=== PATIENT | female | born 1950 | race Caucasian/White ===

== ENCOUNTER → 2023-03-15 | Outpatient (CLI) | payer MEDICARE ==
--- NOTE | 2023-03-15 19:57 | XR ---
EXAMINATION TYPE: XR shoulder complete 3 views RT DATE OF EXAM: 03/15/2023 Comparison: None Clinical History: 72-year-old female [id number] RT SHLD PAIN Findings: Mild marginal spurring at the AC joint. Subacromial space is preserved. No tendinous or bursal calcif ications. No acute fracture, subluxation, or dislocation seen. Some limitation due to overpenetration . Impression: There may be mild degenerative change at the AC joint. Exam limited by overpenetration. No acute osse ous abnormality seen.
== END | disposition home or self-care (01) ==
LOC: RADXRYALE 14:55
PROVIDERS: ATTEND Physician Assistant
DX: M25.511 Pain in right shoulder (principal)

== ENCOUNTER → 2023-04-10 | Outpatient (CLI) | payer MEDICARE, OTHER ==
--- NOTE | 2023-04-11 12:33 | MR ---
EXAMINATION TYPE: MR cervical spine wo con DATE OF EXAM: 04/10/2023 INDICATION: Patient age: Female; 72 years old; Reason for study: M43.22. Neck pain and numbness into arms, dizziness COMPARISON: None TECHNIQUE: Multi planar, multi sequence imaging was performed utilizing: T1-weighted, T2-weighted, an d turbo inversion recovery imaging of the cervical spine. IV Contrast: None FINDINGS: Alignment: The cervical vertebral bodies have preserved heights. Alignment is within normal limits gi trice patient positioning. Bones: Postsurgical changes throughout the cervical spine extending throughout the entire cervical sp ine with surgical changes and magnetic susceptibility artifact posteriorly and anteriorly. No bony ed carmen visualized on inversion recovery sequences. Cord: The spinal cord is unremarkable with regards to their signal intensity and morphology. Discs: Multilevel disc desiccation at the levels where visualized. C2-C3: No significant disc pathology. The spinal canal is patent. Bilateral facet and uncovertebral joint arthropathy are present with mild left neural foraminal stenosis. The right neural foramen is p atent. C3-C4: No significant disc pathology. The spinal canal is patent. Bilateral facet and uncovertebral joint arthropathy are present with mild to moderate bilateral neural foraminal stenosis. C4-C5: A disc appears surgically absent. There is ankylosis of the osseous structures. The spinal can al is patent. Bilateral facet and uncovertebral joint arthropathy are present with mild left neural foraminal stenosis. The right neural foramen is patent. C5-C6: No significant disc pathology. The spinal canal is patent. Bilateral facet and uncovertebral joint arthropathy are present with moderate bilateral neural foraminal stenosis. C6-C7: No significant disc pathology. The spinal canal is patent. Bilateral facet and uncovertebral joint arthropathy are present with moderate bilateral neural foraminal stenosis. C7-T1: No significant disc pathology. The spinal canal is patent. No neural foraminal stenosis. Other: T1-T2 moderate spinal canal stenosis secondary to disc bulging and osteophyte complex. IMPRESSION: Post surgical changes throughout the spine with patent spinal canal. Degeneration with neural foramin al varying degrees of stenosis as described above. T1-T2 moderate spinal canal stenosis secondary to disc bulging and osteophyte complex.
== END | disposition home or self-care (01) ==
LOC: RADMRIMAIN 20:45
PROVIDERS: ATTEND Family Medicine
DX: M43.22 Fusion of spine, cervical region (principal); M99.71 Connective tissue and disc stenosis of intervertebral foramina of cervical region; M47.812 Spondylosis without myelopathy or radiculopathy, cervical region; M51.34 Other intervertebral disc degeneration, thoracic region
CPT/HCPCS: 72141

== ENCOUNTER 2023-07-09 16:48 | Observation (INO) | payer MEDICARE ==
--- NOTE | 2023-07-09 17:38 | ED ---
General Adult HPI - General Source: patient Mode of arrival: ambulatory Limitations: no limitations <Tabatha Brand - Last Filed: 07/09/23 17:33> - General Source: patient, RN notes reviewed Mode of arrival: ambulatory Limitations: no limitations <Matt Cowart - Last Filed: 07/09/23 19:20> - General Chief complaint: Chest Pain Stated complaint: Abnormal labs,sob Time Seen by Provider: 07/09/23 17:30 - History of Present Illness Initial comments: 73 year old female presents emergency department chief complaint of left-sided chest pain with associated shortness of breath. She states that this pain going on for about a month but worse. She saw her primary care provider who sent her in today. Past medical history includes lupus. No history of CHF, [place]. (Tabatha Brand) Patient is a pleasant 73-year-old female presenting to the emergency department with concerns with shortness of breath. Onset of symptoms was around 3 weeks ago. Symptoms have progressively worsened. Symptoms worsen with exertion. No history of similar symptoms previously. Patient does have some associated heaviness in her chest that is currently rated 6/10. Patient feels nauseated at this time. No diaphoresis. (Matt Cowart) - Related Data Allergies Allergy/AdvReac Type Severity Reaction Status Date / Time Penicillins Allergy Rash/Hives Verified 07/09/23 17:31 vancomycin Allergy Rash/Hives Verified 07/09/23 17:31 Review of Systems ROS Other: All systems not noted in ROS Statement are negative. <Tabatha Brand - Last Filed: 07/09/23 17:33> ROS Other: All systems not noted in ROS Statement are negative. Constitutional: Denies: fever Eyes: Denies: eye pain ENT: Denies: ear pain Respiratory: Reports: as per HPI, dyspnea Cardiovascular: Reports: chest pain, dyspnea on exertion Endocrine: Reports: fatigue Gastrointestinal: Denies: abdominal pain Genitourinary: Denies: dysuria Musculoskeletal: Denies: back pain Skin: Denies: rash <Matt Cowart - Last Filed: 07/09/23 19:20> ROS Statement: Those systems with pertinent positive or pertinent negative responses have been documented in the HPI. Past Medical History Past Medical History: Pneumonia Additional Past Medical History / Comment(s): lupus Past Surgical History: Adenoidectomy, Appendectomy, Bowel Resection, Cholecystectomy, Hysterectomy, Joint Replacement, Orthopedic Surgery, Tonsillectomy Additional Past Surgical History / Comment(s): carpal tunnel. cervical fusion <Tabatha Brand - Last Filed: 07/09/23 17:33> General Exam Limitations: no limitations <Tabatha Brand - Last Filed: 07/09/23 17:33> Limitations: no limitations General appearance: alert, in no apparent distress Head exam: Present: normocephalic Eye exam: Present: normal appearance Neck exam: Present: normal inspection Respiratory exam: Present: normal lung sounds bilaterally Cardiovascular Exam: Present: tachycardia GI/Abdominal exam: Present: soft. Absent: tenderness Extremities exam: Present: pedal edema (Trace bilateral). Absent: calf tenderness Neurological exam: Present: alert Psychiatric exam: Present: normal affect, normal mood Skin exam: Present: normal color <Matt Cowart - Last Filed: 07/09/23 19:20> - General Exam Comments Initial Comments: Visual Physical Exam Vital signs reviewed General: Well-appearing, nontoxic, no acute distress. Head: Normocephalic, atraumatic Eyes: PERRLA, EOMI ENT: Airway patent Chest: Nonlabored breathing Skin: No visual rash, normal skin tone Neuro: Alert and oriented 3 Musculoskeletal: No gross abnormalities (Tabatha Brand) Course Vital Signs 07/09/23 07/09/23 07/09/23 17:26 18:56 18:59 Temperature 98 F 98.2 F Pulse Rate 106 H 97 Pulse Rate [ 96 Photolithographic Stripper ] Respiratory 24 18 20 Rate Blood Pressure 143/77 123/88 O2 Sat by Pulse 95 96 Oximetry EKG Findings - EKG Results: EKG: interpreted by ERMD (Inferior Q waves), sinus rhythm, normal axis, normal ST/T <Matt Cowart - Last Filed: 07/09/23 19:20> Medical Decision Making <Tabatha Brand - Last Filed: 07/09/23 17:33> - Lab Data Result diagrams: 07/09/23 17:54 07/09/23 17:54 <Matt Cowart - Last Filed: 07/09/23 19:20> - Medical Decision Making I preformed the quick note portion of this chart. Electronically signed by Tabatha Brand PA-C (Tabatha Brand) Was pt. sent in by a medical professional or institution (ROSE Hickman, DRAWING KILN SUPERVISOR, urgent care, hospital, or intermediate...) When possible be specific @ -Patient did go to the clinic today and was advised to come to the emergency department. Did you speak to anyone other than the patient for history (EMS, parent, family, police, friend...)? What history was obtained from this source @ -Family is present and helps confirm history including recent visit. Did you review nursing and triage notes (agree or disagree)? Why? @ -I reviewed and agree with nursing and triage notes Were old charts reviewed (outside hosp., previous admission, EMS record, old EKG, old radiological studies, urgent care reports/EKG's, intermediate records)? Report findings @ -No old charts were reviewed Differential Diagnosis (chest pain, altered mental status, abdominal pain women, abdominal pain men, vaginal bleeding, weakness, fever, dyspnea, syncope, headache, dizziness, GI bleed, back pain, seizure, CVA, palpatations, mental health, musculoskeletal)? @ -Differential Chest Pain: Stable Angina, Unstable Angina, STEMI, NSTEMI Aortic Dissection, Pneumothorax, Musculoskeletal, Esophageal Spasm GERD, Cholecystitis, Pancreatitis, Zoster, this is not meant to be an all-inclusive list. EKG interpreted by me (3pts min.). @ -As above X-rays interpreted by me (1pt min.). @ -Chest x-ray shows possible mild interstitial changes CT interpreted by me (1pt min.). @ -None done U/S interpreted by me (1pt. min.). @ -None done What testing was considered but not performed or refused? (CT, X-rays, U/S, labs)? Why? @ -Consider further testing for PE however age d-dimer is within normal limits. What meds were considered but not given or refused? Why? @ -None Did you discuss the management of the patient with other professionals (professionals i.e. ROSE Hickman, DRAWING [employer] SUPERVISOR, lab, RT, psych nurse, social scientist, deck engine operator, teacher, collection officer, nurse case management)? Give summary @ -Case was discussed with Dr. Anderson, who will admit for Dr. Rosado. Was smoking cessation discussed for >3mins.? @ -No Was critical care preformed (if so, how long)? @ -No Were there social determinants of health that impacted care today? How? (Homelessness, low income, unemployed, alcoholism, drug addiction, transpor tation, low edu. Level, literacy, decrease access to med. care, usp, rehab)? @ -No Was there de-escalation of care discussed even if they declined (Discuss DNR or withdrawal of care, Hospice)? DNR status @ -No What co-morbidities impacted this encounter? (DM, HTN, Smoking, COPD, CAD, Cancer, CVA, ARF, Chemo, Hep., AIDS, mental health diagnosis, sleep apnea, morbid obesity)? @ -None Was patient admitted / discharged? Hospital course, mention meds given and route, prescriptions, significant lab abnormalities, going to OR and other pertinent info. @ -Patient reevaluated and mildly improved with nitroglycerin. Patient symptoms are concerning. Patient will be admitted with cardiology consult. Admission orders written. Undiagnosed new problem with uncertain prognosis? @ -No Drug Therapy requiring intensive monitoring for toxicity (Heparin, Nitro, Insulin, Cardizem)? @ -No Were any procedures done? @ -No Diagnosis/symptom? @ -Chest pain Acute, or Chronic, or Acute on Chronic? @ -Acute Uncomplicated (without systemic symptoms) or Complicated (systemic symptoms)? @ -default Side effects of treatment? @ -No Exacerbation, Progression, or Severe Exacerbation? @ -No Poses a threat to life or bodily function? How? (Chest pain, [place], [place], pneumonia, PE, COPD, DKA, ARF, appy, cholecystitis, CVA, Diverticulitis, Homicidal, Suicidal, threat to staff... and all critical care pts) @ -No (Matt Cowart) - Lab Data Lab Results 07/09/23 07/09/23 07/09/23 Range/Units 17:54 17:54 17:54 WBC 9.8 (3.8-10.6) k/uL RBC 4.73 (3.80-5.40) m/uL Hgb 14.2 (11.4-16.0) gm/dL Hct 43.2 (34.0-46.0) % MCV 91.3 (80.0-100.0) fL MCH 29.9 (25.0-35.0) pg MCHC 32.8 (31.0-37.0) g/dL RDW 13.1 (11.5-15.5) % Plt Count 381 (150-450) k/uL MPV 7.1 Neutrophils % 69 % Lymphocytes % 22 % Monocytes % 5 % Eosinophils % 2 % Basophils % 0 % Neutrophils # 6.7 (1.3-7.7) k/uL Lymphocytes # 2.2 (1.0-4.8) k/uL Monocytes # 0.5 (0-1.0) k/uL Eosinophils # 0.2 (0-0.7) k/uL Basophils # 0.0 (0-0.2) k/uL PT 9.7 (9.0-12.0) sec INR 0.9 (<1.2) APTT 25.8 (22.0-30.0) sec D-Dimer (<0.60) mg/L FEU Sodium 136 L (137-145) mmol/L Potassium 4.4 (3.5-5.1) mmol/L Chloride 103 (98-107) mmol/L Carbon Dioxide 24 (22-30) mmol/L Anion Gap 9 mmol/L BUN 10 (7-17) mg/dL Creatinine 0.71 (0.52-1.04) mg/dL Est GFR (CKD-EPI)AfAm >90 (>60 ml/min/1.73 sqM) Est GFR (CKD-EPI)NonAf 86 (>60 ml/min/1.73 sqM) Glucose 97 (74-99) mg/dL Calcium 10.1 (8.4-10.2) mg/dL Magnesium 2.0 (1.6-2.3) mg/dL Total Bilirubin 0.5 (0.2-1.3) mg/dL AST 22 (14-36) U/L ALT 20 (4-34) U/L Alkaline Phosphatase 141 H (38-126) U/L Troponin I (0.000-0.034) ng/mL NT-Pro-B Natriuret Pep 52 pg/mL Total Protein 7.6 (6.3-8.2) g/dL Albumin 4.3 (3.5-5.0) g/dL 07/09/23 07/09/23 Range/Units 17:54 18:20 WBC (3.8-10.6) k/uL RBC (3.80-5.40) m/uL Hgb (11.4-16.0) gm/dL Hct (34.0-46.0) % MCV (80.0-100.0) fL MCH (25.0-35.0) pg MCHC (31.0-37.0) g/dL RDW (11.5-15.5) % Plt Count (150-450) k/uL MPV Neutrophils % % Lymphocytes % % Monocytes % % Eosinophils % % Basophils % % Neutrophils # (1.3-7.7) k/uL Lymphocytes # (1.0-4.8) k/uL Monocytes # (0-1.0) k/uL Eosinophils # (0-0.7) k/uL Basophils # (0-0.2) k/uL PT (9.0-12.0) sec INR (<1.2) APTT (22.0-30.0) sec D-Dimer 0.64 H (<0.60) mg/L FEU Sodium (137-145) mmol/L Potassium (3.5-5.1) mmol/L Chloride (98-107) mmol/L Carbon Dioxide (22-30) mmol/L Anion Gap mmol/L BUN (7-17) mg/dL Creatinine (0.52-1.04) mg/dL Est GFR (CKD-EPI)AfAm (>60 ml/min/1.73 sqM) Est GFR (CKD-EPI)NonAf (>60 ml/min/1.73 sqM) Glucose (74-99) mg/dL Calcium (8.4-10.2) mg/dL Magnesium (1.6-2.3) mg/dL Total Bilirubin (0.2-1.3) mg/dL AST (14-36) U/L ALT (4-34) U/L Alkaline Phosphatase (38-126) U/L Troponin I <0.012 (0.000-0.034) ng/mL NT-Pro-B Natriuret Pep pg/mL Total Protein (6.3-8.2) g/dL Albumin (3.5-5.0) g/dL Disposition <Tabatha Brand - Last Filed: 07/09/23 17:33> Is patient prescribed a controlled substance at d/c from ED?: No Time of Disposition: 19:20 <Matt Cowart - Last Filed: 07/09/23 19:20> Clinical Impression: Chest pain Disposition: ADMITTED IP TO THIS HOSP Referrals: None,Stated [REFERRING] - 1-2 days
[2023-07-09 18:16] LABS: Basophils % (A) 0 %; Eosinophils # (A) 0.2 k/uL (0-0.7); Eosinophils % (A) 2 %; HCT 43.2 % (34.0-46.0); HGB 14.2 gm/dL (11.4-16.0); Lymphocytes # (A) 2.2 k/uL (1.0-4.8); Lymphocytes % (A) 22 %; MCH 29.9 pg (25.0-35.0); MCHC 32.8 g/dL (31.0-37.0); MCV 91.3 fL (80.0-100.0); Mean Platelet Volume 7.1; Monocytes # (A) 0.5 k/uL (0-1.0); Monocytes % (A) 5 %; Neutrophils # (A) 6.7 k/uL (1.3-7.7); Neutrophils % (A) 69 %; Platelet Count 381 k/uL (150-450); RBC 4.73 m/uL (3.80-5.40); RDW 13.1 % (11.5-15.5); WBC 9.8 k/uL (3.8-10.6)
[2023-07-09] MEDS ORDERED: ASPIRIN 81 MG PO STA (18:18)
[2023-07-09] MEDS ORDERED: NITROGLYCERIN SL TABS 0.4 MG TAB SUBLINGUAL STA ×2 (18:18→18:56)
[2023-07-09] MEDS ORDERED: ONDANSETRON 4 MG/2 ML VIAL IVP STA (18:19)
[2023-07-09 18:24] LABS: ALT 20 U/L (4-34); AST 22 U/L (14-36); African American GFR (CKD) >90 (>60 ml/min/1.73 sqM); Albumin 4.3 g/dL (3.5-5.0); Alkaline Phosphatase 141 U/L (38-126); Anion Gap 9 mmol/L; Blood Urea Nitrogen 10 mg/dL (7-17); Calcium 10.1 mg/dL (8.4-10.2); Carbon Dioxide 24 mmol/L (22-30); Chloride 103 mmol/L (98-107); Glucose 97 mg/dL (74-99); Non-African American GFR(CKD) 86 (>60 ml/min/1.73 sqM); Potassium 4.4 mmol/L (3.5-5.1); Sodium 136 mmol/L (137-145); Total Bilirubin 0.5 mg/dL (0.2-1.3); Total Protein 7.6 g/dL (6.3-8.2)
[2023-07-09 18:25] LABS: INR 0.9 (<1.2); Partial Thromboplastin Time 25.8 sec (22.0-30.0); Prothrombin Time 9.7 sec (9.0-12.0)
--- NOTE | 2023-07-09 18:31 | XR ---
EXAMINATION TYPE: XR chest 2V DATE OF EXAM: 07/09/2023 6:20 PM CLINICAL INDICATION:Female, 73 years old with history of Chest Pain; PHH COMPARISON: Chest none TECHNIQUE: XR chest 2V Frontal and lateral views of the chest. FINDINGS: Lungs/Pleura: Low lung volumes are present. There is no evidence of pleural effusion, focal consolida tion, or pneumothorax. Pulmonary vascularity: Unremarkable. Heart/mediastinum: Cardiomediastinal silhouette is unremarkable. Musculoskeletal: No acute osseous pathology. There is fixation hardware in the lower cervical spine. IMPRESSION: Low lung volumes with a generalized hazy appearance which could represent atelectasis versus pulmonar y edema correlate with serum BNP.
[2023-07-09 18:33] LABS: NT-Pro-B-Type Natriuretic Pept 52 pg/mL
[2023-07-09] MEDS ORDERED: ACETAMINOPHEN TAB 500 MG TAB PO STA (18:56)
[2023-07-09] MEDS ORDERED: NITROGLYCERIN SL TABS 0.4 MG TAB SUBLINGUAL PRN (19:20)
[2023-07-09] MEDS: NITROGLYCERIN OINT 1 INCH/GM PACKET TOPICAL SCH (23:58)
[2023-07-10] MEDS ORDERED: LORazepam 1 MG TAB PO STA (00:06)
[2023-07-10] MEDS ORDERED: ATORVASTATIN 80 MG TAB PO STA (02:11)
--- NOTE | 2023-07-10 02:12 | P.HPIM ---
History of Present Illness H&P Date: 07/09/23 Patient is a 73-year-old female with a PMH of SLE, hyperlipidemia, GERD, depression and anxiety, who presents to the emergency room with complaints of chest tightness and shortness of breath. The patient reports that over the past few weeks, she has been experienced gradually worsening exertional chest tightness and dyspnea. Reports that her symptoms have worsened acutely over the past few days to the point where she is unable to perform her ADLs. She denied experiencing chest discomfort at rest. Reports severe 10 out of 10 chest tightness with minimal ambulation with associated shortness of breath, diaphoresis, dizziness, or palpitations. Reported feeling pain-free at the time of interview as she was resting in bed. Does report a chronic nonproductive cough over the past 6 months which she attributes to possible mold and mildew issue in her home for which she has been taking multiple [id number] medications with minimal relief. Does report a history of 2 cardiac catheteriz ations which were unremarkable as per patient. In the emergency room, EKG revealed sinus tachycardia at 10 8 bpm with Q waves in lead 3 and T-wave inversion in lead V2 with no additional ST/T-wave changes noted as reviewed by me. Chest x-ray revealed findings consistent with possible fluid overload. Laboratory evaluation was remarkable for troponin less than 0.012 with d-dimer 0.64, and proBNP 52. ED documentation reviewed and case discussed with ED provider. Review of systems: Pertinent positives and negatives as discussed in HPI, a complete review of systems was performed and all other systems are negative. Physical examination: Vital signs reviewed General: non toxic, no distress, appears at stated age, obese Derm: no unusual rashes/lesions, warm Head: atraumatic, normocephalic, symmetric Eyes: EOMI, no lid lag, anicteric sclera, pupils equal round reactive to light ENT: Nose and ears atraumatic Neck: No cervical lymphadenopathy, trachea midline, supple Mouth: no lip lesion, mucus membranes moist Cardiovascular: S1S2 reg, no murmur, positive dorsalis pedis pulse bilateral, no edema Lungs: CTA bilateral, no rhonchi, no rales, no accessory muscle use Abdominal: soft, nontender to palpation, no guarding Ext: muscle strength 5 out of 5 in all 4 extremities grossly, no gross muscle atrophy, no contractures, Neuro: CN II-XI grossly intact, no gross focal neuro deficits Psych: Alert, oriented, appropriate affect Assessment: Chest pain, rule out ACS Chronic nonproductive cough Chronic conditions: SLE, hyperlipidemia, GERD Imaging: EKG revealed sinus tachycardia at 10 8 bpm with Q waves in lead 3 and T-wave inversion in lead V2 with no additional ST/T-wave changes noted as reviewed by me. Chest x-ray revealed findings consistent with possible fluid overload. Data Review: Laboratory evaluation was remarkable for troponin less than 0.012 with d-dimer 0.64, and proBNP 52. Plan: Cardiology consulted Trend troponin Cardiac monitoring Continue with aspirin and statin Echocardiogram ordered Continue with Toprol 25 mg by mouth daily at bedtime DVT prophylaxis: Lovenox The patient is admitted with an anticipated less than 2 midnight stay for evaluation of chest pain CODE STATUS: Full Code Discussed with: Patient Anticipated discharge place: Home Past Medical History Past Medical History: Pneumonia Additional Past Medical History / Comment(s): lupus Past Surgical History: Adenoidectomy, Appendectomy, Bowel Resection, Cholecystectomy, Hysterectomy, Joint Replacement, Orthopedic Surgery, Tonsillectomy Additional Past Surgical History / Comment(s): carpal tunnel. cervical fusion - Past Family History Mother Family Medical History: Hypertension Medications and Allergies Home Medications Medication Instructions Recorded Confirmed Type Amitriptyline HCl [Elavil] 25 mg PO HS 07/09/23 07/09/23 History Atorvastatin [Lipitor] 20 mg PO HS 07/09/23 07/09/23 History DULoxetine HCL [Cymbalta] 60 mg PO HS 07/09/23 07/09/23 History Hydroxychloroquine Sulfate 400 mg PO HS 07/09/23 07/09/23 History [Plaquenil] Levocetirizine Dihydrochloride 5 mg PO HS 07/09/23 07/09/23 History [Xyzal] Metoprolol Succinate (ER) [Toprol 25 mg PO HS 07/09/23 07/09/23 History Xl] Montelukast Sodium 10 mg PO HS 07/09/23 07/09/23 History tiZANidine HCL [Zanaflex] 2 mg PO HS 07/09/23 07/09/23 History Allergies Allergy/AdvReac Type Severity Reaction Status Date / Time Penicillins Allergy Rash/Hives Verified 07/09/23 19:25 vancomycin Allergy Anaphylaxis Verified 07/09/23 19:25 Physical Exam Vitals: Vital Signs Temp Pulse Pulse Resp BP Pulse Ox 07/09/23 20:26 85 19 119/75 96 07/09/23 19:24 89 93 L 07/09/23 18:59 20 07/09/23 18:56 98.2 F 97 96 18 123/88 96 07/09/23 17:26 98 F 106 H 24 143/77 95 Intake and Output 07/09/23 07/09/23 07/09/23 06:59 14:59 22:59 Other: Weight 113.398 kg Results CBC & Chem 7: 07/09/23 17:54 07/09/23 17:54 Labs: Abnormal Lab Results - Last 24 Hours (Table) 07/09/23 07/09/23 Range/Units 17:54 18:20 D-Dimer 0.64 H (<0.60) mg/L FEU Sodium 136 L (137-145) mmol/L Alkaline Phosphatase 141 H (38-126) U/L
[2023-07-10] MEDS ORDERED: HEPARIN SODIUM,PORCINE 10,000 UNIT in SODIUM CHLORIDE 0.9% 1,000 ML IRRIGATION PRN (07:00)
[2023-07-10] MEDS ORDERED: HEPARIN SODIUM,PORCINE (1 ML) 2,500 UNIT in SODIUM CHLORIDE 0.9% 250 ML IRRIGATION PRN (07:00)
[2023-07-10] MEDS ORDERED: ASPIRIN 325 MG TAB PO SCH (09:00)
[2023-07-10 09:50] LABS: Chol/HDL Ratio 3.61 Ratio; LDL Cholesterol,Calculated 104.2 mg/dL (0.0-131.0)
[2023-07-10] MEDS ORDERED: ASPIRIN 325 MG TAB PO STA (10:54)
[2023-07-10] MEDS ORDERED: ALPRAZolam 0.25 MG TAB PO PRN (10:54)
[2023-07-10] MEDS ORDERED: ALPRAZolam 0.5 MG TAB PO PRN (10:54)
--- NOTE | 2023-07-10 11:01 | P.CRDCN ---
History of Present Illness History of present illness: HISTORY OF PRESENTING ILLNESS Pleasant 73-year-old female with history of hypertension, lupus, prior diverticulitis with perforated bowel, prior issues with chest pains occasionally requiring nitro as well as prior heart catheterizations from 2012 who presents secondary to increase in episodes of chest pain. She states since she moved to the area she has been having increased dyspnea with exertion as well as a cough. Additionally however she has been having chest tightness worse with exertion and improved with rest associated with nausea or diaphoresis and shortness of breath. She states this has been worsening. She denies any obvious source for this. She believes may be related to black mold. She is unsure why her prior heart catheterization for 11 years ago showed. She had more significant episode and therefore came to emergency department. He shows minimal J-point elevation without significant ST or T wave abnormalities. Troponins negative 3. Ddimer mildly elevated at 0.6. REVIEW OF SYSTEMS At the time of my exam: CONSTITUTIONAL: Denies fever or chills. CARDIOVASCULAR: +chest pain, +shortness of breath, no orthopnea, PND or palpitations. RESPIRATORY: +cough. GASTROINTESTINAL: Denies abdominal pain, diarrhea, constipation, nausea or vomiting. MUSCULOSKELETAL: Denies myalgias. NEUROLOGIC: Denies numbness, tingling or weakness. ENDOCRINE: Denies fatigue, weight change, polydipsia or polyurina. GENITOURINARY: Denies burning, hematuria or urgency with micturation. HEMATOLOGIC: Denies history of anemia or bleeding. PHYSICAL EXAMINATION Vital signs reviewed. CONSTITUTIONAL: No apparent distress. HEENT: Head is normocephalic. Pupils are equal, round. Sclerae anicteric. Mucous membranes of the mouth are moist. No JVD. No carotid bruit. CHEST EXAMINATION: Lungs are clear to auscultation. No chest wall tenderness is noted on palpation or with deep breathing. HEART EXAMINATION: Regular rate and rhythm. S1, S2 heard. No murmurs, gallops or rub. ABDOMEN: Soft, nontender. Positive bowel sounds. EXTREMITIES: 2+ peripheral pulses, no lower extremity edema and no calf tenderness. NEUROLOGIC EXAMINATION: Patient is awake, alert and oriented x3. ASSESSMENT 1. New-onset chest pain worsening recently unstable angina 2. HTN 3. Hyperlipidemia 4. Cough may be related to black mold exposure PLAN Is having classic symptoms of chest pain, shortness breath, nausea or diaphoresis worse with exertion and improved with rest. We therefore discussed definitive evaluation with heart catheterization patient agreeable. Check 2-D echo. If unrevealing patient may be discharged home later. Further recommendations to follow. Past Medical History Past Medical History: Pneumonia Additional Past Medical History / Comment(s): lupus Past Surgical History: Adenoidectomy, Appendectomy, Bowel Resection, Cholecystectomy, Hysterectomy, Joint Replacement, Orthopedic Surgery, Tonsillectomy Additional Past Surgical History / Comment(s): carpal tunnel. cervical fusion - Past Family History Mother Family Medical History: Hypertension Medications and Allergies Home Medications Medication Instructions Recorded Confirmed Type Amitriptyline HCl [Elavil] 25 mg PO HS 07/09/23 07/09/23 History Atorvastatin [Lipitor] 20 mg PO HS 07/09/23 07/09/23 History DULoxetine HCL [Cymbalta] 60 mg PO HS 07/09/23 07/09/23 History Hydroxychloroquine Sulfate 400 mg PO HS 07/09/23 07/09/23 History [Plaquenil] Levocetirizine Dihydrochloride 5 mg PO HS 07/09/23 07/09/23 History [Xyzal] Metoprolol Succinate (ER) [Toprol 25 mg PO HS 07/09/23 07/09/23 History Xl] Montelukast Sodium 10 mg PO HS 07/09/23 07/09/23 History tiZANidine HCL [Zanaflex] 2 mg PO HS 07/09/23 07/09/23 History Allergies Allergy/AdvReac Type Severity Reaction Status Date / Time Penicillins Allergy Rash/Hives Verified 07/09/23 19:25 vancomycin Allergy Anaphylaxis Verified 07/09/23 19:25 Physical Exam Vitals: Vital Signs Temp Pulse Pulse Resp BP Pulse Ox 07/10/23 08:30 93 L 07/10/23 06:45 93 19 132/86 96 07/10/23 06:11 79 19 07/10/23 01:56 80 19 07/10/23 00:38 85 19 114/91 93 L 07/10/23 00:13 79 19 118/77 07/09/23 22:08 80 19 107/66 94 L 07/09/23 20:26 85 19 119/75 96 07/09/23 19:24 89 93 L 07/09/23 18:59 20 09/18/23 18:56 98.2 F 97 96 18 123/88 96 07/09/23 17:26 98 F 106 H 24 143/77 95 Intake and Output 07/09/23 07/10/23 07/10/23 22:59 06:59 14:59 Other: Weight 113.398 kg Results 07/09/23 17:54 07/09/23 17:54 Cardiac Enzymes 07/09/23 07/09/23 07/09/23 Range/Units 17:54 17:54 19:38 AST 22 (14-36) U/L Troponin I <0.012 <0.012 (0.000-0.034) ng/mL 07/09/23 Range/Units 23:06 AST (14-36) U/L Troponin I <0.012 (0.000-0.034) ng/mL Coagulation 07/09/23 Range/Units 17:54 PT 9.7 (9.0-12.0) sec APTT 25.8 (22.0-30.0) sec Lipids 07/09/23 Range/Units 17:54 Triglycerides 198.00 H (0.00-149.00) mg/dL Cholesterol 199.00 (0.00-200.00) mg/dL HDL Cholesterol 55.20 (40.00-60.00) mg/dL Cholesterol/HDL Ratio 3.61 Ratio CBC 07/09/23 Range/Units 17:54 WBC 9.8 (3.8-10.6) k/uL RBC 4.73 (3.80-5.40) m/uL Hgb 14.2 (11.4-16.0) gm/dL Hct 43.2 (34.0-46.0) % Plt Count 381 (150-450) k/uL Comprehensive Metabolic Panel 07/09/23 Range/Units 17:54 Sodium 136 L (137-145) mmol/L Potassium 4.4 (3.5-5.1) mmol/L Chloride 103 (98-107) mmol/L Carbon Dioxide 24 (22-30) mmol/L BUN 10 (7-17) mg/dL Creatinine 0.71 (0.52-1.04) mg/dL Glucose 97 (74-99) mg/dL Calcium 10.1 (8.4-10.2) mg/dL AST 22 (14-36) U/L ALT 20 (4-34) U/L Alkaline Phosphatase 141 H (38-126) U/L Total Protein 7.6 (6.3-8.2) g/dL Albumin 4.3 (3.5-5.0) g/dL Current Medications Generic Name Dose Route Start Last Admin Trade Name Freq PRN Reason Stop Dose Admin Alprazolam 0.25 mg 07/10/23 10:54 Alprazolam 0.25 Mg Tab PO Q6HR PRN Mild Anxiety Alprazolam 0.5 mg 07/10/23 10:54 Alprazolam 0.5 Mg Tab PO Q6HR PRN Moderate Anxiety Amitriptyline HCl 25 mg 07/10/23 21:00 Amitriptyline Hcl 25 Mg Tab PO HS AURE Aspirin 325 mg 07/10/23 09:00 07/10/23 08:28 Aspirin 325 Mg Tab PO 325 mg DAILY AURE Administration Aspirin 325 mg 07/10/23 10:54 Aspirin 325 Mg Tab PO 07/10/23 10:55 ONCE STA Atorvastatin Calcium 20 mg 07/10/23 21:00 Atorvastatin 20 Mg Tab PO HS AURE Duloxetine HCl 60 mg 07/10/23 21:00 Duloxetine Hcl 60 Mg Capsule.Dr PO HS AURE Heparin Sodium (Porcine) 10, 1,001 mls @ 999 mls/hr 07/11/23 07:00 000 unit/ Sodium Chloride IRRIGATION 07/11/23 23:00 ONCE PRN INTRA-OP Heparin Sodium (Porcine) 2,500 250.5 mls @ 250 mls/hr 07/11/23 07:00 unit/ Sodium Chloride IRRIGATION 07/11/23 23:00 ONCE PRN INTRA-OP Loratadine 10 mg 07/10/23 21:00 Loratadine 10 Mg Tab PO HS AURE Metoprolol Succinate 25 mg 07/10/23 21:00 Metoprolol Succinate (Er) 25 Mg Tab.Er.24h PO HS AURE Montelukast Sodium 10 mg 07/10/23 21:00 Montelukast 10 Mg Tab PO HS AURE Nitroglycerin 0.4 mg 07/09/23 19:20 Nitroglycerin Sl Tabs 0.4 Mg Tab SUBLINGUAL Q5M PRN Chest Pain Nitroglycerin 1 inch 07/10/23 00:00 07/09/23 23:58 Nitroglycerin Oint 1 Inch/Gm Packet TOPICAL Not Given Q6HR AURE Sodium Chloride 10 ml 07/09/23 21:00 07/10/23 08:33 Sodium Chloride 0.9% Flush 10 Ml Syringe IV 10 ml BID AURE Administration Tizanidine HCl 2 mg 07/10/23 21:00 Tizanidine 4 Mg Tab PO HS [facility] Intake and Output 07/09/23 07/10/23 07/10/23 22:59 06:59 14:59 Other: Weight 113.398 kg 07/09/23 17:54 07/09/23 17:54
[2023-07-10] MEDS ORDERED: KETOROLAC 15 MG/ML 1 ML VIAL IVP STA (11:05)
[2023-07-10] MEDS: NITROGLYCERIN OINT 1 INCH/GM PACKET TOPICAL SCH ×3 (11:41→23:23)
[2023-07-10] MEDS ORDERED: SODIUM CHLORIDE 0.9% 1,000 ML IV STA (12:27)
[2023-07-10] MEDS ORDERED: VERAPAMIL 2.5 MG/ML 2 ML AMP ONE (14:02)
[2023-07-10] MEDS ORDERED: HEPARIN SODIUM 1,000 UN/ML (10ML VL) ONE (14:08)
[2023-07-10] MEDS ORDERED: fentaNYL (PF) 50 MCG/ML 2 ML AMP ONE (14:08)
[2023-07-10] MEDS ORDERED: SODIUM CHLORIDE 0.9% 1,000 ML IV ONE (14:20)
[2023-07-10] MEDS: fentaNYL (PF) 50 MCG/1 ML VIAL IVP ONE ×2 (14:25→14:35)
[2023-07-10] MEDS: MIDAZOLAM 2 MG/2 ML VIAL IVP ONE ×2 (14:25→14:35)
[2023-07-10] MEDS ORDERED: LIDOCAINE 2% (PF) 20 MG/ML 5 ML VIAL SQ ONE (14:29)
[2023-07-10] MEDS ORDERED: VERAPAMIL SYRINGE (5 MG/10 ML) INTRAARTER ONE (14:30)
[2023-07-10] MEDS ORDERED: HEPARIN SODIUM 1,000 UN/ML (10ML VL) IV ONE (14:35)
--- NOTE | 2023-07-10 16:40 | P.CARDCATH ---
Description of Procedure: PROCEDURES PERFORMED: Left heart catheterization, bilateral coronary angiography, ultrasound guided arterial access INDICATION: Chest pain concerning for unstable angina CONSENT:I have discussed the risks, benefits and alternative therapies for the above-mentioned procedure and for both sedation/analgesia as well as necessary blood product administration, if indicated, as they pertain to this patient. The patient has indicated understanding and acceptance of the risks and procedures discussed. PROCEDURE: After the risks, benefits and alternatives of the above mentioned procedure explained in detail with the patient, informed consent was obtained. Patient was taken to the catheterization lab and prepped and draped in usual fashion. Ultrasound guidance was used to assess for arterial access. 1% lidocaine was used to anesthetize the right radial artery. A 6-Macedonian sheath was placed in the right radial artery using modified Seldinger technique and ultrasound guidance. Left coronary angiography was performed with a 5-Macedonian JL 3.5 catheter and right coronary angiography was performed with a 5-Macedonian JR5 catheter in various views. A 5-Macedonian FR5 catheter was inserted into the left ventricle and pressure measurements were obtained. There had been technical difficulties with iFR/FFR and therefore no functional assessment was performed. The right radial sheath was removed and a TR band was placed with hemostasis achieved. The patient tolerated the procedure well. Patient was transported back to the post catheterization holding area in stable condition. Conscious Sedation: Patient was monitored under the direct supervision of myself for conscious sedation using Versed and fentanyl for a total duration of 12 minutes HEMODYNAMICS: Aorta: 122/79 LV: 118/2, LVEDP 3 SELECTIVE CORONARY ARTERIOGRAPHY: LEFT MAIN: The left main is a large caliber vessel which bifurcates into the LAD and circumflex. There is no significant stenosis. LEFT ANTERIOR DESCENDING CORONARY ARTERY: LAD is a large caliber vessel which stops short of the apex with the apex supplied by the PDA. There is mild proximal LAD 20% stenosis and then a moderate caliber diagonal 1 branch without significant stenosis. After the diagonal 1 branch, there is a mid LAD 60-70% stenosis. LEFT CIRCUMFLEX CORONARY ARTERY: Left circumflex is a moderate caliber vessel without significant stenosis. RIGHT CORONARY ARTERY: The right coronary artery is a very large caliber vessel which gives off a PDA and PLV branch and is the dominant vessel. There is mild mid RCA 10% stenosis. The PDA supplies the apex. FINAL IMPRESSION: 1. Mild luminal irregularities and a more focal mid LAD 60-70% stenosis. 2. Normal left sided filling pressures PLAN: 1. Aggressive risk factor modification per most recent ACC/AHA guidelines. 2. Trial antianginals. If patient having more significant angina may consider stress testing or repeat catheterization with functional assessment of LAD lesion.
--- NOTE | 2023-07-10 17:46 | P.PN ---
Subjective Progress Note Date: 07/10/23 (delayed charting seen at 0900) Patient is a 73-year-old female with history of lupus on plaquinil, HLD, and GERD who presented with complaints of chest pain and shortness of breath. In t ER she underwent an extensive evaluation. On arrival is noted to be tachycardic with a pulse of 106. Initial laboratory analysis was remarkable for sodium 136, alkaline phosphatase 141, triglycerides 198, d-dimer 0.64 (which is normal for age), and a troponin of 0.012. Initial EKG was nonischemic. Arrangements are made for admission for workup of unstable angina. She was seen by cardiology who recommended cardiac catheterization which was completed on 07/10 and showed mild luminal irregularities with a more focal mid LAD 60-70% stenosis they recommended a trial of anti-anginal benefit patient continues to have significant angina will consider stress testing or repeat with functional a ssessment of LAD lesion. Patient seen and examined at bedside. She continues to have some intermittent chest pain even at rest. She reports that she did not think her Plaquenil was helping with her joint pain and she did a 3 week trial off of this at the direction of her primary care physician study assistant but it did not help and she then restarted the Plaquenil. She has not seen a canvas marker since moving here in December. She has been having significant fatigue and shortness of breath. She is unable to ambulate even short distances at this time. We discussed that if her workup for ischemic heart disease is negative we should consider rheumatologic evaluation for possible pulmonary manifestations. She complain of a FONTENOT that stated with nitro. Vital signs reviewed General: nontoxic, no distress, appears at stated age Cardiovascular: S1S2 reg, no murmur, positive posterior tibial pulse bilateral, Lungs: CTA bilateral, no rhonchi, no rales , no accessory muscle use Abdominal: soft, nontender to palpation, no guarding, no appreciable organomegaly Ext: no gross muscle atrophy, no edema b/l lower extremities, no contractures Neuro: CN II-XI grossly intact, no focal neuro deficits Psych: Alert, oriented, appropriate affect Assessment/Plan: Chest pain Lupus Dyslipidemia -With 60-70% LAD lesion -Await echocardiogram -Consider outpatient pulmonary function testing and inpatient versus outpatient high-resolution CT given history of lupus and possible cardiac or pulmonary involvement and -Stat ESR and CRP were checked which were within normal limits but not necessarily elevated during these type of lupus exacerbations -Aspirin 81 mg daily -Metoprolol 25 mg at night -Singulair 10 mg at night -Norvasc 2.5 mg daily Headache - toradol 15 mg IVP X 1 Imaging: Cath- LAD 60-70% stenosis Data Review: Troponins reviewed and negative. ESR and CRP ordered. ESR 20, CRP 0.8 DVT prophylaxis: SCDS Anticipated discharge date: in AM Anticipated discharge place: home This dictation was prepared using [employer] voice recognition software. Though every attempt is made to correct errors during dictation some may still exist. Objective - Vital Signs Vital signs: Vital Signs Temp 98.2 F 07/09/23 18:56 Pulse 67 07/10/23 16:41 Resp 16 07/10/23 16:41 BP 120/66 07/10/23 16:41 Pulse Ox 98 07/10/23 16:41 FiO2 Intake & Output 07/09/23 07/10/23 07/10/23 18:59 06:59 18:59 Weight 113.398 kg - Labs CBC & Chem 7: 07/09/23 17:54 07/09/23 17:54 Labs: Abnormal Lab Results - Last 24 Hours (Table) 07/09/23 07/09/23 07/09/23 Range/Units 17:54 17:54 18:20 D-Dimer 0.64 H (<0.60) mg/L FEU Sodium 136 L (137-145) mmol/L Alkaline Phosphatase 141 H (38-126) U/L Triglycerides 198.00 H (0.00-149.00) mg/dL
[2023-07-10] MEDS: amLODIPine 2.5 MG TAB PO SCH (18:18)
[2023-07-10] MEDS ORDERED: ONDANSETRON 4 MG/2 ML VIAL IVP PRN (18:18)
[2023-07-10] MEDS ORDERED: ACETAMINOPHEN TAB 325 MG TAB PO PRN (18:18)
[2023-07-10] MEDS: SODIUM CHLORIDE 0.9% 1,000 ML IV SCH (18:20)
[2023-07-10] MEDS ORDERED: tiZANidine 4 MG TAB PO SCH (21:00)
[2023-07-10] MEDS ORDERED: AMITRIPTYLINE HCL 25 MG TAB PO SCH (21:00)
[2023-07-10] MEDS ORDERED: DULoxetine HCL 60 MG CAPSULE.DR PO SCH (21:00)
[2023-07-10] MEDS ORDERED: MONTELUKAST 10 MG TAB PO SCH (21:00)
[2023-07-10] MEDS ORDERED: ATORVASTATIN 20 MG TAB PO SCH (21:00)
[2023-07-10] MEDS ORDERED: LORATADINE 10 MG TAB PO SCH (21:00)
[2023-07-10] MEDS ORDERED: HYDROXYCHLOROQUINE SULFATE 200 MG TAB PO SCH (21:00)
[2023-07-10] MEDS ORDERED: METOPROLOL SUCCINATE (ER) 25 MG TAB.ER.24H PO SCH (21:00)
[2023-07-10] MEDS: ASPIRIN-ACET-CAFF 250-250-65MG 1 EACH TAB PO PRN (22:07)
[2023-07-11] MEDS: SODIUM CHLORIDE 0.9% 1,000 ML IV SCH ×2 (03:49→15:09)
[2023-07-11] MEDS: NITROGLYCERIN OINT 1 INCH/GM PACKET TOPICAL SCH ×3 (05:46→15:10)
[2023-07-11 07:21] VITALS: RESP 16
[2023-07-11] MEDS ORDERED: IPRATROPIUM-ALBUTEROL 3 ML NEB INHALATION PRN (08:07)
[2023-07-11] MEDS: amLODIPine 2.5 MG TAB PO SCH (08:15)
[2023-07-11] MEDS: ASPIRIN-ACET-CAFF 250-250-65MG 1 EACH TAB PO PRN (08:58)
[2023-07-11] MEDS ORDERED: ASPIRIN 81 MG PO SCH (09:00)
--- NOTE | 2023-07-11 10:48 | P.PN ---
Subjective Progress Note Date: 07/11/23 HISTORY OF PRESENTING ILLNESS Pleasant 73-year-old female with history of hypertension, lupus, prior diver ticulitis with perforated bowel, prior issues with chest pains occasionally requiring nitro as well as prior heart catheterizations from 2011 who presents secondary to increase in episodes of chest pain. She states since she moved to the area she has been having increased dyspnea with exertion as well as a cough. Additionally however she has been having chest tightness worse with exertion and improved with rest associated with nausea or diaphoresis and shortness of breath. She states this has been worsening. She denies any obvious source for this. She believes may be related to black mold. She is unsure why her prior heart catheterization for 11 years ago showed. She had more significant episode and therefore came to emergency department. He shows minimal J-point elevation without significant ST or T wave abnormalities. Troponins negative 3. Ddimer mildly elevated at 0.6. 07/11 Patient is seen today on the observation unit. Yesterday, she underwent a left heart catheterization which showed mild luminal irregularities and a more focal mid LAD 60-70% stenosis. Normal left-sided filling pressures. She states that she feels about the same from yesterday continues to have some lightheadedness when she gets up to the bathroom, continues to have cough that has been going on for couple weeks. She also complains of generalized weakness and sweats. She states that she can't catch her breath it is difficult to take a deep breath. She states after she gets a nebulizer treatment at home she usually coughs for quite a while to the point of vomiting at times. Patient has been afebrile, heart rate in the 80s, blood pressure 124/64 pulse ox 96% on 2 L nasal cannula. Sed rate 20, C-reactive protein 0.8. Complement C3 normal at 168 and complement C4 normal at 30.6. PHYSICAL EXAMINATION Vital signs reviewed. CONSTITUTIONAL: No apparent distress. HEENT: Head is normocephalic. Pupils are equal, round. Sclerae anicteric. Mucous membranes of the mouth are moist. No JVD. No carotid bruit. CHEST EXAMINATION: Lungs are clear to auscultation. No chest wall tenderness is noted on palpation or with deep breathing. HEART EXAMINATION: Regular rate and rhythm. S1, S2 heard. No murmurs, gallops or rub. ABDOMEN: Soft, nontender. Positive bowel sounds. EXTREMITIES: 2+ peripheral pulses, no lower extremity edema and no calf tenderness. NEUROLOGIC EXAMINATION: Patient is awake, alert and oriented x3. ASSESSMENT 1. New-onset chest pain worsening recently unstable angina 2. HTN 3. Hyperlipidemia 4. Cough may be related to black mold exposure PLAN It appears that patient's symptoms are most likely pulmonary related. We will add nebulizer treatment for evaluation of respiratory status. At this time, patient is cleared for discharge and may follow-up in the office. Nurse practitioner note has been reviewed, I agree with the documented findings and plan of care. Patient was seen and examined. Objective - Vital Signs Vital signs: Vital Signs Temp 97.7 F 07/11/23 07:00 Pulse 66 07/11/23 07:00 Resp 16 07/11/23 07:00 BP 124/64 07/11/23 07:00 Pulse Ox 96 07/11/23 07:00 FiO2 Intake & Output 07/10/23 07/11/23 07/11/23 18:59 06:59 18:59 Intake Total 200 Balance 200 Intake: IV 200 Other: # Voids 2 - Labs CBC & Chem 7: 07/09/23 17:54 07/09/23 17:54 Labs: Abnormal Lab Results - Last 24 Hours (Table) 07/09/23 Range/Units 17:54 Triglycerides 198.00 H (0.00-149.00) mg/dL
--- NOTE | 2023-07-11 12:31 | CT ---
EXAMINATION TYPE: CT chest angio for PE DATE OF EXAM: 07/11/2023 COMPARISON: None available. HISTORY: SOB, elevated d-dimer CT DLP: 779.8 mGycm Automated exposure control for dose reduction was used. CONTRAST: CT Chest for pulmonary embolism performed with with IV Contrast, patient injected with 80cc mL of Iso tammy 370. FINDINGS: LUNGS: The lungs are grossly clear, there is no concerning parenchymal mass or nodule identified. T here is no pleural effusion or pneumothorax seen. The tracheobronchial tree is patent. MEDIASTINUM: There is satisfactory enhancement of the pulmonary artery and its branches, there is no CT evidence for pulmonary embolism. There are no greater than 1 cm hilar or mediastinal lymph nodes. No pericardial effusion is seen. Coronary artery calcification is seen within the coronary arteri es. Upper abdomen: Partially visualized cyst within the kidneys. The gallbladder surgically absent. The r emainder the visualized upper abdomen appears unremarkable. Bones: There is some scattered degenerative disc changes seen throughout the spine. There are no acut e osseous abnormalities. OTHER: No additional significant abnormality is seen. IMPRESSION: 1. No evidence of pulmonary embolism. 2. No evidence of thoracic aortic aneurysm or dissection. 3. No evidence of pneumonia, pleural or pericardial effusions.
[2023-07-11 14:27] VITALS: BP 110/61; PULSE 74; TEMP 98.1
--- NOTE | 2023-07-11 17:43 | P.DS ---
Providers Date of admission: 07/09/23 19:23 Expected date of discharge: 07/11/23 Attending physician: Nanette Arenas MD Consults: 07/09/23 19:22 Consult Physician Urgent Consulting Provider: Bob Azar Consult Reason/Comments: cp Do you want consulting provider notified?: Yes Primary care physician: Natalio Avila Hospital Course: Discharge Diagnosis: Dyspnea, suspect due to decondition vs pulmonary involvement of lupus Non cardiac chest pain Chronic cough since exposure to mold Lupus Dyslipidemia Headache Hospital Course: Patient is a 73-year-old female with history of lupus on plaquinil, HLD, and GERD who presented with complaints of chest pain and shortness of breath. In the ER she underwent an extensive evaluation. On arrival is noted to be tachycardic with a pulse of 106. Initial laboratory analysis was remarkable for sodium 136, alkaline phosphatase 141, triglycerides 198, d-dimer 0.64 (which is normal for age), and a troponin of 0.012. Initial EKG was nonischemic. Arrangements are made for admission for workup of unstable angina. She was seen by cardiology who recommended cardiac catheterization which was completed on 07/10 and showed mild luminal irregularities with a more focal mid LAD 60-70% stenosis they recommended a trial of anti-anginal benefit patient continues to h ave significant angina will consider stress testing or repeat with functional assessment of LAD lesion. She underwent echo and CTA of the chest. Formal echo report pending at the time of discharge. CTA showed no pulmonary embolism, no pneumonia, no pleural or pericardial effusion. Her ESR, CRP adn complement levels were within normal limits. She did not have additional chest pain during her hospital stay but did have continued shortness of breath with exertion. She was cleared by cardiology for discharge. I recommended continued outpatient work-up for her cough and chronic dyspnea including pulmonary and rheumatologic evaluation. Follow-up: Dr. fernandes for PFTs and evaluation of chronic cough, Dr. Vasques for CAD, Dr. Sanchez for lupus, and Dr. Avila. Patient seen and examined at bedside. NO over chest pain, still with shortness of breath without wheezing with exertion. We discussed the importance of follow- up for non urgent conditions that could be effecting her breathing neema pulmonary function testing. Vital signs reviewed and stable. General: nontoxic, no distress, appears at stated age Cardiovascular: S1S2 reg, no murmur, positive posterior tibial pulse bilateral, Lungs: CTA bilateral, no rhonchi, no rales , no accessory muscle use Abdominal: soft, nontender to palpation, no guarding, no appreciable organomegaly Ext: no gross muscle atrophy, no edema b/l lower extremities, no contractures Neuro: CN II-XI grossly intact, no focal neuro deficits Psych: Alert, oriented, appropriate affect A total of 25 minutes of time were spent preparing this complex discharge summary. Patient was discharged on 07/11/23. This dictation was prepared using [employer] voice recognition software. Though every attempt is made to correct errors during dictation some may still exist. Patient Condition at Discharge: Stable Plan - Discharge Summary New Discharge Prescriptions: Continue Hydroxychloroquine Sulfate [Plaquenil] 400 mg PO HS Atorvastatin [Lipitor] 20 mg PO HS tiZANidine HCL [Zanaflex] 2 mg PO HS DULoxetine HCL [Cymbalta] 60 mg PO HS Amitriptyline HCl [Elavil] 25 mg PO HS Levocetirizine Dihydrochloride [Xyzal] 5 mg PO HS Metoprolol Succinate (ER) [Toprol XL] 25 mg PO HS Montelukast Sodium 10 mg PO HS Discharge Medication List Amitriptyline HCl [Elavil] 25 mg PO HS 07/09/23 [History] Atorvastatin [Lipitor] 20 mg PO HS 07/09/23 [History] DULoxetine HCL [Cymbalta] 60 mg PO HS 07/09/23 [History] Hydroxychloroquine Sulfate [Plaquenil] 400 mg PO HS 07/09/23 [History] Levocetirizine Dihydrochloride [Xyzal] 5 mg PO HS 07/09/23 [History] Metoprolol Succinate (ER) [Toprol XL] 25 mg PO HS 07/09/23 [History] Montelukast Sodium 10 mg PO HS 07/09/23 [History] tiZANidine HCL [Zanaflex] 2 mg PO HS 07/09/23 [History] Follow up Appointment(s)/Referral(s): Ashwin Vasques DO [STAFF PHYSICIAN] - 1 Week None,Stated [REFERRING] - 1-2 days Anabela Manley MD [STAFF PHYSICIAN] - 1 Week McPhilimy,Natalio, DO [Primary Care Provider] - 1 Week Artinian,Vasken, MD [STAFF PHYSICIAN] - 1 Week Patient Instructions/Handouts: *Surgery [facility] - After Heart Catheterization - Lock Expert Instructions, Chest Pain (DC) Activity/Diet/Wound Care/Special Instructions: Activity: as tolerated Diet: Heart healthy Special Instructions: Please ensure follow-up with rheumatology and pulmonary for further evaluation of your shortness of breath. Discharge Disposition: HOME SELF-CARE
--- NOTE | 2023-07-12 11:22 | CA ---
Transthoracic Echo Report Name: Mariam Espinoza Age: 73 Gender: F : 1950 Exam Date: 07/11/2023 11:13 Exam Location: [facility] Ht (in): 64 Wt (lb): 250 Ordering Physician: Keysha Alcocer DO Attending/Referring Phys: [id number], Carlyn Machine Assembler Supervisor Mireya Timmons RDCS Procedure CPT: Indications: Chest Pain Cardiac Hx: Technical Quality: Poor Contrast 1: Lumason Total Dose (mL): 4 Contrast 2: Total Dose (mL): MEASUREMENTS (Male / Female) Normal Values 2D ECHO LV Diastolic Diameter PLAX 3.6 cm 4.2 - 5.9 / 3.9 - 5.3 cm LV Systolic Diameter PLAX 2.9 cm IVS Diastolic Thickness 1.2 cm 0.6 - 1.0 / 0.6 - 0.9 cm LVPW Diastolic Thickness 1.2 cm 0.6 - 1.0 / 0.6 - 0.9 cm LV Relative Wall Thickness 0.7 M-MODE Aortic Root Diameter MM 3.4 cm LA Systolic Diameter MM 3.9 cm LA Ao Ratio MM 1.2 AV Cusp Separation MM 2.4 cm DOPPLER AV Peak Velocity 152.3 cm/s AV Peak Gradient 9.3 mmHg AV Mean Velocity 118.2 cm/s AV Mean Gradient 5.9 mmHg AV Velocity Time Integral 32.4 cm LVOT Peak Velocity 88.6 cm/s LVOT Peak Gradient 3.1 mmHg LVOT Velocity Time Integral 21.9 cm MV Area PHT 4.5 cm??? Mitral E Point Velocity 67.0 cm/s Mitral A Point Velocity 103.0 cm/s Mitral E to A Ratio 0.7 MV Deceleration Time 168.0 ms MV E' Velocity 6.7 cm/s Mitral E to MV E' Ratio 10.1 TR Peak Velocity 226.4 cm/s TR Peak Gradient 20.5 mmHg Right Ventricular Systolic Press 25.5 mmHg FINDINGS Left Ventricle Mildly increased left ventricular wall thickness. Left ventricular cavity size normal. Normal left ventricular systolic function with no obvious regional wall motion abnormalities. Left ventricular ejection fraction is estimated at 55 %. Right Ventricle Right ventricle not well visualized. Right Atrium Right atrium not well visualized. Left Atrium Normal left atrial size. Mitral Valve Mitral valve not well visualized. No mitral stenosis, regurgitation or prolapse. Aortic Valve No aortic valve stenosis or regurgitation. Tricuspid Valve Structurally normal tricuspid valve. [id number] tricuspid regurgitation. Pulmonic Valve Trace pulmonic regurgitation. Pericardium No pericardial effusion. Prominent epicardial fat. Aorta Normal size aortic root and proximal ascending aorta. CONCLUSIONS Left ventricular ejection fraction 55% No mitral regurgitation Mild to moderate tricuspid regurgitation No pericardial effusion Previewed by: Dr. Ashwin Vasques DO (Electronically Signed) Final Date: 12 July 2023 11:21
== END 2023-07-11 18:07 | disposition home or self-care (01) ==
LOC: EC 16:48 → 6NMEDSUR 19:23
PROVIDERS: ADMIT Family Medicine; ATTEND Family Medicine
DX: R07.89 Other chest pain (principal); M32.9 Systemic lupus erythematosus, unspecified; R06.00 Dyspnea, unspecified; I25.10 Atherosclerotic heart disease of native coronary artery without angina pectoris; I10 Essential (primary) hypertension; E78.5 Hyperlipidemia, unspecified; K21.9 Gastro-esophageal reflux disease without esophagitis; R11.2 Nausea with vomiting, unspecified; R61 Generalized hyperhidrosis; R00.0 Tachycardia, unspecified; R53.83 Other fatigue; R51.9 Headache, unspecified; T46.3X5A Adverse effect of coronary vasodilators, initial encounter; R05.3 Chronic cough; Z77.120 Contact with and (suspected) exposure to mold (toxic); F32.A Depression, unspecified; Z79.899 Other long term (current) drug therapy; Z88.0 Allergy status to penicillin; Z88.1 Allergy status to other antibiotic agents; F41.9 Anxiety disorder, unspecified; Z87.01 Personal history of pneumonia (recurrent); Z90.710 Acquired absence of both cervix and uterus; Z87.19 Personal history of other diseases of the digestive system; Z98.1 Arthrodesis status; Z96.60 Presence of unspecified orthopedic joint implant; Z90.49 Acquired absence of other specified parts of digestive tract; Z98.890 Other specified postprocedural states; Z82.49 Family history of ischemic heart disease and other diseases of the circulatory system
CPT/HCPCS: 96374; 96375; 99285; 36415; 94640; 93005; 93458; 76937; 86160 ×2; 85379; 86162; 83880; 80061; 80053; 85652; 83735; 84484; 85025; 85610; 85730; 86140; 71046; 71275; G0378 ×3; C8929; C1769 ×2; C1894; J2250; J2405; J1644; J1885; Q9950; Q9967; J2001; J3010; 93306

== ENCOUNTER 2023-09-03 09:36 | Observation (INO) | payer MEDICARE ==
--- NOTE | 2023-09-03 09:50 | ED ---
General Adult HPI - General Chief complaint: Chest Pain Stated complaint: CHEST PAIN Time Seen by Provider: 09/03/23 09:40 Source: patient, EMS, RN notes reviewed, old records reviewed Mode of arrival: EMS Limitations: no limitations - History of Present Illness Initial comments: This is a 73-year-old female who presents emergency Department complaining of intermittent chest pain or shortness of breath over a month. Patient states she had cardiac cath was told she had a 70% occlusion but no stent was placed. Patient states her difficulty breathing is worse with exertion. Patient denies any fever chills. Patient states she does have an occasional cough per patient swelling to the legs or calf tenderness. Patient denies any headache patient d enies any numbness weakness. Patient denies abdominal pain palpitations nausea vomiting diarrhea. - Related Data Home Medications Medication Instructions Recorded Confirmed Amitriptyline HCl [Elavil] 25 mg PO HS 07/09/23 07/09/23 Atorvastatin [Lipitor] 20 mg PO HS 07/09/23 07/09/23 DULoxetine HCL [Cymbalta] 60 mg PO HS 07/09/23 07/09/23 Hydroxychloroquine Sulfate 400 mg PO HS 07/09/23 07/09/23 [Plaquenil] Levocetirizine Dihydrochloride 5 mg PO HS 07/09/23 07/09/23 [Xyzal] Metoprolol Succinate (ER) [Toprol 25 mg PO HS 07/09/23 07/09/23 XL] Montelukast Sodium 10 mg PO HS 07/09/23 07/09/23 tiZANidine HCL [Zanaflex] 2 mg PO HS 07/09/23 07/09/23 Allergies Allergy/AdvReac Type Severity Reaction Status Date / Time Penicillins Allergy Rash/Hives Verified 07/09/23 19:25 vancomycin Allergy Anaphylaxis Verified 07/09/23 19:25 Review of Systems ROS Statement: Those systems with pertinent positive or pertinent negative responses have been documented in the HPI. ROS Other: All systems not noted in ROS Statement are negative. Past Medical History Past Medical History: Pneumonia Additional Past Medical History / Comment(s): lupus History of Any Multi-Drug Resistant Organisms: None Reported Past Surgical History: Adenoidectomy, Appendectomy, Bowel Resection, Cholecystectomy, Hysterectomy, Joint Replacement, Orthopedic Surgery, Tonsillectomy Additional Past Surgical History / Comment(s): carpal tunnel. cervical fusion Past Psychological History: Depression, PTSD Smoking Status: Never smoker Past Alcohol Use History: Rare Past Drug Use History: None Reported - Past Family History Mother Family Medical History: Hypertension General Exam - General Exam Comments Initial Comments: GENERAL: Patient is well-developed and well-nourished. Patient is nontoxic and well- hydrated and is in mild distress. ENT: Neck is soft and supple. No significant lymphadenopathy is noted. Oropharynx is clear. Moist mucous membranes. Neck has full range of motion without eliciting any pain. EYES: The sclera were anicteric and conjunctiva were pink and moist. Extraocular movements were intact and pupils were equal round and reactive to light. Eyelids were unremarkable. PULMONARY: Unlabored respirations. Good breath sounds bilaterally. No audible rales rhonchi or wheezing was noted. CARDIOVASCULAR: There is a regular rate and rhythm without any murmurs gallops or rubs. ABDOMEN: Soft and nontender with normal bowel sounds. SKIN: Skin is clear with no lesions or rashes and otherwise unremarkable. NEUROLOGIC: Patient is alert and oriented x3. Cranial nerves II through XII are grossly intact. Motor and sensory are also intact. Normal speech, volume and content. Symmetrical smile. MUSCULOSKELETAL: Normal extremities with adequate strength and full range of motion. No lower extremity swelling or edema. No calf tenderness. LYMPHATICS: No significant lymphadenopathy is noted PSYCHIATRIC: Normal psychiatric evaluation. Limitations: no limitations Course Vital Signs 09/03/23 09:38 Temperature 98.4 F Pulse Rate 93 Respiratory 18 Rate Blood Pressure 149/110 O2 Sat by Pulse 94 L Oximetry Medical Decision Making - Medical Decision Making EKG is interpreted by myself. EKG shows a sinus rhythm at 62 bpm VA interval 292 QRS is 93 QT interval 41 QTC is 47. Patient's EKG shows no ST segment elevation or depression. Was pt. sent in by a medical professional or institution (, PA, MSW, urgent care, hospital, or half-way...) When possible be specific @ -No Did you speak to anyone other than the patient for history (EMS, parent, family, police, friend...)? What history was obtained from this source @ -No Did you review nursing and triage notes (agree or disagree)? Why? @ -I reviewed and agree with nursing and triage notes Were old charts reviewed (outside hosp., previous admission, EMS record, old EKG, old radiological studies, urgent care reports/EKG's, half-way records)? Report findings @ -I reviewed prior charts and prior lab work on this patient Differential Diagnosis (chest pain, altered mental status, abdominal pain women, abdominal pain men, vaginal bleeding, weakness, fever, dyspnea, syncope, headache, dizziness, GI bleed, back pain, seizure, CVA, palpatations, mental health, musculoskeletal)? @ -Differential Chest Pain: Stable Angina, Unstable Angina, STEMI, NSTEMI Aortic Dissection, Pneumothorax, Musculoskeletal, Esophageal Spasm GERD, Cholecystitis, Pancreatitis, Zoster, this is not meant to be an all-inclusive list. EKG interpreted by me (3pts min.). @ -As above X-rays interpreted by me (1pt min.). @ -Chest x-ray shows no acute abnormality CT interpreted by me (1pt min.). @ -None done U/S interpreted by me (1pt. min.). @ -None done What testing was considered but not performed or refused? (CT, X-rays, U/S, labs)? Why? @ -None What meds were considered but not given or refused? Why? @ -None Did you discuss the management of the patient with other professionals (professionals i.e. , PA, MSW, lab, RT, psych nurse, social media editor, associate chief nurse, teacher, youth corrections officer, welfare case worker)? Give summary @ -I spoke with . she he agreed to admit the patient Was smoking cessation discussed for >3mins.? @ -No Was critical care preformed (if so, how long)? @ -No Were there social determinants of health that impacted care today? How? (Homelessness, low income, unemployed, alcoholism, drug addiction, transportation, low edu. Level, literacy, decrease access to med. care, group home, r ehab)? @ -No Was there de-escalation of care discussed even if they declined (Discuss DNR or withdrawal of care, Hospice)? DNR status @ -No What co-morbidities impacted this encounter? (DM, HTN, Smoking, COPD, CAD, Cancer, CVA, ARF, Chemo, Hep., AIDS, mental health diagnosis, sleep apnea, morbid obesity)? @ -None Was patient admitted / discharged? Hospital course, mention meds given and route, prescriptions, significant lab abnormalities, going to OR and other pertinent info. @ -Patient had lab work and x-rays done both were within normal range. Patient continued to have some difficulty breathing and some chest pain in the emergency department. I spoke with Dr. loera he agreed to admit the patient admitted the patient wrote admitting orders Undiagnosed new problem with uncertain prognosis? @ -No Drug Therapy requiring intensive monitoring for toxicity (Heparin, Nitro, Insulin, Cardizem)? @ -No Were any procedures done? @ -No Diagnosis/symptom? @ -Chest pain Acute, or Chronic, or Acute on Chronic? @ -Acute Uncomplicated (without systemic symptoms) or Complicated (systemic symptoms)? @ -Complicated Side effects of treatment? @ -No Exacerbation, Progression, or Severe Exacerbation? @ -No Poses a threat to life or bodily function? How? (Chest pain, [place], [place], pneumonia, PE, COPD, DKA, ARF, appy, cholecystitis, CVA, Diverticulitis, Homicidal, Suicidal, threat to staff... and all critical care pts) @ -Yes this could lead to an [place] and end organ dysfunction Diagnosis/symptom? @ -Dyspnea Acute, or Chronic, or Acute on Chronic? @ -Acute Uncomplicated (without systemic symptoms) or Complicated (systemic symptoms)? @ -Complicated Side effects of treatment? @ -none Exacerbation, Progression, or Severe Exacerbation] @ -no Poses a threat to life or bodily function? @ -no - Lab Data Result diagrams: 09/03/23 09:55 09/03/23 09:55 Lab Results 09/03/23 09/03/23 09/03/23 Range/Units 09:55 09:55 09:55 WBC 6.9 (3.8-10.6) k/uL RBC 4.64 (3.80-5.40) m/uL Hgb 14.0 (11.4-16.0) gm/dL Hct 40.5 (34.0-46.0) % MCV 87.3 (80.0-100.0) fL MCH 30.2 (25.0-35.0) pg MCHC 34.6 (31.0-37.0) g/dL RDW 13.8 (11.5-15.5) % Plt Count 386 (150-450) k/uL MPV 7.5 Neutrophils % 66 % Lymphocytes % 20 % Monocytes % 8 % Eosinophils % 2 % Basophils % 0 % Neutrophils # 4.5 (1.3-7.7) k/uL Lymphocytes # 1.4 (1.0-4.8) k/uL Monocytes # 0.6 (0-1.0) k/uL Eosinophils # 0.1 (0-0.7) k/uL Basophils # 0.0 (0-0.2) k/uL PT 10.1 (10.0-12.5) sec INR 0.9 (<1.2) APTT 25.0 (22.0-30.0) sec D-Dimer 0.67 H (<0.60) mg/L FEU Sodium 138 (137-145) mmol/L Potassium 4.1 (3.5-5.1) mmol/L Chloride 105 (98-107) mmol/L Carbon Dioxide 24 (22-30) mmol/L Anion Gap 9 mmol/L BUN 10 (7-17) mg/dL Creatinine 0.63 (0.52-1.04) mg/dL Est GFR (CKD-EPI)AfAm >90 (>60 ml/min/1.73 sqM) Est GFR (CKD-EPI)NonAf >90 (>60 ml/min/1.73 sqM) Glucose 86 (74-99) mg/dL Calcium 10.2 (8.4-10.2) mg/dL Magnesium 2.0 (1.6-2.3) mg/dL Total Bilirubin 0.6 (0.2-1.3) mg/dL AST 24 (14-36) U/L ALT 22 (4-34) U/L Alkaline Phosphatase 132 H (38-126) U/L Troponin I (0.000-0.034) ng/mL NT-Pro-B Natriuret Pep 112 pg/mL Total Protein 7.5 (6.3-8.2) g/dL Albumin 4.4 (3.5-5.0) g/dL 09/03/23 Range/Units 09:55 WBC (3.8-10.6) k/uL RBC (3.80-5.40) m/uL Hgb (11.4-16.0) gm/dL Hct (34.0-46.0) % MCV (80.0-100.0) fL MCH (25.0-35.0) pg MCHC (31.0-37.0) g/dL RDW (11.5-15.5) % Plt Count (150-450) k/uL MPV Neutrophils % % Lymphocytes % % Monocytes % % Eosinophils % % Basophils % % Neutrophils # (1.3-7.7) k/uL Lymphocytes # (1.0-4.8) k/uL Monocytes # (0-1.0) k/uL Eosinophils # (0-0.7) k/uL Basophils # (0-0.2) k/uL PT (10.0-12.5) sec INR (<1.2) APTT (22.0-30.0) sec D-Dimer (<0.60) mg/L FEU Sodium (137-145) mmol/L Potassium (3.5-5.1) mmol/L Chloride (98-107) mmol/L Carbon Dioxide (22-30) mmol/L Anion Gap mmol/L BUN (7-17) mg/dL Creatinine (0.52-1.04) mg/dL Est GFR (CKD-EPI)AfAm (>60 ml/min/1.73 sqM) Est GFR (CKD-EPI)NonAf (>60 ml/min/1.73 sqM) Glucose (74-99) mg/dL Calcium (8.4-10.2) mg/dL Magnesium (1.6-2.3) mg/dL Total Bilirubin (0.2-1.3) mg/dL AST (14-36) U/L ALT (4-34) U/L Alkaline Phosphatase (38-126) U/L Troponin I <0.012 (0.000-0.034) ng/mL NT-Pro-B Natriuret Pep pg/mL Total Protein (6.3-8.2) g/dL Albumin (3.5-5.0) g/dL Disposition Clinical Impression: Chest pain, Dyspnea Disposition: ADMITTED IP TO THIS HOSP Referrals: None,Stated [Primary Care Provider] - 1-2 days Time of Disposition: 11:04
--- NOTE | 2023-09-03 10:20 | XR ---
EXAMINATION TYPE: XR chest 2V DATE OF EXAM: 09/03/2023 COMPARISON: 07/09/2023 HISTORY: Shortness of breath TECHNIQUE: Frontal and lateral views of the chest are obtained. FINDINGS: Scattered senescent parenchymal changes noted. Hyperinflation compatible with COPD. No evidence for infiltrate. No evidence for atelectasis. Heart size is stable. Mediastinal structures are stable and grossly unremarkable. No evidence for hilar prominence. Degenerative changes dorsal spine. IMPRESSION: 1. No evidence for acute pulmonary disease.
[2023-09-03 10:25] LABS: ALT 22 U/L (4-34); AST 24 U/L (14-36); African American GFR (CKD) >90 (>60 ml/min/1.73 sqM); Albumin 4.4 g/dL (3.5-5.0); Alkaline Phosphatase 132 U/L (38-126); Anion Gap 9 mmol/L; Blood Urea Nitrogen 10 mg/dL (7-17); Calcium 10.2 mg/dL (8.4-10.2); Carbon Dioxide 24 mmol/L (22-30); Chloride 105 mmol/L (98-107); Glucose 86 mg/dL (74-99); Non-African American GFR(CKD) >90 (>60 ml/min/1.73 sqM); Potassium 4.1 mmol/L (3.5-5.1); Sodium 138 mmol/L (137-145); Total Bilirubin 0.6 mg/dL (0.2-1.3); Total Protein 7.5 g/dL (6.3-8.2)
[2023-09-03 10:26] LABS: INR 0.9 (<1.2); Prothrombin Time 10.1 sec (10.0-12.5)
[2023-09-03 10:33] LABS: NT-Pro-B-Type Natriuretic Pept 112 pg/mL
[2023-09-03 10:37] LABS: Basophils % (A) 0 %; Eosinophils # (A) 0.1 k/uL (0-0.7); Eosinophils % (A) 2 %; HCT 40.5 % (34.0-46.0); Lymphocytes # (A) 1.4 k/uL (1.0-4.8); Lymphocytes % (A) 20 %; MCH 30.2 pg (25.0-35.0); MCHC 34.6 g/dL (31.0-37.0); MCV 87.3 fL (80.0-100.0); Mean Platelet Volume 7.5; Monocytes # (A) 0.6 k/uL (0-1.0); Monocytes % (A) 8 %; Neutrophils # (A) 4.5 k/uL (1.3-7.7); Neutrophils % (A) 66 %; Platelet Count 386 k/uL (150-450); RBC 4.64 m/uL (3.80-5.40); RDW 13.8 % (11.5-15.5); WBC 6.9 k/uL (3.8-10.6)
[2023-09-03] MEDS ORDERED: NITROGLYCERIN SL TABS 0.4 MG TAB SUBLINGUAL PRN (11:04)
[2023-09-03] MEDS ORDERED: NITROGLYCERIN OINT 1 INCH/GM PACKET TOPICAL SCH (12:00)
[2023-09-03] MEDS ORDERED: ZOLPIDEM 5 MG TAB PO PRN (12:06)
[2023-09-03] MEDS ORDERED: tiZANidine 4 MG TAB PO PRN (12:06)
[2023-09-03] MEDS ORDERED: ONDANSETRON 4 MG TAB PO PRN (13:29)
--- NOTE | 2023-09-03 14:29 | P.CRDCN ---
History of Present Illness Consult date: 09/03/23 Consult reason: chest pain History of present illness: History of present illness: This is a 73-year-old female patient of Dr. Vasques with past medical history of hypertension, lupus, prior diverticulitis with perforated bowel, chest pain, coronary artery disease. Patient had a recent hospitalization in June at which time she underwent cardiac catheterization on 07/10 which revealed mid LAD 60-70% stenosis. Echocardiogram revealed EF of 55% with no significant valve issues. CTA of the chest was negative for pulmonary embolism pneumonia and pleural effusions. Patient has had follow-up in the office and continues feeling poorly having more dyspnea with exertion and chest pressure with exertion. Patient was scheduled for Lexiscan stress test on Sunday in the office. Patient states that she developed severe same type of chest discomfort over the weekend and significant shortness of breath with exertion. She is only able to walk her dog a very short distance now and develops chest pain and shortness of breath. EKG sinus rhythm Chest x-ray: No acute process CBC normal. D-dimer 0.67. INR 0.9. Electrolytes renal function, normal. Troponin negative 2. Liver function tests unremarkable. ProBNP 112 area and Home cardiac medications: Atorvastatin 20 mg at bedtime, Plaquenil 400 mg at bedtime, Imdur 30 mg at bedtime, Toprol-XL 25 mg at bedtime. Review Of Systems: At the time of my evaluation: Constitutional: No fever, no chills. No weakness, fatigue or lethargy. EENT: No headache. No dizziness. Lungs: No shortness of breath, cough, no sputum production. No wheezing. Reports dyspnea on exertion Cardiovascular: Reports chest pain, no lower extremity edema. No palpitations. No paroxysmal nocturnal dyspnea. No orthopnea. No lightheadedness or dizziness. No syncopal episodes. Abdominal: No abdominal pain. No nausea, vomiting. No diarrhea. No bloody or tarry stools. Musculoskeletal: No myalgias. No muscle weakness, no frequent falls. Integumentary: No wounds. No rash. No unusual bruising. Neurologic: No aphasia. No facial droop. No change in mentation. Physical examination: Gen: This is a 73-year-old female. She is resting in bed appears to be comfortable and in no acute distress. VS: reviewed HEENT: Head is atraumatic, normocephalic. Pupils equal, round. Sclerae is anicteric. NECK: Supple. No JVD. LUNGS: Clear to auscultation. No wheezes or rhonchi. No intercostal retractions. HEART: Regular rate and rhythm. No murmur. ABDOMEN: Soft No tenderness. EXTREMITIES: No pedal edema. NEUROLOGICAL: Patient is awake, alert and oriented x3. Assessment: Chest pain, acute coronary syndrome ruled out Exertional dyspnea and chest pain, known coronary artery disease with LAD 60-70% stenosis Hypertension Lupus Plan: Continue patient's home cardiac medications No need to repeat echocardiogram Schedule patient for Lexiscan stress test tomorrow Nothing by mouth after midnight Further recommendations to follow based upon clinical course Thank you kindly for this consultation. Nurse practitioner note has been reviewed, I agree with documented findings and plan of care. Patient was seen and examined. Past Medical History Past Medical History: Pneumonia Additional Past Medical History / Comment(s): lupus History of Any Multi-Drug Resistant Organisms: None Reported Past Surgical History: Adenoidectomy, Appendectomy, Bowel Resection, Ch olecystectomy, Hysterectomy, Joint Replacement, Orthopedic Surgery, Tonsillectomy Additional Past Surgical History / Comment(s): carpal tunnel. cervical fusion Past Psychological History: Depression, PTSD Smoking Status: Never smoker Past Alcohol Use History: Rare Past Drug Use History: None Reported - Past Family History Mother Family Medical History: Hypertension Medications and Allergies Home Medications Medication Instructions Recorded Confirmed Type Amitriptyline HCl [Elavil] 25 mg PO HS 07/09/23 09/03/23 History Atorvastatin [Lipitor] 20 mg PO HS 07/09/23 09/03/23 History DULoxetine HCL [Cymbalta] 60 mg PO HS 07/09/23 09/03/23 History Hydroxychloroquine Sulfate 400 mg PO HS 07/09/23 09/03/23 History [Plaquenil] Levocetirizine Dihydrochloride 5 mg PO HS 07/09/23 09/03/23 History [Xyzal] Metoprolol Succinate (ER) [Toprol 25 mg PO HS 07/09/23 09/03/23 History XL] Montelukast Sodium 10 mg PO HS 07/09/23 09/03/23 History Ergocalciferol (Vitamin D2) 1,250 mcg PO MO 09/03/23 09/03/23 History [Drisdol (50,000 Iu)] Isosorbide Mononitrate ER [Imdur] 30 mg PO HS 09/03/23 09/03/23 History Omeprazole 40 mg PO HS 09/03/23 09/03/23 History Zolpidem [Ambien] 5 mg PO HS PRN 09/03/23 09/03/23 History tiZANidine [Zanaflex] 4 mg PO HS PRN 09/03/23 09/03/23 History Allergies Allergy/AdvReac Type Severity Reaction Status Date / Time Penicillins Allergy Rash/Hives Verified 09/03/23 11:35 vancomycin Allergy Anaphylaxis Verified 09/03/23 11:35 Physical Exam Vitals: Vital Signs Temp Pulse Resp BP Pulse Ox 09/03/23 12:03 81 18 125/80 95 09/03/23 11:01 108 H 18 156/110 95 09/03/23 09:38 98.4 F 93 18 149/110 94 L Intake and Output 09/02/23 09/03/23 09/03/23 22:59 06:59 14:59 Intake Total 118 Balance 118 Intake: Oral 118 Other: Weight 99.79 kg Results 09/03/23 09:55 09/03/23 09:55 Cardiac Enzymes 09/03/23 09/03/23 09/03/23 Range/Units 09:55 09:55 12:02 AST 24 (14-36) U/L Troponin I <0.012 <0.012 (0.000-0.034) ng/mL Coagulation 09/03/23 Range/Units 09:55 PT 10.1 (10.0-12.5) sec APTT 25.0 (22.0-30.0) sec CBC 09/03/23 Range/Units 09:55 WBC 6.9 (3.8-10.6) k/uL RBC 4.64 (3.80-5.40) m/uL Hgb 14.0 (11.4-16.0) gm/dL Hct 40.5 (34.0-46.0) % Plt Count 386 (150-450) k/uL Comprehensive Metabolic Panel 09/03/23 Range/Units 09:55 Sodium 138 (137-145) mmol/L Potassium 4.1 (3.5-5.1) mmol/L Chloride 105 (98-107) mmol/L Carbon Dioxide 24 (22-30) mmol/L BUN 10 (7-17) mg/dL Creatinine 0.63 (0.52-1.04) mg/dL Glucose 86 (74-99) mg/dL Calcium 10.2 (8.4-10.2) mg/dL AST 24 (14-36) U/L ALT 22 (4-34) U/L Alkaline Phosphatase 132 H (38-126) U/L Total Protein 7.5 (6.3-8.2) g/dL Albumin 4.4 (3.5-5.0) g/dL Current Medications Generic Name Dose Route Start Last Admin Trade Name Freq PRN Reason Stop Dose Admin Amitriptyline HCl 25 mg 09/03/23 21:00 Amitriptyline Hcl 25 Mg Tab PO HS [facility] Aspirin 81 mg 09/04/23 09:00 Aspirin 81 Mg PO DAILY [facility] Atorvastatin Calcium 20 mg 09/03/23 21:00 Atorvastatin 20 Mg Tab PO HS [facility] Duloxetine HCl 60 mg 09/03/23 21:00 Duloxetine Hcl 60 Mg Capsule.Dr PO HS [facility] Enoxaparin Sodium 40 mg 09/04/23 09:00 Enoxaparin 40 Mg/0.4 Ml Syringe SQ DAILY [facility] Isosorbide Mononitrate 30 mg 09/03/23 21:00 Isosorbide Mononitrate Er 30 Mg Tab.Er.24h PO HS [facility] Metoprolol Succinate 25 mg 09/03/23 21:00 Metoprolol Succinate (Er) 25 Mg Tab.Er.24h PO HS [facility] Montelukast Sodium 10 mg 09/03/23 21:00 Montelukast 10 Mg Tab PO HS [facility] Nitroglycerin 0.4 mg 09/03/23 11:04 Nitroglycerin Sl Tabs 0.4 Mg Tab SUBLINGUAL Q5M PRN Chest Pain Ondansetron HCl 4 mg 09/03/23 13:29 Ondansetron 4 Mg Tab PO ONCE PRN Nausea And Vomiting Pantoprazole Sodium 40 mg 09/03/23 21:00 Pantoprazole 40 Mg Tablet PO HS [facility] Tizanidine HCl 4 mg 09/03/23 12:06 Tizanidine 4 Mg Tab PO HS PRN Muscle Pain Zolpidem Tartrate 5 mg 09/03/23 12:06 Zolpidem 5 Mg Tab PO HS PRN Insomnia Intake and Output 09/02/23 09/03/23 09/03/23 22:59 06:59 14:59 Intake Total 118 Balance 118 Intake: Oral 118 Other: Weight 99.79 kg Patient Weight 09/04/23 06:59 Weight 99.79 kg 09/03/23 09:55 09/03/23 09:55
--- NOTE | 2023-09-03 14:58 | P.HPIM ---
History of Present Illness H&P Date: 09/03/23 History of Presenting Illness: Patient is a very pleasant 73-year-old female with a past medical history of known coronary artery disease follows Dr. Vasques outpatient and had recent cardiac catheterization 07/09/23 revealing mid LAD stenosis approximated at 60- 70% and was started on Imdur at that time, hypertension, hyperlipidemia, depression, and lupus. She presented to the emergency department secondary to a chief complaint of chest pain. Patient reports she has been having continued intermittent chest pain and shortness of breath ongoing for the past 2 months. Patient states worsening exertional dyspnea and noticing newly developing lower extremity edema. She reports awakening in the middle of the night short of breath and with chest pain/pressure. Patient states this pain comes and goes and is described as a tightness/pressure like feeling. She reports occasional shortness of breath at rest but significantly worsens with exertion. Patient reports these symptoms have progressively worsened and before chest pain would only be every now and then is now each and every time with exertion. Patient reports today she not only experienced the same intermittent chest pain/discomfort but also experienced significant shortness of breath accompanied by dizziness/lightheadedness and numbness and tingling throughout her neck and into her jaw. Patient also reports feeling a heaviness in her upper and lower extremities and overall fatigue. She denies having any fevers, chills, diaphoresis, changes in vision or hearing, palpitations, nausea, vomiting, or e xperiencing any numbness/tingling/weakness in her extremities. She underwent full evaluation in the emergency department. Upon arrival vital signs as follows blood pressure 149/110, heart rate 93, respiratory rate 18, temp 98.4F, SpO2 is 94% on room air. Labs were completed and reviewed. CBC unremarkable. Coagulation profile normal findings. D-dimer slightly elevated at 0.67 but normal for age correction. BMP unremarkable. Liver profile showing normal findings with the exception of elevated alkaline phosphatase of 132. Troponin negative at less than 0.012 and pro-BNP 112. EKG completed showing normal sinus rhythm at 96 bpm. Chest x-ray negative for acute cardiopulmonary process. Patient admitted under the services of consultation to cardiology. Review of systems: Pertinent positives and negatives as discussed in HPI, a complete review of systems was performed and all other systems are negative. Physical exam: Vital signs reviewed and stable. General: Nontoxic, no distress and appears stated age. Obese. Derm: Skin warm and dry, normal coloration for ethnicity. Head: Atraumatic, normocephalic and symmetric. Eyes: EOMs intact, no lid lag, and anicteric sclera Mouth: no lip lesions, mucus membranes moist Cardiovascular: regular rate and rhythm with normal S1S2, systolic murmur, positive posterior tibial pulses bilaterally, and cap refill < 2 seconds. Lungs: Respirations even, regular, and unlabored on room air. Lungs CTA bilaterally, no rhonchi, no rales, no wheezing, and no accessory muscle usage. Abdominal: soft, nontender to palpation, no guarding, no appreciable organomegaly Ext: ROM intact. No gross muscle atrophy, no edema, no contractures Neuro: Speech clear, face symmetrical and CN II-XII grossly intact with no noted focal neuro deficits Psych: Alert and oriented to person, place, time, and situation. Appropriate and pleasant affect. Assessment and Plan of Care: Chest pain, rule out acute coronary event History of coronary artery disease Hypertension Hyperlipidemia Depression Lupus -Cardiology consulted, appreciate further recommendations -Telemetry monitoring -Trend troponins -Cardiac diet, NPO at midnight -Continue daily medication regimen with aspirin 81 mg daily, atorvastatin 20 mg nightly, duloxetine 60 mg daily, Elavil 25 mg nightly, isosorbide mononitrate 30 mg nightly, and metoprolol 25 mg nightly. -Lipid profile with a.m. labs. -Echocardiogram completed on 07/11/23 and report reviewed showing preserved EF of 55% with no significant valvular or structural abnormalities showing only mild to moderate tricuspid regurgitation. Data and imaging reviewed. -Vital signs as follows blood pressure 149/110, heart rate 93, respiratory rate 18, temp 98.4F, SpO2 is 94% on room air. -Labs were completed and reviewed. CBC unremarkable. Coagulation profile normal findings. D-dimer slightly elevated at 0.67 but normal for age correction. BMP unremarkable. Liver profile showing normal findings with the exception of elevated alkaline phosphatase of 132. Troponin negative at less than 0.012 and pro-BNP 112. -EKG completed showing normal sinus rhythm at 96 bpm. -Chest x-ray negative for acute cardiopulmonary process. The patient is admitted with an anticipated less than 2 midnight stay for evaluation of chest pain CODE STATUS: Full code DVT prophylaxis: Lovenox Anticipated discharge date: Clinical course to determine likely 24-[address]: Home Patient was seen independently by Nurse Practitioner. This document was prepared using [employer] dictation software. Please allow for errors in distillation operator while rare they do occur. J Carlos Hummel NP rendered care for this patient independently, reviewed the findings and plan as documented in the note above. I did not physically speak with or examine the patient on this date. Past Medical History Past Medical History: Pneumonia Additional Past Medical History / Comment(s): lupus History of Any Multi-Drug Resistant Organisms: None Reported Past Surgical History: Adenoidectomy, Appendectomy, Bowel Resection, Cholecystectomy, Hysterectomy, Joint Replacement, Orthopedic Surgery, Ton sillectomy Additional Past Surgical History / Comment(s): carpal tunnel. cervical fusion Past Psychological History: Depression, PTSD Smoking Status: Never smoker Past Alcohol Use History: Rare Past Drug Use History: None Reported - Past Family History Mother Family Medical History: Hypertension Medications and Allergies Home Medications Medication Instructions Recorded Confirmed Type Amitriptyline HCl [Elavil] 25 mg PO HS 07/09/23 09/03/23 History Atorvastatin [Lipitor] 20 mg PO HS 07/09/23 09/03/23 History DULoxetine HCL [Cymbalta] 60 mg PO HS 07/09/23 09/03/23 History Hydroxychloroquine Sulfate 400 mg PO HS 07/09/23 09/03/23 History [Plaquenil] Levocetirizine Dihydrochloride 5 mg PO HS 07/09/23 09/03/23 History [Xyzal] Metoprolol Succinate (ER) [Toprol 25 mg PO HS 07/09/23 09/03/23 History XL] Montelukast Sodium 10 mg PO HS 07/09/23 09/03/23 History Ergocalciferol (Vitamin D2) 1,250 mcg PO MO 09/03/23 09/03/23 History [Drisdol (50,000 Iu)] Isosorbide Mononitrate ER [Imdur] 30 mg PO HS 09/03/23 09/03/23 History Omeprazole 40 mg PO HS 09/03/23 09/03/23 History Zolpidem [Ambien] 5 mg PO HS PRN 09/03/23 09/03/23 History tiZANidine [Zanaflex] 4 mg PO HS PRN 09/03/23 09/03/23 History Allergies Allergy/AdvReac Type Severity Reaction Status Date / Time Penicillins Allergy Rash/Hives Verified 09/03/23 11:35 vancomycin Allergy Anaphylaxis Verified 09/03/23 11:35 Physical Exam Vitals: Vital Signs Temp Pulse Resp BP Pulse Ox 09/03/23 12:03 81 18 125/80 95 09/03/23 11:01 108 H 18 156/110 95 09/03/23 09:38 98.4 F 93 18 149/110 94 L Intake and Output 09/02/23 09/03/23 09/03/23 22:59 06:59 14:59 Other: Weight 99.79 kg Results CBC & Chem 7: 09/03/23 09:55 09/03/23 09:55 Labs: Abnormal Lab Results - Last 24 Hours (Table) 09/03/23 09/03/23 Range/Units 09:55 09:55 D-Dimer 0.67 H (<0.60) mg/L FEU Alkaline Phosphatase 132 H (38-126) U/L
[2023-09-03] MEDS ORDERED: METOPROLOL SUCCINATE (ER) 25 MG TAB.ER.24H PO SCH (21:00)
[2023-09-03] MEDS ORDERED: ATORVASTATIN 20 MG TAB PO SCH (21:00)
[2023-09-03] MEDS ORDERED: ISOSORBIDE MONONITRATE ER 30 MG TAB.ER.24H PO SCH (21:00)
[2023-09-03] MEDS ORDERED: MONTELUKAST 10 MG TAB PO SCH (21:00)
[2023-09-03] MEDS ORDERED: PANTOPRAZOLE 40 MG TABLET PO SCH (21:00)
[2023-09-03] MEDS ORDERED: DULoxetine HCL 60 MG CAPSULE.DR PO SCH (21:00)
[2023-09-03] MEDS ORDERED: AMITRIPTYLINE HCL 25 MG TAB PO SCH (21:00)
[2023-09-04] MEDS ORDERED: AMINOPHYLLINE 500 MG/20 ML VIAL IV PRN (06:00)
[2023-09-04] MEDS ORDERED: REGADENOSON 0.4 MG/5 ML SYRINGE IV PRN (06:00)
[2023-09-04] MEDS ORDERED: CAFFEINE CITRATE 60 MG/3 ML VIAL IV PRN (06:00)
[2023-09-04] MEDS ORDERED: ASPIRIN 325 MG TAB PO SCH (09:00)
[2023-09-04] MEDS ORDERED: ASPIRIN 81 MG PO SCH (09:00)
[2023-09-04] MEDS ORDERED: ENOXAPARIN 40 MG/0.4 ML SYRINGE SQ SCH (09:00)
[2023-09-04] MEDS ORDERED: CAFFEINE CITRATE 60 MG/3 ML VIAL ONE (09:24)
[2023-09-04] MEDS ORDERED: DEXTROSE 5% IN WATER 50 ML BAG ONE (09:24)
[2023-09-04 11:04] LABS: Chol/HDL Ratio 3.81 Ratio; LDL Cholesterol,Calculated 94.4 mg/dL (0.0-131.0)
--- NOTE | 2023-09-04 11:43 | CA ---
Lexiscan Nuclear Stress Test Report Name: Mariam Espinoza Exam Date: 09/04/2023 09:12 Exam Location: [place] Stress Ht (in): 64 Wt (lb): 220 BSA: 2.04 Ordering Phys: Aurelia Vidal Referring Phys: Natalio Arellano,, Technologist: LETI,, Age: 73 Gender: F : 1950 Procedure CPT: Indications: Reflex order-Stress test ICD-10 Codes: Patient History: Chest pain and shortness of breath Medications: Meds past 24 hrs: Pretest Chest Pain: STRESS TEST Lexiscan Protocol Exercise Duration (min:sec): 01:[address] Depressions (mm): Angina Score: Sheridan Score: Resting HR (bpm): 83 Peak HR (bpm): 205 Resting BP (mmHg): 116 / 71 Peak BP (mmHg): 127 / 68 MPHR: 149 Target HR: 127 % MPHR: 138 METS: 1.0 Total Dose: Peak Dose: Atropine: Double Product: 72663 BP Response: Stress Termination: INFUSION COMPLETE Stress Symptoms: CHEST PRESSURE,DIFFICULTY IN BREATHING,HEADACHE Stress Summary: ECG ANALYSIS Resting ECG: Stress ECG: CONCLUSIONS This patient's Baseline EKG revealed sinus mechanism at 90 bpm. With Lexiscan administration the heart rate went up to 10 7 bpm blood pressure changed from 126/74-84/54 came back to baseline. Patient received some caffeine and felt better she had chest pressure and shortness of breath transiently. No ST segment changes. By EKG criteria this is a unremarkable Lexiscan stress test. The nuclear scan results which are more pertinent will be reported with radiologist Dr. Dorothy Champagne MD (Electronically Signed) Final Date: 04 September 2023 11:43
[2023-09-04] MEDS ORDERED: PROCHLORPERAZINE INJ 10 MG/2 ML VIAL IVP STA (11:58)
[2023-09-04] MEDS ORDERED: diphenhydrAMINE 50 MG/ML 1 ML VIAL IVP STA (11:58)
[2023-09-04] MEDS ORDERED: KETOROLAC 15 MG/ML 1 ML VIAL IVP STA (11:58)
--- NOTE | 2023-09-04 12:41 | NM ---
EXAMINATION TYPE: NM stress lexiscan cardiolite DATE OF EXAM: 09/04/2023 COMPARISON: NONE CLINICAL INDICATION: Female, 73 years old with history of cp; TECHNIQUE: After the intravenous administration of 10 mCi Tc 99m Sestamibi - Cardiolite resting SPEC T images acquired 77 minutes post injection. The patient received 0.4mg Lexiscan, 25.2 mCi Tc 99m Sestamibi - Stress images obtained [address] injection FINDINGS: Review of stress and rest SPECT images demonstrates no distinct perfusion abnormality. Gated analysi s shows normal wall motion with an estimated left ventricular ejection fraction of 94 %. IMPRESSION: No scintigraphic evidence for reversible ischemia.
[2023-09-04 14:03] VITALS: BP 111/66; PULSE 69; RESP 17; TEMP 97.9
--- NOTE | 2023-09-04 15:05 | P.DS ---
Providers Date of admission: 09/03/23 11:04 Expected date of discharge: 09/04/23 Attending physician: Santino Rodriguez MD Consults: 09/03/23 11:04 Consult Physician Urgent Consulting Provider: [facility] Consult Reason/Comments: Chest pain Do you want consulting provider notified?: Yes Primary care physician: Natalio [facility] Course: Discharge Diagnosis: Chest pain, acute coronary event ruled out. Continue with aggressive risk factor modification and cardiac medication regimen with aspirin 81 mg daily, atorvastatin 20 mg nightly, isosorbide mononitrate 30 mg nightly, and metoprolol 25 mg nightly. No medication changes were made this admission. Patient to follow-up with PCP in 1-2 days and with senior editor in 1 week. History of coronary artery disease Hypertension Hyperlipidemia Depression Lupus Hospital Course: Patient is a very pleasant 73-year-old female with a past medical history of known coronary artery disease follows Dr. Vasques outpatient and had recent cardiac catheterization 07/09/23 revealing mid LAD stenosis approximated at 60- 70% and was started on Imdur at that time, hypertension, hyperlipidemia, depression, and lupus. She presented to the emergency department secondary to a chief complaint of chest pain. Patient reports she has been having continued intermittent chest pain and shortness of breath ongoing for the past 2 months. Patient states worsening exertional dyspnea and noticing newly developing lower extremity edema. She reports awakening in the middle of the night short of breath and with chest pain/pressure. Patient states this pain comes and goes and is described as a tightness/pressure like feeling. She reports occasional shortness of breath at rest but significantly worsens with exertion. Patient reports these symptoms have progressively worsened and before chest pain would only be every now and then is now each and every time with exertion. Patient reports today she not only experienced the same intermittent chest pain/discomfort but also experienced significant shortness of breath accompanied by dizziness/lightheadedness and numbness and tingling throughout her neck and into her jaw. Patient also reports feeling a heaviness in her upper and lower extremities and overall fatigue. She denies having any fevers, chills, diaphoresis, changes in vision or hearing, palpitations, nausea, vomiting, or experiencing any numbness/tingling/weakness in her extremities. She underwent full evaluation in the emergency department. Upon arrival vital signs as follows blood pressure 149/110, heart rate 93, respiratory rate 18, temp 98.4F, SpO2 is 94% on room air. Labs were completed and reviewed. CBC unremarkable. Coagulation profile normal findings. D-dimer slightly elevated at 0.67 but normal for age correction. BMP unremarkable. Liver profile showing normal findings with the exception of elevated alkaline phosphatase of 132. Troponin negative at less than 0.012 and pro-BNP 112. EKG completed showing normal sinus rhythm at 96 bpm. Chest x-ray negative for acute cardiopulmonary process. Patient admitted under the services of consultation to cardiology. Patient monitored overnight. Troponins were all trended all negative at less than 0.0123 draws. Lipid profile completed showing elevated triglycerides at 162 otherwise normal findings. Stress test was completed in cardiology report reviewed stating negative stress test with no ST segment changes and reported by EKG criteria this is unremarkable stress test. Leilani scan stress test nuclear scan results reporting no scintigraphic evidence for reversible ischemia with an estimated left ventricular ejection fraction of 94%. Cardiology clearing patient from cardiac perspective with no further recommendations and no medication changes at this time. Medically, patient is stable with blood pressure 111/66, heart rate 69, respiratory rate 17, and temp 97.9F with SpO2 of 93% on room air. Patient medically cleared for discharge and to follow up outpatient with PCP in 1-2 days and with senior editor in 1-2 weeks. Physical exam: Vital signs reviewed and stable. General: Nontoxic, no distress and appears stated age. Obese. Derm: Skin warm and dry, normal coloration for ethnicity. Head: Atraumatic, normocephalic and symmetric. Eyes: EOMs intact, no lid lag, and anicteric sclera Mouth: no lip lesions, mucus membranes moist Cardiovascular: regular rate and rhythm with normal S1S2, systolic murmur, positive posterior tibial pulses bilaterally, and cap refill < 2 seconds. Lungs: Respirations even, regular, and unlabored on room air. Lungs CTA bilaterally, no rhonchi, no rales, no wheezing, and no accessory muscle usage. Abdominal: soft, nontender to palpation, no guarding, no appreciable organomegaly Ext: ROM intact. No gross muscle atrophy, no edema, no contractures Neuro: Speech clear, face symmetrical and CN II-XII grossly intact with no noted focal neuro deficits Psych: Alert and oriented to person, place, time, and situation. Appropriate and pleasant affect. A total of 35 minutes of time were spent preparing this complex discharge summary. Pt was discharged on 09/04/23 at 2:57 PM. Patient was seen independently by Nurse Practitioner. This document was prepared using [employer] dictation software. Please allow for errors in substance addiction coordinator while rare they do occur. Patient Condition at Discharge: Stable Plan - Discharge Summary New Discharge Prescriptions: New Aspirin 81 mg PO DAILY tab Continue Hydroxychloroquine Sulfate [Plaquenil] 400 mg PO HS Atorvastatin [Lipitor] 20 mg PO HS DULoxetine HCL [Cymbalta] 60 mg PO HS Amitriptyline HCl [Elavil] 25 mg PO HS Levocetirizine Dihydrochloride [Xyzal] 5 mg PO HS Isosorbide Mononitrate ER [Imdur] 30 mg PO HS Omeprazole 40 mg PO HS Metoprolol Succinate (ER) [Toprol XL] 25 mg PO HS Montelukast Sodium 10 mg PO HS tiZANidine [Zanaflex] 4 mg PO HS PRN PRN Reason: Muscle Pain Ergocalciferol (Vitamin D2) [Drisdol (50,000 Iu)] 1,250 mcg PO MO Zolpidem [Ambien] 5 mg PO HS PRN PRN Reason: Insomnia Discharge Medication List Amitriptyline HCl [Elavil] 25 mg PO HS 07/09/23 [History] Atorvastatin [Lipitor] 20 mg PO HS 07/09/23 [History] DULoxetine HCL [Cymbalta] 60 mg PO HS 07/09/23 [History] Hydroxychloroquine Sulfate [Plaquenil] 400 mg PO HS 07/09/23 [History] Levocetirizine Dihydrochloride [Xyzal] 5 mg PO HS 07/09/23 [History] Metoprolol Succinate (ER) [Toprol XL] 25 mg PO HS 07/09/23 [History] Montelukast Sodium 10 mg PO HS 07/09/23 [History] Ergocalciferol (Vitamin D2) [Drisdol (50,000 Iu)] 1,250 mcg PO MO 09/03/23 [History] Isosorbide Mononitrate ER [Imdur] 30 mg PO HS 09/03/23 [History] Omeprazole 40 mg PO HS 09/03/23 [History] Zolpidem [Ambien] 5 mg PO HS PRN 09/03/23 [History] tiZANidine [Zanaflex] 4 mg PO HS PRN 09/03/23 [History] Aspirin 81 mg PO DAILY tab 09/04/23 [Rx] Follow up Appointment(s)/Referral(s): Natalio Arellano DO [Primary Care Provider] - 1-2 Days Ashwin Vasques DO [STAFF PHYSICIAN] - 1 Week Activity/Diet/Wound Care/Special Instructions: Activity: As tolerated. Take breaks as needed. Diet: Heart healthy and carb consistent diet. Avoid salts, or foods with hidden salts such as canned or boxed foods and frozen dinners. Extra salt makes your heart work harder and traps the fluid in your body for longer. Special Instructions: Take all of your medications as directed and remember to keep all of your doctor's appointments and follow-up as needed. Thank you for allowing us to participate in your care, it was truly a pleasure having you for our patient!!! Discharge Disposition: HOME SELF-CARE
== END 2023-09-04 17:25 | disposition home or self-care (01) ==
LOC: EC 09:36 → INTOOBSV 11:04 → 6NMEDSUR 11:04 → UNDODISIN 09-04 17:25
PROVIDERS: ADMIT Student in an Organized Health Care Education/Training Program; ATTEND Student in an Organized Health Care Education/Training Program
DX: R07.9 Chest pain, unspecified (principal); R06.00 Dyspnea, unspecified; I10 Essential (primary) hypertension; M32.9 Systemic lupus erythematosus, unspecified; F32.A Depression, unspecified; I25.10 Atherosclerotic heart disease of native coronary artery without angina pectoris; E78.5 Hyperlipidemia, unspecified; Z79.899 Other long term (current) drug therapy; Z88.0 Allergy status to penicillin; Z88.1 Allergy status to other antibiotic agents
CPT/HCPCS: 96372; 96374; 96375; 99285; 36415; 93005; 93017; 97161; 85379; 83880; 80061; 80053; 83735; 84484; 85025; 85610; 85730; 71046; 78452; G0378 ×2; A9500; J1200; J0780; J1650; J2785; J1885

== ENCOUNTER 2023-10-02 08:23 | Day surgery (SDC) | payer MEDICARE ==
[2023-09-27 16:12] VITALS: BMI 39.4
[~2023-10-02 08:23] MED LIST: ALPRAZolam 0.25 MG TAB PO PRN; ALPRAZolam 0.5 MG TAB PO PRN; ASPIRIN 325 MG TAB PO STA; HEPARIN SODIUM,PORCINE (1 ML) 2,500 UNIT in SODIUM CHLORIDE 0.9% 250 ML IRRIGATION PRN; HEPARIN SODIUM,PORCINE 10,000 UNIT in SODIUM CHLORIDE 0.9% 1,000 ML IRRIGATION PRN; NITROGLYCERIN SL TABS 0.4 MG TAB SUBLINGUAL PRN; SODIUM CHLORIDE 0.9% 1,000 ML in EMPTY BAG 1 BAG IV SCH
[2023-10-02] MEDS ORDERED: SODIUM CHLORIDE 0.9% 1,000 ML IV ONE (08:28)
[2023-10-02 08:59] VITALS: RESP 16; TEMP 97.9
[2023-10-02] MEDS ORDERED: fentaNYL (PF) 50 MCG/ML 2 ML AMP ONE (10:26)
[2023-10-02] MEDS ORDERED: LIDOCAINE 1% INJ 10MG/ML (20 ML MDV) SQ ONE (10:39)
[2023-10-02] MEDS ORDERED: VERAPAMIL SYRINGE (5 MG/10 ML) INTRAARTER ONE (10:42)
[2023-10-02] MEDS ORDERED: fentaNYL (PF) 50 MCG/1 ML VIAL IVP ONE ×2 (10:43)
[2023-10-02] MEDS ORDERED: HEPARIN SODIUM 1,000 UN/ML (10ML VL) IV ONE (10:43)
[2023-10-02] MEDS ORDERED: MIDAZOLAM 2 MG/2 ML VIAL IVP ONE (10:47)
[2023-10-02] MEDS ORDERED: ADENOSINE 90 MG in SODIUM CHLORIDE 0.9% 60 ML IVP ONE (11:07)
[2023-10-02] MEDS ORDERED: CLOPIDOGREL 75 MG TAB ONE (11:13)
[2023-10-02] MEDS ORDERED: CLOPIDOGREL 75 MG TAB PO ONE (11:15)
[2023-10-02] MEDS: HEPARIN SODIUM 1,000 UN/ML (10ML VL) ONE ×2 (11:16→11:23)
[2023-10-02] MEDS ORDERED: IOPAMIDOL-370 100ML BTL INJ ONE ×2 (11:24→11:31)
[2023-10-02] MEDS ORDERED: ONDANSETRON 4 MG/2 ML VIAL ONE (11:37)
[2023-10-02] MEDS ORDERED: ONDANSETRON 4 MG TAB PO PRN (11:40)
[2023-10-02] MEDS ORDERED: ZOLPIDEM 5 MG TAB PO PRN ×2 (11:40→11:47)
[2023-10-02] MEDS ORDERED: ONDANSETRON 4 MG/2 ML VIAL IVP ONE (11:45)
[2023-10-02] MEDS ORDERED: ATROPINE SULFATE 0.1 MG/ML 10ML SYRINGE IV PRN (11:47)
[2023-10-02] MEDS ORDERED: MAG HYDROX/AL HYDROX/SIMETH 30 ML CUP PO PRN (11:47)
[2023-10-02] MEDS ORDERED: RX INFO: IV CONTRAST WAS GIVEN 1 EACH MISC MISCELLANE PRN (11:47)
[2023-10-02] MEDS ORDERED: SODIUM CHLORIDE 0.9% 500 ML 500 ML IV ONE (11:50)
--- NOTE | 2023-10-02 11:52 | P.PRCINT ---
Percutaneous Coronary Int. - Percutaneous Coronary Intervention Percutaneous Coronary Intervention: PROCEDURES PERFORMED: Left heart catheterization, bilateral coronary angiography, ultrasound guided arterial access INDICATION: Chest pain consistent with angina despite multiple antianginals CONSENT:I have discussed the risks, benefits and alternative therapies for the above-mentioned procedure and for both sedation/analgesia as well as necessary blood product administration, if indicated, as they pertain to this patient. The patient has indicated understanding and acceptance of the risks and procedures discussed. PROCEDURE: After the risks, benefits and alternatives of the above mentioned procedure explained in detail with the patient, informed consent was obtained. Patient was taken to the catheterization lab and prepped and draped in usual fashion. Ultrasound guidance was used to assess for arterial access. 1% lidocaine was used to anesthetize the right radial artery. A 6-[place] sheath was placed in the right radial artery using modified Seldinger technique and ultrasound guidance. Left coronary angiography was performed with a 6-[place] CLS 3.5 catheter and right coronary angiography was performed with a 5-[place] JR5 catheter in various views. A 5-[place] FR5 catheter was inserted into the left ventricle and pressure measurements were obtained. The decision was made to perform iFR/FFR of the LAD. Heparin was given. Using the 6-[place] CLS 3.5 guide, a 0.014 pressure wire was advanced into the proximal left main and normalized. It was then advanced 1 cm distal to the mid LAD lesion. iFR and FFR were initially normal at 0.96 and 0.89 respectively however given persistent symptoms appearing classic for angina, decided to further assess the distal LAD lesion. Therefore the wire was advanced 1 cm distal to the very small caliber distal LAD and iFR was abnormal at 0.83. This was felt likely in part related to combination of stenoses and given distal LAD was very small caliber appearing 1.5 mm, decision was made to fix the mid LAD first. A 0.014 BMW wire was advanced into the distal LAD and an additional wire was advanced into the diagonal branch. Angioplasty was performed with a 2.5 x 12 mm balloon. Next a 2.25 x 18 mm Xience RAN was placed in the mid LAD. Final and exams were performed. There was some spasm of the distal LAD and again felt best treated medically and improved with nitroglycerin. She did have some EKG changes and chest pain noted with angioplasty however this had improved by the end of the procedure. The wire was pulled and final angiograms were performed. Preintervention there was mid LAD 60-70% stenosis with BRUNA 3 flow and postintervention there was less than 10% stenosis with BRUNA 3 flow. The right radial sheath was removed and a TR band was placed with hemostasis achieved. The patient tolerated the procedure well. Patient was transported back to the post catheterization holding area in stable condition. Conscious Sedation: Patient was monitored under the direct supervision of myself for conscious sedation using Versed and fentanyl for a total duration of 12 minutes HEMODYNAMICS: Aorta: 132/81 LV: 129/10, LVEDP 22 SELECTIVE CORONARY ARTERIOGRAPHY: LEFT MAIN: The left main is a large caliber vessel which bifurcates into the LAD and circumflex. There is mild proximal left main 30% stenosis. LEFT ANTERIOR DESCENDING CORONARY ARTERY: LAD is a large caliber vessel which stops short of the apex with the apex supplied by the PDA. There is mild proximal LAD 20% stenosis and then a moderate caliber diagonal 1 branch without significant stenosis. After the diagonal 1 branch, there is a mid LAD 60-70% stenosis. The distal LAD has a 70-80% small-caliber 1.5 mm vessel stenosis LEFT CIRCUMFLEX CORONARY ARTERY: Left circumflex is a moderate caliber vessel without significant stenosis. RIGHT CORONARY ARTERY: The right coronary artery is a very large caliber vessel which gives off a PDA and PLV branch and is the dominant vessel. There is mild mid RCA 10-20% stenosis. The PDA supplies the apex. FINAL IMPRESSION: 1. Mild luminal irregularities and a more focal mid LAD 60-70% stenosis. 2. Mildly elevated left sided filling pressures PLAN: 1. Aggressive risk factor modification per most recent ACC/AHA guidelines. 2. Continue dual antiplatelets for 6 months with aspirin and Plavix 3. If continued having angina may consider trial of Lunesta angioplasty of distal LAD lesion however would attempt medical therapy.
[2023-10-02] MEDS ORDERED: ACETAMINOPHEN TAB 500 MG TAB PO ONE (12:25)
[2023-10-02 16:31] VITALS: BP 122/62; PULSE 70
[2023-10-02] MEDS ORDERED: LEVOCETIRIZINE DIHYDROCHLORIDE 5 MG PO SCH (21:00)
[2023-10-02] MEDS ORDERED: HYDROXYCHLOROQUINE SULFATE 200 MG TAB PO SCH (21:00)
[2023-10-02] MEDS ORDERED: RANOLAZINE 500 MG TAB.ER.12H PO SCH (21:00)
[2023-10-02] MEDS ORDERED: ATORVASTATIN 20 MG TAB PO SCH (21:00)
[2023-10-02] MEDS ORDERED: AMITRIPTYLINE HCL 25 MG TAB PO SCH (21:00)
[2023-10-02] MEDS ORDERED: PANTOPRAZOLE 40 MG TABLET PO SCH (21:00)
[2023-10-02] MEDS ORDERED: DULoxetine HCL 60 MG CAPSULE.DR PO SCH (21:00)
[2023-10-02] MEDS ORDERED: METOPROLOL SUCCINATE (ER) 25 MG TAB.ER.24H PO SCH (21:00)
[2023-10-02] MEDS ORDERED: MONTELUKAST 10 MG TAB PO SCH (21:00)
[2023-10-03] MEDS ORDERED: CLOPIDOGREL 75 MG TAB PO SCH (09:00)
[2023-10-03] MEDS ORDERED: ASPIRIN 81 MG PO SCH (09:00)
[2023-10-08] MEDS ORDERED: ERGOCALCIFEROL 1,250 MCG (50,000 IU) CAPSULE PO SCH (09:00)
== END 2023-10-02 16:15 | disposition home or self-care (01) ==
LOC: CATHCVL 08:23
PROVIDERS: ATTEND Internal Medicine
DX: I25.10 Atherosclerotic heart disease of native coronary artery without angina pectoris (principal); I10 Essential (primary) hypertension; G43.909 Migraine, unspecified, not intractable, without status migrainosus; Z82.49 Family history of ischemic heart disease and other diseases of the circulatory system; Z91.018 Allergy to other foods; Z91.09 Other allergy status, other than to drugs and biological substances; Z88.1 Allergy status to other antibiotic agents; Z79.899 Other long term (current) drug therapy
CPT/HCPCS: 93458; 93799; 76937; C9600; C1769 ×3; C1887; C1894; C1725; C1874; J2250; J2405; J2001; J1644; J0153; Q9967; J3010

== ENCOUNTER 2023-12-05 07:39 | Day surgery (SDC) | payer MEDICARE ==
[2023-12-05] MEDS: LACTATED RINGERS 1,000 ML IV SCH (08:51)
[2023-12-05] MEDS ORDERED: LIDOCAINE 2% (PF) 20 MG/ML 5 ML VIAL ONE (09:29)
[2023-12-05] MEDS ORDERED: PROPOFOL 10 MG/ML 20 ML VIAL IV ONE (09:29)
--- NOTE | 2023-12-05 09:46 | P.PCN ---
Date of Procedure: 12/05/23 Procedure(s) Performed: BRIEF HISTORY: Patient is a 73-year-old, pleasant, white female scheduled for an upper endoscopy as a part of evaluation of long-standing history of GERD and intermittent dysphagia to solids and liquids for the last few months duration. PROCEDURE PERFORMED: Esophagogastroduodenoscopy with biopsy. PREOPERATIVE DIAGNOSIS: Long-standing history of GERD and dysphagia to solids and liquids for the last few months. IV sedation per anesthesia. PROCEDURE: After informed consent was obtained, the patient was brought into the endoscopy unit. IV sedation was administered by Anesthesia under continuous monitoring. Initially the Olympus GIF-140 video endoscope was inserted into the mouth. Esophagus intubated without any difficulty. It was gradually advanced into the stomach and duodenum and carefully examined. The bulb and the second part of the duodenum appeared normal. The scope at this time was withdrawn to the stomach, adequately insufflated with air, and upon careful examination, mucosa of the antrum, diffuse gastritis and biopsies were done from this area. Mucosa of the body, cardia and the fundus appeared normal. The scope was then withdrawn into the esophagus. All hiatal hernia noted. The GE junction was located at 39 cm from the incisors. The esophagus appeared normal. There were no erosions or ulcerations seen and no evidence of esophageal stricture. Biopsies were done from the mid and distal esophagus and the patient tolerated the procedure well. IMPRESSION: 1. Normal-appearing esophagus with no evidence of esophagitis or esophageal stricture. 2. Small hiatal hernia 3. Mild diffuse antral gastritis. RECOMMENDATIONS: The findings of this examination were discussed with the patient as well as her family. She was advised to follow with the biopsy results.. Continue with omeprazole 40 mg before dinnertime and follow antireflux measures.
[2023-12-05 10:41] VITALS: BP 127/86; PULSE 69; RESP 17; TEMP 97
== END 2023-12-05 10:45 | disposition home or self-care (01) ==
LOC: ORWHC2ENDO 07:39
PROVIDERS: ATTEND Internal Medicine Gastroenterology
DX: K29.50 Unspecified chronic gastritis without bleeding (principal); K21.9 Gastro-esophageal reflux disease without esophagitis; K44.9 Diaphragmatic hernia without obstruction or gangrene; I10 Essential (primary) hypertension; I25.10 Atherosclerotic heart disease of native coronary artery without angina pectoris; E66.01 Morbid (severe) obesity due to excess calories; G47.33 Obstructive sleep apnea (adult) (pediatric); Z79.899 Other long term (current) drug therapy; Z68.41 Body mass index [BMI] 40.0-44.9, adult; Z79.02 Long term (current) use of antithrombotics/antiplatelets; Z88.0 Allergy status to penicillin; Z88.1 Allergy status to other antibiotic agents
CPT/HCPCS: 88305; 43239; J2704; J2001

== ENCOUNTER → 2023-12-21 | Outpatient (CLI) | payer MEDICARE ==
--- NOTE | 2023-12-21 17:29 | XR ---
EXAMINATION TYPE: XR chest 2V DATE OF EXAM: 12/21/2023 5:06 PM CLINICAL INDICATION:Female, 73 years old with history of [id number],[id number] COUGH,SOB; [facility] COMPARISON: Chest radiographs from 09/03/2023. TECHNIQUE: XR chest 2V Frontal and lateral views of the chest. FINDINGS: Lungs/Pleura: There is no evidence of pleural effusion, focal consolidation, or pneumothorax. Pulmonary vascularity: Mild pulmonary vascular congestion. Heart/mediastinum: Cardiomediastinal silhouette is enlarged and stable. Musculoskeletal: No acute osseous pathology. There is fixation hardware in the lower cervical spine. IMPRESSION: Low lung volumes with a generalized hazy appearance which could represent atelectasis versus pulmonar y edema correlate with serum BNP.
== END | disposition home or self-care (01) ==
LOC: RADXRYALE 16:51
PROVIDERS: ATTEND Physician Assistant Medical
DX: R05.9 Cough, unspecified (principal); R06.02 Shortness of breath
CPT/HCPCS: 71046

== ENCOUNTER 2023-12-28 11:10 | Inpatient (IN) | payer MEDICARE ==
--- NOTE | 2023-12-28 11:42 | ED ---
General Adult HPI - General Chief complaint: Shortness of Breath Stated complaint: FEVER Time Seen by Provider: 12/28/23 11:14 Source: patient, EMS, RN notes reviewed Mode of arrival: EMS Limitations: no limitations - History of Present Illness Initial comments: Patient is a pleasant 73-year-old female present to the emergency department for fever. Patient has had a cough for the past 1 week. Patient has occasional yellow sputum. No history of chronic lung disease. Patient did have fever starting today. Patient has not taken any Tylenol or Motrin yet. Patient was prescribed antibiotics and water pill by her doctor. - Related Data Home Medications Medication Instructions Recorded Confirmed Amitriptyline HCl [Elavil] 25 mg PO HS 07/09/23 12/05/23 Atorvastatin [Lipitor] 20 mg PO HS 07/09/23 12/05/23 DULoxetine HCL [Cymbalta] 60 mg PO HS 07/09/23 12/05/23 Levocetirizine Dihydrochloride 5 mg PO HS 07/09/23 12/05/23 [Xyzal] Metoprolol Succinate (ER) [Toprol 25 mg PO HS 07/09/23 12/05/23 XL] Montelukast Sodium 10 mg PO HS 07/09/23 12/05/23 Ergocalciferol (Vitamin D2) 1,250 mcg PO MO 09/03/23 12/05/23 [Drisdol (50,000 Iu)] Omeprazole 40 mg PO HS 09/03/23 12/05/23 ondansetron HCL [Zofran] 8 mg PO Q8HR PRN 09/27/23 12/05/23 Meclizine (Unk) 1 tab PO DIRECTED PRN 11/30/23 12/05/23 Previous Rx's Medication Instructions Recorded Aspirin 81 mg PO DAILY #90 tab 10/02/23 Clopidogrel [Plavix] 75 mg PO DAILY #90 tablet 10/02/23 Ranolazine [Ranexa] 1,000 mg PO Q12HR #180 tab 10/02/23 Allergies Allergy/AdvReac Type Severity Reaction Status Date / Time influenza virus vaccine qs Allergy Anaphylaxis Verified 12/28/23 13:03 [id number] (65 years up) [From Fluad Quad 2022-(65y up)(PF)] Penicillins Allergy Rash/Hives Verified 12/28/23 13:03 vaccine adjuvant emulsion Allergy Anaphylaxis Verified 12/28/23 13:03 MF59C.1 [From Fluad Quad (65y up)(PF)] vancomycin Allergy Anaphylaxis Verified 12/28/23 13:03 Review of Systems ROS Statement: Those systems with pertinent positive or pertinent negative responses have been documented in the HPI. ROS Other: All systems not noted in ROS Statement are negative. Constitutional: Reports: as per HPI, fever Eyes: Denies: eye pain ENT: Denies: ear pain Respiratory: Reports: as per HPI, cough, dyspnea Cardiovascular: Denies: chest pain Endocrine: Denies: fatigue Gastrointestinal: Denies: abdominal pain Musculoskeletal: Denies: back pain Past Medical History Past Medical History: Coronary Artery Disease (CAD), Chest Pain / Angina, GERD/Reflux, Hypertension, Pneumonia Additional Past Medical History / Comment(s): lupus, diverticulitis, difficulty swallowing nausea History of Any Multi-Drug Resistant Organisms: None Reported Past Surgical History: Adenoidectomy, Appendectomy, Back Surgery, Bowel Resection, Cholecystectomy, Heart Catheterization, Heart Catheterization With Stent, Hysterectomy, Joint Replacement, Orthopedic Surgery, Tonsillectomy Additional Past Surgical History / Comment(s): carpal tunnel, cervical fusion, lft knee and rt hip replacement, multiple back surgeries, ruptured colon after bowel resection Past Anesthesia/Blood Transfusion Reactions: No Reported Reaction Date of Last Stent Placement:: 09/2023 Past Psychological History: Depression, PTSD Smoking Status: Never smoker Past Alcohol Use History: None Reported Past Drug Use History: None Reported - Past Family History Mother Family Medical History: Hypertension Sister(s) Family Medical History: Cancer Additional Family Medical History / Comment(s): breast General Exam Limitations: no limitations General appearance: alert Head exam: Present: normocephalic Eye exam: Present: normal appearance Neck exam: Present: normal inspection Respiratory exam: Present: wheezes Cardiovascular Exam: Present: tachycardia GI/Abdominal exam: Present: soft. Absent: tenderness Extremities exam: Present: normal inspection. Absent: pedal edema, calf tenderness Neurological exam: Present: alert Psychiatric exam: Present: normal affect, normal mood Skin exam: Present: normal color Course Vital Signs 12/28/23 12/28/23 12/28/23 11:14 12:31 12:39 Temperature 101.4 F H Pulse Rate 120 H 114 H 115 H Respiratory 19 Rate Blood Pressure 124/79 O2 Sat by Pulse 95 Oximetry 12/28/23 12/28/23 12/28/23 13:00 13:22 13:24 Temperature 99.4 F Pulse Rate 118 H Respiratory 18 Rate Blood Pressure 112/84 O2 Sat by Pulse 92 L 90 L 87 L Oximetry 12/28/23 13:25 Temperature Pulse Rate Respiratory Rate Blood Pressure O2 Sat by Pulse 94 L Oximetry EKG Findings - EKG Results: EKG: interpreted by ERMD, sinus rhythm, normal axis, normal QRS, normal ST/T EKG shows: tachycardia Medical Decision Making - Medical Decision Making Was pt. sent in by a medical professional or institution (, PA, DEVOPS ARCHITECT, urgent care, hospital, or half-way...) When possible be specific @ -No Did you speak to anyone other than the patient for history (EMS, parent, family, police, friend...)? What history was obtained from this source @ -No Did you review nursing and triage notes (agree or disagree)? Why? @ -I reviewed and agree with nursing and triage notes Were old charts reviewed (outside hosp., previous admission, EMS record, old EKG, old radiological studies, urgent care reports/EKG's, half-way records)? Report findings @ -Previous chest x-ray reviewed Differential Diagnosis (chest pain, altered mental status, abdominal pain women, abdominal pain men, vaginal bleeding, weakness, fever, dyspnea, syncope, headache, dizziness, GI bleed, back pain, seizure, CVA, palpatations, mental health, musculoskeletal)? @ -Differential Dyspnea: Coronary syndrome, arrhythmia, tamponade, asthma, COPD, pulmonary embolism, pneumonia, pneumothorax, pulmonary effusion, anaphylaxis, diabetic ketoacidosis, flailed chest, pulmonary contusion, diaphragmatic rupture, anemia, neuromuscular , this is not meant to be an all-inclusive list. EKG interpreted by me (3pts min.). @ -As above X-rays interpreted by me (1pt min.). @ -Chest x-ray shows no acute process CT interpreted by me (1pt min.). @ -None done U/S interpreted by me (1pt. min.). @ -None done What testing was considered but not performed or refused? (CT, X-rays, U/S, labs)? Why? @ -None What meds were considered but not given or refused? Why? @ -None Did you discuss the management of the patient with other professionals (professionals i.e. , PA, DEVOPS ARCHITECT, lab, RT, psych nurse, social media sr strategy manager, meter repairer, teacher, forest fire management officer, case work aide)? Give summary @ -Case discussed with Dr. Mcconnell who will admit covering Dr. Arellano Was smoking cessation discussed for >3mins.? @ -No Was critical care preformed (if so, how long)? @ -No Were there social determinants of health that impacted care today? How? (Homelessness, low income, unemployed, alcoholism, drug addiction, transportation, low edu. Level, literacy, decrease access to med. care, fdc, rehab)? @ -No Was there de-escalation of care discussed even if they declined (Discuss DNR or withdrawal of care, Hospice)? DNR status @ -No What co-morbidities impacted this encounter? (DM, HTN, Smoking, COPD, CAD, Cancer, CVA, ARF, Chemo, Hep., AIDS, mental health diagnosis, sleep apnea, morbid obesity)? @ -None Was patient admitted / discharged? Hospital course, mention meds given and route, prescriptions, significant lab abnormalities, going to OR and other pertinent info. @ -Patient reevaluated with only mild improvement. Patient remains hypoxic and necessitating oxygen. Patient will be admitted. Admission orders written. Undiagnosed new problem with uncertain prognosis? @ -No Drug Therapy requiring intensive monitoring for toxicity (Heparin, Nitro, Insulin, Cardizem)? @ -No Were any procedures done? @ -No Diagnosis/symptom? @ -Influenza Acute, or Chronic, or Acute on Chronic? @ -Acute Uncomplicated (without systemic symptoms) or Complicated (systemic symptoms)? @ -Complicated with hypoxia Side effects of treatment? @ -No Exacerbation, Progression, or Severe Exacerbation? @ -No Poses a threat to life or bodily function? How? (Chest pain, USA, LA, pneumonia, PE, COPD, DKA, ARF, appy, cholecystitis, CVA, Diverticulitis, Homicidal, Suicidal, threat to staff... and all critical care pts) @ -No - Lab Data Result diagrams: 12/28/23 11:33 12/28/23 11:33 Lab Results 12/28/23 12/28/23 12/28/23 Range/Units 11:33 11:33 11:33 WBC 6.0 (3.8-10.6) k/uL RBC 4.15 (3.80-5.40) m/uL Hgb 12.2 (11.4-16.0) gm/dL Hct 36.2 (34.0-46.0) % MCV 87.4 (80.0-100.0) fL MCH 29.5 (25.0-35.0) pg MCHC 33.7 (31.0-37.0) g/dL RDW 14.3 (11.5-15.5) % Plt Count 317 (150-450) k/uL MPV 6.9 Neutrophils % 79 % Lymphocytes % 9 % Monocytes % 7 % Eosinophils % 2 % Basophils % 0 % Neutrophils # 4.7 (1.3-7.7) k/uL Lymphocytes # 0.6 L (1.0-4.8) k/uL Monocytes # 0.4 (0-1.0) k/uL Eosinophils # 0.1 (0-0.7) k/uL Basophils # 0.0 (0-0.2) k/uL PT 11.0 (10.0-12.5) sec INR 1.0 (<1.2) APTT 25.6 (22.0-30.0) sec Sodium 136 L (137-145) mmol/L Potassium 3.4 L (3.5-5.1) mmol/L Chloride 105 (98-107) mmol/L Carbon Dioxide 24 (22-30) mmol/L Anion Gap 7 mmol/L BUN 10 (7-17) mg/dL Creatinine 0.64 (0.52-1.04) mg/dL Est GFR (CKD-EPI)AfAm >90 (>60 ml/min/1.73 sqM) Est GFR (CKD-EPI)NonAf >90 (>60 ml/min/1.73 sqM) Glucose 135 H (74-99) mg/dL Plasma Lactic Acid Sudhir (0.7-2.0) mmol/L Calcium 9.2 (8.4-10.2) mg/dL Magnesium 1.4 L (1.6-2.3) mg/dL Total Bilirubin 0.5 (0.2-1.3) mg/dL AST 44 H (14-36) U/L ALT 21 (4-34) U/L Alkaline Phosphatase 132 H (38-126) U/L Total Protein 6.9 (6.3-8.2) g/dL Albumin 4.0 (3.5-5.0) g/dL Influenza Type A (PCR) (Not Detectd) Influenza Type B (PCR) (Not Detectd) RSV (PCR) (Not Detectd) SARS-CoV-2 (PCR) (Not Detectd) 12/28/23 12/28/23 Range/Units 11:33 11:33 WBC (3.8-10.6) k/uL RBC (3.80-5.40) m/uL Hgb (11.4-16.0) gm/dL Hct (34.0-46.0) % MCV (80.0-100.0) fL MCH (25.0-35.0) pg MCHC (31.0-37.0) g/dL RDW (11.5-15.5) % Plt Count (150-450) k/uL MPV Neutrophils % % Lymphocytes % % Monocytes % % Eosinophils % % Basophils % % Neutrophils # (1.3-7.7) k/uL Lymphocytes # (1.0-4.8) k/uL Monocytes # (0-1.0) k/uL Eosinophils # (0-0.7) k/uL Basophils # (0-0.2) k/uL PT (10.0-12.5) sec INR (<1.2) APTT (22.0-30.0) sec Sodium (137-145) mmol/L Potassium (3.5-5.1) mmol/L Chloride (98-107) mmol/L Carbon Dioxide (22-30) mmol/L Anion Gap mmol/L BUN (7-17) mg/dL Creatinine (0.52-1.04) mg/dL Est GFR (CKD-EPI)AfAm (>60 ml/min/1.73 sqM) Est GFR (CKD-EPI)NonAf (>60 ml/min/1.73 sqM) Glucose (74-99) mg/dL Plasma Lactic Acid Sudhir 1.5 (0.7-2.0) mmol/L Calcium (8.4-10.2) mg/dL Magnesium (1.6-2.3) mg/dL Total Bilirubin (0.2-1.3) mg/dL AST (14-36) U/L ALT (4-34) U/L Alkaline Phosphatase (38-126) U/L Total Protein (6.3-8.2) g/dL Albumin (3.5-5.0) g/dL Influenza Type A (PCR) Detected A (Not Detectd) Influenza Type B (PCR) Not Detected (Not Detectd) RSV (PCR) Not Detected (Not Detectd) SARS-CoV-2 (PCR) Not Detected (Not Detectd) Disposition Clinical Impression: Influenza Disposition: ADMITTED IP TO THIS HOSP Is patient prescribed a controlled substance at d/c from ED?: No Referrals: Natalio Arellano DO [Primary Care Provider] - 1-2 days Time of Disposition: 13:48
[2023-12-28 11:52] LABS: Basophils % (A) 0 %; Eosinophils # (A) 0.1 k/uL (0-0.7); Eosinophils % (A) 2 %; HCT 36.2 % (34.0-46.0); HGB 12.2 gm/dL (11.4-16.0); Lymphocytes # (A) 0.6 k/uL (1.0-4.8); Lymphocytes % (A) 9 %; MCH 29.5 pg (25.0-35.0); MCHC 33.7 g/dL (31.0-37.0); MCV 87.4 fL (80.0-100.0); Mean Platelet Volume 6.9; Monocytes # (A) 0.4 k/uL (0-1.0); Monocytes % (A) 7 %; Neutrophils # (A) 4.7 k/uL (1.3-7.7); Neutrophils % (A) 79 %; Platelet Count 317 k/uL (150-450); RBC 4.15 m/uL (3.80-5.40); RDW 14.3 % (11.5-15.5)
[2023-12-28] MEDS: ACETAMINOPHEN TAB 500 MG TAB PO STA (11:52)
[2023-12-28] MEDS: methylPREDNISolone SOD SUCCI 125 MG/2 ML VIAL IV STA (11:52)
[2023-12-28 12:18] LABS: ALT 21 U/L (4-34); AST 44 U/L (14-36); African American GFR (CKD) >90 (>60 ml/min/1.73 sqM); Alkaline Phosphatase 132 U/L (38-126); Anion Gap 7 mmol/L; Blood Urea Nitrogen 10 mg/dL (7-17); Calcium 9.2 mg/dL (8.4-10.2); Carbon Dioxide 24 mmol/L (22-30); Chloride 105 mmol/L (98-107); Glucose 135 mg/dL (74-99); Magnesium 1.4 mg/dL (1.6-2.3); Non-African American GFR(CKD) >90 (>60 ml/min/1.73 sqM); Potassium 3.4 mmol/L (3.5-5.1); Sodium 136 mmol/L (137-145); Total Bilirubin 0.5 mg/dL (0.2-1.3); Total Protein 6.9 g/dL (6.3-8.2)
[2023-12-28 12:26] LABS: Partial Thromboplastin Time 25.6 sec (22.0-30.0)
[2023-12-28] MEDS: KETOROLAC 15 MG/ML 1 ML VIAL IVP STA (12:29)
[2023-12-28] MEDS: diphenhydrAMINE 50 MG/ML 1 ML VIAL IVP STA (12:30)
[2023-12-28] MEDS: IPRATROPIUM-ALBUTEROL 3 ML NEB INHALATION STA (12:31)
--- NOTE | 2023-12-28 12:31 | XR ---
EXAMINATION TYPE: XR chest 2V DATE OF EXAM: 12/28/2023 COMPARISON: 12/21/2023 HISTORY: Shortness of breath TECHNIQUE: Frontal and lateral views of the chest are obtained. FINDINGS: Scattered senescent parenchymal changes noted. No evidence for infiltrate. No evidence for atelectasis. Heart size is stable. Mediastinal structures are stable and grossly unremarkable. No evidence for hilar prominence. Degenerative changes dorsal spine. IMPRESSION: 1. No evidence for acute pulmonary disease.
[2023-12-28] MEDS ORDERED: NALOXONE 0.4 MG/ML 1 ML VIAL IVP PRN (13:48)
[2023-12-28] MEDS ORDERED: IPRATROPIUM-ALBUTEROL 3 ML NEB INHALATION PRN (13:48)
[2023-12-28] MEDS ORDERED: Magnesium Replacement Protocol 1 EACH MISC MISCELLANE PRN (14:15)
[2023-12-28] MEDS ORDERED: Potassium Replacement Protocol 1 EACH MISC MISCELLANE PRN (14:15)
[2023-12-28] MEDS: POTASSIUM CHLORIDE ER 20 MEQ TAB.ER PO SCH (15:03)
[2023-12-28] MEDS: lisinopriL 5 MG TAB PO SCH (15:03)
--- NOTE | 2023-12-28 15:03 | P.HPIM ---
History of Present Illness H&P Date: 12/28/23 History of Presenting Illness: Patient is a very pleasant 73-year-old female with a past medical history of CAD status post stenting most recently 09/2023, hypertension, hyperlipidemia, lupus, and anxiety with depression. She presented to the emergency department with a chief complaint of shortness of breath, fever, and vomiting. Patient reports she has been experiencing increasing shortness of breath and nonproductive cough over the last year and was even seen by a health club attendant, Dr. Ann. Patient denies having a history of nicotine use. However patient does have lupus, but states that she was never diagnosed with acute lupus pneumonitis or any other restrictive, inflammatory or obstructive lung disease. Patient reports just over a week ago she began having increasing and worsening shortness of breath and worsening nonproductive cough and was seen by her PCP on 12/21/2023 and was started on doxycycline and Lasix. Patient reports this provided no relief but s he did take as directed but states yesterday she began having nausea and vomiting in addition to continued worsening cough and shortness of breath. She states over the past 24 hours she has thrown up greater then 15 times and began running a fever so she came to the emergency department for evaluation. Patient does report being exposed to influenza at work. She denies having any headache, lightheadedness, dizziness, changes in vision or hearing, hemoptysis or hematemesis, chest pain or palpitations, abdominal pain, diarrhea or constipation, or experiencing any numbness/tingling/weakness/swelling in her extremities. She underwent full evaluation in the emergency department. Vital signs upon arrival show patient to have elevated temp of 101.4 F, tachycardia with heart rate of 120, respiratory rate 19, blood pressure 124/79, and SpO2 of 87% on room air requiring oxygen supplementation of 2 L to maintain SpO2 of 92 %. EKG was completed showing sinus tachycardia at 115 bpm. Chest x-ray negative for acute cardiopulmonary process. Labs completed and reviewed. CBC unremarkable. Coagulation profile normal findings. BMP revealing hypokalemia with potassium of 3.4 and glucose of 135. Lactic acid 1.5. Magnesium 1.4. RSV and COVID PCR were negative. Influenza A was positive. Patient was started on Tamiflu, Solu-Medrol 125 mg IVP x 1 dose, Tylenol for fever, and electrolytes were replaced. Patient was admitted under our services with consultation to pulmonology. Review of systems: Pertinent positives and negatives as discussed in HPI, a complete review of systems was performed and all other systems are negative. Physical exam: Vital signs reviewed and stable. General: Nontoxic, no distress and appears stated age. Derm: Skin warm and dry, normal coloration for ethnicity. Head: Atraumatic, normocephalic and symmetric. Eyes: EOMs intact, no lid lag, and anicteric sclera Mouth: no lip lesions, mucus membranes moist Cardiovascular: regular rate and rhythm with normal S1S2, systolic murmur, positive posterior tibial pulses bilaterally, and cap refill < 2 seconds. Lungs: Respirations even, regular, and unlabored. Lungs slightly diminished however no rhonchi, no rales, no wheezing, and no accessory muscle usage. Abdominal: soft, nontender to palpation, no guarding, no appreciable organomegaly Ext: ROM intact. No gross muscle atrophy, no edema, no contractures Neuro: Speech clear, face symmetrical and CN II-XII grossly intact with no noted focal neuro deficits Psych: Alert and oriented to person, place, time, and situation. Appropriate and pleasant affect. Assessment and Plan of Care: Acute respiratory failure with hypoxia Influenza A Lupus, denies history of lupus pneumonitis -Consult to Pulmonology for acute respiratory failure with possible underlying lung disease -Oxygenation to be administered and titrated as needed to maintain SPO2 equal to or greater than 92% -Telemetry monitoring. -Monitor pulse-oximetry -Duonebs scheduled 4 times daily and as needed for SOB and/or wheezing -Incentive Spirometry -Steroids: Solu-Medrol 60 mg IVP every 6 hours. -Tamiflu 75 mg every 12 hours x 5 days. Day 1 of 5 -Tylenol 650 mg p.o. every 4 hours as needed for mild pain/fever. History of CAD with stents Hypertension Hyperlipidemia -Continue cardiac medication regimen with aspirin 81 mg daily, atorvastatin 20 mg nightly, Plavix 75 mg daily, metoprolol 25 mg nightly, and Ranexa 1000 mg every 12 hours. Anxiety with depression -Continue daily medication regimen with Elavil 25 mg nightly, Cymbalta 60 mg nightly, and Ambien 5 mg nightly as needed for insomnia. Data and imaging reviewed: As stated above in HPI The patient is admitted with an anticipated greater than 2 midnight stay for evaluation of acute respiratory failure with hypoxia secondary to influenza A CODE STATUS: Full code DVT prophylaxis: Lovenox Anticipated discharge date: Clinical course to determine Anticipated discharge place: Home Patient was seen independently by Nurse Practitioner. This document was prepared using [employer] dictation software. Please allow for errors in insect control aide while rare they do occur. J Carlos Hummel NP rendered care for this patient independently, reviewed the findings and plan as documented in the note above. I did not physically speak with or examine the patient on this date. Past Medical History Past Medical History: Coronary Artery Disease (CAD), Chest Pain / Angina, GERD/Reflux, Hypertension, Pneumonia Additional Past Medical History / Comment(s): lupus, diverticulitis, difficulty swallowing nausea History of Any Multi-Drug Resistant Organisms: None Reported Past Surgical History: Adenoidectomy, Appendectomy, Back Surgery, Bowel Resection, Cholecystectomy, Heart Catheterization, Heart Catheterization With Stent, Hysterectomy, Joint Replacement, Orthopedic Surgery, Tonsillectomy Additional Past Surgical History / Comment(s): carpal tunnel, cervical fusion, lft knee and rt hip replacement, multiple back surgeries, ruptured colon after bowel resection Past Anesthesia/Blood Transfusion Reactions: No Reported Reaction Date of Last Stent Placement:: 09/2023 Past Psychological History: Depression, PTSD Smoking Status: Never smoker Past Alcohol Use History: None Reported Past Drug Use History: None Reported - Past Family History Mother Family Medical History: Hypertension Sister(s) Family Medical History: Cancer Additional Family Medical History / Comment(s): breast Medications and Allergies Home Medications Medication Instructions Recorded Confirmed Type Amitriptyline HCl [Elavil] 25 mg PO HS 07/09/23 12/28/23 History Atorvastatin [Lipitor] 20 mg PO HS 07/09/23 12/28/23 History DULoxetine HCL [Cymbalta] 60 mg PO HS 07/09/23 12/28/23 History Levocetirizine Dihydrochloride 5 mg PO HS 07/09/23 12/28/23 History [Xyzal] Metoprolol Succinate (ER) [Toprol 25 mg PO HS 07/09/23 12/28/23 History XL] Montelukast Sodium 10 mg PO HS 07/09/23 12/28/23 History Omeprazole 40 mg PO HS 09/03/23 12/28/23 History Aspirin 81 mg PO DAILY #90 tab 10/02/23 12/28/23 Rx Clopidogrel [Plavix] 75 mg PO DAILY #90 tablet 10/02/23 12/28/23 Rx Ranolazine [Ranexa] 1,000 mg PO Q12HR #180 tab 10/02/23 12/28/23 Rx Bumetanide [Bumex] 1 mg PO DAILY 12/28/23 12/28/23 History Doxycycline Hyclate 100 mg PO BID 12/28/23 12/28/23 History Meclizine [Antivert] 25 mg PO TID PRN 12/28/23 12/28/23 History Ondansetron Odt [Zofran Odt] 4 mg PO Q8HR PRN 12/28/23 12/28/23 History Zolpidem [Ambien] 5 mg PO HS PRN 12/28/23 12/28/23 History lisinopriL [Zestril] 5 mg PO DIRECTED 12/28/23 12/28/23 History Allergies Allergy/AdvReac Type Severity Reaction Status Date / Time influenza virus vaccine qs Allergy Anaphylaxis Verified 12/28/23 13:03 [id number] (65 years up) [From [place]atch (65y up)(PF)] Penicillins Allergy Rash/Hives Verified 12/28/23 13:03 vaccine adjuvant emulsion Allergy Anaphylaxis Verified 12/28/23 13:03 MF59C.1 [From Hatch (65y up)(PF)] vancomycin Allergy Anaphylaxis Verified 12/28/23 13:03 Physical Exam Osteopathic Statement: *. No significant issues noted on an osteopathic structural exam other than those noted in the History and Physical/Consult. Vitals: Vital Signs Temp Pulse Resp BP Pulse Ox 12/28/23 13:25 94 L 12/28/23 13:24 87 L 12/28/23 13:22 90 L 12/28/23 13:00 99.4 F 118 H 18 112/84 92 L 12/28/23 12:39 115 H 12/28/23 12:31 114 H 12/28/23 11:14 101.4 F H 120 H 19 124/79 95 Intake and Output 12/27/23 12/28/23 12/28/23 22:59 06:59 14:59 Other: Weight 113.398 kg Results CBC & Chem 7: 12/28/23 11:33 12/28/23 11:33 Labs: Abnormal Lab Results - Last 24 Hours (Table) 12/28/23 12/28/23 12/28/23 Range/Units 11:33 11:33 11:33 Lymphocytes # 0.6 L (1.0-4.8) k/uL Sodium 136 L (137-145) mmol/L Potassium 3.4 L (3.5-5.1) mmol/L Glucose 135 H (74-99) mg/dL Magnesium 1.4 L (1.6-2.3) mg/dL AST 44 H (14-36) U/L Alkaline Phosphatase 132 H (38-126) U/L Influenza Type A (PCR) Detected A (Not Detectd)
[2023-12-28] MEDS: OSELTAMIVIR 75 MG CAP PO SCH (15:04)
[2023-12-28] MEDS: MAGNESIUM SULFATE-D5W PMX 1 GM in DEXTROSE/WATER 1 100ML.BAG IVPB SCH (15:04)
[2023-12-28] MEDS: IPRATROPIUM-ALBUTEROL 3 ML NEB INHALATION SCH (17:18)
[2023-12-28] MEDS: methylPREDNISolone SOD SUCCI 125 MG/2 ML VIAL IV SCH (18:08)
[2023-12-28] MEDS: LORATADINE 10 MG TAB PO SCH (21:57)
[2023-12-28] MEDS: AMITRIPTYLINE HCL 25 MG TAB PO SCH (21:57)
[2023-12-28] MEDS: BENZOCAINE/MENTHOL LOZENG 1 EACH LOZENGE MUCOUS MEM PRN (21:57)
[2023-12-28] MEDS: DULoxetine HCL 60 MG CAPSULE.DR PO SCH (21:57)
[2023-12-28] MEDS: RANOLAZINE 500 MG TAB.ER.12H PO SCH (21:57)
[2023-12-28] MEDS: METOPROLOL SUCCINATE (ER) 25 MG TAB.ER.24H PO SCH (21:57)
[2023-12-28] MEDS: ATORVASTATIN 20 MG TAB PO SCH (21:57)
[2023-12-28] MEDS: PANTOPRAZOLE 40 MG TABLET PO SCH (21:57)
[2023-12-28] MEDS: MONTELUKAST 10 MG TAB PO SCH (21:57)
[2023-12-28] MEDS: ZOLPIDEM 5 MG TAB PO PRN (21:57)
[2023-12-28] MEDS: ACETAMINOPHEN TAB 325 MG TAB PO PRN (21:58)
[2023-12-29] MEDS: ASPIRIN 81 MG PO SCH (08:31)
[2023-12-29] MEDS: ENOXAPARIN 40 MG/0.4 ML SYRINGE SQ SCH (08:31)
[2023-12-29] MEDS: CLOPIDOGREL 75 MG TAB PO SCH (08:31)
[2023-12-29 10:15] LABS: Magnesium 2.2 mg/dL (1.5-2.4); Potassium 4.4 mmol/L (3.5-5.5)
[2023-12-29] MEDS: KETOROLAC 15 MG/ML 1 ML VIAL IVP STA (12:04)
[2023-12-29] MEDS: diphenhydrAMINE 50 MG/ML 1 ML VIAL IVP STA (12:04)
[2023-12-29] MEDS: PROCHLORPERAZINE INJ 10 MG/2 ML VIAL IM STA (12:05)
--- NOTE | 2023-12-29 13:12 | P.CNPUL ---
History of Present Illness Consult date: 12/29/23 Requesting physician: Keysha Alcocer Reason for consult: dyspnea, cough, hypoxemia Chief complaint: Shortness of breath, nausea and vomiting History of present illness: This is a very pleasant 73-year-old female patient with a history of coronary disease with previous stent placement, lupus, hypertension, depression. Lifelong non-smoker. She presented here to the emergency room yesterday with complaints of shortness of breath, cough congestion, headache, body aches, sore throat and nausea and vomiting. Symptoms have been going on for approximately 1 week. She was given doxycycline and diuretics for lower extremity swelling in the outpatient setting. Chest x-ray shows no acute pulmonary process. White count 6.0. Hemoglobin 12.2. Sodium 136. Potassium 4.4. Bicarb 24. BUN 10. Creatinine 0.64. Glucose 135. Influenza A positive. She is seen today in consultation on the regular medical floor. She is currently resting in bed. Awake and alert in no acute distress. Feeling a bit better today compared to yesterday. She did have a Tmax of 101.4. Currently afebrile. Hemodynamically stable. Review of Systems REVIEW OF SYSTEMS: CONSTITUTIONAL: Denies any recent significant weight loss or weight gain. EYES: Denies change in vision. EARS, NOSE, MOUTH, THROAT: Positive for headaches, sore throat. CARDIOVASCULAR: Denies chest pain, palpitations or syncopal episodes. RESPIRATORY: Positive for shortness of breath, cough, congestion no hemoptysis. GASTROINTESTINAL: Positive for nausea and vomiting GENITOURINARY: Denies hematuria, denies infections. MUSKULOSKELETAL: Positive for body aches, swelling. INTEGUMENTARY: Denies rash, denies eczema. NEUROLOGICAL: Denies recent memory loss, no recent seizure activity. PSYCHIATRIC: Denies anxiety, denies depression. HEMATOLOGIC/LYMPHATIC: Denies anemia, denies enlarged lymph nodes. Past Medical History Past Medical History: Coronary Artery Disease (CAD), Chest Pain / Angina, GERD/Reflux, Hypertension, Pneumonia Additional Past Medical History / Comment(s): lupus, diverticulitis, difficulty swallowing nausea History of Any Multi-Drug Resistant Organisms: None Reported Past Surgical History: Adenoidectomy, Appendectomy, Back Surgery, Bowel Resection, Cholecystectomy, Heart Catheterization, Heart Catheterization With Stent, Hysterectomy, Joint Replacement, Orthopedic Surgery, Tonsillectomy Additional Past Surgical History / Comment(s): carpal tunnel, cervical fusion, lft knee and rt hip replacement, multiple back surgeries, ruptured colon after bowel resection Past Anesthesia/Blood Transfusion Reactions: No Reported Reaction Date of Last Stent Placement:: 09/2023 Past Psychological History: Depression, PTSD Smoking Status: Never smoker Past Alcohol Use History: None Reported Past Drug Use History: None Reported - Past Family History Mother Family Medical History: Hypertension Sister(s) Family Medical History: Cancer Additional Family Medical History / Comment(s): breast Medications and Allergies Home Medications Medication Instructions Recorded Confirmed Type Amitriptyline HCl [Elavil] 25 mg PO HS 07/09/23 12/28/23 History Atorvastatin [Lipitor] 20 mg PO HS 07/09/23 12/28/23 History DULoxetine HCL [Cymbalta] 60 mg PO HS 07/09/23 12/28/23 History Levocetirizine Dihydrochloride 5 mg PO HS 07/09/23 12/28/23 History [Xyzal] Metoprolol Succinate (ER) [Toprol 25 mg PO HS 07/09/23 12/28/23 History XL] Montelukast Sodium 10 mg PO HS 07/09/23 12/28/23 History Omeprazole 40 mg PO HS 09/03/23 12/28/23 History Aspirin 81 mg PO DAILY #90 tab 10/02/23 12/28/23 Rx Clopidogrel [Plavix] 75 mg PO DAILY #90 tablet 10/02/23 12/28/23 Rx Ranolazine [Ranexa] 1,000 mg PO Q12HR #180 tab 10/02/23 12/28/23 Rx Bumetanide [Bumex] 1 mg PO DAILY 12/28/23 12/28/23 History Doxycycline Hyclate 100 mg PO BID 12/28/23 12/28/23 History Meclizine [Antivert] 25 mg PO TID PRN 12/28/23 12/28/23 History Ondansetron Odt [Zofran Odt] 4 mg PO Q8HR PRN 12/28/23 12/28/23 History Zolpidem [Ambien] 5 mg PO HS PRN 12/28/23 12/28/23 History lisinopriL [Zestril] 5 mg PO DIRECTED 12/28/23 12/28/23 History Allergies Allergy/AdvReac Type Severity Reaction Status Date / Time influenza virus vaccine qs Allergy Anaphylaxis Verified 12/28/23 13:03 [id number] (65 years up) [From [employer] (65y up)(PF)] Penicillins Allergy Rash/Hives Verified 12/28/23 13:03 vaccine adjuvant emulsion Allergy Anaphylaxis Verified 12/28/23 13:03 [id number] [From [employer] (65y up)(PF)] vancomycin Allergy Anaphylaxis Verified 12/28/23 13:03 Physical Exam Vitals: Vital Signs Temp Pulse Pulse Resp BP Pulse Ox 12/29/23 11:35 80 12/29/23 11:23 82 12/29/23 08:28 80 12/29/23 08:18 82 12/29/23 07:35 97.8 F 74 17 111/61 95 12/29/23 01:45 97.5 F L 75 18 107/71 88 L 12/28/23 21:47 94 12/28/23 21:33 92 12/28/23 21:15 16 12/28/23 20:00 97.6 F 78 16 113/66 95 12/28/23 17:27 91 12/28/23 17:18 89 12/28/23 16:30 98.9 F 91 18 123/70 95 12/28/23 15:00 94 L 12/28/23 13:25 94 L 12/28/23 13:24 87 L 12/28/23 13:22 90 L Intake and Output 12/28/23 12/29/23 12/29/23 22:59 06:59 14:59 Other: # Voids 3 Weight 113.398 kg GENERAL EXAM: Alert, pleasant 73-year-old female, on 3 L nasal cannula, co mfortable in no apparent distress. HEAD: Normocephalic. EYES: Normal reaction of pupils, equal size. NOSE: Clear with pink turbinates. THROAT: No erythema or exudates. NECK: No masses, no JVD. CHEST: No chest wall deformity. LUNGS: Equal air entry with no crackles, wheeze, rhonchi or dullness. CVS: S1 and S2 normal with no audible murmur, regular rhythm. ABDOMEN: No hepatosplenomegaly, normal bowel sounds, no guarding or rigidity. SPINE: No scoliosis or deformity SKIN: No rashes CENTRAL NERVOUS SYSTEM: No focal deficits, tone is normal in all 4 extremities. EXTREMITIES: There is 1+ peripheral edema. No clubbing, no cyanosis. Peripheral pulses are intact. Results - Laboratory Findings CBC and BMP: 12/28/23 11:33 12/29/23 06:18 PT/INR, D-dimer PT 11.0 sec (10.0-12.5) 12/28/23 11:33 INR 1.0 (<1.2) 12/28/23 11:33 Abnormal lab findings: Abnormal Labs 12/28/23 12/28/23 12/28/23 11:33 11:33 11:33 Lymphocytes # 0.6 L Sodium 136 L Potassium 3.4 L Glucose 135 H Magnesium 1.4 L AST 44 H Alkaline Phosphatase 132 H Influenza Type A (PCR) Detected A - Diagnostic Findings Chest x-ray: image reviewed Assessment and Plan Assessment: Acute hypoxemic respiratory failure secondary to acute tracheobronchitis with influenza A infection Acute influenza A Coronary artery disease with previous stent placement History of lupus Hypertension Hyperlipidemia History of depression Plan: The patient was seen and evaluated Chest x-ray, labs and medications reviewed Continue Tamiflu Continue bronchodilators, steroids Lovenox for DVT prophylaxis Titrate down the FiO2 as tolerated Increase activity as tolerated We will continue to follow and make further recommendations based on her clinical status I have personally seen and examined the patient, performed the documentation and the assessment and plan as written. Number of minutes spent on the visit: 20.
--- NOTE | 2023-12-29 15:16 | P.PN ---
Subjective Progress Note Date: 12/29/23 Hospital course: Patient is a very pleasant 73-year-old female with a past medical history of CAD status post stenting most recently 09/2023, hypertension, hyperlipidemia, lupus, and anxiety with depression. She presented to the emergency department with a chief complaint of shortness of breath, fever, and vomiting. Patient reports she has been experiencing increasing shortness of breath and nonproductive cough over the last year and was even seen by a adjunct professor of english, Dr. Ann. Patient denies having a history of nicotine use. However patient does have lupus, but states that she was never diagnosed with acute lupus pneumonitis or any other restrictive, inflammatory or obstructive lung disease. Patient reports just over a week ago she began having increasing and worsening shortness of breath and worsening nonproductive cough and was seen by her PCP on 12/21/2023 and was started on doxycycline and Lasix. Patient reports this provided no relief but she did take as directed but states yesterday she began having nausea and vomi ting in addition to continued worsening cough and shortness of breath. She states over the past 24 hours she has thrown up greater then 15 times and began running a fever so she came to the emergency department for evaluation. Patient does report being exposed to influenza at work. She denies having any headache, lightheadedness, dizziness, changes in vision or hearing, hemoptysis or hematemesis, chest pain or palpitations, abdominal pain, diarrhea or constipation, or experiencing any numbness/tingling/weakness/swelling in her extremities. She underwent full evaluation in the emergency department. Vital signs upon arrival show patient to have elevated temp of 101.4 F, tachycardia with heart rate of 120, respiratory rate 19, blood pressure 124/79, and SpO2 of 87% on room air requiring oxygen supplementation of 2 L to maintain SpO2 of 92 %. EKG was completed showing sinus tachycardia at 115 bpm. Chest x-ray negative for acute cardiopulmonary process. Labs completed and reviewed. CBC unremarkable. Coagulation profile normal findings. BMP revealing hypokalemia with potassium of 3.4 and glucose of 135. Lactic acid 1.5. Magnesium 1.4. RSV and COVID PCR were negative. Influenza A was positive. Patient was started on Tamiflu, Solu-Medrol 125 mg IVP x 1 dose, Tylenol for fever, and electrolytes were replaced. Patient was admitted under our services with consultation to pulmonology. Physical exam: Patient seen and fully evaluated at the bedside this morning. She reports she has an intractable headache that just will not resolve and persistent coughing fits. She states she is breathing better since having the scheduled breathing treatments and oxygen. Order placed for migraine cocktail. Patient denies dizziness, lightheadedness, chest pain, or palpitations. Vital signs reviewed and stable. General: Nontoxic, no distress and appears stated age. Derm: Skin warm and dry, normal coloration for ethnicity. Head: Atraumatic, normocephalic and symmetric. Eyes: EOMs intact, no lid lag, and anicteric sclera Mouth: no lip lesions, mucus membranes moist Cardiovascular: regular rate and rhythm with normal S1S2, systolic murmur, positive posterior tibial pulses bilaterally, and cap refill < 2 seconds. Lungs: Respirations even, regular, and unlabored. Lungs slightly diminished however no rhonchi, no rales, no wheezing, and no accessory muscle usage. Abdominal: soft, nontender to palpation, no guarding, no appreciable organomegaly Ext: ROM intact. No gross muscle atrophy, no edema, no contractures Neuro: Speech clear, face symmetrical and CN II-XII grossly intact with no noted focal neuro deficits Psych: Alert and oriented to person, place, time, and situation. Appropriate and pleasant affect. Assessment and Plan of Care: Acute respiratory failure with hypoxia Influenza A Lupus, denies history of lupus pneumonitis -Consult to Pulmonology for acute respiratory failure with possible underlying lung disease -Oxygenation to be administered and titrated as needed to maintain SPO2 equal to or greater than 92% -Telemetry monitoring. -Monitor pulse-oximetry -Duonebs scheduled 4 times daily and as needed for SOB and/or wheezing -Incentive Spirometry -Steroids: Solu-Medrol 60 mg IVP every 6 hours. -Tamiflu 75 mg every 12 hours x 5 days. Day 2 of 5 -Tylenol 650 mg p.o. every 4 hours as needed for mild pain/fever. -Order placed for Tessalon pearls 200 mg 3 times daily scheduled and Robitussin AC every 6 hours as needed for persistent cough. History of CAD with stents Hypertension Hyperlipidemia -Continue cardiac medication regimen with aspirin 81 mg daily, atorvastatin 20 mg nightly, Plavix 75 mg daily, metoprolol 25 mg nightly, and Ranexa 1000 mg every 12 hours. Anxiety with depression -Continue daily medication regimen with Elavil 25 mg nightly, Cymbalta 60 mg nightly, and Ambien 5 mg nightly as needed for insomnia. Data and imaging reviewed: Morning labs reviewed showing resolution of hypokalemia with potassium of 4.4 and resolution of hypomagnesemia from previous 1.4 now 2.2. C3 normal findings at 187 and C4 30.8. Vital signs reviewed. Blood pressure 111/61, heart rate 74, respiratory rate 17, temp 97.8 F, and SpO2 of 95% on 3 L. Patient has had no further elevated temperatures/fevers since admission with initial temp of 101.4. CODE STATUS: Full code DVT prophylaxis: Lovenox Anticipated discharge date: Clinical course to determine Anticipated discharge place: Home Patient was seen independently by Nurse Practitioner. This document was prepared using [employer] dictation software. Please allow for errors in verify rep while rare they do occur. J Carlos Hummel BANQUET STEWARD rendered care for this patient independently, reviewed the findings and plan as documented in the note above. I did not physically speak with or examine the patient on this date. Objective - Vital Signs Vital signs: Vital Signs Temp 97.8 F 12/29/23 07:35 Pulse 80 12/29/23 08:28 Resp 17 12/29/23 07:35 BP 111/61 12/29/23 07:35 Pulse Ox 95 12/29/23 07:35 FiO2 Intake & Output 12/28/23 12/29/23 12/29/23 18:59 06:59 18:59 Weight 113.398 kg 113.398 kg Other: # Voids 3 - Labs CBC & Chem 7: 12/28/23 11:33 12/29/23 06:18 Labs: Abnormal Lab Results - Last 24 Hours (Table) 12/28/23 12/28/23 12/28/23 Range/Units 11:33 11:33 11:33 Lymphocytes # 0.6 L (1.0-4.8) k/uL Sodium 136 L (137-145) mmol/L Potassium 3.4 L (3.5-5.1) mmol/L Glucose 135 H (74-99) mg/dL Magnesium 1.4 L (1.6-2.3) mg/dL AST 44 H (14-36) U/L Alkaline Phosphatase 132 H (38-126) U/L Influenza Type A (PCR) Detected A (Not Detectd)
[2023-12-29] MEDS: BENZONATATE 100 MG CAP PO SCH (17:17)
[2023-12-30] MEDS: guaiFENesin-Coden 100-10MG/5ML 10 ML CUP PO PRN (10:47)
--- NOTE | 2023-12-30 11:35 | P.PN ---
Subjective Progress Note Date: 12/30/23 Hospital course: Patient is a very pleasant 73-year-old female with a past medical history of CAD status post stenting most recently 09/2023, hypertension, hyperlipidemia, lupus, and anxiety with depression. She presented to the emergency department with a chief complaint of shortness of breath, fever, and vomiting. Patient reports she has been experiencing increasing shortness of breath and nonproductive cough over the last year and was even seen by a gearman, Dr. Ann. Patient denies having a history of nicotine use. However patient does have lupus, but states that she was never diagnosed with acute lupus pneumonitis or any other restrictive, inflammatory or obstructive lung disease. Patient reports just over a week ago she began having increasing and worsening shortness of breath and worsening nonproductive cough and was seen by her PCP on 12/21/2023 and was started on doxycycline and Lasix. Patient reports this provided no relief but she did take as directed but states yesterday she began having nausea and vomi ting in addition to continued worsening cough and shortness of breath. She states over the past 24 hours she has thrown up greater then 15 times and began running a fever so she came to the emergency department for evaluation. Patient does report being exposed to influenza at work. She denies having any headache, lightheadedness, dizziness, changes in vision or hearing, hemoptysis or hematemesis, chest pain or palpitations, abdominal pain, diarrhea or constipation, or experiencing any numbness/tingling/weakness/swelling in her extremities. She underwent full evaluation in the emergency department. Vital signs upon arrival show patient to have elevated temp of 101.4 F, tachycardia with heart rate of 120, respiratory rate 19, blood pressure 124/79, and SpO2 of 87% on room air requiring oxygen supplementation of 2 L to maintain SpO2 of 92 %. EKG was completed showing sinus tachycardia at 115 bpm. Chest x-ray negative for acute cardiopulmonary process. Labs completed and reviewed. CBC unremarkable. Coagulation profile normal findings. BMP revealing hypokalemia with potassium of 3.4 and glucose of 135. Lactic acid 1.5. Magnesium 1.4. RSV and COVID PCR were negative. Influenza A was positive. Patient was started on Tamiflu, Solu-Medrol 125 mg IVP x 1 dose, Tylenol for fever, and electrolytes were replaced. Patient was admitted under our services with consultation to pulmonology. Physical exam: Patient seen and fully evaluated at the bedside this morning. Patient again reports having a migraine headache this morning. She states that the migraine cocktail administered yesterday did help but she has not had any sleep in over 24 hours. Patient requesting an additional dose of migraine cocktail. She also reports continued shortness of breath and coarse nonproductive cough. Patient was educated that cough syrup is available but was not scheduled and to be given only upon request. Vital signs reviewed and stable. General: Nontoxic, no distress and appears stated age. Derm: Skin warm and dry, normal coloration for ethnicity. Head: Atraumatic, normocephalic and symmetric. Eyes: EOMs intact, no lid lag, and anicteric sclera Mouth: no lip lesions, mucus membranes moist Cardiovascular: regular rate and rhythm with normal S1S2, systolic murmur, positive posterior tibial pulses bilaterally, and cap refill < 2 seconds. Lungs: Respirations even, regular, and unlabored. Lungs slightly diminished however no rhonchi, no rales, no wheezing, and no accessory muscle usage. Abdominal: soft, nontender to palpation, no guarding, no appreciable organomegaly Ext: ROM intact. No gross muscle atrophy, no edema, no contractures Neuro: Speech clear, face symmetrical and CN II-XII grossly intact with no noted focal neuro deficits Psych: Alert and oriented to person, place, time, and situation. Appropriate and pleasant affect. Assessment and Plan of Care: Acute respiratory failure with hypoxia Influenza A Lupus, denies history of lupus pneumonitis -Pulmonology following, discussed plan of care with gearman and pulmonary RESIDENTIAL REAL ESTATE AGENT, they are recommending continuation of current treatment. -Oxygenation to be administered and titrated as needed to maintain SPO2 equal to or greater than 92% -RN communication order placed to wean oxygen as patient tolerates. -Telemetry monitoring. -Monitor pulse-oximetry -Duonebs scheduled 4 times daily and as needed for SOB and/or wheezing -Incentive Spirometry -Steroids: Solu-Medrol 60 mg IVP every 6 hours. -Tamiflu 75 mg every 12 hours x 5 days. Day 3 of 5 -Tylenol 650 mg p.o. every 4 hours as needed for mild pain/fever. -Continue Tessalon Perles 200 mg 3 times daily scheduled and Robitussin AC every 6 hours as needed for persistent cough. Migraine headache -Patient reports migraine headache and experiencing a rough night unable to sleep last night. Patient requested migraine cocktail. -Order placed for Benadryl 50 mg IVP x 1 dose, Toradol 15 mg IVP x 1 dose, and Compazine 10 mg IVP x 1 dose. History of CAD with stents Hypertension Hyperlipidemia -Continue cardiac medication regimen with aspirin 81 mg daily, atorvastatin 20 mg nightly, Plavix 75 mg daily, metoprolol 25 mg nightly, and Ranexa 1000 mg every 12 hours. Anxiety with depression -Continue daily medication regimen with Elavil 25 mg nightly, Cymbalta 60 mg nightly, and Ambien 5 mg nightly as needed for insomnia. Data and imaging reviewed: Vital signs reviewed. Blood pressure 114/65, heart rate 74, respiratory rate 17, temp 98.0 F, and SpO2 of 95% on 3 L. CODE STATUS: Full code DVT prophylaxis: Lovenox Anticipated discharge date: Likely within the next 24 to [address]: Home Patient was seen independently by Nurse Practitioner. This document was prepared using [employer] dictation software. Please allow for errors in ms [employer] dba while rare they do occur. J Carlos Hummel NP rendered care for this patient independently, reviewed the findings and plan as documented in the note above. I did not physically speak with or examine the patient on this date. Objective - Vital Signs Vital signs: Vital Signs Temp 98.0 F 12/30/23 07:13 Pulse 74 12/30/23 07:13 Resp 17 12/30/23 07:13 BP 114/65 12/30/23 07:13 Pulse Ox 95 12/30/23 07:13 FiO2 Intake & Output 12/29/23 12/30/23 12/30/23 17:59 06:59 18:59 Other: # Voids - Labs CBC & Chem 7: 12/28/23 11:33 12/29/23 06:18 Labs: Microbiology - Last 24 Hours (Table) 12/28/23 11:42 Blood Culture - Preliminary Blood 12/28/23 11:33 Blood Culture - Preliminary Blood
[2023-12-30] MEDS: PROCHLORPERAZINE INJ 10 MG/2 ML VIAL IVP STA (11:51)
[2023-12-30] MEDS: diphenhydrAMINE 50 MG/ML 1 ML VIAL IVP STA (11:52)
[2023-12-30] MEDS: KETOROLAC 15 MG/ML 1 ML VIAL IVP STA (11:52)
--- NOTE | 2023-12-30 12:47 | P.PN ---
Subjective Progress Note Date: 12/30/23 This is a very pleasant 73-year-old female patient with a history of coronary disease with previous stent placement, lupus, hypertension, depression. Lifelong non-smoker. She presented here to the emergency room yesterday with complaints of shortness of breath, cough congestion, headache, body aches, sore throat and nausea and vomiting. Symptoms have been going on for approximately 1 week. She was given doxycycline and diuretics for lower extremity swelling in the outpatient setting. Chest x-ray shows no acute pulmonary process. White count 6.0. Hemoglobin 12.2. Sodium 136. Potassium 4.4. Bicarb 24. BUN 10. Creatinine 0.64. Glucose 135. Influenza A positive. She is seen today in [facility] on the regular medical floor. She is currently resting in bed. Awake and alert in no acute distress. Feeling a bit better today compared to yesterday. She did have a Tmax of 101.4. Currently afebrile. Hemodynamically stable. The patient is seen today December 30, 2023 in follow-up on the regular medical floor. She is currently resting in bed. Awake and alert. She is feeling much improved today compared to yesterday. Still with some cough and congestion. Still with some fatigue and weakness. She is maintaining O2 saturations in the 90s on 3 L/min per nasal cannula. She has been afebrile. Hemodynamically stable. Blood cultures revealing no growth. She remains on DuoNeb ventilations, Singulair, Solu-Medrol. Remains on Tamiflu. Lovenox for DVT prophylaxis. Objective - Vital Signs Vital signs: Vital Signs Temp 98.0 F 12/30/23 07:13 Pulse 90 12/30/23 12:12 Resp 17 12/30/23 08:40 BP 114/65 12/30/23 07:13 Pulse Ox 95 12/30/23 07:13 FiO2 Intake & Output 12/29/23 12/30/23 12/30/23 17:59 06:59 18:59 Other: # Voids - Exam GENERAL EXAM: Alert, 73-year-old female, on 3 L nasal cannula, in no apparent distress. HEAD: Normocephalic. EYES: Normal reaction of pupils, equal size. NOSE: Clear with pink turbinates. THROAT: No erythema or exudates. NECK: No masses, no JVD. CHEST: No chest wall deformity. LUNGS: Equal air entry with few scattered rhonchi. CVS: S1 and S2 normal with no audible murmur, regular rhythm. ABDOMEN: No hepatosplenomegaly, normal bowel sounds, no guarding or rigidity. SPINE: No scoliosis or deformity SKIN: No rashes CENTRAL NERVOUS SYSTEM: No focal deficits, tone is normal in all 4 extremities. EXTREMITIES: There is 1+ peripheral edema. No clubbing, no cyanosis. Peripheral pulses are intact. - Labs CBC & Chem 7: 12/28/23 11:33 12/29/23 06:18 Labs: Microbiology - Last 24 Hours (Table) 12/28/23 11:42 Blood Culture - Preliminary Blood 12/28/23 11:33 Blood Culture - Preliminary Blood Assessment and Plan Assessment: Acute hypoxemic respiratory failure secondary to acute tracheobronchitis with influenza A infection Acute influenza A Coronary artery disease with previous stent placement History of lupus Hypertension Hyperlipidemia History of depression Plan: The patient was seen and evaluated Medications reviewed Continue the current treatment plan Titrate down the FiO2 as tolerated Increase activity as tolerated We will continue to follow I have personally seen and examined the patient, performed the documentation and the assessment and plan as written. Number of minutes spent on the visit: 10.
[2023-12-30] MEDS: MECLIZINE 25 MG TAB PO PRN (19:58)
[2023-12-31 11:01] LABS: HCT 36.7 % (37.2-46.3); HGB 11.6 g/dL (12.0-15.0); MCH 28.2 pg (27.0-32.0); MCHC 31.6 g/dL (32.0-37.0); MCV 89.1 FL (80.0-97.0); Mean Platelet Volume 9.4 FL (9.5-12.2); NRBC Per 100 WBC 0 X 10*3/uL (0.00-0.01); Platelet Count 388 X 10*3/uL (140-440); RBC 4.12 X 10*6/uL (4.10-5.20); RDW 14.6 % (11.5-14.5); WBC 9.51 X 10*3/uL (4.50-10.00)
[2023-12-31 11:16] LABS: ALT 16 U/L (8-44); AST 19 U/L (13-35); Albumin 3.7 g/dL (3.8-4.9); Albumin/Globulin Ratio 1.48 Ratio (1.60-3.17); Alkaline Phosphatase 97 U/L (41-126); BUN/Creat Ratio 30.67 Ratio (12.00-20.00); Blood Urea Nitrogen 18.4 mg/dL (9.0-27.0); Calcium 9.8 mg/dL (8.7-10.3); Carbon Dioxide 27.9 mmol/L (21.6-31.8); Chloride 101 mmol/L (96-109); Globulin 2.5 g/dL (1.6-3.3); Glucose 158 mg/dL (70-110); Magnesium 2.3 mg/dL (1.5-2.4); Potassium 4.9 mmol/L (3.5-5.5); Sodium 138 mmol/L (135-145); Total Bilirubin 0.3 mg/dL (0.3-1.2); Total Protein 6.2 g/dL (6.2-8.2)
--- NOTE | 2023-12-31 13:52 | P.PN ---
Subjective Progress Note Date: 12/31/23 This is a very pleasant 73-year-old female patient with a history of coronary disease with previous stent placement, lupus, hypertension, depression. Lifelong non-smoker. She presented here to the emergency room yesterday with complaints of shortness of breath, cough congestion, headache, body aches, sore throat and nausea and vomiting. Symptoms have been going on for approximately 1 week. She was given doxycycline and diuretics for lower extremity swelling in the outpatient setting. Chest x-ray shows no acute pulmonary process. White count 6.0. Hemoglobin 12.2. Sodium 136. Potassium 4.4. Bicarb 24. BUN 10. Creatinine 0.64. Glucose 135. Influenza A positive. She is seen today in [facility] on the regular medical floor. She is currently resting in bed. Awake and alert in no acute distress. Feeling a bit better today compared to yesterday. She did have a Tmax of 101.4. Currently afebrile. Hemodynamically stable. The patient is seen today December 30, 2023 in follow-up on the regular medical floor. She is currently resting in bed. Awake and alert. She is feeling much improved today compared to yesterday. Still with some cough and congestion. Still with some fatigue and weakness. She is maintaining O2 saturations in the 90s on 3 L/min per nasal cannula. She has been afebrile. Hemodynamically stable. Blood cultures revealing no growth. She remains on DuoNeb ventilations, Singulair, Solu-Medrol. Remains on Tamiflu. Lovenox for DVT prophylaxis. The patient is seen today December 31, 2023 in follow-up on the regular medical floor. She is sitting up in bed. Awake and alert in no acute distress. Denies any worsening shortness of breath. Still with a cough and congestion. No fever or chills. Maintaining O2 saturation in the 90s on 3 L/min per nasal cannula. No IV fluids. Continued on Tamiflu. Continued on bronchodilators and steroids. Lovenox for DVT prophylaxis. White count 9.5. Hemoglobin 11.6. Platelets 388. Sodium 138. Potassium 4.9. Bicarb 28. BUN 18. Creatinine 0.6. Glucose 158. Objective - Vital Signs Vital signs: Vital Signs Temp 98.4 F 12/31/23 07:14 Pulse 97 03/11/24 12:02 Resp 19 12/31/23 08:30 BP 120/66 12/31/23 07:14 Pulse Ox 92 L 12/31/23 12:02 FiO2 Intake & Output 12/30/23 12/31/23 12/31/23 18:59 06:59 18:59 Intake Total 480 Balance 480 Intake: Oral 480 Other: # Voids 3 2 - Exam GENERAL EXAM: Alert, pleasant 73-year-old female, sitting up in bed, on 3 L nasal cannula, in no apparent distress. HEAD: Normocephalic. EYES: Normal reaction of pupils, equal size. NOSE: Clear with pink turbinates. THROAT: No erythema or exudates. NECK: No masses, no JVD. CHEST: No chest wall deformity. LUNGS: Equal air entry with few scattered rhonchi. CVS: S1 and S2 normal with no audible murmur, regular rhythm. ABDOMEN: No hepatosplenomegaly, normal bowel sounds, no guarding or rigidity. SPINE: No scoliosis or deformity SKIN: No rashes CENTRAL NERVOUS SYSTEM: No focal deficits, tone is normal in all 4 extremities. EXTREMITIES: There is 1+ peripheral edema. No clubbing, no cyanosis. Peripheral pulses are intact. - Labs CBC & Chem 7: 12/31/23 06:35 12/31/23 06:35 Labs: Abnormal Lab Results - Last 24 Hours (Table) 12/31/23 12/31/23 Range/Units 06:35 06:35 Hgb 11.6 L (12.0-15.0) g/dL Hct 36.7 L (37.2-46.3) % MCHC 31.6 L (32.0-37.0) g/dL RDW 14.6 H (11.5-14.5) % MPV 9.4 L (9.5-12.2) FL BUN/Creatinine Ratio 30.67 H (12.00-20.00) Ratio Glucose 158 H (70-110) mg/dL Albumin 3.7 L (3.8-4.9) g/dL Albumin/Globulin Ratio 1.48 L (1.60-3.17) Ratio Microbiology - Last 24 Hours (Table) 12/28/23 11:42 Blood Culture - Preliminary Blood 12/28/23 11:33 Blood Culture - Preliminary Blood Assessment and Plan Assessment: Acute hypoxemic respiratory failure secondary to acute tracheobronchitis with influenza A infection Acute influenza A Coronary artery disease with previous stent placement History of lupus Hypertension Hyperlipidemia History of depression Plan: The patient was seen and evaluated Medications and labs reviewed Transitioned to oral steroids Titrate down the FiO2 as tolerated Increase her activity as tolerated Probable discharge in the a.m. We will continue to follow I have personally seen and examined the patient, performed the documentation and the assessment and plan as written. Number of minutes spent on the visit: 10.
--- NOTE | 2023-12-31 14:56 | P.PN ---
Subjective Progress Note Date: 12/31/23 Hospital course: Patient is a very pleasant 73-year-old female with a past medical history of CAD status post stenting most recently 09/2023, hypertension, hyperlipidemia, lupus, and anxiety with depression. She presented to the emergency department with a chief complaint of shortness of breath, fever, and vomiting. Patient reports she has been experiencing increasing shortness of breath and nonproductive cough over the last year and was even seen by a health unit coordinator, Dr. Ann. Patient denies having a history of nicotine use. However patient does have lupus, but states that she was never diagnosed with acute lupus pneumonitis or any other restrictive, inflammatory or obstructive lung disease. Patient reports just over a week ago she began having increasing and worsening shortness of breath and worsening nonproductive cough and was seen by her PCP on 12/21/2023 and was started on doxycycline and Lasix. Patient reports this provided no relief but she did take as directed but states yesterday she began having nausea and vomi ting in addition to continued worsening cough and shortness of breath. She states over the past 24 hours she has thrown up greater then 15 times and began running a fever so she came to the emergency department for evaluation. Patient does report being exposed to influenza at work. She denies having any headache, lightheadedness, dizziness, changes in vision or hearing, hemoptysis or hematemesis, chest pain or palpitations, abdominal pain, diarrhea or constipation, or experiencing any numbness/tingling/weakness/swelling in her extremities. She underwent full evaluation in the emergency department. Vital signs upon arrival show patient to have elevated temp of 101.4 F, tachycardia with heart rate of 120, respiratory rate 19, blood pressure 124/79, and SpO2 of 87% on room air requiring oxygen supplementation of 2 L to maintain SpO2 of 92 %. EKG was completed showing sinus tachycardia at 115 bpm. Chest x-ray negative for acute cardiopulmonary process. Labs completed and reviewed. CBC unremarkable. Coagulation profile normal findings. BMP revealing hypokalemia with potassium of 3.4 and glucose of 135. Lactic acid 1.5. Magnesium 1.4. RSV and COVID PCR were negative. Influenza A was positive. Patient was started on Tamiflu, Solu-Medrol 125 mg IVP x 1 dose, Tylenol for fever, and electrolytes were replaced. Patient was admitted under our services with consultation to pulmonology. Physical exam: Patient seen and fully evaluated at the bedside this morning. Patient appears to be doing better this morning. However patient still remains hypoxic desaturating down to 88% on room air requiring 3 L oxygen supplementation to maintain SpO2 of 90%. Vital signs reviewed and stable. General: Nontoxic, no distress and appears stated age. Derm: Skin warm and dry, normal coloration for ethnicity. Head: Atraumatic, normocephalic and symmetric. Eyes: EOMs intact, no lid lag, and anicteric sclera Mouth: no lip lesions, mucus membranes moist Cardiovascular: regular rate and rhythm with normal S1S2, systolic murmur, positive posterior tibial pulses bilaterally, and cap refill < 2 seconds. Lungs: Respirations even, regular, and unlabored. Lungs slightly diminished however no rhonchi, no rales, no wheezing, and no accessory muscle usage. Abdominal: soft, nontender to palpation, no guarding, no appreciable organomegaly Ext: ROM intact. No gross muscle atrophy, no edema, no contractures Neuro: Speech clear, face symmetrical and CN II-XII grossly intact with no noted focal neuro deficits Psych: Alert and oriented to person, place, time, and situation. Appropriate and pleasant affect. Assessment and Plan of Care: Acute respiratory failure with hypoxia Influenza A Lupus, denies history of lupus pneumonitis -Pulmonology following, discussed plan of care with health unit coordinator and pulmonary SITECORE DEVELOPER, they are recommending continuation of current treatment. -Oxygenation to be administered and titrated as needed to maintain SPO2 equal to or greater than 92% -Telemetry monitoring. -Monitor pulse-oximetry -Duonebs scheduled 4 times daily and as needed for SOB and/or wheezing -Incentive Spirometry -Steroids: Store Gift Wrap Associate discontinuing Solu-Medrol starting patient on prednisone taper. -Tamiflu 75 mg every 12 hours x 5 days. Day 4 of 5 -Tylenol 650 mg p.o. every 4 hours as needed for mild pain/fever. -Continue Tessalon Perles 200 mg 3 times daily scheduled and Robitussin AC every 6 hours as needed for persistent cough. -Ambulatory pulse ox was completed patient 88% on room air, still requiring oxygen supplementation on 3 L to maintain SpO2 greater than 90%.. -C3 187.0, C4 30.8, and CH 5080. Migraine headache, resolved History of CAD with stents Hypertension Hyperlipidemia -Continue cardiac medication regimen with aspirin 81 mg daily, atorvastatin 20 mg nightly, Plavix 75 mg daily, metoprolol 25 mg nightly, and Ranexa 1000 mg every 12 hours. Anxiety with depression -Continue daily medication regimen with Elavil 25 mg nightly, Cymbalta 60 mg nightly, and Ambien 5 mg nightly as needed for insomnia. Data and imaging reviewed: Vital signs reviewed. Blood pressure 120/66, heart rate 70, respiratory rate 19, temp 98.4 F, and SpO2 of 90% on 3 L. Morning labs reviewed. CBC showing mild normocytic anemia with hemoglobin of 11.6. BMP unremarkable. Blood glucose 158. Magnesium 2.3. Liver profile unremarkable. CODE STATUS: Full code DVT prophylaxis: Lovenox Anticipated discharge date: Likely discharge tomorrow morning Anticipated discharge place: Home Patient was seen independently by Nurse Practitioner. This document was prepared using [employer] dictation software. Please allow for errors in lap cutter truer operator while rare they do occur. I reviewed the documentation as provided by the INDIRA above, who is the original author of this note. I agree with the documented assessment and plan, with the following changes: none Objective - Vital Signs Vital signs: Vital Signs Temp 98.4 F 12/31/23 07:14 Pulse 80 12/31/23 08:18 Resp 19 12/31/23 07:14 BP 120/66 12/31/23 07:14 Pulse Ox 90 L 12/31/23 07:14 FiO2 Intake & Output 12/30/23 12/31/23 12/31/23 18:59 06:59 18:59 Intake Total 480 Balance 480 Intake: Oral 480 Other: # Voids 3 2 - Labs CBC & Chem 7: 12/31/23 06:35 12/31/23 06:35 Labs: Microbiology - Last 24 Hours (Table) 12/28/23 11:42 Blood Culture - Preliminary Blood 12/28/23 11:33 Blood Culture - Preliminary Blood
[2024-01-01 08:09] VITALS: BP 109/65; RESP 19; TEMP 98.2
[2024-01-01] MEDS: predniSONE 20 MG TAB PO SCH (08:31)
--- NOTE | 2024-01-01 09:28 | P.DS ---
Providers Date of admission: 12/28/23 13:49 Expected date of discharge: 01/01/24 Attending physician: Keysha Alcocer DO Consults: 12/28/23 15:01 Consult Physician Routine Consulting Provider: Ruddy Lundberg Consult Reason/Comments: Influenza A on pos underlying chronic lung disease, saw you in office Do you want consulting provider notified?: Yes Primary care physician: Natalio [facility] Course: Discharge Diagnosis: Acute respiratory failure with hypoxia. Influenza A. Lupus, denies history of lupus pneumonitis. C3 187.0, C4 30.8, and CH 5080. Migraine headache, resolved History of CAD with stents Hypertension Hyperlipidemia Anxiety with depression Hospital course: Patient is a very pleasant 73-year-old female with a past medical history of CAD status post stenting most recently 09/2023, hypertension, hyperlipidemia, lupus, and anxiety with depression. She presented to the emergency department with a chief complaint of shortness of breath, fever, and vomiting. Patient reports she has been experiencing increasing shortness of breath and nonproductive cough over the last year and was even seen by a laundromat manager, Dr. Ann. Patient denies having a history of nicotine use. However patient does have lupus, but states that she was never diagnosed with acute lupus pneumonitis or any other restrictive, inflammatory or obstructive lung disease. Patient reports just over a week ago she began having increasing and worsening shortness of breath and worsening nonproductive cough and was seen by her PCP on 12/21/2023 and was started on doxycycline and Lasix. Patient reports this provided no relief but she did take as directed but states yesterday she began having nausea and vomiting in addition to continued worsening cough and shortness of breath. She states over the past 24 hours she has thrown up greater then 15 times and began running a fever so she came to the emergency department for evaluation. Patient does report being exposed to influenza at work. She denies having any headache, lightheadedness, dizziness, changes in vision or hearing, hemoptysis or hematemesis, chest pain or palpitations, abdominal pain, diarrhea or constipation, or experiencing any numbness/tingling/weakness/swelling in her extremities. She underwent full evaluation in the emergency department. Vital signs upon arrival show patient to have elevated temp of 101.4 F, tachycardia with heart rate of 120, respiratory rate 19, blood pressure 124/79, and SpO2 of 87% on room air requiring oxygen supplementation of 2 L to maintain SpO2 of 92 %. EKG was completed showing sinus tachycardia at 115 bpm. Chest x-ray negative for acute cardiopulmonary process. Labs completed and reviewed. CBC unremarkable. Coagulation profile normal findings. BMP revealing hypokalemia with potassium of 3.4 and glucose of 135. Lactic acid 1.5. Magnesium 1.4. RSV and COVID PCR were negative. Influenza A was positive. Patient was started on Tamiflu, Solu-Medrol 125 mg IVP x 1 dose, Tylenol for fever, and electrolytes were replaced. Patient was admitted under our services with consultation to pulmonology. She was placed on IV steroids and supplemental oxygen along with antiretroviral Tamiflu. Patient was successfully weaned off of oxygen and ambulatory pulse ox was completed. With ambulation patient's pulse ox remained 90% or above. Patient has been cleared by laundromat manager for discharge. Medically, patient is stable for discharge at this time. Patient being discharged home on prednisone taper along with remaining 1 dose of her Tamiflu. Patient reports that she has a home nebulizer and was prescribed with DuoNeb treatments. Patient to follow-up outpatient with PCP in 1 to 2 days and with laundromat manager in 1 week. Physical exam: Vital signs reviewed and stable. General: Nontoxic, no distress and appears stated age. Derm: Skin warm and dry, normal coloration for ethnicity. Head: Atraumatic, normocephalic and symmetric. Eyes: EOMs intact, no lid lag, and anicteric sclera Mouth: no lip lesions, mucus membranes moist Cardiovascular: regular rate and rhythm with normal S1S2, systolic murmur, positive posterior tibial pulses bilaterally, and cap refill < 2 seconds. Lungs: Respirations even, regular, and unlabored. Lungs with equal air movement, no rhonchi, no rales, no wheezing, and no accessory muscle usage. Abdominal: soft, nontender to palpation, no guarding, no appreciable organomegaly Ext: ROM intact. No gross muscle atrophy, no edema, no contractures Neuro: Speech clear, face symmetrical and CN II-XII grossly intact with no noted focal neuro deficits Psych: Alert and oriented to person, place, time, and situation. Appropriate and pleasant affect. A total of 32 minutes of time were spent preparing this complex discharge summary. Pt was discharged on 01/01/2024 at 9:26 AM. Patient was seen independently by Nurse Practitioner. This document was prepared using [employer] dictation software. Please allow for errors in licensed massage practitioner while rare they do occur. J Carlos Hummel NP rendered care for this patient independently, reviewed the findings and plan as documented in the note above. I did not physically speak with or examine the patient on this date. Patient Condition at Discharge: Stable Plan - Discharge Summary Discharge Rx Participant: Yes New Discharge Prescriptions: New predniSONE See Taper PO DIRECTED 12 Days #30 tab Oseltamivir [Tamiflu] 75 mg PO Q12HR 1 Days #1 cap Ipratropium-Albuterol Nebulize [Duoneb 0.5 mg-3 mg/3 ml Soln] 3 ml INHALATION QID 30 Days #120 each Continue Atorvastatin [Lipitor] 20 mg PO HS DULoxetine HCL [Cymbalta] 60 mg PO HS Amitriptyline HCl [Elavil] 25 mg PO HS Levocetirizine Dihydrochloride [Xyzal] 5 mg PO HS Omeprazole 40 mg PO HS Clopidogrel [Plavix] 75 mg PO DAILY #90 tablet Meclizine [Antivert] 25 mg PO TID PRN PRN Reason: Vertigo Zolpidem [Ambien] 5 mg PO HS PRN PRN Reason: Insomnia Bumetanide [BUMEX] 1 mg PO DAILY Ondansetron Odt [Zofran ODT] 4 mg PO Q8HR PRN PRN Reason: Nausea And Vomiting Metoprolol Succinate (ER) [Toprol XL] 25 mg PO HS Montelukast Sodium 10 mg PO HS Aspirin 81 mg PO DAILY #90 tab Ranolazine [Ranexa] 1,000 mg PO Q12HR #180 tab lisinopriL [Zestril] 5 mg PO DIRECTED Discontinued Doxycycline Hyclate 100 mg PO BID Discharge Medication List Amitriptyline HCl [Elavil] 25 mg PO HS 07/09/23 [History] Atorvastatin [Lipitor] 20 mg PO HS 07/09/23 [History] DULoxetine HCL [Cymbalta] 60 mg PO HS 07/09/23 [History] Levocetirizine Dihydrochloride [Xyzal] 5 mg PO HS 07/09/23 [History] Metoprolol Succinate (ER) [Toprol XL] 25 mg PO HS 07/09/23 [History] Montelukast Sodium 10 mg PO HS 07/09/23 [History] Omeprazole 40 mg PO HS 09/03/23 [History] Aspirin 81 mg PO DAILY #90 tab 10/02/23 [Rx] Clopidogrel [Plavix] 75 mg PO DAILY #90 tablet 10/02/23 [Rx] Ranolazine [Ranexa] 1,000 mg PO Q12HR #180 tab 10/02/23 [Rx] Bumetanide [BUMEX] 1 mg PO DAILY 12/28/23 [History] Meclizine [Antivert] 25 mg PO TID PRN 12/28/23 [History] Ondansetron Odt [Zofran ODT] 4 mg PO Q8HR PRN 12/28/23 [History] Zolpidem [Ambien] 5 mg PO HS PRN 12/28/23 [History] lisinopriL [Zestril] 5 mg PO DIRECTED 12/28/23 [History] Ipratropium-Albuterol Nebulize [Duoneb 0.5 mg-3 mg/3 ml Soln] 3 ml INHALATION Q ID 30 Days #120 each 01/01/24 [Rx] Oseltamivir [Tamiflu] 75 mg PO Q12HR 1 Days #1 cap 01/01/24 [Rx] predniSONE See Taper PO DIRECTED 12 Days #30 tab 01/01/24 [Rx] Follow up Appointment(s)/Referral(s): Ruddy Lundberg MD [STAFF PHYSICIAN] - 01/09/24 2:00 pm (If you are having symptoms from Flu please call office and reschedule) Natalio Arellano DO [Primary Care Provider] - 01/02/24 3:00 pm Patient Instructions/Handouts: Influenza (DC) Discharge/Stand Alone Forms: Work/School Release Discharge Disposition: HOME SELF-CARE
[2024-01-01 09:59] VITALS: PULSE 75
--- NOTE | 2024-01-01 13:15 | P.PN ---
Subjective Progress Note Date: 01/01/24 This is a very pleasant 73-year-old female patient with a history of coronary disease with previous stent placement, lupus, hypertension, depression. Lifelong non-smoker. She presented here to the emergency room yesterday with complaints of shortness of breath, cough congestion, headache, body aches, sore throat and nausea and vomiting. Symptoms have been going on for approximately 1 week. She was given doxycycline and diuretics for lower extremity swelling in the outpatient setting. Chest x-ray shows no acute pulmonary process. White count 6.0. Hemoglobin 12.2. Sodium 136. Potassium 4.4. Bicarb 24. BUN 10. Creatinine 0.64. Glucose 135. Influenza A positive. She is seen today in [facility] on the regular medical floor. She is currently resting in bed. Awake and alert in no acute distress. Feeling a bit better today compared to yesterday. She did have a Tmax of 101.4. Currently afebrile. Hemodynamically stable. The patient is seen today December 30, 2023 in follow-up on the regular medical floor. She is currently resting in bed. Awake and alert. She is feeling much improved today compared to yesterday. Still with some cough and congestion. Still with some fatigue and weakness. She is maintaining O2 saturations in the 90s on 3 L/min per nasal cannula. She has been afebrile. Hemodynamically stable. Blood cultures revealing no growth. She remains on DuoNeb ventilations, Singulair, Solu-Medrol. Remains on Tamiflu. Lovenox for DVT prophylaxis. The patient is seen today December 31, 2023 in follow-up on the regular medical floor. She is sitting up in bed. Awake and alert in no acute distress. Denies any worsening shortness of breath. Still with a cough and congestion. No fever or chills. Maintaining O2 saturation in the 90s on 3 L/min per nasal cannula. No IV fluids. Continued on Tamiflu. Continued on bronchodilators and steroids. Lovenox for DVT prophylaxis. White count 9.5. Hemoglobin 11.6. Platelets 388. Sodium 138. Potassium 4.9. Bicarb 28. BUN 18. Creatinine 0.6. Glucose 158. The patient is seen today January 01, 2024 in follow-up on the regular medical floor. She is resting comfortably in bed. Awake and alert in no acute distress. Maintaining good O2 saturations in the 90s on 2 L/min per nasal cannula. She is afebrile. Hemodynamically stable. Blood cultures revealed no growth. She is continued on bronchodilators and steroids. Continued on Tamiflu. Lovenox for DVT prophylaxis. Objective - Vital Signs Vital signs: Vital Signs Temp 98.2 F 01/01/24 07:03 Pulse 76 01/01/24 08:05 Resp 19 01/01/24 07:35 BP 109/65 01/01/24 07:03 Pulse Ox 94 L 01/01/24 07:03 FiO2 Intake & Output 12/31/23 01/01/24 01/01/24 18:59 06:59 18:59 Intake Total 360 Balance 360 Intake: Oral 360 Other: # Voids 4 2 - Exam GENERAL EXAM: Alert, 73-year-old female, on 2 L nasal cannula, in no apparent distress. HEAD: Normocephalic. EYES: Normal reaction of pupils, equal size. NOSE: Clear with pink turbinates. THROAT: No erythema or exudates. NECK: No masses, no JVD. CHEST: No chest wall deformity. LUNGS: Equal air entry with few scattered rhonchi. CVS: S1 and S2 normal with no audible murmur, regular rhythm. ABDOMEN: No hepatosplenomegaly, normal bowel sounds, no guarding or rigidity. SPINE: No scoliosis or deformity SKIN: No rashes CENTRAL NERVOUS SYSTEM: No focal deficits, tone is normal in all 4 extremities. EXTREMITIES: There is 1+ peripheral edema. No clubbing, no cyanosis. Peripheral pulses are intact. - Labs CBC & Chem 7: 12/31/23 06:35 12/31/23 06:35 Labs: Microbiology - Last 24 Hours (Table) 12/28/23 11:42 Blood Culture - Preliminary Blood 12/28/23 11:33 Blood Culture - Preliminary Blood Assessment and Plan Assessment: Acute hypoxemic respiratory failure secondary to acute tracheobronchitis with influenza A infection Acute influenza A Coronary artery disease with previous stent placement History of lupus Hypertension Hyperlipidemia History of depression Plan: The patient was seen and evaluated Medications and labs reviewed Transitioned to oral steroids Cleared for discharge from the pulmonary standpoint Complete a course of Tamiflu Continue a prednisone taper Continue bronchodilators as needed I have personally seen and examined the patient, performed the documentation and the assessment and plan as written. Number of minutes spent on the visit: 10.
== END 2024-01-01 11:34 | disposition home or self-care (01) | DRG 193 ==
LOC: EC 11:10 → 4SSUR 13:49
PROVIDERS: ADMIT Internal Medicine; ATTEND Internal Medicine
PROC: 8E0ZXY6 Isolation (ICD-10-PCS; principal; 2023-12-28)
DX: J10.1 Influenza due to other identified influenza virus with other respiratory manifestations (principal); J96.01 Acute respiratory failure with hypoxia; K57.90 Diverticulosis of intestine, part unspecified, without perforation or abscess without bleeding; I25.10 Atherosclerotic heart disease of native coronary artery without angina pectoris; I10 Essential (primary) hypertension; G43.909 Migraine, unspecified, not intractable, without status migrainosus; F43.10 Post-traumatic stress disorder, unspecified; F32.A Depression, unspecified; F41.9 Anxiety disorder, unspecified; E87.6 Hypokalemia; M32.9 Systemic lupus erythematosus, unspecified; E78.5 Hyperlipidemia, unspecified; D64.9 Anemia, unspecified; Z96.641 Presence of right artificial hip joint; Z96.652 Presence of left artificial knee joint; Z87.01 Personal history of pneumonia (recurrent); Z95.5 Presence of coronary angioplasty implant and graft; Z79.899 Other long term (current) drug therapy; Z79.82 Long term (current) use of aspirin; Z79.02 Long term (current) use of antithrombotics/antiplatelets
CPT/HCPCS: 36415; 71046; 80053; 83605; 83735; 84132; 85025; 85027; 85610; 85730; 86160; 86162; 87040; 87636; 93005; 94640; 96365; 96366; 96375; 99285

== ENCOUNTER 2024-01-14 10:52 | Inpatient (IN) | payer MEDICARE ==
--- NOTE | 2024-01-14 11:17 | ED ---
General Adult HPI - General Source: patient, RN notes reviewed Mode of arrival: ambulatory Limitations: no limitations <Audrey Martin - Last Filed: 01/14/24 11:18> - General Source: patient, RN notes reviewed, old records reviewed Mode of arrival: ambulatory Limitations: no limitations <Lou Majano - Last Filed: 01/14/24 16:50> - General Chief complaint: Upper Respiratory Infection Stated complaint: farida Time Seen by Provider: 01/14/24 11:17 - History of Present Illness Initial comments: This is a 73-year-old female who presents emergency department for coughing, congestion, body aches, shortness of breath, and fatigue. Patient was discharged from this facility a couple of weeks ago after being admitted for influenza A and treated with Tamiflu. States that symptoms have since started to worsen again. (Audrey Martin) Patient is a 73-year-old female presenting to the ER with a chief complaint of shortness of breath. She states she was recently admitted for influenza A here and recently discharged. She was follow-up with PCP earlier today and was sent here for evaluation due to dyspnea. She states she is having increasing shortness of breath, dizziness, lightheadedness upon standing. She also was describing a chest palpitations. She states she had a stent placed by Dr. Vasques in September 2023. She is also reporting cough, congestion, body aches, diarrhea and fatigue. She states she was sent home with breathing treatments and steroids which have not helped. She states her symptoms exacerbated in the past day. (Lou Majano) - Related Data Home Medications Medication Instructions Recorded Confirmed Amitriptyline HCl [Elavil] 25 mg PO HS 07/09/23 01/14/24 Atorvastatin [Lipitor] 20 mg PO HS 07/09/23 01/14/24 DULoxetine HCL [Cymbalta] 60 mg PO HS 07/09/23 01/14/24 Levocetirizine Dihydrochloride 5 mg PO HS 07/09/23 01/14/24 [Xyzal] Metoprolol Succinate (ER) [Toprol 25 mg PO HS 07/09/23 01/14/24 XL] Montelukast Sodium 10 mg PO HS 07/09/23 01/14/24 Omeprazole 40 mg PO HS 09/03/23 01/14/24 Bumetanide [BUMEX] 1 mg PO DAILY 12/28/23 01/14/24 Meclizine [Antivert] 25 mg PO TID PRN 12/28/23 01/14/24 Ondansetron Odt [Zofran ODT] 4 mg PO Q8HR PRN 12/28/23 01/14/24 Zolpidem [Ambien] 5 mg PO HS PRN 12/28/23 01/14/24 lisinopriL [Zestril] 5 mg PO DIRECTED 12/28/23 01/14/24 Ipratropium-Albuterol Nebulize 3 ml INHALATION RT-QID PRN 01/14/24 01/14/24 [Duoneb 0.5 mg-3 mg/3 ml Soln] Previous Rx's Medication Instructions Recorded Aspirin 81 mg PO DAILY #90 tab 10/02/23 Clopidogrel [Plavix] 75 mg PO DAILY #90 tablet 10/02/23 Ranolazine [Ranexa] 1,000 mg PO Q12HR #180 tab 10/02/23 Allergies Allergy/AdvReac Type Severity Reaction Status Date / Time influenza virus vaccine qs Allergy Anaphylaxis Verified 01/14/24 15:56 [id number] (65 years up) [From Nitro[employer] (65y up)(PF)] Penicillins Allergy Rash/Hives Verified 01/14/24 15:56 vaccine adjuvant emulsion Allergy Anaphylaxis Verified 01/14/24 15:56 [id number] [From Fluad Quad (65y up)(PF)] vancomycin Allergy Anaphylaxis Verified 01/14/24 15:56 Review of Systems ROS Other: All systems not noted in ROS Statement are negative. <Audrey Martin - Last Filed: 01/14/24 11:18> ROS Other: All systems not noted in ROS Statement are negative. <Lou Majano - Last Filed: 01/14/24 16:50> ROS Statement: Those systems with pertinent positive or pertinent negative responses have been documented in the HPI. Past Medical History Past Medical History: Coronary Artery Disease (CAD), Chest Pain / Angina, GERD /Reflux, Hypertension, Pneumonia Additional Past Medical History / Comment(s): lupus, diverticulitis, difficulty swallowing nausea History of Any Multi-Drug Resistant Organisms: None Reported Past Surgical History: Adenoidectomy, Appendectomy, Back Surgery, Bowel Resection, Cholecystectomy, Heart Catheterization, Heart Catheterization With Stent, Hysterectomy, Joint Replacement, Orthopedic Surgery, Tonsillectomy Additional Past Surgical History / Comment(s): carpal tunnel, cervical fusion, lft knee and rt hip replacement, multiple back surgeries, ruptured colon after bowel resection Past Anesthesia/Blood Transfusion Reactions: No Reported Reaction Date of Last Stent Placement:: 09/2023 Past Psychological History: Depression, PTSD Smoking Status: Never smoker Past Alcohol Use History: None Reported Past Drug Use History: None Reported - Past Family History Mother Family Medical History: Hypertension Sister(s) Family Medical History: Cancer Additional Family Medical History / Comment(s): breast <Audrey Martin - Last Filed: 01/14/24 11:18> General Exam Limitations: no limitations <Audrey Martin - Last Filed: 01/14/24 11:18> General appearance: alert, in no apparent distress Head exam: Present: atraumatic, normocephalic, normal inspection Eye exam: Present: normal appearance, PERRL, EOMI. Absent: scleral icterus, conjunctival injection, periorbital swelling Respiratory exam: Present: normal lung sounds bilaterally. Absent: respiratory distress, wheezes, rales, rhonchi, stridor Cardiovascular Exam: Present: regular rate, normal rhythm, normal heart sounds. Absent: systolic murmur, diastolic murmur, rubs, gallop, clicks GI/Abdominal exam: Present: soft, normal bowel sounds. Absent: distended, tenderness, guarding, rebound, rigid Extremities exam: Present: normal inspection, full ROM, normal capillary refill. Absent: tenderness, pedal edema, joint swelling, calf tenderness Neurological exam: Present: alert, oriented X3, CN II-XII intact Psychiatric exam: Present: normal affect, normal mood Skin exam: Present: warm, intact, diaphoretic (mild), other (edema to bilateral pretibial ) <Lou Majano - Last Filed: 01/14/24 16:50> - General Exam Comments Initial Comments: Visual Physical Exam Vital signs reviewed General: Well-appearing, nontoxic, no acute distress. Head: Normocephalic, atraumatic Eyes: PERRLA, EOMI ENT: Airway patent Chest: Nonlabored breathing Skin: No visual rash, normal skin tone Neuro: Alert and oriented 3 Musculoskeletal: No gross abnormalities (Audrey Martin) Course <Lou Majano - Last Filed: 01/14/24 16:50> Vital Signs 01/14/24 01/14/24 01/14/24 11:01 14:06 15:20 Temperature 98.1 F Pulse Rate 120 H 117 H 110 H Respiratory 18 22 18 Rate Blood Pressure 100/69 133/84 122/74 O2 Sat by Pulse 98 95 96 Oximetry 01/14/24 01/14/24 15:36 16:00 Temperature Pulse Rate 113 H 110 H Respiratory 18 20 Rate Blood Pressure 122/74 125/72 O2 Sat by Pulse 94 L 95 Oximetry - Reevaluation(s) Reevaluation #1: 01/14/24 15:[address] Rodriguez, [facility] emergency department physician who accepts medical management. (Lou Bowden) EKG Findings - EKG Comments: EKG Findings:: EKG taken at 13: 53 shows sinus tachycardia with T wave inversion in V1-V2. Ventricular rate 117, NM interval 146, QRS duration 81, QT/QTc 304/374. EKG taken at 15: 17 showing sinus tachycardia with no acute ST segment or T wave abnormalities. Ventricular rate 111, NM interval 158, QRS duration 82, QT/QTc 325/391. <Lou Majano - Last Filed: 01/14/24 16:50> Medical Decision Making <Audrey Martin - Last Filed: 01/14/24 11:18> - Lab Data Result diagrams: 01/14/24 12:44 01/14/24 12:44 - Radiology Data Radiology results: report reviewed, image reviewed <Lou Majano - Last Filed: 01/14/24 16:50> - Medical Decision Making I performed the QuickNote portion of this chart. Signed Audrey Martin PA-C. (Audrey Martin) Was pt. sent in by a medical professional or institution ([facility], [facility], urgent care, hospital, or custodial...) When possible be specific @ -Sent by PCP for evaluation due to shortness of breath and lightheadedness. Did you speak to anyone other than the patient for history (EMS, parent, family, police, friend...)? What history was obtained from this source @ -No Did you review nursing and triage notes (agree or disagree)? Why? @ -I reviewed and agree with nursing and triage notes Were old charts reviewed (outside hosp., previous admission, EMS record, old EKG, old radiological studies, urgent care reports/EKG's, custodial records)? Report findings @ -Yes, reviewed old charts from 12-28-2023. Patient admitted for hypoxia due to influenza A.] Differential Diagnosis (chest pain, altered mental status, abdominal pain women, abdominal pain men, vaginal bleeding, weakness, fever, dyspnea, syncope, headache, dizziness, GI bleed, back pain, seizure, CVA, palpatations, mental health, musculoskeletal)? @ -Differential Dyspnea:Coronary syndrome, arrhythmia, tamponade, asthma, COPD, pulmonary embolism, pneumonia, pneumothorax, pulmonary effusion, anaphylaxis, diabetic ketoacidosis, flailed chest, pulmonary contusion, diaphragmatic rupture, anemia, neuromuscular, this is not meant to be an all-inclusive list. EKG interpreted by me (3pts min.). @ -As above X-rays interpreted by me (1pt min.). @ -Chest x-ray intrepreted by me negative for acute cardiopulmonary process. CT interpreted by me (1pt min.). @ -CTA rule out PE negative for acute pulmonary embolism. Mild cardiomegaly with some haziness of the lungs which could resent pulmonary vascular congestion. U/S interpreted by me (1pt. min.). @ -None done What testing was considered but not performed or refused? (CT, X-rays, U/S, labs)? Why? @ -None What meds were considered but not given or refused? Why? @ -None Did you discuss the management of the patient with other professionals (professionals i.e. , PA, [facility], lab, RT, psych nurse, psychiatric social worker supervisor, coal briquette machine operator, teacher, housing officer, piano case and bench assembler)? Give summary @ -Yes, case discussed with Dr. Rodriguez, who accepts medical admission. Was smoking cessation discussed for >3mins.? @ -No Was critical care preformed (if so, how long)? @ -No Were there social determinants of health that impacted care today? How? (Homelessness, low income, unemployed, alcoholism, drug addiction, transportation, low edu. Level, literacy, decrease access to med. care, [facility], rehab)? @ -No Was there de-escalation of care discussed even if they declined (Discuss DNR or withdrawal of care, Hospice)? DNR status @ -No What co-morbidities impacted this encounter? (DM, HTN, Smoking, COPD, CAD, Cancer, CVA, ARF, Chemo, Hep., AIDS, mental health diagnosis, sleep apnea, morbid obesity)? @ -Obese, CAD Was patient admitted / discharged? Hospital course, mention meds given and route, prescriptions, significant lab abnormalities, going to OR and other pertinent info. @ -Admitted. Patient is a 73-year-old female presenting to the ER with a chief complaint of shortness of breath and lightheadedness. Sent by PCP for evaluation. History and physical exam completed. Vitals significant for heart rate of 120, blood pressure 133/84, oxygen saturation 95% on room air. Patient was mildly diaphoretic on exam. Lung sounds clear to auscultation bilaterally. No signs of acute respiratory distress and nontoxic appearing. Labs obtained significant for D-dimer 0.62. Serial troponin significant at 0.943 and 0.974. Lactic 2.4. EKG showed sinus tachycardia with no acute evidence of infarct or ischemia. COVID, influenza, RSV negative. Chest x-ray negative for acute cardiopulmonary process. CTA performed due to elevated ddimer which was negative for acute pulmonary embolism. Mild pulmonary vascular congestion present. Patient received by mouth aspirin with improvement of chest discomfort to a 2 out of 10. Nitropaste and sublingual nitro ordered. Patient started on low-dose heparin and Lasix. NSTEMI believed to be due to from fluid overload due to CT findings. Admission considered for IV diuretics and cardiology consult. Case discussed with Dr. Rodriguez, [facility] physician, who accepts medical admission. Echo ordered. Cardiology consulted. Results discussed with patient, all questions answered. Patient agreeable for admission. Case discussed with ED attending, Dr. Khan. Undiagnosed new problem with uncertain prognosis? @ -No Drug Therapy requiring intensive monitoring for toxicity (Heparin, Nitro, Insulin, Cardizem)? @ -Yes Were any procedures done? @ -No Diagnosis/symptom? @ -NSTEMI Acute, or Chronic, or Acute on Chronic? @ -Acute Uncomplicated (without systemic symptoms) or Complicated (systemic symptoms)? @ -Complicated Side effects of treatment? @ -No Exacerbation, Progression, or Severe Exacerbation? @ -No Poses a threat to life or bodily function? How? (Chest pain, USA, OR, pneumonia, PE, COPD, DKA, ARF, appy, cholecystitis, CVA, Diverticulitis, Homicidal, Suicidal, threat to staff... and all critical care pts) @ -Yes, NSTEMI can lead to cardiac damage and dysfunction. (Lou Majano) - Lab Data Lab Results 01/14/24 01/14/24 01/14/24 Range/Units 12:44 12:44 12:44 WBC 9.0 (3.8-10.6) k/uL RBC 4.89 (3.80-5.40) m/uL Hgb 14.2 (11.4-16.0) gm/dL Hct 43.5 (34.0-46.0) % MCV 88.9 (80.0-100.0) fL MCH 29.0 (25.0-35.0) pg MCHC 32.6 (31.0-37.0) g/dL RDW 14.8 (11.5-15.5) % Plt Count 477 H (150-450) k/uL MPV 7.1 Neutrophils % 70 % Lymphocytes % 19 % Monocytes % 6 % Eosinophils % 2 % Basophils % 0 % Neutrophils # 6.3 (1.3-7.7) k/uL Lymphocytes # 1.8 (1.0-4.8) k/uL Monocytes # 0.5 (0-1.0) k/uL Eosinophils # 0.2 (0-0.7) k/uL Basophils # 0.0 (0-0.2) k/uL PT 10.2 (10.0-12.5) sec INR 0.9 (<1.2) APTT 23.7 (22.0-30.0) sec D-Dimer 0.62 H (<0.60) mg/L FEU Sodium (137-145) mmol/L Potassium (3.5-5.1) mmol/L Chloride (98-107) mmol/L Carbon Dioxide (22-30) mmol/L Anion Gap mmol/L BUN (7-17) mg/dL Creatinine (0.52-1.04) mg/dL Est GFR (CKD-EPI)AfAm (>60 ml/min/1.73 sqM) Est GFR (CKD-EPI)NonAf (>60 ml/min/1.73 sqM) Glucose (74-99) mg/dL Lactic Ac Sepsis Rflx Plasma Lactic Acid Sudhir (0.7-2.0) mmol/L Calcium (8.4-10.2) mg/dL Total Bilirubin (0.2-1.3) mg/dL AST (14-36) U/L ALT (4-34) U/L Alkaline Phosphatase (38-126) U/L Troponin I (0.000-0.034) ng/mL NT-Pro-B Natriuret Pep pg/mL Total Protein (6.3-8.2) g/dL Albumin (3.5-5.0) g/dL Influenza Type A (PCR) Not Detected (Not Detectd) Influenza Type B (PCR) Not Detected (Not Detectd) RSV (PCR) Not Detected (Not Detectd) SARS-CoV-2 (PCR) Not Detected (Not Detectd) 01/14/24 01/14/24 01/14/24 Range/Units 12:44 12:44 12:44 WBC (3.8-10.6) k/uL RBC (3.80-5.40) m/uL Hgb (11.4-16.0) gm/dL Hct (34.0-46.0) % MCV (80.0-100.0) fL MCH (25.0-35.0) pg MCHC (31.0-37.0) g/dL RDW (11.5-15.5) % Plt Count (150-450) k/uL MPV Neutrophils % % Lymphocytes % % Monocytes % % Eosinophils % % Basophils % % Neutrophils # (1.3-7.7) k/uL Lymphocytes # (1.0-4.8) k/uL Monocytes # (0-1.0) k/uL Eosinophils # (0-0.7) k/uL Basophils # (0-0.2) k/uL PT (10.0-12.5) sec INR (<1.2) APTT (22.0-30.0) sec D-Dimer (<0.60) mg/L FEU Sodium 136 L (137-145) mmol/L Potassium 4.8 (3.5-5.1) mmol/L Chloride 108 H (98-107) mmol/L Carbon Dioxide 19 L (22-30) mmol/L Anion Gap 9 mmol/L BUN 15 (7-17) mg/dL Creatinine 0.66 (0.52-1.04) mg/dL Est GFR (CKD-EPI)AfAm >90 (>60 ml/min/1.73 sqM) Est GFR (CKD-EPI)NonAf 89 (>60 ml/min/1.73 sqM) Glucose 120 H (74-99) mg/dL Lactic Ac Sepsis Rflx Plasma Lactic Acid Sudhir 2.4 H* (0.7-2.0) mmol/L Calcium 9.7 (8.4-10.2) mg/dL Total Bilirubin 1.2 (0.2-1.3) mg/dL AST 29 (14-36) U/L ALT 22 (4-34) U/L Alkaline Phosphatase 122 (38-126) U/L Troponin I 0.943 H* (0.000-0.034) ng/mL NT-Pro-B Natriuret Pep pg/mL Total Protein 7.1 (6.3-8.2) g/dL Albumin 4.0 (3.5-5.0) g/dL Influenza Type A (PCR) (Not Detectd) Influenza Type B (PCR) (Not Detectd) RSV (PCR) (Not Detectd) SARS-CoV-2 (PCR) (Not Detectd) 01/14/24 01/14/24 01/14/24 Range/Units 12:44 13:57 15:36 WBC (3.8-10.6) k/uL RBC (3.80-5.40) m/uL Hgb (11.4-16.0) gm/dL Hct (34.0-46.0) % MCV (80.0-100.0) fL MCH (25.0-35.0) pg MCHC (31.0-37.0) g/dL RDW (11.5-15.5) % Plt Count (150-450) k/uL MPV Neutrophils % % Lymphocytes % % Monocytes % % Eosinophils % % Basophils % % Neutrophils # (1.3-7.7) k/uL Lymphocytes # (1.0-4.8) k/uL Monocytes # (0-1.0) k/uL Eosinophils # (0-0.7) k/uL Basophils # (0-0.2) k/uL PT (10.0-12.5) sec INR (<1.2) APTT (22.0-30.0) sec D-Dimer (<0.60) mg/L FEU Sodium (137-145) mmol/L Potassium (3.5-5.1) mmol/L Chloride (98-107) mmol/L Carbon Dioxide (22-30) mmol/L Anion Gap mmol/L BUN (7-17) mg/dL Creatinine (0.52-1.04) mg/dL Est GFR (CKD-EPI)AfAm (>60 ml/min/1.73 sqM) Est GFR (CKD-EPI)NonAf (>60 ml/min/1.73 sqM) Glucose (74-99) mg/dL Lactic Ac Sepsis Rflx Y Plasma Lactic Acid Sudhir (0.7-2.0) mmol/L Calcium (8.4-10.2) mg/dL Total Bilirubin (0.2-1.3) mg/dL AST (14-36) U/L ALT (4-34) U/L Alkaline Phosphatase (38-126) U/L Troponin I 0.974 H* (0.000-0.034) ng/mL NT-Pro-B Natriuret Pep 5420 pg/mL Total Protein (6.3-8.2) g/dL Albumin (3.5-5.0) g/dL Influenza Type A (PCR) (Not Detectd) Influenza Type B (PCR) (Not Detectd) RSV (PCR) (Not Detectd) SARS-CoV-2 (PCR) (Not Detectd) Disposition <Audrey Martin - Last Filed: 01/14/24 11:18> Time of Disposition: 15:44 <Lou Majano - Last Filed: 01/14/24 16:50> Clinical Impression: NSTEMI (non-ST elevated myocardial infarction) Disposition: ADMITTED IP TO THIS HOSP Condition: Fair
--- NOTE | 2024-01-14 11:38 | XR ---
EXAMINATION TYPE: XR chest 2V DATE OF EXAM: 01/14/2024 COMPARISON: 12/28/2023 INDICATION: Cough short of breath TECHNIQUE: Frontal and lateral views of the chest are obtained. FINDINGS: The heart size is normal. The pulmonary vasculature is normal. The lungs are clear. Postsurgical fusion changes are within the cervical spine. IMPRESSION: 1. No acute pulmonary process.
[2024-01-14 13:29] LABS: Basophils % (A) 0 %; Eosinophils # (A) 0.2 k/uL (0-0.7); Eosinophils % (A) 2 %; HCT 43.5 % (34.0-46.0); HGB 14.2 gm/dL (11.4-16.0); Lymphocytes # (A) 1.8 k/uL (1.0-4.8); Lymphocytes % (A) 19 %; MCHC 32.6 g/dL (31.0-37.0); MCV 88.9 fL (80.0-100.0); Mean Platelet Volume 7.1; Monocytes # (A) 0.5 k/uL (0-1.0); Monocytes % (A) 6 %; Neutrophils # (A) 6.3 k/uL (1.3-7.7); Neutrophils % (A) 70 %; Platelet Count 477 k/uL (150-450); RBC 4.89 m/uL (3.80-5.40); RDW 14.8 % (11.5-15.5)
[2024-01-14 13:40] LABS: ALT 22 U/L (4-34); AST 29 U/L (14-36); African American GFR (CKD) >90 (>60 ml/min/1.73 sqM); Alkaline Phosphatase 122 U/L (38-126); Anion Gap 9 mmol/L; Blood Urea Nitrogen 15 mg/dL (7-17); Calcium 9.7 mg/dL (8.4-10.2); Carbon Dioxide 19 mmol/L (22-30); Chloride 108 mmol/L (98-107); Glucose 120 mg/dL (74-99); Non-African American GFR(CKD) 89 (>60 ml/min/1.73 sqM); Potassium 4.8 mmol/L (3.5-5.1); Sodium 136 mmol/L (137-145); Total Bilirubin 1.2 mg/dL (0.2-1.3); Total Protein 7.1 g/dL (6.3-8.2)
[2024-01-14] MEDS: ASPIRIN 81 MG PO STA (14:21)
[2024-01-14] MEDS: SODIUM CHLORIDE 0.9% 500 ML 500 ML IV STA (14:22)
[2024-01-14 14:49] LABS: INR 0.9 (<1.2); Partial Thromboplastin Time 23.7 sec (22.0-30.0); Prothrombin Time 10.2 sec (10.0-12.5)
[2024-01-14] MEDS: NITROGLYCERIN SL TABS 0.4 MG TAB SUBLINGUAL PRN (14:54)
[2024-01-14] MEDS: ONDANSETRON 4 MG/2 ML VIAL IVP STA (14:55)
--- NOTE | 2024-01-14 15:00 | CT ---
EXAMINATION TYPE: CT chest angio for PE CT DLP: 919.6 mGycm, Automated exposure control for dose reduction was used. DATE OF EXAM: 01/14/2024 2:52 PM COMPARISON: Chest radiograph from same day. Multiple CTs of the chest with most recent on 07/11/2023. CLINICAL INDICATION:Female, 73 years old with history of eval for PE. dyspnea, palpitations; dyspnea, palpitations TECHNIQUE/CONTRAST: CTA scan of the thorax is performed with IV Contrast, patient injected with 100ml mL of Isovue 370, M IP images are created and reviewed these are created on a separate workstation.. FINDINGS: Pulmonary Artery: There is no evidence for a filling defect within the pulmonary vasculature to sugge st acute pulmonary embolism. The pulmonary artery is of normal size. Lungs/Pleura: Generalized haziness to the lungs most pronounced posteriorly in the dependent portions in the lung bases. No evidence of focal consolidation, pleural effusion or pneumothorax. Airway: Large airways are patent. Heart: The heart is mildly enlarged for size. Vasculature: No evidence of aortic aneurysm. Mediastinum: No gross evidence of adenopathy. Musculoskeletal: Moderate degenerative disc disease changes are present throughout the thoracolumbar spine. Soft Tissues: Unremarkable. Lower neck: No significant findings. Upper Abdomen: Gallbladder surgically absent. IMPRESSION: 1. No evidence of pulmonary embolism. 2. Mild cardiomegaly with some haziness of lungs which could represent pulmonary vascular congestion. Correlate with serum BNP.
[2024-01-14] MEDS: HEPARIN SODIUM 1,000 UN/ML (10ML VL) IV ONE (15:33)
[2024-01-14] MEDS: HEPARIN SOD,PORK IN 0.45% NACL 25,000 UNIT in 0.45% NACL 1 250ML.BAG IV SCH (15:34)
[2024-01-14] MEDS ORDERED: NITROGLYCERIN OINT 1 INCH/GM PACKET TOPICAL PRN (15:36)
[2024-01-14] MEDS: NITROGLYCERIN SL TABS 0.4 MG TAB SUBLINGUAL STA (15:43)
[2024-01-14] MEDS ORDERED: ONDANSETRON 4 MG/2 ML VIAL IVP PRN (15:44)
[2024-01-14] MEDS: NITROGLYCERIN OINT 1 INCH/GM PACKET TOPICAL STA (15:44)
[2024-01-14] MEDS ORDERED: NALOXONE 0.4 MG/ML 1 ML VIAL IV PRN (15:44)
[2024-01-14] MEDS ORDERED: MECLIZINE 25 MG TAB PO PRN (16:04)
[2024-01-14] MEDS ORDERED: IPRATROPIUM-ALBUTEROL 3 ML NEB INHALATION PRN (16:06)
--- NOTE | 2024-01-14 17:09 | P.HPIM ---
History of Present Illness H&P Date: 01/14/24 History of Presenting Illness: Patient is a very pleasant 73-year-old female with a past medical history of CAD status post stenting and currently known 60 to 70% stenosis of mid LAD, hypertension, hyperlipidemia, lupus, and anxiety with depression. She presented to the emergency department with a chief complaint of shortness of breath, fatigue, cough, and congestion. She recently underwent hospitalization from 12/28/2023 through 01/01/2024 where she underwent treatment for influenza A and completed course of Tamiflu and discharged home on a prednisone taper and DuoNeb treatment. She reports she returned to work and was feeling fine until Sunday night when she began feeling very fatigued and tired again and Sunday she again began to feel very short of breath accompanied by nonproductive cough and mild chest pain/discomfort. Patient reports this continued intermittently and yesterday actually felt as though she "was going to " because the chest tightness and shortness of breath was continuous and tali bad. Patient states today her son came to check on her and since she continued to have the shortness of breath and chest pain, she called her PCP and was instructed to come straight to the emergency department for further evaluation. Patient denied having any fevers, chills, palpitations, nausea, vomiting, diaphoresis, or experiencing any numbness/tingling/weakness/swelling in her extremities. She does report intermittent swelling in her lower extremities when she is on her feet for prolonged periods but currently denies. Patient underwent evaluation in the emergency department.. Vital signs upon arrival show blood pressure 100/69, heart rate 120, respiratory rate 18, temp 98.1 F, and SpO2 of 98% on room air. EKG completed showing sinus tachycardia at [address] elevation in leads I and II otherwise no further T wave or ST abnormalities at this time upon personal review and interpretation. Chest x-ray negative for acute cardiopulmonary process. Labs completed and reviewed. CBC showing thrombocytosis with platelet count of 477 otherwise normal findings. BMP showing hyperchloremia chloride of 108, bicarb 19, and anion gap of 9. Blood glucose 120. Lactic acid elevated at 2.4. Liver profile normal findings. Troponin elevated at 0.943 with BNP of 5420. D-dimer also elevated at 0.62. CTA chest completed showing no evidence of pulmonary embolism revealing mild cardiomegaly with haziness of the lungs possibly representing pulmonary vascular congestion. Influenza A, influenza B, COVID, and RSV were negative. Patient given aspirin 324 mg p.o. x 1 dose Lasix 40 mg IVP, and started on heparin infusion for acute coronary syndrome. Patient admitted under our services with consultation to cardiology. Patient currently reports she is feeling calm and rested with full resolution of chest pain after administration of 2 sublingual nitros she received in the emergency department. Review of systems: Pertinent positives and negatives as discussed in HPI, a complete review of systems was performed and all other systems are negative. Physical exam: Vital signs reviewed and stable. General: Nontoxic, no distress and appears stated age. Derm: Skin warm and dry, normal coloration for ethnicity. Head: Atraumatic, normocephalic and symmetric. Eyes: EOMs intact, no lid lag, and anicteric sclera Mouth: no lip lesions, mucus membranes moist Cardiovascular: regular rate and rhythm with normal S1S2, systolic murmur, po sitive posterior tibial pulses bilaterally, and cap refill < 2 seconds. Lungs: Respirations even, regular, and unlabored on room air. Lungs CTA bilaterally, no rhonchi, no rales, no wheezing, and no accessory muscle usage. Abdominal: soft, nontender to palpation, no guarding, no appreciable organ omegaly Ext: ROM intact. No gross muscle atrophy, no edema, no contractures Neuro: Speech clear, face symmetrical and CN II-XII grossly intact with no noted focal neuro deficits Psych: Alert and oriented to person, place, time, and situation. Appropriate and pleasant affect. Assessment and Plan of Care: NSTEMI Acute heart failure, unknown type pending echocardiogram (previous EF 55%, denie s history of CHF) History of CAD with stents Hypertension Hyperlipidemia Lupus -Cardiology consulted, appreciate recommendations -Continue Heparin infusion at 9 units/kg/h, monitor PTT every 6 hours for goal therapeutic range between 44 and to 79 seconds. Heparin infusion to be adjusted by pharmacist based upon these results. -Telemetry monitoring -Trend troponins -Cardiac diet, NPO at midnight -Continue cardiac medication regimen with aspirin 81 mg daily, atorvastatin 20 m g nightly, Plavix 75 mg daily, lisinopril 5 mg daily, metoprolol 25 mg nightly, and Ranexa 1000 mg every 12 hours. -Echocardiogram Anxiety with depression -Continue daily medication regimen with Elavil 25 mg nightly and Cymbalta 60 mg nightly. Data and imaging reviewed: As stated above in HPI The patient is admitted with an anticipated greater than 2 midnight stay for evaluation of NSTEMI CODE STATUS: Full code DVT prophylaxis: Heparin infusion for acute coronary syndrome Anticipated discharge date: Clinical course to determine Anticipated discharge place: Clinical course to determine Patient was seen independently by Nurse Practitioner. This document was prepared using [employer] dictation software. Please allow for errors in private branch exchange installer while rare they do occur. J Carlos Hummel NP rendered care for this patient independently, reviewed the findings and plan as documented in the note above. I did not physically speak with or examine the patient on this date. Past Medical History Past Medical History: Coronary Artery Disease (CAD), Chest Pain / Angina, GERD/Reflux, Hypertension, Pneumonia Additional Past Medical History / Comment(s): lupus, diverticulitis, difficulty swallowing nausea History of Any Multi-Drug Resistant Organisms: None Reported Past Surgical History: Adenoidectomy, Appendectomy, Back Surgery, Bowel Resection, Cholecystectomy, Heart Catheterization, Heart Catheterization With Stent, Hysterectomy, Joint Replacement, Orthopedic Surgery, Tonsillectomy Additional Past Surgical History / Comment(s): carpal tunnel, cervical fusion, lft knee and rt hip replacement, multiple back surgeries, ruptured colon after bowel resection Past Anesthesia/Blood Transfusion Reactions: No Reported Reaction Date of Last Stent Placement:: 09/2023 Past Psychological History: Depression, PTSD Smoking Status: Never smoker Past Alcohol Use History: None Reported Past Drug Use History: None Reported - Past Family History Mother Family Medical History: Hypertension Sister(s) Family Medical History: Cancer Additional Family Medical History / Comment(s): breast Medications and Allergies Home Medications Medication Instructions Recorded Confirmed Type Amitriptyline HCl [Elavil] 25 mg PO HS 07/09/23 01/14/24 History Atorvastatin [Lipitor] 20 mg PO HS 07/09/23 01/14/24 History DULoxetine HCL [Cymbalta] 60 mg PO HS 07/09/23 01/14/24 History Levocetirizine Dihydrochloride 5 mg PO HS 07/09/23 01/14/24 History [Xyzal] Metoprolol Succinate (ER) [Toprol 25 mg PO HS 07/09/23 01/14/24 History XL] Montelukast Sodium 10 mg PO HS 07/09/23 01/14/24 History Omeprazole 40 mg PO HS 09/03/23 01/14/24 History Aspirin 81 mg PO DAILY #90 tab 10/02/23 01/14/24 Rx Clopidogrel [Plavix] 75 mg PO DAILY #90 tablet 10/02/23 01/14/24 Rx Ranolazine [Ranexa] 1,000 mg PO Q12HR #180 tab 10/02/23 01/14/24 Rx Bumetanide [BUMEX] 1 mg PO DAILY 12/28/23 01/14/24 History Meclizine [Antivert] 25 mg PO TID PRN 12/28/23 01/14/24 History Ondansetron Odt [Zofran ODT] 4 mg PO Q8HR PRN 12/28/23 01/14/24 History Zolpidem [Ambien] 5 mg PO HS PRN 12/28/23 01/14/24 History lisinopriL [Zestril] 5 mg PO DIRECTED 12/28/23 01/14/24 History Ipratropium-Albuterol Nebulize 3 ml INHALATION RT-QID PRN 01/14/24 01/14/24 History [Duoneb 0.5 mg-3 mg/3 ml Soln] Allergies Allergy/AdvReac Type Severity Reaction Status Date / Time influenza virus vaccine qs Allergy Anaphylaxis Verified 01/14/24 15:56 [id number] (65 years up) [From [facility] (65y up)(PF)] Penicillins Allergy Rash/Hives Verified 01/14/24 15:56 vaccine adjuvant emulsion Allergy Anaphylaxis Verified 01/14/24 15:56 MF59C.1 [From [facility] (65y up)(PF)] vancomycin Allergy Anaphylaxis Verified 01/14/24 15:56 Physical Exam Vitals: Vital Signs Temp Pulse Resp BP Pulse Ox 01/14/24 15:36 113 H 18 122/74 94 L 01/14/24 15:20 110 H 18 122/74 96 01/14/24 14:06 117 H 22 133/84 95 01/14/24 11:01 98.1 F 120 H 18 100/69 98 Intake and Output 01/14/24 01/14/24 01/14/24 06:59 14:59 22:59 Other: Weight 106.594 kg Results CBC & Chem 7: 01/15/24 11:50 01/15/24 11:50 Labs: Abnormal Lab Results - Last 24 Hours (Table) 01/14/24 01/14/24 01/14/24 Range/Units 12:44 12:44 12:44 Plt Count 477 H (150-450) k/uL D-Dimer 0.62 H (<0.60) mg/L FEU Sodium 136 L (137-145) mmol/L Chloride 108 H (98-107) mmol/L Carbon Dioxide 19 L (22-30) mmol/L Glucose 120 H (74-99) mg/dL Plasma Lactic Acid Sudhir (0.7-2.0) mmol/L Troponin I (0.000-0.034) ng/mL 01/14/24 01/14/24 Range/Units 12:44 12:44 Plt Count (150-450) k/uL D-Dimer (<0.60) mg/L FEU Sodium (137-145) mmol/L Chloride (98-107) mmol/L Carbon Dioxide (22-30) mmol/L Glucose (74-99) mg/dL Plasma Lactic Acid Sudhir 2.4 H* (0.7-2.0) mmol/L Troponin I 0.943 H* (0.000-0.034) ng/mL
[2024-01-14] MEDS: lisinopriL 5 MG TAB PO SCH (17:57)
[2024-01-14] MEDS: MONTELUKAST 10 MG TAB PO SCH (21:36)
[2024-01-14] MEDS: METOPROLOL SUCCINATE (ER) 25 MG TAB.ER.24H PO SCH (21:36)
[2024-01-14] MEDS: DULoxetine HCL 60 MG CAPSULE.DR PO SCH (21:36)
[2024-01-14] MEDS: PANTOPRAZOLE 40 MG TABLET PO SCH (21:36)
[2024-01-14] MEDS: ATORVASTATIN 20 MG TAB PO SCH (21:36)
[2024-01-14] MEDS: AMITRIPTYLINE HCL 25 MG TAB PO SCH (21:36)
[2024-01-14] MEDS: ACETAMINOPHEN TAB 325 MG TAB PO PRN (21:37)
[2024-01-14] MEDS: RANOLAZINE 500 MG TAB.ER.12H PO SCH (21:37)
[2024-01-14] MEDS: FUROSEMIDE 10 MG/ML 4 ML VIAL IV SCH (21:37)
[2024-01-15] MEDS: SODIUM CHLORIDE 0.9% 500 ML 500 ML IV ONE (03:47)
[2024-01-15] MEDS: HEPARIN SODIUM 1,000 UN/ML (10ML VL) IV PRN (05:55)
[2024-01-15] MEDS: ASPIRIN 81 MG PO SCH (08:02)
[2024-01-15] MEDS: CLOPIDOGREL 75 MG TAB PO SCH (08:02)
[2024-01-15] MEDS ORDERED: BUMETANIDE 1 MG TAB PO SCH (09:00)
[2024-01-15] MEDS: SODIUM CHLORIDE 0.9% 1,000 ML IV SCH ×2 (09:32→15:03)
[2024-01-15] MEDS: FUROSEMIDE 40 MG TAB PO SCH (09:33)
[2024-01-15] MEDS: METOPROLOL TARTRATE 25 MG TAB PO SCH ×2 (09:33→21:03)
--- NOTE | 2024-01-15 11:01 | CA ---
Transthoracic Echo Report Name: Mariam Espinoza Age: 73 Gender: F : 1950 Exam Date: 01/14/2024 15:56 Exam Location: [facility] Ht (in): 66 Wt (lb): 235 Ordering Physician: Lou Majano Attending/Referring Phys: Telecom Manager Ankur Booth RDCS Procedure CPT: Indications: palpitations/dyspnea Cardiac Hx: Technical Quality: Technically difficult study Contrast 1: Definity Total Dose (mL): 3 Contrast 2: Total Dose (mL): MEASUREMENTS (Male / Female) Normal Values 2D ECHO LV Diastolic Diameter PLAX 3.9 cm 4.2 - 5.9 / 3.9 - 5.3 cm LV Systolic Diameter PLAX 3.1 cm IVS Diastolic Thickness 1.2 cm 0.6 - 1.0 / 0.6 - 0.9 cm LVPW Diastolic Thickness 1.3 cm 0.6 - 1.0 / 0.6 - 0.9 cm LV Relative Wall Thickness 0.6 Aortic Root Diameter 3.6 cm LA Systolic Diameter LX 4.2 cm 3.0 - 4.0 / 2.7 - 3.8 cm DOPPLER MR Peak Velocity 607.9 cm/s MR Peak Gradient 147.8 mmHg Mitral E Point Velocity 143.1 cm/s Mitral A Point Velocity 38.9 cm/s Mitral E to A Ratio 3.7 MV Deceleration Time 48.3 ms TR Peak Velocity 159.4 cm/s TR Peak Gradient 10.2 mmHg PV Peak Velocity 37.4 cm/s PV Peak Gradient 0.6 mmHg FINDINGS Left Ventricle Left ventricular ejection fraction is estimated at 35-40 %. Grade 3 diastolic dysfunction.left ventricular cavity size normal. Mildly increased left ventricular wall thickness. Apical and distal anterior, anteroseptal and anterolateral wall akinesis. Right Ventricle Normal right ventricular size. Unable to estimate the right ventricular systolic pressure. Right Atrium Normal right atrial size. Left Atrium Mildly increased left atrial diameter. Mitral Valve Mitral annular calcification. Aortic Valve No aortic regurgitation.aortic valve not well visualized. Tricuspid Valve No tricuspid regurgitation.tricuspid valve not well visualized. Pulmonic Valve Pulmonic valve not well visualized. Pericardium No pericardial effusion. Aorta Normal size aortic root. CONCLUSIONS Technically difficult study. Definity ECHO contrast used for improved visualization of the endocardial borders (inadequate visualization of two or more contiguous segments). 1. Moderately to severely impaired systolic function with segmental wall motion abnormality 2. Very limited Doppler study Previewed by: Dr. Ibeth Gurrola MD (Electronically Signed) Final Date: 15 January 2024 11:00
[2024-01-15 12:24] LABS: HCT 37.4 % (34.0-46.0); HGB 12.1 gm/dL (11.4-16.0); MCH 29.5 pg (25.0-35.0); MCHC 32.4 g/dL (31.0-37.0); MCV 91.1 fL (80.0-100.0); Mean Platelet Volume 6.9; Platelet Count 345 k/uL (150-450); RDW 14.6 % (11.5-15.5)
[2024-01-15 12:53] LABS: African American GFR (CKD) 90 (>60 ml/min/1.73 sqM); Anion Gap 6 mmol/L; Blood Urea Nitrogen 15 mg/dL (7-17); Calcium 8.4 mg/dL (8.4-10.2); Carbon Dioxide 25 mmol/L (22-30); Chloride 106 mmol/L (98-107); Glucose 113 mg/dL (74-99); Magnesium 1.9 mg/dL (1.6-2.3); Non-African American GFR(CKD) 78 (>60 ml/min/1.73 sqM); Sodium 137 mmol/L (137-145)
[2024-01-15] MEDS ORDERED: NITROGLYCERIN SL TABS 0.4 MG TAB SUBLINGUAL PRN (14:10)
--- NOTE | 2024-01-15 14:16 | P.CRDCN ---
History of Present Illness Consult date: 01/15/24 Reason for Consult (text): NSTEMI History of present illness: History of present illness: This is a 73-year-old female patient of Dr. Vasques with past medical history of lupus on Plaquenil, migraine headaches, hyperlipidemia, gastroesophageal reflux disease. She also has family medical history of significant coronary artery disease with brother having CABG in his 60s and another brother with a CVA. Patient was recently diagnosed with influenza 2 weeks ago. We have been asked to evaluate the patient for non-ST elevated NE. Patient states that she developed difficulty breathing on Sunday late afternoon and it progressed over the weekend. She went to see her PCP on Sunday and was sent into the emergency center for evaluation. She states the chest pain was in the midsternal area and was achy. It was similar to the achiness that she felt with her influenza 2 weeks ago. She now just feels exhausted and chest pain has been relieved with 2 nitroglycerin and Nitropaste. Shortness of breath has resolved. Patient has been started on a heparin drip and echocardiogram has been obtained. Patient is seen today in the emergency center waiting for a bed on the cardiac stepdown unit. EKG no acute changes. Chest x-ray: No acute process CTA of the chest no evidence of pulmonary embolism. Mild cardiomegaly with some haziness of the lungs which could represent pulmonary vascular congestion. CBC, electrolytes and renal function within normal limits. Troponin 0.943, 0.974 and 0.440. D-dimer 0.62. Liver function test are normal. Magnesium 1.9. proBNP 5420. Influenza A, influenza B, RSV, COVID-19 not detected. Echocardiogram performed 01/15/2024 revealed moderately to severely impaired systolic function with segmental wall motion abnormality. Very limited Doppler study. EF of 35 to 40%. Home cardiac medications: Aspirin 81 mg daily, atorvastatin 10 mg at bedtime, Bumex 1 mg daily, Plavix 75 mg daily, lisinopril 5 mg as directed, Toprol-XL 25 mg at bedtime, Ranexa 1000 mg every 12 hours. 10/02/2023, patient underwent left heart catheterization with Dr. Vasques which revealed mild luminal irregularities and more focal mid LAD 60 to 70% stenosis. Mildly elevated left-sided filling pressures. Patient underwent balloon angioplasty and RAN of the mid LAD. Echocardiogram performed 07/11/2023 reveals EF of 55%, no mitral regurgitation, mild to moderate tricuspid regurgitation. Review Of Systems: At the time of my exam: CONSTITUTIONAL: Denies fever or chills. HEENT: Denies blurred vision, vision changes, or eye pain. Denies hemoptysis CARDIOVASCULAR: Denies chest pain. Denies orthopnea. Denies PND. Denies palpitations RESPIRATORY: Reports mild shortness of breath. GASTROINTESTINAL: Denies abdominal pain. Denies nausea or vomiting. HEMATOLOGIC: Denies bleeding disorders. GENITOURINARY: Denies any blood in urine. SKIN: Denies pruitis. Denies rash. Physical examination: Gen: This is a 73-year-old female in no acute distress. VS: reviewed blood pressure 88/48, heart rate 76, pulse ox 95%. HEENT: Head is atraumatic, normocephalic. Pupils equal, round. Sclerae is anicteric. NECK: Supple. No JVD. LUNGS: Clear to auscultation. No wheezes or rhonchi. No intercostal retractions. HEART: Regular rate and rhythm. No murmur. ABDOMEN: Soft No tenderness. EXTREMITIES: No pedal edema. No calf tenderness. NEUROLOGICAL: Patient is awake, alert and oriented x3. Assessment: Flat troponin elevation, rule out non-ST elevated NE Cardiomyopathy, possible Takotsubo Hypotension Coronary artery disease with previous PCI Lupus Hyperlipidemia Plan: Resume patient's home cardiac medications except for the following changes Discontinue lisinopril Discontinue Lasix and Nitropaste due to hypotension Schedule patient for cardiac catheterization tomorrow with Dr. Vasques N.p.o. at midnight Further recommendations to follow based upon clinical course Thank you kindly for this consultation. Nurse practitioner note has been reviewed, I agree with documented findings and plan of care. Patient was seen and examined. Past Medical History Past Medical History: Coronary Artery Disease (CAD), Chest Pain / Angina, GERD/Reflux, Hypertension, Pneumonia Additional Past Medical History / Comment(s): lupus, diverticulitis, difficulty swallowing nausea History of Any Multi-Drug Resistant Organisms: None Reported Past Surgical History: Adenoidectomy, Appendectomy, Back Surgery, Bowel Rese ction, Cholecystectomy, Heart Catheterization, Heart Catheterization With Stent, Hysterectomy, Joint Replacement, Orthopedic Surgery, Tonsillectomy Additional Past Surgical History / Comment(s): carpal tunnel, cervical fusion, lft knee and rt hip replacement, multiple back surgeries, ruptured colon after bowel resection Past Anesthesia/Blood Transfusion Reactions: No Reported Reaction Date of Last Stent Placement:: 09/2023 Past Psychological History: Depression, PTSD Smoking Status: Never smoker Past Alcohol Use History: None Reported Past Drug Use History: None Reported - Past Family History Mother Family Medical History: Hypertension Sister(s) Family Medical History: Cancer Additional Family Medical History / Comment(s): breast Medications and Allergies Home Medications Medication Instructions Recorded Confirmed Type Amitriptyline HCl [Elavil] 25 mg PO HS 07/09/23 01/14/24 History Atorvastatin [Lipitor] 20 mg PO HS 07/09/23 01/14/24 History DULoxetine HCL [Cymbalta] 60 mg PO HS 07/09/23 01/14/24 History Levocetirizine Dihydrochloride 5 mg PO HS 07/09/23 01/14/24 History [Xyzal] Metoprolol Succinate (ER) [Toprol 25 mg PO HS 07/09/23 01/14/24 History XL] Montelukast Sodium 10 mg PO HS 07/09/23 01/14/24 History Omeprazole 40 mg PO HS 09/03/23 01/14/24 History Aspirin 81 mg PO DAILY #90 tab 10/02/23 01/14/24 Rx Clopidogrel [Plavix] 75 mg PO DAILY #90 tablet 10/02/23 01/14/24 Rx Ranolazine [Ranexa] 1,000 mg PO Q12HR #180 tab 10/02/23 01/14/24 Rx Bumetanide [BUMEX] 1 mg PO DAILY 12/28/23 01/14/24 History Meclizine [Antivert] 25 mg PO TID PRN 12/28/23 01/14/24 History Ondansetron Odt [Zofran ODT] 4 mg PO Q8HR PRN 12/28/23 01/14/24 History Zolpidem [Ambien] 5 mg PO HS PRN 12/28/23 01/14/24 History lisinopriL [Zestril] 5 mg PO DIRECTED 12/28/23 01/14/24 History Ipratropium-Albuterol Nebulize 3 ml INHALATION RT-QID PRN 01/14/24 01/14/24 History [Duoneb 0.5 mg-3 mg/3 ml Soln] Allergies Allergy/AdvReac Type Severity Reaction Status Date / Time influenza virus vaccine qs Allergy Anaphylaxis Verified 01/14/24 15:56 (65 years up) [From [facility] (65y up)(PF)] Penicillins Allergy Rash/Hives Verified 01/14/24 15:56 vaccine adjuvant emulsion Allergy Anaphylaxis Verified 01/14/24 15:56 MF59C.1 [From [facility] (65y up)(PF)] vancomycin Allergy Anaphylaxis Verified 01/14/24 15:56 Physical Exam Vitals: Vital Signs Temp Pulse Resp BP Pulse Ox 01/15/24 07:30 75 16 93/53 94 L 01/15/24 07:00 72 17 87/50 97 01/15/24 06:30 72 15 88/54 94 L 01/15/24 06:00 73 15 76/55 96 01/15/24 05:30 73 15 84/54 97 01/15/24 05:00 73 20 77/52 97 01/15/24 04:30 75 16 76/51 97 01/15/24 04:00 78 16 78/48 93 L 01/15/24 03:30 84 18 73/49 92 L 01/15/24 03:01 80 18 98/40 95 01/15/24 03:00 80 18 116/95 93 L 01/15/24 02:30 82 15 01/15/24 02:00 86 17 01/15/24 01:30 84 19 01/15/24 01:00 85 20 01/15/24 00:30 86 18 01/15/24 00:00 88 6 L 01/14/24 23:30 96 22 01/14/24 23:00 104 H 26 H 109/70 01/14/24 22:30 109/70 01/14/24 22:06 104 H 18 107/61 96 01/14/24 22:00 104 H 21 01/14/24 21:30 108 H 16 108/64 01/14/24 21:19 108 H 18 108/64 95 01/14/24 21:00 107 H 19 104/61 94 L 01/14/24 20:30 125 H 9 L 116/74 93 L 01/14/24 20:00 107 H 17 114/61 95 01/14/24 19:30 107 H 25 H 118/71 93 L 01/14/24 19:00 108 H 25 H 105/66 94 L 01/14/24 18:30 114 H 20 121/65 93 L 01/14/24 18:00 114 H 32 H 126/71 95 01/14/24 17:55 115 H 18 126/71 95 01/14/24 17:30 113 H 34 H 123/72 94 L 01/14/24 17:00 110 H 21 120/80 96 01/14/24 16:30 112 H 27 H 125/72 94 L 01/14/24 16:00 109 H 24 111/81 95 01/14/24 15:36 113 H 18 122/74 94 L 01/14/24 15:30 118 H 14 122/74 93 L 01/14/24 15:20 110 H 18 122/74 96 01/14/24 15:19 61 H 122/74 01/14/24 14:06 117 H 22 133/84 95 01/14/24 11:01 98.1 F 120 H 18 100/69 98 Intake and Output 01/14/24 01/15/24 01/15/24 22:59 06:59 14:59 Intake Total 142.5 Balance 142.5 Intake: Intake, IV Titration 142.5 Amount Heparin Sod,Pork in 0.45% 142.5 NaCl 25,000 unit In 0.45 % NaCl 1 250ml.bag @ 9. 381 UNITS/KG/HR 10 mls/hr IV .Q24H [facility] Rx#: [id number] Results 01/15/24 11:50 01/15/24 11:50 Cardiac Enzymes 01/14/24 01/14/24 01/14/24 Range/Units 12:44 12:44 15:36 AST 29 (14-36) U/L Troponin I 0.943 H* 0.974 H* (0.000-0.034) ng/mL Coagulation 01/14/24 01/14/24 01/15/24 Range/Units 12:44 21:29 05:12 PT 10.2 (10.0-12.5) sec APTT 23.7 30.8 H 27.4 (22.0-30.0) sec CBC 01/14/24 Range/Units 12:44 WBC 9.0 (3.8-10.6) k/uL RBC 4.89 (3.80-5.40) m/uL Hgb 14.2 (11.4-16.0) gm/dL Hct 43.5 (34.0-46.0) % Plt Count 477 H (150-450) k/uL Comprehensive Metabolic Panel 01/14/24 Range/Units 12:44 Sodium 136 L (137-145) mmol/L Potassium 4.8 (3.5-5.1) mmol/L Chloride 108 H (98-107) mmol/L Carbon Dioxide 19 L (22-30) mmol/L BUN 15 (7-17) mg/dL Creatinine 0.66 (0.52-1.04) mg/dL Glucose 120 H (74-99) mg/dL Calcium 9.7 (8.4-10.2) mg/dL AST 29 (14-36) U/L ALT 22 (4-34) U/L Alkaline Phosphatase 122 (38-126) U/L Total Protein 7.1 (6.3-8.2) g/dL Albumin 4.0 (3.5-5.0) g/dL Current Medications Generic Name Dose Route Start Last Admin Trade Name Freq PRN Reason Stop Dose Admin Acetaminophen 650 mg 01/14/24 15:44 01/15/24 02:59 Acetaminophen Tab 325 Mg Tab PO 650 mg Q6HR PRN Administration Mild Pain or Fever > 100.5 Albuterol/Ipratropium 3 ml 01/14/24 16:06 Ipratropium-Albuterol 3 Ml Neb INHALATION RT-QID PRN SOB or wheezing Amitriptyline HCl 25 mg 01/14/24 21:00 01/14/24 21:36 Amitriptyline Hcl 25 Mg Tab PO 25 mg HS AURE Administration Aspirin 81 mg 01/15/24 09:00 01/15/24 08:02 Aspirin 81 Mg PO 81 mg DAILY AURE Administration Atorvastatin Calcium 20 mg 01/14/24 21:00 01/14/24 21:36 Atorvastatin 20 Mg Tab PO 20 mg HS AURE Administration Clopidogrel Bisulfate 75 mg 01/15/24 09:00 01/15/24 08:02 Clopidogrel 75 Mg Tab PO 75 mg DAILY AURE Administration Duloxetine HCl 60 mg 01/14/24 21:00 01/14/24 21:36 Duloxetine Hcl 60 Mg Capsule.Dr PO 60 mg HS AURE Administration Furosemide 40 mg 01/14/24 21:00 01/15/24 08:07 Furosemide 10 Mg/Ml 4 Ml Vial IV Not Given BID AURE Heparin Sodium (Porcine) 0 unit 01/14/24 15:09 01/15/24 05:55 Heparin Sodium 1,000 Un/Ml (10ml Vl) IV 6,500 unit PER PROTOCOL PRN Administration Low PTT Protocol Heparin Sodium/Sodium Chloride 250 mls @ 10 mls/hr 01/14/24 15:15 01/15/24 05:49 25,000 unit/ Sodium Chloride IV 12.381 units/kg/hr .Q24H [facility] 13.197 mls/hr Titration Protocol 9.381 UNITS/KG/HR Lisinopril 5 mg 01/14/24 16:15 01/14/24 17:57 Lisinopril 5 Mg Tab PO 5 mg DIRECTED AURE Administration Meclizine HCl 25 mg 01/14/24 16:04 Meclizine 25 Mg Tab PO TID PRN Vertigo Metoprolol Succinate 25 mg 01/14/24 21:00 01/14/24 21:36 Metoprolol Succinate (Er) 25 Mg Tab.Er.24h PO 25 mg HS AURE Administration Montelukast Sodium 10 mg 01/14/24 21:00 01/14/24 21:36 Montelukast 10 Mg Tab PO 10 mg HS AURE Administration Naloxone HCl 0.2 mg 01/14/24 15:44 Naloxone 0.4 Mg/Ml 1 Ml Vial IV Q2M PRN Opioid Reversal Nitroglycerin 0.4 mg 01/14/24 14:07 01/14/24 15:26 Nitroglycerin Sl Tabs 0.4 Mg Tab SUBLINGUAL 0.4 mg Q5M PRN Administration Chest Pain Nitroglycerin 0.5 inch 01/14/24 15:36 Nitroglycerin Oint 1 Inch/Gm Packet TOPICAL Q8HR PRN Angina Ondansetron HCl 4 mg 01/14/24 15:44 Ondansetron 4 Mg/2 Ml Vial IVP Q8HR PRN Nausea And Vomiting Pantoprazole Sodium 40 mg 01/14/24 21:00 01/15/24 08:02 Pantoprazole 40 Mg Tablet PO 40 mg 0730 AURE Administration Ranolazine 1,000 mg 01/14/24 21:00 01/15/24 08:01 Ranolazine 500 Mg Tab.Er.12h PO 1,000 mg Q12HR AURE Administration Intake and Output 01/14/24 01/15/24 01/15/24 22:59 06:59 14:59 Intake Total 142.5 Balance 142.5 Intake: Intake, IV Titration 142.5 Amount Heparin Sod,Pork in 0.45% 142.5 NaCl 25,000 unit In 0.45 % NaCl 1 250ml.bag @ 9. 381 UNITS/KG/HR 10 mls/hr IV .Q24H [facility] Rx#: [id number] 01/14/24 12:44 01/14/24 12:44
[2024-01-15] MEDS: ASPIRIN 325 MG TAB PO STA (14:34)
[2024-01-15] MEDS: ATORVASTATIN 80 MG TAB PO STA (15:01)
--- NOTE | 2024-01-15 17:45 | P.PN ---
Subjective Progress Note Date: 01/15/24 History of Presenting Illness: Patient is a very pleasant 73-year-old female with a past medical history of CAD status post stenting and currently known 60 to 70% stenosis of mid LAD, hypertension, hyperlipidemia, lupus, and anxiety with depression. She presented to the emergency department with a chief complaint of shortness of breath, f atigue, cough, and congestion. She recently underwent hospitalization from 12/28/2023 through 01/01/2024 where she underwent treatment for influenza A and completed course of Tamiflu and discharged home on a prednisone taper and DuoNeb treatment. She reports she returned to work and was feeling fine until Sunday night when she began feeling very fatigued and tired again and Sunday she again began to feel very short of breath accompanied by nonproductive cough and mild chest pain/discomfort. Patient reports this continued intermittently and yesterday actually felt as though she "was going to " because the chest tightness and shortness of breath was continuous and tali bad. Patient states today her son came to check on her and since she continued to have the shortness of breath and chest pain, she called her PCP and was instructed to come straight to the emergency department for further evaluation. Patient underwent evaluation in the emergency department.. Vital signs upon arrival show blood pressure 100/69, heart rate 120, respiratory rate 18, temp 98.1 F, and SpO2 of 98% on room air. EKG completed showing sinus tachycardia at [address] elevation in leads I and II otherwise no further T wave or ST abnormalities at this time upon personal review and interpretation. Chest x-ray negative for acute cardiopulmonary process. Labs completed and reviewed. CBC showing thrombocytosis with platelet count of 477 otherwise normal findings. BMP showing hyperchloremia chloride of 108, bicarb 19, and anion gap of 9. Blood glucose 120. Lactic acid elevated at 2.4. Liver profile normal findings. Troponin elevated at 0.943 with BNP of 5420. D-dimer also elevated at 0.62. CTA chest completed showing no evidence of pulmonary embolism revealing mild cardiomegaly with haziness of the lungs possibly representing pulmonary vascular congestion. Influenza A, influenza B, COVID, and RSV were negative. Patient given aspirin 324 mg p.o. x 1 dose Lasix 40 mg IVP, and started on heparin infusion for acute coronary syndrome. Patient admitted under our services with consultation to cardiology. Patient currently reports she is feeling calm and rested with full resolution of chest pain after administration of 2 sublingual nitros she received in the emergency department. Troponins trended overnight resulting at 0.943, 0.974, and 0.440. Echocardiogram revealing a reduced EF of 35 to 40% with moderately to severely impaired systolic function with segmental wall motion abnormality. Physical exam: Patient seen and fully evaluated at bedside this morning. She reports just feeling tired this morning. She currently reports chest pain has resolved but continues to feel mildly short of breath. Vital signs reviewed and stable. General: Nontoxic, no distress and appears stated age. Derm: Skin warm and dry, normal coloration for ethnicity. Head: Atraumatic, normocephalic and symmetric. Eyes: EOMs intact, no lid lag, and anicteric sclera Mouth: no lip lesions, mucus membranes moist Cardiovascular: regular rate and rhythm with normal S1S2, systolic murmur, positive posterior tibial pulses bilaterally, and cap refill < 2 seconds. Lungs: Respirations even, regular, and unlabored on room air. Lungs CTA bilaterally, no rhonchi, no rales, no wheezing, and no accessory muscle usage. Abdominal: soft, nontender to palpation, no guarding, no appreciable organomegaly Ext: ROM intact. No gross muscle atrophy, no edema, no contractures Neuro: Speech clear, face symmetrical and CN II-XII grossly intact with no noted focal neuro deficits Psych: Alert and oriented to person, place, time, and situation. Appropriate and pleasant affect. Assessment and Plan of Care: NSTEMI Acute systolic heart failure History of CAD with stents Hypertension Hyperlipidemia Lupus -Cardiology consulted, appreciate recommendations -Continue Heparin infusion monitor PTT every 6 hours for goal therapeutic range between 44 and to 79 seconds. PTT currently therapeutic at 55.6 seconds. Heparin infusion to be adjusted by pharmacist based upon these results. -Telemetry monitoring -Troponins trended overnight resulting at 0.943, 0.974, and 0.440. -NPO pending further recommendations from cardiology. -Continue cardiac medication regimen with aspirin 81 mg daily, atorvastatin 20 mg nightly, Plavix 75 mg daily, lisinopril 5 mg daily, metoprolol 25 mg nightly, and Ranexa 1000 mg every 12 hours. -Echocardiogram revealing a reduced EF of 35 to 40% with moderately to severely impaired systolic function with segmental wall motion abnormality. Anxiety with depression -Continue daily medication regimen with Elavil 25 mg nightly and Cymbalta 60 mg nightly. Data and imaging reviewed: Troponins trended overnight resulting at 0.943, 0.974, and 0.440. PTT therapeutic at 55.6 seconds. CBC unremarkable. BMP unremarkable. Blood glucose 113. Magnesium normal findings at 1.9. Echocardiogram report reviewed revealing a reduced EF of 35 to 40% with mod erately to severely impaired systolic function with segmental wall motion abnormality. Vital signs reviewed. Blood pressure 116/74, heart rate 81, respiratory rate 16, and SpO2 of 95% on 4 L. CODE STATUS: Full code DVT prophylaxis: Heparin infusion for acute coronary syndrome Anticipated discharge date: Clinical course to determine Anticipated discharge place: Clinical course to determine Patient was seen independently by Nurse Practitioner. This document was prepared using [employer] dictation software. Please allow for errors in software reverse engineer while rare they do occur. Objective - Vital Signs Vital signs: Vital Signs Temp 98.1 F 01/14/24 11:01 Pulse 75 01/15/24 07:30 Resp 16 01/15/24 07:30 BP 93/53 01/15/24 07:30 Pulse Ox 94 L 01/15/24 07:30 FiO2 Intake & Output 01/14/24 01/15/24 01/15/24 18:59 06:59 18:59 Intake Total 142.5 Balance 142.5 Weight 106.594 kg Intake: Intake, IV Titration 142.5 Amount Heparin Sod,Pork in 0.45% 142.5 NaCl 25,000 unit In 0.45 % NaCl 1 250ml.bag @ 9. 381 UNITS/KG/HR 10 mls/hr IV .Q24H [facility] Rx#: [id number] - Labs CBC & Chem 7: 01/15/24 11:50 01/15/24 11:50 Labs: Abnormal Lab Results - Last 24 Hours (Table) 01/14/24 01/14/24 01/14/24 Range/Units 12:44 12:44 12:44 Plt Count 477 H (150-450) k/uL APTT (22.0-30.0) sec D-Dimer 0.62 H (<0.60) mg/L FEU Sodium 136 L (137-145) mmol/L Chloride 108 H (98-107) mmol/L Carbon Dioxide 19 L (22-30) mmol/L Glucose 120 H (74-99) mg/dL Plasma Lactic Acid Sudhir (0.7-2.0) mmol/L Troponin I (0.000-0.034) ng/mL 01/14/24 01/14/24 01/14/24 Range/Units 12:44 12:44 15:36 Plt Count (150-450) k/uL APTT (22.0-30.0) sec D-Dimer (<0.60) mg/L FEU Sodium (137-145) mmol/L Chloride (98-107) mmol/L Carbon Dioxide (22-30) mmol/L Glucose (74-99) mg/dL Plasma Lactic Acid Sudhir 2.4 H* (0.7-2.0) mmol/L Troponin I 0.943 H* 0.974 H* (0.000-0.034) ng/mL 01/14/24 01/15/24 Range/Units 21:29 04:00 Plt Count (150-450) k/uL APTT 30.8 H (22.0-30.0) sec D-Dimer (<0.60) mg/L FEU Sodium (137-145) mmol/L Chloride (98-107) mmol/L Carbon Dioxide (22-30) mmol/L Glucose (74-99) mg/dL Plasma Lactic Acid Sudhir 2.1 H* (0.7-2.0) mmol/L Troponin I (0.000-0.034) ng/mL
[2024-01-15] MEDS: ALPRAZolam 0.5 MG TAB PO PRN (21:04)
[2024-01-16] MEDS: ATORVASTATIN 80 MG TAB PO ONE (06:13)
[2024-01-16] MEDS: ASPIRIN 325 MG TAB PO ONE (06:13)
[2024-01-16] MEDS ORDERED: HEPARIN SODIUM,PORCINE (1 ML) 2,500 UNIT in SODIUM CHLORIDE 0.9% 250 ML IRRIGATION PRN (07:00)
[2024-01-16] MEDS ORDERED: HEPARIN SODIUM,PORCINE 10,000 UNIT in SODIUM CHLORIDE 0.9% 1,000 ML IRRIGATION PRN (07:00)
[2024-01-16] MEDS: fentaNYL (PF) 50 MCG/ML 2 ML AMP IVP ONE ×2 (12:09→12:15)
[2024-01-16] MEDS: IV FLUID CONTINUATION 250 ML IV ONE (12:09)
[2024-01-16] MEDS: MIDAZOLAM 2 MG/2 ML VIAL IVP ONE ×2 (12:09→12:15)
[2024-01-16] MEDS: VERAPAMIL SYRINGE (5 MG/10 ML) INTRAARTER ONE (12:14)
[2024-01-16] MEDS: LIDOCAINE 1% INJ 10MG/ML (20 ML MDV) SQ ONE (12:14)
[2024-01-16] MEDS: HEPARIN SODIUM 1,000 UN/ML (10ML VL) IVP ONE (12:16)
--- NOTE | 2024-01-16 13:44 | P.PN ---
Subjective Progress Note Date: 01/16/24 Reason for Consult (text): NSTEMI History of present illness: History of present illness: This is a 73-year-old female patient of Dr. Vasques with past medical history of lupus on Plaquenil, migraine headaches, hyperlipidemia, gastroesophageal reflux disease. She also has family medical history of significant coronary artery disease with brother having CABG in his 60s and another brother with a CVA. Patient was recently diagnosed with influenza 2 weeks ago. We have been asked to evaluate the patient for non-ST elevated NC. Patient states that she developed difficulty breathing on Sunday late afternoon and it progressed over the weekend. She went to see her PCP on Sunday and was sent into the emergency center for evaluation. She states the chest pain was in the midsternal area and was achy. It was similar to the achiness that she felt with her influenza 2 weeks ago. She now just feels exhausted and chest pain has been relieved with 2 nitroglycerin and Nitropaste. Shortness of breath has resolved. Patient has been started on a heparin drip and echocardiogram has been obtained. Patient is seen today in the emergency center waiting for a bed on the cardiac stepdown unit. EKG no acute changes. Chest x-ray: No acute process CTA of the chest no evidence of pulmonary embolism. Mild cardiomegaly with some haziness of the lungs which could represent pulmonary vascular congestion. CBC, electrolytes and renal function within normal limits. Troponin 0.943, 0.974 and 0.440. D-dimer 0.62. Liver function test are normal. Magnesium 1.9. proBNP 5420. Influenza A, influenza B, RSV, COVID-19 not detected. Echocardiogram performed 01/15/2024 revealed moderately to severely impaired systolic function with segmental wall motion abnormality. Very limited Doppler study. EF of 35 to 40%. Home cardiac medications: Aspirin 81 mg daily, atorvastatin 10 mg at bedtime, Bumex 1 mg daily, Plavix 75 mg daily, lisinopril 5 mg as directed, Toprol-XL 25 mg at bedtime, Ranexa 1000 mg every 12 hours. 10/02/2023, patient underwent left heart catheterization with Dr. Vasques which revealed mild luminal irregularities and more focal mid LAD 60 to 70% stenosis. Mildly elevated left-sided filling pressures. Patient underwent balloon angioplasty and RAN of the mid LAD. Echocardiogram performed 07/11/2023 reveals EF of 55%, no mitral regurgitation, mild to moderate tricuspid regurgitation. 01/15 Patient is scheduled for cardiac catheterization with Dr. Vasques today. Patient denies chest pain at this time. Blood pressure readings remain soft this morning in the [id number] systolic. Pulse ox 98% on 3 L nasal cannula. Heart rate in the 70s. Physical examination: Gen: This is a 73-year-old female in no acute distress. VS: reviewed blood pressure 88/48, heart rate 76, pulse ox 95%. HEENT: Head is atraumatic, normocephalic. Pupils equal, round. Sclerae is anicteric. NECK: Supple. No JVD. LUNGS: Clear to auscultation. No wheezes or rhonchi. No intercostal retractions. HEART: Regular rate and rhythm. No murmur. ABDOMEN: Soft No tenderness. EXTREMITIES: No pedal edema. No calf tenderness. NEUROLOGICAL: Patient is awake, alert and oriented x3. Assessment: Flat troponin elevation, rule out non-ST elevated NC Cardiomyopathy, possible Takotsubo Hypotension Coronary artery disease with previous PCI Lupus Hyperlipidemia Plan: Continue patient's home cardiac medications except for the following changes Continue to hold lisinopril, Lasix, and Nitropaste due to hypotension Schedule patient for cardiac catheterization today with Dr. Vasques N.p.o. Further recommendations to follow based upon clinical course Nurse practitioner note has been reviewed, I agree with documented findings and plan of care. Patient was seen and examined. Objective - Vital Signs Vital signs: Vital Signs Temp 97.6 F 01/16/24 08:00 Pulse 74 01/16/24 08:00 Resp 17 01/16/24 08:00 BP 95/54 01/16/24 08:00 Pulse Ox 98 01/16/24 08:00 FiO2 Intake & Output 01/15/24 01/16/24 01/16/24 18:59 06:59 18:59 Intake Total 225.5 20 Balance 225.5 20 Weight 106.594 kg Intake: IV 20 Invasive Line 1 10 Invasive Line 2 10 Intake, IV Titration 107.5 Amount Heparin Sod,Pork in 0.45% 107.5 NaCl 25,000 unit In 0.45 % NaCl 1 250ml.bag @ 9. 381 UNITS/KG/HR 10 mls/hr IV .Q24H [facility] Rx#: [id number] Oral 118 Other: Voiding Method Toilet # Voids 1 # Bowel Movements 0 - Labs CBC & Chem 7: 01/15/24 11:50 01/15/24 11:50 Labs: Abnormal Lab Results - Last 24 Hours (Table) 01/15/24 01/15/24 01/15/24 Range/Units 08:50 11:50 11:50 APTT 55.6 H (22.0-30.0) sec Glucose 113 H (74-99) mg/dL Troponin I 0.440 H* (0.000-0.034) ng/mL
--- NOTE | 2024-01-16 14:27 | P.CARDCATH ---
Description of Procedure: PROCEDURES PERFORMED: Left heart catheterization, bilateral coronary angiography, ultrasound guided arterial access INDICATION: NSTEMI CONSENT:I have discussed the risks, benefits and alternative therapies for the above-mentioned procedure and for both sedation/analgesia as well as necessary blood product administration, if indicated, as they pertain to this patient. The patient has indicated understanding and acceptance of the risks and procedures discussed. PROCEDURE: After the risks, benefits and alternatives of the above mentioned procedure explained in detail with the patient, informed consent was obtained. Patient was taken to the catheterization lab and prepped and draped in usual fashion. Ultrasound guidance was used to assess for arterial access. 1% lidocaine was used to anesthetize the right radial artery. A 6-Kazakh sheath was placed in the right radial artery using modified Seldinger technique and ultrasound guidance. Left coronary angiography was performed with a 5-Kazakh FL 3.5 catheter and right coronary angiography was performed with a 5-Kazakh JR5 catheter in various views. A 5-Kazakh FR5 catheter was inserted into the left ventricle and pressure measurements were obtained. Next a left ventriculogram was performed in the JACOB projection with a power injection. The right radial sheath was removed and a TR band was placed with hemostasis achieved. The patient tolerated the procedure well. Patient was transported back to the post catheterization holding area in stable condition. Conscious Sedation: Patient was monitored under the direct supervision of myself for conscious sedation using Versed and fentanyl for a total duration of 27 minutes HEMODYNAMICS: Aorta: 95/79 LV: 97/20, LVEDP 30 LVEFT VENTRICULOGRAM: Left ventricular EF 35-40% with apical hypokinesis possibly consistent with Takostubo's cardiomyopathy SELECTIVE CORONARY ARTERIOGRAPHY: LEFT MAIN: The left main is a large caliber vessel which bifurcates into the LAD and circumflex. There is mild proximal left main 30% stenosis. LEFT ANTERIOR DESCENDING CORONARY ARTERY: LAD is a large caliber vessel which stops short of the apex with the apex supplied by the PDA. There is proximal LAD 40% stenosis and then a moderate caliber diagonal 1 branch without significant stenosis. After the diagonal 1 branch, there is apatent mid LAD stent. The distal LAD has a 60-70% small-caliber 1.5 mm vessel stenosis LEFT CIRCUMFLEX CORONARY ARTERY: Left circumflex is a moderate caliber vessel without significant stenosis. RIGHT CORONARY ARTERY: The right coronary artery is a very large caliber vessel which gives off a PDA and PLV branch and is the dominant vessel. There is mild mid RCA 10-20% stenosis. The PDA supplies the apex. FINAL IMPRESSION: 1. CAD as described above including 40% proximal LAD and a more focal distal LAD 60-70% stenosis, patent mid LAD stent. 2. Elevated left sided filling pressures 3. Left ventricular EF 35-40% with apical hypokinesis possibly consistent with Takostubo's cardiomyopathy PLAN: 1. Aggressive risk factor modification per most recent ACC/AHA guidelines. 2. Coronary anatomy appears unchanged from prior angiogram. New cardiomyopathy with predominantly apical hypokinesis appears consistent with Takotsubo's cardiomyopathy. Increased diuresis and optimize heart failure regimen.
[2024-01-16] MEDS: BENZONATATE 100 MG CAP PO PRN (15:13)
[2024-01-16] MEDS: FUROSEMIDE 10 MG/ML 4 ML VIAL IV SCH (15:13)
--- NOTE | 2024-01-16 15:15 | P.PN ---
Subjective Progress Note Date: 01/16/24 Hospital course: Patient is a very pleasant 73-year-old female with a past medical history of CAD status post stenting and currently known 60 to 70% stenosis of mid LAD, hypertension, hyperlipidemia, lupus, and anxiety with depression. She presented to the emergency department with a chief complaint of shortness of breath, fatigue, cough, and congestion. She recently underwent hospitalization from 12/28/2023 through 01/01/2024 where she underwent treatment for influenza A and completed course of Tamiflu and discharged home on a prednisone taper and DuoNeb treatment. She reports she returned to work and was feeling fine until Sunday n igh when she began feeling very fatigued and tired again and Sunday she again began to feel very short of breath accompanied by nonproductive cough and mild chest pain/discomfort. Patient reports this continued intermittently and yesterday actually felt as though she "was going to " because the chest tightness and shortness of breath was continuous and tali bad. Patient states today her son came to check on her and since she continued to have the shortness of breath and chest pain, she called her PCP and was instructed to come straight to the emergency department for further evaluation. Patient underwent evaluation in the emergency department.. Vital signs upon arrival show blood pressure 100/69, heart rate 120, respiratory rate 18, temp 98.1 F, and SpO2 of 98% on room air. EKG completed showing sinus tachycardia at [address] elevation in leads I and II otherwise no further T wave or ST abnormalities at this time upon personal review and interpretation. Chest x-ray negative for acute cardiopulmonary process. Labs completed and reviewed. CBC showing thrombocytosis with platelet count of 477 otherwise normal findings. BMP showing hyperchloremia chloride of 108, bicarb 19, and anion gap of 9. Blood glucose 120. Lactic acid elevated at 2.4. Liver profile normal findings. Troponin elevated at 0.943 with BNP of 5420. D-dimer also elevated at 0.62. CTA chest completed showing no evidence of pulmonary embolism revealing mild cardiomegaly with haziness of the lungs possibly representing pulmonary vascular congestion. Influenza A, influenza B, COVID, and RSV were negative. Patient given aspirin 324 mg p.o. x 1 dose Lasix 40 mg IVP, and started on heparin infusion for acute coronary syndrome. Patient admitted under our services with consultation to cardiology. Patient currently reports she is feeling calm and rested with full resolution of chest pain after administration of 2 sublingual nitros she received in the emergency department. Troponins trended overnight resulting at 0.943, 0.974, and 0.440. Echocardiogram revealing a reduced EF of 35 to 40% with moderately to severely impaired systolic function with segmental wall motion abnormality. Physical exam: Patient seen and fully evaluated at bedside this morning. She was awaiting to go down for cardiac cath. She remains on heparin infusion. Patient currently free from chest pain but does continue to report mild shortness of breath and cough. Vital signs reviewed and stable. General: Nontoxic, no distress and appears stated age. Derm: Skin warm and dry, normal coloration for ethnicity. Head: Atraumatic, normocephalic and symmetric. Eyes: EOMs intact, no lid lag, and anicteric sclera Mouth: no lip lesions, mucus membranes moist Cardiovascular: regular rate and rhythm with normal S1S2, systolic murmur, positive posterior tibial pulses bilaterally, and cap refill < 2 seconds. Lungs: Respirations even, regular, and unlabored on room air. Lungs CTA bilaterally, no rhonchi, no rales, no wheezing, and no accessory muscle usage. Abdominal: soft, nontender to palpation, no guarding, no appreciable organomegaly Ext: ROM intact. No gross muscle atrophy, no edema, no contractures Neuro: Speech clear, face symmetrical and CN II-XII grossly intact with no noted focal neuro deficits Psych: Alert and oriented to person, place, time, and situation. Appropriate and pleasant affect. Assessment and Plan of Care: NSTEMI Acute systolic heart failure, Cardiomyopathy, possibly viral cardiomyopathy from recent influenza infection vs Takotsubo's cardiomyopathy History of CAD with stents Hypertension Hyperlipidemia Lupus -Cardiology consulted, taking patient for cardiac cath later today -Continue Heparin infusion monitor PTT every 6 hours for goal therapeutic range between 44 and to 79 seconds. PTT currently therapeutic at 51 seconds. Heparin infusion to be adjusted by pharmacist based upon these results. -Telemetry monitoring -Troponins 0.943, 0.974, and 0.440. -NPO pending completion of cardiac cath and then may advance to heart healthy diet. -Continue cardiac medication regimen with aspirin 81 mg daily, atorvastatin 20 mg nightly, Plavix 75 mg daily, lisinopril 5 mg daily, metoprolol 25 mg nightly, and Ranexa 1000 mg every 12 hours. -Echocardiogram revealing a reduced EF of 35 to 40% with moderately to severely impaired systolic function with segmental wall motion abnormality. Anxiety with depression -Continue daily medication regimen with Elavil 25 mg nightly and Cymbalta 60 mg nightly. Data and imaging reviewed: Morning labs reviewed. PTT therapeutic at 51.0. Echocardiogram report reviewed revealing a reduced EF of 35 to 40% with moderately to severely impaired systolic function with segmental wall motion abnormality. Vital signs reviewed. Blood pressure 95/54, heart rate 74, respiratory rate 17, temp 97.6 F, and SpO2 of 98% on 3 L. CODE STATUS: Full code DVT prophylaxis: Heparin infusion for acute coronary syndrome Anticipated discharge date: Clinical course to determine Anticipated discharge place: Clinical course to determine Patient was seen independently by Nurse Practitioner. This document was prepared using [employer] dictation software. Please allow for errors in access consultant while rare they do occur. J Carlos Hummel NP rendered care for this patient independently, reviewed the f indings and plan as documented in the note above. I did not physically speak with or examine the patient on this date. Objective - Vital Signs Vital signs: Vital Signs Temp 98.2 F 01/16/24 04:00 Pulse 71 01/16/24 04:00 Resp 16 01/16/24 04:00 BP 85/55 01/16/24 04:00 Pulse Ox 97 01/16/24 04:00 FiO2 Intake & Output 01/15/24 01/16/24 01/16/24 18:59 06:59 18:59 Intake Total 225.5 20 Balance 225.5 20 Weight 106.594 kg Intake: IV 20 Invasive Line 1 10 Invasive Line 2 10 Intake, IV Titration 107.5 Amount Heparin Sod,Pork in 0.45% 107.5 NaCl 25,000 unit In 0.45 % NaCl 1 250ml.bag @ 9. 381 UNITS/KG/HR 10 mls/hr IV .Q24H [facility] Rx#: [id number] Oral 118 Other: Voiding Method Toilet # Voids 1 # Bowel Movements 0 - Labs CBC & Chem 7: 01/15/24 11:50 01/15/24 11:50 Labs: Abnormal Lab Results - Last 24 Hours (Table) 01/15/24 01/15/24 01/15/24 Range/Units 08:50 11:50 11:50 APTT 55.6 H (22.0-30.0) sec Glucose 113 H (74-99) mg/dL Troponin I 0.440 H* (0.000-0.034) ng/mL
[2024-01-17 11:20] LABS: HCT 36.7 % (34.0-46.0); HGB 11.7 gm/dL (11.4-16.0); MCH 28.9 pg (25.0-35.0); MCHC 31.9 g/dL (31.0-37.0); MCV 90.4 fL (80.0-100.0); Mean Platelet Volume 7.2; Platelet Count 302 k/uL (150-450); RBC 4.06 m/uL (3.80-5.40); RDW 14.4 % (11.5-15.5); WBC 3.5 k/uL (3.8-10.6)
[2024-01-17 11:38] LABS: ALT 19 U/L (4-34); AST 20 U/L (14-36); African American GFR (CKD) >90 (>60 ml/min/1.73 sqM); Albumin 3.6 g/dL (3.5-5.0); Alkaline Phosphatase 92 U/L (38-126); Anion Gap 6 mmol/L; Blood Urea Nitrogen 12 mg/dL (7-17); Calcium 9.3 mg/dL (8.4-10.2); Carbon Dioxide 29 mmol/L (22-30); Chloride 101 mmol/L (98-107); Glucose 112 mg/dL (74-99); Magnesium 1.8 mg/dL (1.6-2.3); Non-African American GFR(CKD) 80 (>60 ml/min/1.73 sqM); Potassium 4.1 mmol/L (3.5-5.1); Sodium 136 mmol/L (137-145); Total Bilirubin 0.7 mg/dL (0.2-1.3); Total Protein 6.4 g/dL (6.3-8.2)
--- NOTE | 2024-01-17 13:48 | P.PN ---
Subjective Progress Note Date: 01/17/24 Hospital course: Patient is a very pleasant 73-year-old female with a past medical history of CAD status post stenting and currently known 60 to 70% stenosis of mid LAD, hypertension, hyperlipidemia, lupus, and anxiety with depression. She presented to the emergency department with a chief complaint of shortness of breath, fatigue, cough, and congestion. She recently underwent hospitalization from 12/28/2023 through 01/01/2024 where she underwent treatment for influenza A and completed course of Tamiflu and discharged home on a prednisone taper and DuoNeb treatment. She reports she returned to work and was feeling fine until Sunday n igh when she began feeling very fatigued and tired again and Sunday she again began to feel very short of breath accompanied by nonproductive cough and mild chest pain/discomfort. Patient reports this continued intermittently and yesterday actually felt as though she "was going to " because the chest tightness and shortness of breath was continuous and tali bad. Patient states today her son came to check on her and since she continued to have the shortness of breath and chest pain, she called her PCP and was instructed to come straight to the emergency department for further evaluation. Patient underwent evaluation in the emergency department.. Vital signs upon arrival show blood pressure 100/69, heart rate 120, respiratory rate 18, temp 98.1 F, and SpO2 of 98% on room air. EKG completed showing sinus tachycardia at [address] elevation in leads I and II otherwise no further T wave or ST abnormalities at this time upon personal review and interpretation. Chest x-ray negative for acute cardiopulmonary process. Labs completed and reviewed. CBC showing thrombocytosis with platelet count of 477 otherwise normal findings. BMP showing hyperchloremia chloride of 108, bicarb 19, and anion gap of 9. Blood glucose 120. Lactic acid elevated at 2.4. Liver profile normal findings. Troponin elevated at 0.943 with BNP of 5420. D-dimer also elevated at 0.62. CTA chest completed showing no evidence of pulmonary embolism revealing mild cardiomegaly with haziness of the lungs possibly representing pulmonary vascular congestion. Influenza A, influenza B, COVID, and RSV were negative. Patient given aspirin 324 mg p.o. x 1 dose Lasix 40 mg IVP, and started on heparin infusion for acute coronary syndrome. Patient admitted under our services with consultation to cardiology. Patient currently reports she is feeling calm and rested with full resolution of chest pain after administration of 2 sublingual nitros she received in the emergency department. Troponins trended overnight resulting at 0.943, 0.974, and 0.440. Echocardiogram revealing a reduced EF of 35 to 40% with moderately to severely impaired systolic function with segmental wall motion abnormality. Patient was taken for cardiac cath on 01/14/2024 showing mild CAD with 40% stenosis of the proximal LAD and more focal distal LAD of 60 to 70% stenosis with a patent mid LAD stent, elevated left-sided filling pressures and a reduced EF of 35 to 40% with apical hypokinesis possibly consistent with Takotsubo's cardiomyopathy. Cardiology recommending continuation of aggressive risk factor modification stating coronary anatomy appears unchanged from prior angiogram and new cardiomegaly with predominantly apical hypokinesis appears consistent with Takotsubo's cardiomyopathy. Physical exam: Patient seen and fully evaluated at bedside this morning. Patient continues to report shortness of breath and weakness. She denies having any chest pain or palpitations and denies having any numbness/tingling/weakness in her extremities. 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 Vital signs reviewed and stable. General: Nontoxic, no distress and appears stated age. Derm: Skin warm and dry, normal coloration for ethnicity. Head: Atraumatic, normocephalic and symmetric. Eyes: EOMs intact, no lid lag, and anicteric sclera Mouth: no lip lesions, mucus membranes moist Cardiovascular: regular rate and rhythm with normal S1S2, systolic murmur, positive posterior tibial pulses bilaterally, and cap refill < 2 seconds. Lungs: Respirations even, regular, and unlabored on room air. Lungs CTA bilaterally, no rhonchi, no rales, no wheezing, and no accessory muscle usage. Abdominal: soft, nontender to palpation, no guarding, no appreciable organomegaly Ext: ROM intact. No gross muscle atrophy, no edema, no contractures Neuro: Speech clear, face symmetrical and CN II-XII grossly intact with no noted focal neuro deficits Psych: Alert and oriented to person, place, time, and situation. Appropriate and pleasant affect. Assessment and Plan of Care: NSTEMI Acute systolic heart failure, with EF of 35 to 40% Cardiomyopathy, likely Takotsubo's cardiomyopathy History of CAD with stents Hypertension Hyperlipidemia Lupus -Cardiac cath on 01/14/2024 showing mild CAD with 40% stenosis of the proximal LAD and more focal distal LAD of 60 to 70% stenosis with a patent mid LAD stent, elevated left-sided filling pressures and a reduced EF of 35 to 40% with apical hypokinesis possibly consistent with Takotsubo's cardiomyopathy. -Telemetry monitoring -Troponins 0.943, 0.974, and 0.440. -Echocardiogram revealing a reduced EF of 35 to 40% with moderately to severely impaired systolic function with segmental wall motion abnormality. -Cardiology following, recommending continuation of aggressive risk factor modification stating coronary anatomy appears unchanged from prior angiogram and new cardiomegaly with predominantly apical hypokinesis appears consistent with Takotsubo's cardiomyopathy and recommending continued monitoring for 24 hours -Continue cardiac medication regimen with aspirin 81 mg daily, atorvastatin 20 mg nightly, Plavix 75 mg daily, lisinopril 5 mg daily, metoprolol 25 mg nightly, and Ranexa 1000 mg every 12 hours. Anxiety with depression -Continue daily medication regimen with Elavil 25 mg nightly and Cymbalta 60 mg nightly. Data and imaging reviewed: -Cardiac cath report reviewed showing mild CAD with 40% stenosis of the proximal LAD and more focal distal LAD of 60 to 70% stenosis with a patent mid LAD stent, elevated left-sided filling pressures and a reduced EF of 35 to 40% with apical hypokinesis possibly consistent with Takotsubo's cardiomyopathy. -Vital signs reviewed. Blood pressure 136/63, heart rate 78, respiratory rate 17, temp 98.2 F, and SpO2 of 95% on room air. -Morning labs reviewed. CBC showing mild leukopenia with WBC count of 3.5 otherwise normal findings. BMP unremarkable. Magnesium 1.8. Calcium 9.3. And liver profile unremarkable. CODE STATUS: Full code DVT prophylaxis: Heparin infusion for acute coronary syndrome Anticipated discharge date: Likely within the next 24 to [address]: Home Patient was seen independently by Nurse Practitioner. This document was prepared using [employer] dictation software. Please allow for errors in plant pathologist while rare they do occur. J Carlos Hummel NP rendered care for this patient independently, reviewed the findings and plan as documented in the note above. I did not physically speak with or examine the patient on this date. Objective - Vital Signs Vital signs: Vital Signs Temp 98.3 F 01/17/24 04:00 Pulse 78 01/16/24 16:27 Resp 16 01/17/24 04:00 BP 92/57 01/17/24 04:00 Pulse Ox 93 L 01/17/24 04:00 FiO2 Intake & Output 01/16/24 01/17/24 01/17/24 18:59 06:59 18:59 Intake Total 670 Output Total 1000 2400 Balance -330 -2400 Weight 111.1 kg Intake: Intake, IV Titration 250 Amount Heparin Sod,Pork in 0.45% 250 NaCl 25,000 unit In 0.45 % NaCl 1 250ml.bag @ 9. 381 UNITS/KG/HR 10 mls/hr IV .Q24H [facility] Rx#: [id number] Oral 420 Output: Urine 1000 2400 Other: Voiding Method Toilet Toilet # Voids 0 - Labs CBC & Chem 7: 01/17/24 10:56 01/17/24 10:56 Labs: Abnormal Lab Results - Last 24 Hours (Table) 01/16/24 Range/Units 08:53 APTT 51.0 H (22.0-30.0) sec
--- NOTE | 2024-01-17 14:52 | P.PN ---
Subjective Progress Note Date: 01/17/24 Reason for Consult (text): NSTEMI History of present illness: History of present illness: This is a 73-year-old female patient of Dr. Vasques with past medical history of lupus on Plaquenil, migraine headaches, hyperlipidemia, gastroesophageal reflux disease. She also has family medical history of significant coronary artery disease with brother having CABG in his 60s and another brother with a CVA. Patient was recently diagnosed with influenza 2 weeks ago. We have been asked to evaluate the patient for non-ST elevated MO. Patient states that she developed difficulty breathing on Sunday late afternoon and it progressed over the weekend. She went to see her PCP on Sunday and was sent into the emergency center for evaluation. She states the chest pain was in the midsternal area and was achy. It was similar to the achiness that she felt with her influenza 2 weeks ago. She now just feels exhausted and chest pain has been relieved with 2 nitroglycerin and Nitropaste. Shortness of breath has resolved. Patient has been started on a heparin drip and echocardiogram has been obtained. Patient is seen today in the emergency center waiting for a bed on the cardiac stepdown unit. EKG no acute changes. Chest x-ray: No acute process CTA of the chest no evidence of pulmonary embolism. Mild cardiomegaly with some haziness of the lungs which could represent pulmonary vascular congestion. CBC, electrolytes and renal function within normal limits. Troponin 0.943, 0.974 and 0.440. D-dimer 0.62. Liver function test are normal. Magnesium 1.9. proBNP 5420. Influenza A, influenza B, RSV, COVID-19 not detected. Echocardiogram performed 01/15/2024 revealed moderately to severely impaired systolic function with segmental wall motion abnormality. Very limited Doppler study. EF of 35 to 40%. Home cardiac medications: Aspirin 81 mg daily, atorvastatin 10 mg at bedtime, Bumex 1 mg daily, Plavix 75 mg daily, lisinopril 5 mg as directed, Toprol-XL 25 mg at bedtime, Ranexa 1000 mg every 12 hours. 10/02/2023, patient underwent left heart catheterization with Dr. Vasques which revealed mild luminal irregularities and more focal mid LAD 60 to 70% stenosis. Mildly elevated left-sided filling pressures. Patient underwent balloon angioplasty and RAN of the mid LAD. Echocardiogram performed 07/11/2023 reveals EF of 55%, no mitral regurgitation, mild to moderate tricuspid regurgitation. 01/15 Patient is scheduled for cardiac catheterization with Dr. Vasques today. Patient denies chest pain at this time. Blood pressure readings remain soft this morning in the [id number] systolic. Pulse ox 98% on 3 L nasal cannula. Heart rate in the 70s. 01/16 Yesterday, patient underwent cardiac catheterization with Dr. Vasques that reve aled coronary artery disease with 40% proximal LAD and more focal distal LAD 60 to 70% stenosis, patent mid LAD stent. Elevated left-sided filling pressures. Left ventricular EF 35 to 40% with apical hypokinesia consistent with Takotsubo's cardiomyopathy. Patient's blood pressure remains on the low side. She has been on IV Lasix started after cardiac catheterization and 40 mg every 12 hours. Blood pressure 91/50, heart rate 96, pulse ox 95% on room air. Repeat blood work reveals WBC 3.5, hemoglobin 1.7, sodium 136, potassium 4.1, BUN 12 creatinine 0.76. Physical examination: Gen: This is a 73-year-old female in no acute distress. VS: reviewed blood pressure HEENT: Head is atraumatic, normocephalic. Pupils equal, round. Sclerae is anicteric. LUNGS: Clear to auscultation. No wheezes or rhonchi. No intercostal retractions. HEART: Regular rate and rhythm. No murmur. ABDOMEN: Soft No tenderness. EXTREMITIES: No pedal edema. No calf tenderness. NEUROLOGICAL: Patient is awake, alert and oriented x3. Assessment: Flat troponin elevation, non-ST elevated MO Cardiomyopathy, Takotsubo Hypotension Coronary artery disease with previous PCI Lupus Hyperlipidemia Plan: Continue current cardiac medications Decrease IV Lasix to 20 mg every 12 hours Add losartan 12.5 mg at bedtime if systolic blood pressure is greater than 95 Monitor overnight and plan for discharge home tomorrow Further recommendations to follow based upon clinical course Nurse practitioner note has been reviewed, I agree with documented findings and plan of care. Patient was seen and examined. Objective - Vital Signs Vital signs: Vital Signs Temp 98.2 F 01/17/24 08:25 Pulse 78 01/17/24 11:35 Resp 17 01/17/24 11:35 BP 136/63 01/17/24 11:35 Pulse Ox 97 01/17/24 11:35 FiO2 Intake & Output 01/16/24 01/17/24 01/17/24 18:59 06:59 18:59 Intake Total 670 240 Output Total 1000 2400 1200 Balance -330 -2400 -960 Weight 111.1 kg Intake: Intake, IV Titration 250 Amount Heparin Sod,Pork in 0.45% 250 NaCl 25,000 unit In 0.45 % NaCl 1 250ml.bag @ 9. 381 UNITS/KG/HR 10 mls/hr IV .Q24H [facility] Rx#: [id number] Oral 420 240 Output: Urine 1000 2400 1200 Other: Voiding Method Toilet Toilet Toilet # Voids 0 1 - Labs CBC & Chem 7: 01/17/24 10:56 01/17/24 10:56 Labs: Abnormal Lab Results - Last 24 Hours (Table) 01/17/24 01/17/24 Range/Units 10:56 10:56 WBC 3.5 L (3.8-10.6) k/uL Sodium 136 L (137-145) mmol/L Glucose 112 H (74-99) mg/dL
[2024-01-17] MEDS: LOSARTAN 25 MG TAB PO SCH (20:14)
[2024-01-18] MEDS: FUROSEMIDE 10 MG/ML 2 ML VIAL IV SCH ×2 (02:24→05:18)
[2024-01-18] MEDS: ALPRAZolam 0.25 MG TAB PO PRN (05:18)
[2024-01-18 05:51] LABS: Appearance,Urine Clear (Clear); Bilirubin,Urine Negative (Negative); Blood,Urine Negative (Negative); Color,Urine Yellow; Glucose,Urine (UA) Negative (Negative); Ketones,Urine Negative (Negative); Leukocyte Esterase,Urine Negative (Negative); Nitrite,Urine Negative (Negative); PH, Urine 6.5 (5.0-8.0); Protein,Urine Negative (Negative); Specific Gravity,Urine 1.019 (1.001-1.035)
[2024-01-18 07:11] VITALS: RESP 16
[2024-01-18 07:50] VITALS: PULSE 74
[2024-01-18] MEDS: FUROSEMIDE 20 MG TAB PO SCH (09:04)
[2024-01-18] MEDS: KETOROLAC 15 MG/ML 1 ML VIAL IVP STA (11:15)
[2024-01-18] MEDS: PROCHLORPERAZINE INJ 10 MG/2 ML VIAL IVP STA (11:16)
[2024-01-18] MEDS: diphenhydrAMINE 50 MG/ML 1 ML VIAL IVP STA (11:16)
[2024-01-18 11:39] VITALS: BP 96/63; TEMP 97.7
--- NOTE | 2024-01-18 14:07 | P.PN ---
Subjective Progress Note Date: 01/18/24 Reason for Consult (text): NSTEMI History of present illness: History of present illness: This is a 73-year-old female patient of Dr. Vasques with past medical history of lupus on Plaquenil, migraine headaches, hyperlipidemia, gastroesophageal reflux disease. She also has family medical history of significant coronary artery disease with brother having CABG in his 60s and another brother with a CVA. Patient was recently diagnosed with influenza 2 weeks ago. We have been asked to evaluate the patient for non-ST elevated ND. Patient states that she developed difficulty breathing on Sunday late afternoon and it progressed over the weekend. She went to see her PCP on Sunday and was sent into the emergency center for evaluation. She states the chest pain was in the midsternal area and was achy. It was similar to the achiness that she felt with her influenza 2 weeks ago. She now just feels exhausted and chest pain has been relieved with 2 nitroglycerin and Nitropaste. Shortness of breath has resolved. Patient has been started on a heparin drip and echocardiogram has been obtained. Patient is seen today in the emergency center waiting for a bed on the cardiac stepdown unit. EKG no acute changes. Chest x-ray: No acute process CTA of the chest no evidence of pulmonary embolism. Mild cardiomegaly with some haziness of the lungs which could represent pulmonary vascular congestion. CBC, electrolytes and renal function within normal limits. Troponin 0.943, 0.974 and 0.440. D-dimer 0.62. Liver function test are normal. Magnesium 1.9. proBNP 5420. Influenza A, influenza B, RSV, COVID-19 not detected. Echocardiogram performed 01/15/2024 revealed moderately to severely impaired systolic function with segmental wall motion abnormality. Very limited Doppler study. EF of 35 to 40%. Home cardiac medications: Aspirin 81 mg daily, atorvastatin 10 mg at bedtime, Bumex 1 mg daily, Plavix 75 mg daily, lisinopril 5 mg as directed, Toprol-XL 25 mg at bedtime, Ranexa 1000 mg every 12 hours. 10/02/2023, patient underwent left heart catheterization with Dr. Vasques which revealed mild luminal irregularities and more focal mid LAD 60 to 70% stenosis. Mildly elevated left-sided filling pressures. Patient underwent balloon angioplasty and RAN of the mid LAD. Echocardiogram performed 07/11/2023 reveals EF of 55%, no mitral regurgitation, mild to moderate tricuspid regurgitation. 01/15 Patient is scheduled for cardiac catheterization with Dr. Vasques today. Patient denies chest pain at this time. Blood pressure readings remain soft this morning in the [id number] systolic. Pulse ox 98% on 3 L nasal cannula. Heart rate in the 70s. 01/16 Yesterday, patient underwent cardiac catheterization with Dr. Vasques that reve aled coronary artery disease with 40% proximal LAD and more focal distal LAD 60 to 70% stenosis, patent mid LAD stent. Elevated left-sided filling pressures. Left ventricular EF 35 to 40% with apical hypokinesia consistent with Takotsubo's cardiomyopathy. Patient's blood pressure remains on the low side. She has been on IV Lasix started after cardiac catheterization and 40 mg every 12 hours. Blood pressure 91/50, heart rate 96, pulse ox 95% on room air. Repeat blood work reveals WBC 3.5, hemoglobin 1.7, sodium 136, potassium 4.1, BUN 12 creatinine 0.76. 01/17 Blood pressure this morning 95/64, heart rate 74, pulse ox 94% on room air. Patient is currently on IV Lasix 20 mg every 12 hours and losartan was added yesterday last evening to hold if systolic blood pressure less than 95. Physical examination: Gen: This is a 73-year-old female in no acute distress. VS: reviewed HEENT: Head is atraumatic, normocephalic. Pupils equal, round. Sclerae is anicteric. LUNGS: Clear to auscultation. No wheezes or rhonchi. No intercostal retractions. HEART: Regular rate and rhythm. No murmur. ABDOMEN: Soft No tenderness. EXTREMITIES: No pedal edema. No calf tenderness. NEUROLOGICAL: Patient is awake, alert and oriented x3. Assessment: Flat troponin elevation, non-ST elevated ND Cardiomyopathy, Takotsubo Hypotension Coronary artery disease with previous PCI Lupus Hyperlipidemia Plan: Continue current cardiac medications Transition IV Lasix to oral 20 mg twice daily Patient is cleared for discharge today. Patient will follow-up with Dr. Vasques in 1 to 2 weeks. Nurse practitioner note has been reviewed, I agree with documented findings and plan of care. Patient was seen and examined. Objective - Vital Signs Vital signs: Vital Signs Temp 97.6 F 01/18/24 07:35 Pulse 74 01/18/24 07:35 Resp 16 01/18/24 07:36 BP 95/64 01/18/24 07:35 Pulse Ox 94 L 01/18/24 07:35 FiO2 Intake & Output 01/17/24 01/18/24 01/18/24 18:59 06:59 18:59 Intake Total 240 240 Output Total 1200 800 Balance -960 -560 Weight 110.8 kg Intake: Oral 240 240 Output: Urine 1200 800 Other: Voiding Method Toilet Toilet Toilet # Voids 1 0 # Bowel Movements 0 - Labs CBC & Chem 7: 01/17/24 10:56 01/17/24 10:56 Labs: Abnormal Lab Results - Last 24 Hours (Table) 01/17/24 01/17/24 Range/Units 10:56 10:56 WBC 3.5 L (3.8-10.6) k/uL Sodium 136 L (137-145) mmol/L Glucose 112 H (74-99) mg/dL
--- NOTE | 2024-01-18 14:20 | P.DS ---
Providers Date of admission: 01/14/24 15:58 Expected date of discharge: 01/18/24 Attending physician: Santino Rodriguez MD Consults: 01/14/24 15:44 Consult Physician Urgent Consulting Provider: Ibeth Gurrola Consult Reason/Comments: NSTEMI Do you want consulting provider notified?: Yes Primary care physician: [facility] Course: Discharge Diagnosis: Elevated troponins, type II NSTEMI Acute systolic heart failure, with EF of 35 to 40% Cardiomyopathy, likely Takotsubo's cardiomyopathy History of CAD with stents Hypertension Hyperlipidemia Lupus Anxiety with depression. Continue daily medication regimen with Elavil 25 mg nightly and Cymbalta 60 mg nightly. Hospital course: Patient is a very pleasant 73-year-old female with a past medical history of CAD status post stenting and currently known 60 to 70% stenosis of mid LAD, hypertension, hyperlipidemia, lupus, and anxiety with depression. She presented to the emergency department with a chief complaint of shortness of breath, fatigue, cough, and congestion. She recently underwent hospitalization from 12/28/2023 through 01/01/2024 where she underwent treatment for influenza A and completed course of Tamiflu and discharged home on a prednisone taper and DuoNeb treatment. She reports she returned to work and was feeling fine until Sunday night when she began feeling very fatigued and tired again and Sunday she again began to feel very short of breath accompanied by nonproductive cough and mild chest pain/discomfort. Patient reports this continued intermittently and yesterday actually felt as though she "was going to " because the chest tightness and shortness of breath was continuous and tali bad. Patient states today her son came to check on her and since she continued to have the shortness of breath and chest pain, she called her PCP and was instructed to come straight to the emergency department for further evaluation. Patient underwent evaluation in the emergency department.. Vital signs upon arrival show blood pressure 100/69, heart rate 120, respiratory rate 18, temp 98.1 F, and SpO2 of 98% on room air. EKG completed showing sinus tachycardia at [address] elevation in leads I and II otherwise no further T wave or ST abnormalities at this time upon personal review and interpretation. Chest x-ray negative for acute cardiopulmonary process. Labs completed and reviewed. CBC showing thrombocytosis with platelet count of 477 otherwise normal findings. BMP showing hyperchloremia chloride of 108, bicarb 19, and anion gap of 9. Blood glucose 120. Lactic acid elevated at 2.4. Liver profile normal findings. Troponin elevated at 0.943 with BNP of 5420. D-dimer also elevated at 0.62. CTA chest completed showing no evidence of pulmonary embolism revealing mild cardiomegaly with haziness of the lungs possibly representing pulmonary vascular congestion. Influenza A, influenza B, COVID, and RSV were negative. Patient given aspirin 324 mg p.o. x 1 dose Lasix 40 mg IVP, and started on heparin infusion for acute coronary syndrome. Patient admitted under our services with consultation to cardiology. Patient currently reports she is feeling calm and rested with full resolution of chest pain after administration of 2 sublingual nitros she received in the emergency department. Troponins trended overnight resulting at 0.943, 0.974, and 0.440. Echocardiogram revealing a reduced EF of 35 to 40% with moderately to severely impaired systolic function with segmental wall motion abnormality. Patient was taken for cardiac cath on 01/14/2024 showing mild CAD with 40% stenosis of the proximal LAD and more focal distal LAD of 60 to 70% stenosis with a patent mid LAD stent, elevated left-sided filling pressures and a reduced EF of 35 to 40% with apical hypokinesis possibly consistent with Takotsubo's cardiomyopathy. Cardiology recommending continuation of aggressive risk factor modification stating coronary anatomy appears unchanged from prior angiogram and new cardiomegaly with predominantly apical hypokinesis appears consistent with Takotsubo's cardiomyopathy. Heart failure medication regimen was optimized and patient cleared from cardiac perspective for discharge. Medically, patient is stable for discharge at this time. Patient being discharged home on losartan 12.5 mg nightly, Lasix 20 mg twice daily, atorvastatin 20 mg nightly, Plavix 75 mg daily, aspirin 81 mg daily, Ranexa 1000 mg every 12 hours, and metoprolol XL 25 mg nightly. Patient will need to follow-up outpatient with PCP in 1 to 2 days and with wafer substrate tester in 1 week. Physical exam: Vital signs reviewed and stable. General: Nontoxic, no distress and appears stated age. Derm: Skin warm and dry, normal coloration for ethnicity. Head: Atraumatic, normocephalic and symmetric. Eyes: EOMs intact, no lid lag, and anicteric sclera Mouth: no lip lesions, mucus membranes moist Cardiovascular: regular rate and rhythm with normal S1S2, systolic murmur, positive posterior tibial pulses bilaterally, and cap refill < 2 seconds. Lungs: Respirations even, regular, and unlabored on room air. Lungs CTA bilaterally, no rhonchi, no rales, no wheezing, and no accessory muscle usage. Abdominal: soft, nontender to palpation, no guarding, no appreciable organomegaly Ext: ROM intact. No gross muscle atrophy, no edema, no contractures Neuro: Speech clear, face symmetrical and CN II-XII grossly intact with no noted focal neuro deficits Psych: Alert and oriented to person, place, time, and situation. Appropriate and pleasant affect. A total of 35 minutes of time were spent preparing this complex discharge summary. Pt was discharged on 01/18/2024 at 2:14 PM. Patient was seen independently by Nurse Practitioner. This document was prepared using [employer] dictation software. Please allow for errors in ordering machine operator while rare they do occur J Carlos Hummel NP rendered care for this patient independently, reviewed the findings and plan as documented in the note above. I did not physically speak with or examine the patient on this date. Patient Condition at Discharge: Stable Plan - Discharge Summary New Discharge Prescriptions: New Losartan [Cozaar] 12.5 mg PO HS 30 Days #30 tab Furosemide [Lasix] 20 mg PO BID@0900,1600 30 Days #60 tab Continue Atorvastatin [Lipitor] 20 mg PO HS DULoxetine HCL [Cymbalta] 60 mg PO HS Amitriptyline HCl [Elavil] 25 mg PO HS Levocetirizine Dihydrochloride [Xyzal] 5 mg PO HS Omeprazole 40 mg PO HS Clopidogrel [Plavix] 75 mg PO DAILY #90 tablet Meclizine [Antivert] 25 mg PO TID PRN PRN Reason: Vertigo Zolpidem [Ambien] 5 mg PO HS PRN PRN Reason: Insomnia Ondansetron Odt [Zofran ODT] 4 mg PO Q8HR PRN PRN Reason: Nausea And Vomiting Ipratropium-Albuterol Nebulize [Duoneb 0.5 mg-3 mg/3 ml Soln] 3 ml INHALATION RT-QID PRN PRN Reason: SOB or wheezing Metoprolol Succinate (ER) [Toprol XL] 25 mg PO HS Montelukast Sodium 10 mg PO HS Aspirin 81 mg PO DAILY #90 tab Ranolazine [Ranexa] 1,000 mg PO Q12HR #180 tab Discontinued Bumetanide [BUMEX] 1 mg PO DAILY lisinopriL [Zestril] 5 mg PO DIRECTED Discharge Medication List Amitriptyline HCl [Elavil] 25 mg PO HS 07/09/23 [History] Atorvastatin [Lipitor] 20 mg PO HS 07/09/23 [History] DULoxetine HCL [Cymbalta] 60 mg PO HS 07/09/23 [History] Levocetirizine Dihydrochloride [Xyzal] 5 mg PO HS 07/09/23 [History] Metoprolol Succinate (ER) [Toprol XL] 25 mg PO HS 07/09/23 [History] Montelukast Sodium 10 mg PO HS 07/09/23 [History] Omeprazole 40 mg PO HS 09/03/23 [History] Aspirin 81 mg PO DAILY #90 tab 10/02/23 [Rx] Clopidogrel [Plavix] 75 mg PO DAILY #90 tablet 10/02/23 [Rx] Ranolazine [Ranexa] 1,000 mg PO Q12HR #180 tab 10/02/23 [Rx] Meclizine [Antivert] 25 mg PO TID PRN 12/28/23 [History] Ondansetron Odt [Zofran ODT] 4 mg PO Q8HR PRN 12/28/23 [History] Zolpidem [Ambien] 5 mg PO HS PRN 12/28/23 [History] Ipratropium-Albuterol Nebulize [Duoneb 0.5 mg-3 mg/3 ml Soln] 3 ml INHALATION RT-QID PRN 01/14/24 [History] Furosemide [Lasix] 20 mg PO BID@0900,1600 30 Days #60 tab 01/18/24 [Rx] Losartan [Cozaar] 12.5 mg PO HS 30 Days #30 tab 01/18/24 [Rx] Follow up Appointment(s)/Referral(s): Dorothy Champagne MD [STAFF PHYSICIAN] - 01/25/24 10:30 am Natalio Arellano DO [Primary Care Provider] - 1-2 days (Office is not answering. Please call and make follow up appointment. ) Patient Instructions/Handouts: Heart Failure (DC) Activity/Diet/Wound Care/Special Instructions: Activity: As tolerated. Take breaks as needed. Diet: Heart healthy and carb consistent diet. Avoid salts, or foods with hidden salts such as canned or boxed foods and frozen dinners. Extra salt makes your heart work harder and traps the fluid in your body for longer. Special Instructions: Take all of your medications as directed and remember to keep all of your doctor's appointments and follow-up as needed. Thank you for allowing us to participate in your care, it was truly a pleasure having you for our patient!!! Discharge/Stand Alone Forms: Work/School Release Discharge Disposition: HOME SELF-CARE
== END 2024-01-18 17:42 | disposition home or self-care (01) | DRG 280 ==
LOC: EC 10:52 → 3SCARD 15:58
PROVIDERS: ADMIT Student in an Organized Health Care Education/Training Program; ATTEND Student in an Organized Health Care Education/Training Program
PROC: B2151ZZ Fluoroscopy of Left Heart using Low Osmolar Contrast (ICD-10-PCS; 2024-01-16)
PROC: 4A023N7 Measurement of Cardiac Sampling and Pressure, Left Heart, Percutaneous Approach (ICD-10-PCS; principal; 2024-01-16 07:30)
PROC: B2111ZZ Fluoroscopy of Multiple Coronary Arteries using Low Osmolar Contrast (ICD-10-PCS; 2024-01-16 07:30)
DX: I51.81 Takotsubo syndrome (principal); I50.21 Acute systolic (congestive) heart failure; I21.A1 Myocardial infarction type 2; I42.9 Cardiomyopathy, unspecified; I10 Essential (primary) hypertension; I25.10 Atherosclerotic heart disease of native coronary artery without angina pectoris; I11.0 Hypertensive heart disease with heart failure; Z68.39 Body mass index [BMI] 39.0-39.9, adult; D75.839 Thrombocytosis, unspecified; E66.9 Obesity, unspecified; E78.5 Hyperlipidemia, unspecified; E87.8 Other disorders of electrolyte and fluid balance, not elsewhere classified; F41.8 Other specified anxiety disorders; F43.10 Post-traumatic stress disorder, unspecified; Z79.02 Long term (current) use of antithrombotics/antiplatelets; Z79.82 Long term (current) use of aspirin; Z79.899 Other long term (current) drug therapy; Z82.49 Family history of ischemic heart disease and other diseases of the circulatory system; Z95.5 Presence of coronary angioplasty implant and graft; Z82.3 Family history of stroke; Z90.710 Acquired absence of both cervix and uterus; Z96.641 Presence of right artificial hip joint; Z87.19 Personal history of other diseases of the digestive system; Z90.49 Acquired absence of other specified parts of digestive tract
CPT/HCPCS: 36415; 71046; 71275; 76937; 80048; 80053; 81003; 83605; 83735; 83880; 84484; 85025; 85027; 85379; 85610; 85730; 87636; 93005; 93306; 93458; 94760; 96361; 96365; 96366; 96375; 96376; 99285

== ENCOUNTER → 2024-03-28 | Outpatient (CLI) | payer MEDICARE ==
--- NOTE | 2024-03-29 14:49 | CA ---
Transthoracic Echo Report Name: Mariam Espinoza Age: 73 Gender: F : 1950 Exam Date: 03/28/2024 16:30 Exam Location: [facility] Ht (in): 65 Wt (lb): 240 Ordering Physician: Ashwin Vasques DO ([email or web address]) Attending/Referring Phys: Hospital Insurance Representative Mireya Timmons RDCS Procedure CPT: Indications: I50.20 UNSPECIFIED SYSTOLIC (CONGESTIVE) HEART NAOMI Cardiac Hx: Technical Quality: Technically difficult study Contrast 1: Definity Total Dose (mL): 2 Contrast 2: Total Dose (mL): MEASUREMENTS (Male / Female) Normal Values 2D ECHO LV Diastolic Diameter PLAX 4.6 cm 4.2 - 5.9 / 3.9 - 5.3 cm LV Systolic Diameter PLAX 2.5 cm IVS Diastolic Thickness 1.2 cm 0.6 - 1.0 / 0.6 - 0.9 cm LVPW Diastolic Thickness 1.2 cm 0.6 - 1.0 / 0.6 - 0.9 cm LV Relative Wall Thickness 0.5 LA Volume 40.6 cm??? 18 - 58 / 22 - 52 cm??? LA Volume Index 17.7 cm???/m??? 16 - 28 cm???/m??? M-MODE Aortic Root Diameter MM 2.9 cm LA Systolic Diameter MM 4.1 cm LA Ao Ratio MM 1.4 DOPPLER LVOT Peak Velocity 128.9 cm/s LVOT Peak Gradient 6.6 mmHg LVOT Velocity Time Integral 27.4 cm MV Area PHT 2.1 cm??? Mitral E Point Velocity 56.0 cm/s Mitral A Point Velocity 107.9 cm/s Mitral E to A Ratio 0.5 MV Deceleration Time 355.4 ms MV E' Velocity 8.4 cm/s Mitral E to MV E' Ratio 6.6 FINDINGS Left Ventricle Mildly increased septal wall thickness. Mildly increased posterior wall thickness. No obvious regional wall motion abnormalities. Hyperdynamic LV with EF between 65-70%. Grade 1 diastolic dysfunction. Right Ventricle Right ventricle not well visualized. Right Atrium Right atrium not well visualized. Left Atrium Normal left atrial size. Mitral Valve Structurally normal mitral valve. No mitral stenosis. Mild mitral annular calcification. Mild mitral regurgitation. Aortic Valve No aortic valve stenosis or regurgitation. Tricuspid Valve Mild tricuspid regurgitation. Pulmonic Valve Pulmonic valve not well visualized. Pericardium No pericardial effusion. Aorta Aortic root and proximal ascending aorta not well visualized. CONCLUSIONS Hyperdynamic LV with EF between 65-70% Previewed by: Dr. Bob Azar MD (Electronically Signed) Final Date: 29 March 2024 14:48
== END | disposition home or self-care (01) ==
LOC: RADECHMAIN 16:28
PROVIDERS: ATTEND Internal Medicine
DX: I50.20 Unspecified systolic (congestive) heart failure (principal)
CPT/HCPCS: C8929; Q9957; 93306

== ENCOUNTER → 2024-08-18 | Outpatient (CLI) | payer MEDICARE ==
[2024-08-18 11:31] LABS: African American GFR (CKD) >90 (>60 ml/min/1.73 sqM); Blood Urea Nitrogen 12 mg/dL (7-17); Non-African American GFR(CKD) >90 (>60 ml/min/1.73 sqM)
--- NOTE | 2024-08-18 12:04 | CT ---
EXAMINATION TYPE: CT chest w con CT DLP: 867 mGycm, Automated exposure control for dose reduction was used. DATE OF EXAM: 08/18/2024 11:55 AM COMPARISON: CTA chest 01/14/2024, 07/11/2023 CLINICAL INDICATION:Female, 74 years old with history of M32.9 SYSTEMIC LUPUS ERYTHEMATOSUS, UNSPECIF IED; PHH, Systemic lupus erythematosus, sob, cough, light headed. TECHNIQUE: Multiple axial images were obtained through the chest following the administration of 100 cc of Isovue 300. . Coronal and sagittal reformats reviewed. FINDINGS: LUNGS/ PLEURA: No pleural effusion, pneumothorax, or focal consolidation. No suspicious pulmonary nod ule or mass. Resolution of previously seen pulmonary haziness. AIRWAY: Patent and unremarkable.. HEART: The heart is mildly increased in size.. No pericardial effusion. Small coronary calcifications . MEDIASTINUM: No evidence of adenopathy. VASCULATURE: No aortic aneurysm. MUSCULOSKELETAL: No acute osseous abnormalities. Remote left-sided rib fractures. Partial visualizati on of anterior and posterior cervical fusion. Moderate multilevel degenerative disc disease. SOFT TISSUES/LYMPH NODES: Benign dystrophic calcification within the right upper breast. LOWER NECK: Subcentimeter partially visualized right thyroid lobe hypodense nodule. UPPER ABDOMEN: Bilateral renal cysts with largest in the right kidney measuring up to 5.5 cm and the largest within the left kidney measuring up to 6.1 cm. Gallbladder surgically absent. Colonic diverti culosis. IMPRESSION: No acute thoracic process. [facility], , 08/18/2024 12:02 PM
== END | disposition home or self-care (01) ==
LOC: RADCTMAIN 10:34
PROVIDERS: ATTEND Family Medicine
CPT/HCPCS: 36415; 71260; 82565; 84520

== ENCOUNTER 2024-12-26 12:34 | Inpatient (IN) | payer MEDICARE ==
[~2024-12-26 12:34] MED LIST changes: -ALPRAZolam 0.25 MG TAB PO PRN; -ALPRAZolam 0.5 MG TAB PO PRN; -ASPIRIN 325 MG TAB PO STA; -HEPARIN SODIUM,PORCINE (1 ML) 2,500 UNIT in SODIUM CHLORIDE 0.9% 250 ML IRRIGATION PRN; -HEPARIN SODIUM,PORCINE 10,000 UNIT in SODIUM CHLORIDE 0.9% 1,000 ML IRRIGATION PRN; +HYDROmorphone 0.5 MG/0.5 ML SYRINGE IVP PRN; -NITROGLYCERIN SL TABS 0.4 MG TAB SUBLINGUAL PRN; +ROPIVACAINE/EPI/CLONIDINE/KET 50 ML SYRINGE MISCELLANE PRN; -SODIUM CHLORIDE 0.9% 1,000 ML in EMPTY BAG 1 BAG IV SCH; +TRANEXAMIC 1,000 MG/100ML-NACL 1,000 MG in SALINE 1 100ML.BAG IV PRN; +TRANEXAMIC 1,000 MG/100ML-NACL 1,000 MG in SALINE 1 100ML.BAG IVPB PRN
[2024-12-26] MEDS: IV FLUID CONTINUATION 1,000 ML IV ONE (13:04)
[2024-12-26] MEDS: ONDANSETRON 4 MG/2 ML VIAL IVP PRN (13:30)
[2024-12-26] MEDS: DEXAMETHASONE SOD PHOSPHATE 10 MG/ML 1 ML VIAL IV PRN (13:30)
[2024-12-26] MEDS: LACTATED RINGERS 1,000 ML IV SCH (13:30)
[2024-12-26] MEDS: FAMOTIDINE 20 MG/2 ML VIAL IVP PRN (13:31)
[2024-12-26] MEDS: KETOROLAC 15 MG/ML 1 ML VIAL IVP PRN (13:31)
[2024-12-26] MEDS: DOCUSATE 100 MG CAP PO PRN (13:31)
[2024-12-26] MEDS: ACETAMINOPHEN TAB 500 MG TAB PO PRN (13:31)
[2024-12-26] MEDS: oxyCODONE ER 10 MG TAB.ER.12H PO PRN (13:31)
[2024-12-26] MEDS: fentaNYL (PF) 50 MCG/ML 2 ML AMP IVP STA (13:53)
[2024-12-26] MEDS: MIDAZOLAM 2 MG/2 ML VIAL IV PRN (13:53)
--- NOTE | 2024-12-26 14:23 | P.ANPRN ---
Procedure Note - Anesthesia - Nerve Block Performed Left Rico Single Time Out Performed: Yes (1352) Date of Procedure: 12/26/24 Procedure Start Time: 13:53 Procedure Stop Time: 13:58 Location of Patient: PreOp Indication: Acute Post-Operative Pain, Requested by Surgeon Specifically requested for management of pain by DrJohny: Edmond Karimi Sedation Type: Sedate with meaningful contact maintained Preparation: Sterile Prep, Sterile Dressing Position: Supine Catheter: None Needle Types: Pajunk Needle Gauge: 21 Ultrasound used to visualize needle placement: Yes Ultrasound used to observe medication spread: Yes Injectate: 0.5% Ropivacaine (see comment for volume) (30cc + decadron 4mg) Blood Aspirated: No Pain Paresthesia on Injection Noted: No Resistance on Injection: Normal Image Stored and Saved: Yes Events: Uneventful and Well Tolerated
[2024-12-26] MEDS ORDERED: TRANEXAMIC 1,000 MG/100ML-NACL PREMIX BAG ONE (14:28)
[2024-12-26] MEDS ORDERED: PROPOFOL 10 MG/ML 20 ML VIAL IV ONE (14:28)
[2024-12-26] MEDS ORDERED: NEOSTIGMINE 1 MG/ML 10 ML VIAL ONE (14:28)
[2024-12-26] MEDS ORDERED: ePHEDrine 50 MG/ML 1 ML VIAL ONE (14:28)
[2024-12-26] MEDS ORDERED: GLYCOPYRROLATE 0.2 MG/ML 2 ML VIAL ONE (14:28)
[2024-12-26] MEDS ORDERED: fentaNYL (PF) 50 MCG/ML 2 ML AMP ONE (14:28)
[2024-12-26] MEDS ORDERED: SUCCINYLCHOLINE CHLORIDE 200 MG/10 ML VIAL IV ONE (14:28)
[2024-12-26] MEDS ORDERED: PHENYLEPHRINE-0.9% NACL SYG 1,000 MCG/10 ML SYRINGE ONE (14:28)
[2024-12-26] MEDS ORDERED: ROPIVACAINE 5 MG/ML 30 ML VIAL ONE (14:28)
[2024-12-26] MEDS ORDERED: DEXAMETHASONE SOD PHOSPHATE 4 MG/ML 1 ML VIAL ONE (14:28)
[2024-12-26] MEDS ORDERED: ROCURONIUM 10 MG/ML (5 ML VIAL) IV ONE (14:28)
[2024-12-26] MEDS ORDERED: LIDOCAINE 1% INJ 10MG/ML (20 ML MDV) ONE (14:28)
[2024-12-26] MEDS ORDERED: HYDROmorphone (PF) 1 MG/ML ONE (14:28)
[2024-12-26] MEDS ORDERED: MIDAZOLAM 2 MG/2 ML VIAL ONE (14:28)
[2024-12-26] MEDS: ROPIVACAINE/EPI/CLONIDINE/KET 50 ML SYRINGE MISCELLANE PRN (15:13)
[2024-12-26] MEDS: LACTATED RINGERS 1,000 ML IV ONE (16:09)
[2024-12-26] MEDS ORDERED: NALOXONE 0.4 MG/ML 1 ML VIAL IV PRN (16:35)
[2024-12-26] MEDS ORDERED: TEMAZEPAM 15 MG CAP PO PRN (16:35)
[2024-12-26] MEDS ORDERED: HYDROmorphone 0.5 MG/0.5 ML SYRINGE IVP PRN ×2 (16:35)
[2024-12-26] MEDS ORDERED: HYDROcodone/APAP 5-325MG 1 EACH TAB PO PRN (16:35)
[2024-12-26] MEDS ORDERED: diazePAM 5 MG TAB PO PRN ×2 (16:35)
--- NOTE | 2024-12-26 16:35 | P.OP ---
Date of Procedure: 12/26/24 Preoperative Diagnosis: Severe left hip osteoarthritis Postoperative Diagnosis: Same Procedure(s) Performed: 1. Left direct anterior total hip arthroplasty 2. Application of negative pressure incisional wound VAC, left hip, incision 15 cm, less than 50 cm Implants: 1. Brigid Trident II Acetabular Cup, Size #48 2. Brigid Insignia Size # 3 Femoral Stem, Standard Offset 3. Dual Mobility OD 38 mm, ID 28 mm, -4 mm neck Anesthesia: KENNEDYA, regional Surgeon: Edmond Karimi Jig Grinder #1: Simone Ritchie Estimated Blood Loss (ml): 600 IV fluids (ml): 800 Pathology: none sent Condition: stable Disposition: PACU Indications for Procedure: I had a long discussion with the patient in the office on the potential risks and complications of an elective total hip replacement through a direct anterior approach. Risks discussed include, but are certainly not limited to, risks from anesthesia, superficial infection requiring local wound care or antibiotics, deep becca-prosthetic joint infection and the treatment required to eradicate infection, intraoperative fracture, postoperative periprosthetic fracture, damage to local blood vessels or nerves particularly the lateral femoral cutaneous nerve, delayed wound healing requiring local wound care or possibly surgical debridement, hip dislocation, leg length discrepancy, soft tissue irritation around the total hip implant such as iliopsoas tendinitis or trochanteric bursitis, wear and osteolysis from the implants, squeaking or audible noises, groin pain, thigh pain, heterotopic ossification, stiffness, aseptic loosening of the implants, dissatisfaction with surgical outcome, need for revision surgery, DVT, PE, swelling of the operative extremity, acute coronary event, stroke, failure to thrive, and possibly loss of life or limb. The patient understands that while these are the most common complications after an elective hip replacement there are certainly other less common complications possible. They were given ample time to ask questions regarding the potential complications of a hip replacement. Following our discussion the patient provided their verbal and written consent to go forward with an elective total hip replacement. Operative Findings: Severe left hip arthritis with complete loss of articular cartilage Description of Procedure: The patient was identified in the preoperative holding area and the correct hip was marked with my initials. I reviewed the procedure and consent with the patient. All of their questions were answered. The patient was then brought back into the operating room by anesthesia. While on the [facility] anesthesia was administered by the anesthesia team. Preoperative antibiotics and tranexamic acid were also given. After the patient was under anesthesia I examined their ankles to determine their preoperative leg length discrepancy. The skin over the anterior aspect of the hip was shaved to remove hair over the site of planned incision. Both feet and ankles were padded with webril and boots for the [place] were applied. The patient was then carefully transferred onto the [place] table. A perineal post was immediately placed. The arms were placed on arm holders and were well-padded. Both boots were secured to the spars on the [place] table. The patient was positioned so that the pelvis was centered over the post. Nonsterile drapes were applied. A timeout was performed identifying the correct patient, operative extremity, and procedure. At this point fluoroscopy was brought in to take preoperative images of the pelvis and operative hip. Using the standing AP pelvis from the office as a template, a comparable image was obtained with fluoroscopy. A metallic bar was used to create a bi-ischial line for use as a reference to leg length adjustments during the procedure. Global offset was also measured on both the operative and nonoperative leg. Fluoroscopy was then brought out and a pre-scrub using a chlorhexidine scrub brush was performed. The operative limb was then prepped and draped in the standard sterile fashion. An anterior longitudinal incision was made lateral and distal to the ASIS. The skin and subcutaneous tissues were incised sharply. The underlying tensor fascia was identified and incised in its midportion. The fascia was dissected free from the underlying muscle and the muscle belly was retracted. A blunt tipped cobra retractor was placed over the superior neck under the muscle fibers of the gluteus minimus. The deep enveloping fascia of the tensor was incised. The anterior leash of vessels were then identified and cauterized. The fascia between the rectus and the capsule was then incised and the pre-capsular fat was excised. A second Cobra was placed inferior to the neck. The interval between the rectus and iliocapsularis and the hip capsule was developed and a retractor was placed carefully over the anterior rim of the acetabulum. A T-shaped anterior capsulotomy was performed. The superior capsular leaflet was left in place in the inferior capsular flap was excised. The Cobra retractors were placed intracapsularly. We then made a femoral neck osteotomy according to preoperative and intraoperative templating and confirmed the level of the osteotomy using fluoroscopic imaging. The femoral head was removed, passed off to the back table, and sized. The superior capsular flap was excised. Retractors were placed circumferentially exposing the acetabulum. We then circumferentially debrided the acetabulum free of labrum and osteophytes. The pulvinar was removed to fully visualize the cotyloid fossa. We then sequentially reamed to achieve peripheral fit and excellent bleeding subchondral bone. The socket was thoroughly irrigated. The acetabular component was impacted into the appropriate position using fluoroscopy to guide version, inclination, and depth of insertion taking care to have a comparable image of the AP pelvis to the standing image taken in the office. An excellent press-fit was achieved and final position was confirmed using fluoroscopy. The press fit was augmented with a bony cancellus dome screw. The liner was then impacted into the socket. Attention was then turned to the femur. The remnant dorsal lateral capsule was excised. The short external rotators were visible and protected. A bone hook was used to confirm appropriate translation of the trochanter away from the acetabulum. The leg was then extended and adducted and the bone hook was used to elevate the femur for broaching. A box osteotome and blunt tipped canal sound was then utilized to gain access to the femoral canal. We then sequentially broached the femur in appropriate anteversion until excellent torsional stability was achieved. The neck cut was brought flush to the trial broach with a calcar planar. A trial neck and head were then placed onto the broach and the hip was atraumatically reduced under direct visualization. External rotation to 90 was performed to assess stability. Fluoroscopy was brought in. An AP and lateral fluoroscopic image of the proximal femur was obtained to assess position and fill of the trial broach. An AP of the pelvis was then obtained and matched to the preoperative image taken. A bi-ischial bar was then placed and measurements were taken to assess changes in length and offset. The hip was then carefully dislocated, the proximal femur was exposed, and the trial implants were removed. The wound and proximal femur was thoroughly irrigated using sterile saline and pulsatile lavage. The final femoral implant was dispensed and gently tapped into place generating an excellent press-fit. The trunnion was cleansed and the final head was tapped into place to engage the Tsai taper. The acetabulum was irrigated and visualized to be free of debris. The hip was carefully reduced. Stability was checked clinically with external rotation to 90 and there was no evidence of instability. Final fluoroscopic images were taken. The wound was then thoroughly irrigated and soaked with a dilute Betadine rinse for 3 minutes. 3 L of sterile saline was irrigated through the wound using pulsatile lavage. Local anesthetic cocktail was injected into the soft tissues around the surgical field. The wound was then closed in layers. Due to the patient's body habitus and abdominal pannus and incisional wound VAC was applied over the closed incision. The drapes were taken down and the patient was carefully transferred off of the [place] table. Following removal of the boots the leg lengths felt acceptable. The patient was then taken to recovery room having tolerated the procedure well. Simone Ritchie PA-C was required as a skilled ob gyn physician assistant due to the complexity of surgery for patient positioning, draping, exposure, retraction, closure of wound and application of dressing. PLAN: The patient can weight-bear as tolerated on the operative extremity. 2 doses of postoperative antibiotics. DVT prophylaxis with aspirin 81 mg twice a day based on preoperative risk stratification. Physical therapy for gait training.
--- NOTE | 2024-12-26 17:09 | XR ---
Fluoroscopy History: LEFT ANTERIOR HIP left anterior hip fl time 51.9 seconds, dap [id number], 6 images sent into pacs, dr sanderson [facility], , 12/26/2024 5:07 PM
[2024-12-26] MEDS: SODIUM CHLORIDE 0.9% 1,000 ML IV SCH (18:17)
[2024-12-26] MEDS: SODIUM CHLORIDE 0.9% 1,000 ML IV ONE ×2 (18:18→18:40)
[2024-12-26] MEDS ORDERED: ZOLPIDEM 5 MG TAB PO PRN (19:23)
[2024-12-26] MEDS ORDERED: ALPRAZolam 0.25 MG TAB PO PRN (19:23)
--- NOTE | 2024-12-26 19:46 | FL ---
EXAMINATION TYPE: FL guidance operating room DATE OF EXAM: 12/26/2024 CLINICAL HISTORY: LEFT ANTERIOR HIP TECHNIQUE: Fluoroscopy. COMPARISON: None. FINDINGS: left anterior hip fl time 51.9 seconds, dap [id number], 6 images sent into pacs, dr sanderson IMPRESSION: As Above. [facility], , 12/26/2024 7:43 PM
[2024-12-26] MEDS: MONTELUKAST 10 MG TAB PO SCH (21:26)
[2024-12-26] MEDS: SENNOSIDES-DOCUSATE SODIUM 1 EACH TAB PO SCH (21:26)
[2024-12-26] MEDS: ATORVASTATIN 40 MG TAB PO SCH (21:26)
[2024-12-26] MEDS: LORATADINE 10 MG TAB PO SCH (21:26)
[2024-12-26] MEDS: ASPIRIN 81 MG PO SCH (21:26)
[2024-12-26] MEDS: SODIUM CHLORIDE 0.9% 500 ML 500 ML IV ONE (21:27)
[2024-12-26] MEDS: HYDROmorphone 0.5 MG/0.5 ML SYRINGE IVP PRN (23:12)
--- NOTE | 2024-12-26 23:15 | P.CONS ---
History of Present Illness - Reason for Consult Consult date: 12/26/24 - History of Present Illness History of present illness; Patient is a 74-year-old female with CAD, hypertension, GERD, allergies, anxiety who presented for elective left direct anterior total hip arthroplasty. Patient has history of severe left hip osteoarthritis. Patient then followed up with orthopedic surgery outpatient and had planned surgery today. Patient is now postop with no known surgical complications. Patient is sitting up in bed resting with no complaints of pain. Patient reports absence of fever, chills, weight loss, chest pain, palpitations, diaphoresis, dyspnea, cough, nausea, vomiting, constipation, diarrhea, abdominal pain, weakness, myalgia, dizziness, headache, and dysuria. Internal medicine was consulted for medical management. REVIEW OF SYSTEMS: All systems reviewed, pertinent positives and negatives noted in HPI. All other symptoms are negative. PHYSICAL EXAMINATION: Vitals reviewed GENERAL: Resting comfortably in bed. Obese. EYES: PERRL, no scleral injection or icterus. No vision loss HENT: Normocephalic, atraumatic, hearing grossly intact, moist mucous membranes NECK: No tracheal deviation, full range of motion. CARDIOVASCULAR: S1 and S2 present. No murmurs, rubs, or gallops. PULMONARY: Chest is clear to auscultation, no wheezing, rhonchi, or crackles. ABDOMEN: Soft, nontender, nondistended. No palpable organomegaly. MUSCULOSKELETAL: No apparent joint swelling and deformities. Dressing over left hip with wound VAC in place. EXTREMITIES: No apparent cyanosis, clubbing. No pedal edema. NEUROLOGICAL: Alert and oriented. Gross neurological examination with no apparent focal deficits. Sensation intact. No labs for review. Assessment and plan: Patient is a 74-year-old female with CAD, hypertension, GERD, allergies, anxiety who presented for elective left direct anterior total hip arthroplasty. #Essential hypertension - hold home medications for now due to hypotension #Coronary artery disease #GERD #Anxiety Resume home medications #Left direct anterior total hip arthroplasty -Pain management and DVT prophylaxis per primary surgical team F: IV LR 20 mL/hr E: Replete as needed N: Clear liquid advance to regular Code status: Full code Patient is stable from medical stand point Follow up CBC and CMP in AM Dictation was produced using [employer] dictation software. Please excuse any grammatical, word or spelling errors. I have seen and evaluated the patient today. I Discussed the case with the resident and agree with the resident's findings I edited the assessment and plan as necessary as documented in the resident's note. Past Medical History Past Medical History: Coronary Artery Disease (CAD), Chest Pain / Angina, GERD/Reflux, Hypertension, Osteoarthritis (OA), Pneumonia, Sleep Apnea/CPAP/ BIPAP Additional Past Medical History / Comment(s): lupus-causes joint pain, diverticulitis, SOB w/exertion, supposed to use CPAP, recent adm. to [facility] in Nov. 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 ankle surgeries for stabilization Past Anesthesia/Blood Transfusion Reactions: No Reported Reaction Additional Past Anesthesia/Blood Transfusion Reaction / Comm: no hx. of transfusion reaction Date of Last Stent Placement:: 09/2023 Smoking Status: Never smoker - Past Family History Mother Family Medical History: Hypertension Sister(s) Family Medical History: Cancer Additional Family Medical History / Comment(s): breast Medications and Allergies Home Medications Medication Instructions Recorded Confirmed Type Amitriptyline HCl [Elavil] 25 mg PO HS 07/09/23 12/26/24 History DULoxetine HCL [Cymbalta] 60 mg PO BID 07/09/23 12/26/24 History Levocetirizine Dihydrochloride 5 mg PO HS 07/09/23 12/26/24 History [Xyzal] Montelukast Sodium 10 mg PO HS 07/09/23 12/26/24 History Omeprazole 40 mg PO DAILY 09/03/23 12/26/24 History Aspirin 81 mg PO DAILY #90 tab 10/02/23 12/26/24 Rx Zolpidem [Ambien] 5 mg PO HS PRN 12/28/23 12/26/24 History ALPRAZolam [Xanax] 0.25 mg PO DAILY PRN 12/01/24 12/26/24 History Furosemide [Lasix] 20 mg PO DAILY 12/01/24 12/26/24 History Acetaminophen Tab [Tylenol] 650 mg PO Q6HR PRN tab 12/02/24 12/26/24 Rx Atorvastatin [Lipitor] 40 mg PO HS #60 tab 12/02/24 12/26/24 Rx Losartan [Cozaar] 25 mg PO HS 30 Days #30 tab 12/02/24 12/26/24 Rx Metoprolol Succinate (ER) [Toprol 25 mg PO DAILY #30 tab 12/02/24 12/26/24 Rx XL] Allergies Allergy/AdvReac Type Severity Reaction Status Date / Time influenza virus vaccine qs Allergy Anaphylaxis Verified 12/26/24 13:19 [id number] (65 years up) [From [place] (65y up)(PF)] Penicillins Allergy Rash/Hives Verified 12/26/24 13:19 vaccine adjuvant emulsion Allergy Anaphylaxis Verified 12/26/24 13:19 [id number] [From [place] (65y up)(PF)] vancomycin Allergy Anaphylaxis Verified 12/26/24 13:19 Physical Exam Vitals: Vital Signs Temp Pulse Resp BP Pulse Ox 12/26/24 18:41 86 16 101/53 94 L 12/26/24 18:34 83 16 83/47 94 L 12/26/24 18:19 79 16 87/52 94 L 12/26/24 18:04 76 16 88/53 94 L 12/26/24 17:51 75 16 109/81 94 L 12/26/24 17:36 79 16 108/55 93 L 12/26/24 17:21 81 16 91/59 94 L 12/26/24 17:06 97.4 F L 83 14 126/55 96 12/26/24 14:04 67 16 112/61 95 12/26/24 13:18 97.5 F L 67 16 150/82 97 Intake and Output 12/26/24 12/26/24 12/26/24 06:59 14:59 22:59 Intake Total 1050 900 Output Total 300 Balance 1050 600 Intake: IV 1050 900 Output: Estimated Blood Loss 300 Other: Weight 104.3 kg
[2024-12-26] MEDS: AMITRIPTYLINE HCL 25 MG TAB PO SCH (23:59)
[2024-12-27] MEDS: ONDANSETRON 4 MG/2 ML VIAL IVP PRN (04:00)
[2024-12-27] MEDS: HYDROcodone/APAP 10-325MG 1 EACH TAB PO PRN (05:51)
[2024-12-27] MEDS: LOSARTAN 25 MG TAB PO SCH (06:09)
--- NOTE | 2024-12-27 07:34 | P.PN ---
Subjective Patient was seen this morning. She has some discomfort in her left thigh but is otherwise doing well. She denies chest pain or shortness of breath. Objective - Vital Signs Vital signs: Vital Signs Temp 98.2 F 12/27/24 02:00 Pulse 124 H 12/27/24 02:00 Resp 17 12/27/24 02:00 BP 101/67 12/27/24 02:00 Pulse Ox 94 L 12/27/24 02:00 FiO2 Intake & Output 12/26/24 12/27/24 12/27/24 18:59 06:59 18:59 Intake Total 1950 Output Total 300 Balance 1650 Weight 104.3 kg 104.3 kg Intake: IV 1950 Output: Estimated Blood Loss 300 Other: # Voids 6 - Exam The patient is sitting up resting in a chair. She is alert and able to answer questions. The dressing over the anterior aspect of her left hip is intact with good seal. Femoral nerve function is intact. She is able to actively plantarflex and dorsiflex her ankle and her toes. Assessment and Plan Assessment: Postop day #1 status post total hip replacement, doing well Plan: 1. Weightbearing as tolerated on the operative extremity. Up with assistance and a walker. 2. DVT prophylaxis with aspirin 81 mg twice a day 3. Physical therapy for gait training and mobilization 4. Leave surgical dressing in place. 5. Internal medicine for perioperative medical management 6. Disposition: Like to see how the patient does with physical therapy today for discharge recommendations. The patient's plan is to discharge home and staying with the patient that she gives care for her. She understands she may need rehab. We will see how she does with physical therapy and then reassess her discharge tomorrow
[2024-12-27] MEDS: FAMOTIDINE 20 MG TAB PO SCH (07:55)
[2024-12-27] MEDS: DULoxetine HCL 60 MG CAPSULE.DR PO SCH (07:55)
[2024-12-27] MEDS: hydrOXYzine pamoate 25 MG CAP PO PRN (07:55)
[2024-12-27] MEDS: METOPROLOL SUCCINATE (ER) 25 MG TAB.ER.24H PO SCH (07:55)
[2024-12-27] MEDS: PANTOPRAZOLE 40 MG TABLET PO SCH (07:56)
[2024-12-27] MEDS ORDERED: FUROSEMIDE 20 MG TAB PO SCH (09:00)
[2024-12-27 09:50] LABS: Basophils # (A) 0.02 X 10*3/uL (0.00-0.10); Basophils % (A) 0.2 %; Eosinophils # (A) 0 X 10*3/uL (0.04-0.35); Eosinophils % (A) 0 %; HCT 26.4 % (37.2-46.3); Lymphocytes # (A) 0.48 X 10*3/uL (0.90-5.00); Lymphocytes % (A) 4.2 %; MCH 26.3 pg (27.0-32.0); MCHC 30.3 g/dL (32.0-37.0); MCV 86.8 FL (80.0-97.0); Mean Platelet Volume 9.9 FL (9.5-12.2); Monocytes # (A) 0.66 X 10*3/uL (0.20-1.00); Monocytes % (A) 5.7 %; NRBC Per 100 WBC 0 X 10*3/uL (0.00-0.01); Neutrophils # (A) 10.25 X 10*3/uL (1.80-7.70); Neutrophils % (A) 89.1 %; Platelet Count 369 X 10*3/uL (140-440); RBC 3.04 X 10*6/uL (4.10-5.20); RDW 15.3 % (11.5-14.5)
[2024-12-27] MEDS: MULTIVITAMINS, THERA 1 EACH TAB PO SCH (11:56)
--- NOTE | 2024-12-27 12:10 | P.PN ---
Subjective Progress Note Date: 12/27/24 Patient is a 74-year-old female with CAD, hypertension, GERD, allergies, anxiety who presented for elective left direct anterior total hip arthroplasty. Patient has history of severe left hip osteoarthritis. Patient then followed up with orthopedic surgery outpatient and had planned surgery today. Patient is now postop with no known surgical complications. Patient is sitting up in bed resting with no complaints of pain. Patient reports absence of fever, chills, weight loss, chest pain, palpitations, diaphoresis, dyspnea, cough, nausea, vomiting, constipation, diarrhea, abdominal pain, weakness, myalgia, dizziness, headache, and dysuria. Internal medicine was consulted for medical management. 12/27/2024 patient seen and examined at bedside. No acute events overnight. Patient has been able to ambulate and urinate on her own. She has not passed gas or had a bowel movement. Pain is tolerable with medication. Labs today showed WBC 11.5, hemoglobin 8, MCV 86.8, platelet count 369.. REVIEW OF SYSTEMS: All systems reviewed, pertinent positives and negatives noted in HPI. All other symptoms are negative. PHYSICAL EXAMINATION: Vitals reviewed GENERAL: Resting comfortably in bed. Obese. EYES: PERRL, no scleral injection or icterus. No vision loss HENT: Normocephalic, atraumatic, hearing grossly intact, moist mucous membranes NECK: No tracheal deviation, full range of motion. CARDIOVASCULAR: S1 and S2 present. No murmurs, rubs, or gallops. PULMONARY: Chest is clear to auscultation, no wheezing, rhonchi, or crackles. ABDOMEN: Soft, nontender, nondistended. No palpable organomegaly. MUSCULOSKELETAL: No apparent joint swelling and deformities. Dressing over left hip with wound VAC in place. EXTREMITIES: No apparent cyanosis, clubbing. No pedal edema. NEUROLOGICAL: Alert and oriented. Gross neurological examination with no apparent focal deficits. Sensation intact. No labs for review. Assessment and plan: Patient is a 74-year-old female with CAD, hypertension, GERD, allergies, anxiety who presented for elective left direct anterior total hip arthroplasty. #. Normocytic anemia -oral iron daily #. Essential hypertension - hold home medications for now due to hypotension #. Coronary artery disease #. GERD #. Anxiety Resume home medications #Left direct anterior total hip arthroplasty -Pain management and DVT prophylaxis per primary surgical team F: IV LR 20 mL/hr E: Replete as needed N: Clear liquid advance to regular We appreciate being part of this patient's care. Thank you for this consult. I saw and evaluated the patient during the gonzalez and critical portions of this encounter, and discussed the case in detail with the resident author of this note, I agree with the Assessment and Plan, and my changes, if any, are highlighted in blue. Objective - Vital Signs Vital signs: Vital Signs Temp 98.2 F 12/27/24 02:00 Pulse 124 H 12/27/24 02:00 Resp 17 12/27/24 02:00 BP 101/67 12/27/24 02:00 Pulse Ox 94 L 12/27/24 02:00 FiO2 Intake & Output 12/26/24 12/27/24 12/27/24 18:59 06:59 18:59 Intake Total 1950 Output Total 300 Balance 1650 Weight 104.3 kg 104.3 kg Intake: IV 1950 Output: Estimated Blood Loss 300 Other: # Voids 6 - Labs CBC & Chem 7: 12/27/24 05:58
[2024-12-27] MEDS: BENZOCAINE/MENTHOL LOZENG 1 EACH LOZENGE MUCOUS MEM PRN (12:19)
[2024-12-27 13:28] LABS: BUN/Creat Ratio 14.29 Ratio (12.00-20.00); Carbon Dioxide 22.3 mmol/L (21.6-31.8); Chloride 105 mmol/L (96-109); Glucose 160 mg/dL (70-110); Potassium 4.1 mmol/L (3.5-5.5); Sodium 137 mmol/L (135-145)
[2024-12-27 13:29] LABS: ALT 15 U/L (8-44); AST 24 U/L (13-35); Albumin 3.5 g/dL (3.8-4.9); Albumin/Globulin Ratio 1.75 Ratio (1.60-3.17); Alkaline Phosphatase 100 U/L (41-126); Calcium 8.4 mg/dL (8.7-10.3); Total Bilirubin <0.2 mg/dL (0.3-1.2); Total Protein 5.5 g/dL (6.2-8.2)
[2024-12-27] MEDS: FERROUS SULFATE 325 MG TAB PO SCH (16:51)
[2024-12-28 07:03] LABS: African American GFR (CKD) >90 (>60 ml/min/1.73 sqM); Anion Gap 3 mmol/L; Blood Urea Nitrogen 8 mg/dL (7-17); Calcium 8.3 mg/dL (8.4-10.2); Carbon Dioxide 26 mmol/L (22-30); Chloride 106 mmol/L (98-107); Glucose 103 mg/dL (74-99); Non-African American GFR(CKD) >90 (>60 ml/min/1.73 sqM); Potassium 3.8 mmol/L (3.5-5.1); Sodium 135 mmol/L (137-145)
--- NOTE | 2024-12-28 09:24 | P.PN ---
Subjective Patient states that she was very painful overnight but is better this morning. She is complaining of some mild swelling in her thigh. She has no other complaints. Objective - Vital Signs Vital signs: Vital Signs Temp 97.9 F 12/28/24 07:05 Pulse 78 12/28/24 07:05 Resp 18 12/28/24 07:05 BP 106/55 12/28/24 07:05 Pulse Ox 98 12/28/24 07:05 FiO2 Intake & Output 12/27/24 12/28/24 12/28/24 17:59 06:59 18:59 Intake Total Balance Intake: Intake, IV Titration Amount Sodium Chloride 0.9% 1, 000 ml @ 100 mls/hr IV . Q10H AURE Rx#:[id number] Oral Other: Voiding Method # Voids - Exam Patient is sleeping in bed. She is alert and able to answer questions. An incisional wound VAC is in place over her anterior hip with good seal. Her thigh is moderately swollen but soft and compressible. Femoral nerve function is intact. She is able to actively plantarflex and dorsiflex her ankle and toes - Labs CBC & Chem 7: 12/27/24 05:58 12/28/24 06:07 Labs: Abnormal Lab Results - Last 24 Hours (Table) 12/27/24 12/27/24 12/28/24 Range/Units 05:58 05:58 06:07 WBC 11.50 H (4.50-10.00) X 10*3/uL RBC 3.04 L (4.10-5.20) X 10*6/uL Hgb 8.0 L (12.0-15.0) g/dL Hct 26.4 L (37.2-46.3) % MCH 26.3 L (27.0-32.0) pg MCHC 30.3 L (32.0-37.0) g/dL RDW 15.3 H (11.5-14.5) % Immature Gran # 0.09 H (0.00-0.04) X 10*3/uL Neutrophils # 10.25 H (1.80-7.70) X 10*3/uL Lymphocytes # 0.48 L (0.90-5.00) X 10*3/uL Eosinophils # 0 L (0.04-0.35) X 10*3/uL Sodium 135 L (137-145) mmol/L Glucose 160 H 103 H (70-110) mg/dL Calcium 8.4 L 8.3 L (8.7-10.3) mg/dL Total Bilirubin <0.2 L (0.3-1.2) mg/dL Total Protein 5.5 L (6.2-8.2) g/dL Albumin 3.5 L (3.8-4.9) g/dL Assessment and Plan Assessment: Postop day #2 status post left total hip replacement Plan: Continue treatment outlined yesterday. Will plan on keeping the patient until tomorrow for 1 more session with therapy and then she would like to discharge home.
--- NOTE | 2024-12-28 12:50 | P.PN ---
Subjective Progress Note Date: 12/28/24 No new complaints today. Ongoing complaints of pain. Per orthopedic surgery, plan is for 1 more session with physical therapy tomorrow and then discharge. Gen: In NAD, non-toxic HEENT: normocephalic, atraumatic, hearing acuity is intant, mucous membranes moist CVS: perfusing all extremities well, no pitting edema, Respiratory: symmetric chest expansion, no accessory muscle use, GI: soft, NTTP, ND, : no suprapubic tenderness, no CVA tenderness MSK/Derm: no rashes, cyanosis Neuro: CN II-XII intact, no motor weakness, Psych: cooperative, euthymic mood, judgment and insight is intact Hospital course: Patient is a 74-year-old female with CAD, hypertension, GERD, allergies, anxiety who presented for elective left direct anterior total hip arthroplasty. Assessment and plan: #. Acute blood loss anemia, expected outcome of surgery -oral iron daily #. Essential hypertension - hold home medications for now due to hypotension #. Coronary artery disease #. GERD #. Anxiety Resume home medications #Left direct anterior total hip arthroplasty -Pain management and DVT prophylaxis per primary surgical team F: IV LR 20 mL/hr E: Replete as needed N: Clear liquid advance to regular We appreciate being part of this patient's care. Thank you for this consult. Objective - Vital Signs Vital signs: Vital Signs Temp 97.9 F 12/28/24 07:05 Pulse 78 12/28/24 07:05 Resp 18 12/28/24 07:05 BP 106/55 12/28/24 07:05 Pulse Ox 98 12/28/24 07:05 FiO2 Intake & Output 12/27/24 12/28/24 12/28/24 17:59 06:59 18:59 Intake Total Balance Intake: Intake, IV Titration Amount Sodium Chloride 0.9% 1, 000 ml @ 100 mls/hr IV . Q10H AURE Rx#:[id number] Oral Other: Voiding Method # Voids - Labs CBC & Chem 7: 12/27/24 05:58 12/28/24 06:07 Labs: Abnormal Lab Results - Last 24 Hours (Table) 12/27/24 12/28/24 Range/Units 05:58 06:07 Sodium 135 L (137-145) mmol/L Glucose 160 H 103 H (70-110) mg/dL Calcium 8.4 L 8.3 L (8.7-10.3) mg/dL Total Bilirubin <0.2 L (0.3-1.2) mg/dL Total Protein 5.5 L (6.2-8.2) g/dL Albumin 3.5 L (3.8-4.9) g/dL
[2024-12-29] MEDS: MAGNESIUM HYDROXIDE 2,400 MG/30 ML CUP PO PRN (07:51)
--- NOTE | 2024-12-29 07:56 | P.PN ---
Subjective Progress Note Date: 12/29/24 No acute events overnight. Patient reports some mild confusion yesterday. Patient is doing well this morning. The pain in their hip is mild. They have walked to the bathroom with a walker and assistance. They deny chest pain or shortness of breath. They would like to work with physical therapy again today. Objective - Vital Signs Vital signs: Vital Signs Temp 98.8 F 12/29/24 07:29 Pulse 86 12/29/24 07:29 Resp 18 12/29/24 07:29 BP 107/67 12/29/24 07:29 Pulse Ox 98 12/29/24 07:29 FiO2 Intake & Output 12/28/24 12/29/24 12/29/24 18:59 06:59 18:59 Intake Total 1080 Balance 1080 Intake: Oral 1080 Other: Voiding Method Toilet # Voids 2 2 - Exam Patient was examined at bedside. Patient is resting comfortably in chair. No apparent distress. They are awake, alert and able to answer questions. Inspection: The incisional wound VAC is intact. The skin surrounding the dressing is free of erythema. There is mild swelling in the operative thigh. Palpation: The operative calf is soft to compression. No calf tenderness. Neurovascular: Operative femoral nerve function is intact. The patient is able to actively plantarflex and dorsiflex their operative ankle and toes. Operative extremity sensation is intact to light touch throughout. - Labs CBC & Chem 7: 12/27/24 05:58 12/28/24 06:07 Assessment and Plan Assessment: Status post 12/26/2024 left total hip arthroplasty for severe left hip osteoarthritis Left hip pain Plan: Weight-bear as tolerated on the operative extremity. Use a walker to ambulate. Leave surgical wound VAC dressing in place. Discussed with nursing team to have patient reevaluated by physical therapy. We appreciate internal medicine for perioperative medical management. Disposition: Pending physical therapy evaluation today, home versus rehab. If patient does well anticipate home tomorrow as patient would prefer to go home.
[2024-12-29 09:02] LABS: Basophils # (A) 0.02 X 10*3/uL (0.00-0.10); Basophils % (A) 0.3 %; Eosinophils # (A) 0.23 X 10*3/uL (0.04-0.35); Eosinophils % (A) 2.9 %; HCT 24.3 % (37.2-46.3); HGB 7.3 g/dL (12.0-15.0); Lymphocytes # (A) 1.34 X 10*3/uL (0.90-5.00); MCH 26.7 pg (27.0-32.0); Mean Platelet Volume 9.8 FL (9.5-12.2); Monocytes # (A) 0.68 X 10*3/uL (0.20-1.00); Monocytes % (A) 8.6 %; NRBC Per 100 WBC 0 X 10*3/uL (0.00-0.01); Neutrophils # (A) 5.56 X 10*3/uL (1.80-7.70); Neutrophils % (A) 70.4 %; Platelet Count 324 X 10*3/uL (140-440); RBC 2.73 X 10*6/uL (4.10-5.20); RDW 15.9 % (11.5-14.5); WBC 7.89 X 10*3/uL (4.50-10.00)
--- NOTE | 2024-12-29 10:40 | P.PN ---
Subjective Progress Note Date: 12/29/24 Patient is a 74-year-old female with CAD, hypertension, GERD, allergies, anxiety who presented for elective left direct anterior total hip arthroplasty. Patient has history of severe left hip osteoarthritis. Patient then followed up with orthopedic surgery outpatient and had planned surgery today. Patient is now postop with no known surgical complications. Patient is sitting up in bed resting with no complaints of pain. Patient reports absence of fever, chills, weight loss, chest pain, palpitations, diaphoresis, dyspnea, cough, nausea, vomiting, constipation, diarrhea, abdominal pain, weakness, myalgia, dizziness, headache, and dysuria. Internal medicine was consulted for medical management. 12/27/2024 patient seen and examined at bedside. No acute events overnight. Patient has been able to ambulate and urinate on her own. She has not passed gas or had a bowel movement. Pain is tolerable with medication. Labs today showed WBC 11.5, hemoglobin 8, MCV 86.8, platelet count 369. 12/28/2024 No new complaints today. Ongoing complaints of pain. Per orthopedic surgery, plan is for 1 more session with physical therapy tomorrow and then discharge. 12/29/2024 patient seen and examined at bedside. No acute events overnight. Patient felt confused this morning. Labs today showed WBC 7.89 hemoglobin 7.3, platelet count 3 24,000. REVIEW OF SYSTEMS: All systems reviewed, pertinent positives and negatives noted in HPI. All other symptoms are negative. PHYSICAL EXAMINATION: Vitals reviewed GENERAL: Resting comfortably in bed. Obese. EYES: PERRL, no scleral injection or icterus. No vision loss HENT: Normocephalic, atraumatic, hearing grossly intact, moist mucous membranes NECK: No tracheal deviation, full range of motion. CARDIOVASCULAR: S1 and S2 present. No murmurs, rubs, or gallops. PULMONARY: Chest is clear to auscultation, no wheezing, rhonchi, or crackles. ABDOMEN: Soft, nontender, nondistended. No palpable organomegaly. MUSCULOSKELETAL: No apparent joint swelling and deformities. Dressing over left hip with wound VAC in place. EXTREMITIES: No apparent cyanosis, clubbing. No pedal edema. NEUROLOGICAL: Alert and oriented. Gross neurological examination with no apparent focal deficits. Sensation intact. Assessment and plan: Patient is a 74-year-old female with CAD, hypertension, GERD, allergies, anxiety who presented for elective left direct anterior total hip arthroplasty. #. Acute blood loss anemia, expected outcome of surgery -oral iron daily -Hemoglobin still downtrending. Repeat CBC today #. Hypoxia -Patient continues to need supplemental oxygen -Reinforced use of incentive spirometry -Repeat chest x-ray #. New onset delirium -Assure patient reorientation and sensory input -Discontinued Dilaudid IVP. Continue with [facility] p.o. for pain control #. Essential hypertension - hold home medications for now due to hypotension #. Coronary artery disease #. GERD #. Anxiety Resume home medications #Left direct anterior total hip arthroplasty -Pain management and DVT prophylaxis per primary surgical team F: IV LR 20 mL/hr E: Replete as needed N: Clear liquid advance to regular We appreciate being part of this patient's care. Thank you for this consult. I saw and evaluated the patient during the gonzalez and critical portions of this encounter, and discussed the case in detail with the resident author of this note, I agree with the Assessment and Plan, and my changes, if any, are highlighted in blue. Objective - Vital Signs Vital signs: Vital Signs Temp 98.4 F 12/29/24 00:15 Pulse 85 12/29/24 00:15 Resp 18 12/29/24 00:15 BP 98/66 12/29/24 00:15 Pulse Ox 95 12/29/24 00:15 FiO2 Intake & Output 12/28/24 12/28/24 12/29/24 06:59 18:59 06:59 Intake Total Balance Intake: Oral Other: Voiding Method Toilet # Voids 2 - Labs CBC & Chem 7: 12/29/24 10:39 12/28/24 06:07 Labs: Abnormal Lab Results - Last 24 Hours (Table) 12/28/24 Range/Units 06:07 Sodium 135 L (137-145) mmol/L Glucose 103 H (74-99) mg/dL Calcium 8.3 L (8.4-10.2) mg/dL
--- NOTE | 2024-12-29 10:46 | XR ---
EXAMINATION TYPE: XR chest 1V portable DATE OF EXAM: 12/29/2024 10:29 AM COMPARISON: Chest radiographs from 12/01/2024. CLINICAL INDICATION: Female, 74 years old with history of hypoxia; TECHNIQUE: XR chest 1V portable Frontal view of the chest. FINDINGS: Lungs/Pleura: There is no evidence of pleural effusion, focal consolidation, or pneumothorax. Pulmonary vascularity: Unremarkable. Heart/mediastinum: Cardiomediastinal silhouette is unremarkable. Musculoskeletal: No acute osseous pathology. IMPRESSION: No acute cardiopulmonary disease/process. [facility], , 12/29/2024 10:44 AM
[2024-12-29 11:29] LABS: Basophils % (A) 0 %; Eosinophils # (A) 0.2 k/uL (0-0.7); Eosinophils % (A) 3 %; HCT 24.3 % (34.0-46.0); Hypochromasia Moderate; Lymphocytes # (A) 1.4 k/uL (1.0-4.8); Lymphocytes % (A) 17 %; MCH 26.4 pg (25.0-35.0); MCHC 31.1 g/dL (31.0-37.0); MCV 84.8 fL (80.0-100.0); Monocytes # (A) 0.4 k/uL (0-1.0); Monocytes % (A) 6 %; Neutrophils # (A) 5.8 k/uL (1.3-7.7); Neutrophils % (A) 72 %; Platelet Count 345 k/uL (150-450); RBC 2.86 m/uL (3.80-5.40); RDW 15.7 % (11.5-15.5); WBC 7.9 k/uL (3.8-10.6)
[2024-12-29 11:30] LABS: HGB 7.6 gm/dL (11.4-16.0)
[2024-12-30 04:33] LABS: Basophils % (A) 0 %; Eosinophils # (A) 0.2 k/uL (0-0.7); Eosinophils % (A) 3 %; HCT 24.3 % (34.0-46.0); HGB 7.7 gm/dL (11.4-16.0); Hypochromasia Slight; Lymphocytes # (A) 1.1 k/uL (1.0-4.8); Lymphocytes % (A) 15 %; MCH 26.7 pg (25.0-35.0); MCHC 31.6 g/dL (31.0-37.0); MCV 84.5 fL (80.0-100.0); Mean Platelet Volume 6.8; Monocytes # (A) 0.4 k/uL (0-1.0); Monocytes % (A) 5 %; Neutrophils # (A) 5.6 k/uL (1.3-7.7); Neutrophils % (A) 76 %; Platelet Count 357 k/uL (150-450); RBC 2.88 m/uL (3.80-5.40); RDW 15.9 % (11.5-15.5); WBC 7.4 k/uL (3.8-10.6)
[2024-12-30 07:49] VITALS: BP 118/80; PULSE 101; TEMP 99.1
[2024-12-30 10:55] VITALS: RESP 18
--- NOTE | 2024-12-30 11:41 | P.DS ---
Providers Date of admission: 12/29/24 13:30 Attending physician: Edmond Karimi Consults: 12/26/24 16:35 Consult Physician Routine Consulting Provider: Sanjay Vernon Consult Reason/Comments: post op medical management Do you want consulting provider notified?: Yes Primary care physician: Clara Barton Hospital Course: This is a 4-year-old patient, with past medical history of severe left hip osteoarthritis, who failed nonsurgical conservative management. On 12/26/2024 the patient presented to the [facility] pre-op department for scheduled direct anterior total hip arthroplasty with Dr. Karimi. The patient tolerated the procedure well. The patient was transferred to the orthopedic floor. The patient had no acute events over night. The patient initially had pain control issues. The patient's pain has been well-controlled for the last 24 hours. Patient was examined at bedside. Patient is resting comfortably in chair. No apparent distress. They are awake, alert and able to answer questions. Inspection: The surgical wound VAC dressing is intact, there is no drainage or strikethrough. The skin surrounding the dressing is free of erythema. There is mild swelling in the operative thigh. There is surrounding ecchymosis as expected. Palpation: The operative calf is soft to compression. No calf tenderness. Neurovascular: Operative femoral nerve function is intact. The patient is able to actively plantarflex and dorsiflex their operative ankle and toes. Operative extremity sensation is intact to light touch throughout Their operative foot appears well perfused, palpable dorsalis pedis pulse, and capillary refill under 2 seconds. Patient worked with physical therapy and it was determined they could discharge home with home care and family. Patient states her son will take care of her. Plan to discharge home today. Plan follow up in two weeks in our office. Please see med rec for a list of accurate medications. Assessment: Status post left total hip arthroplasty for severe left hip osteoarthritis on 12/26/[address] Karimi. Left hip pain Multiple medical problems Plan - Discharge Summary Discharge Rx Participant: No New Discharge Prescriptions: New Omeprazole 40 mg PO DAILY #30 cap Aspirin 81 mg PO BID #60 tab Docusate [Colace] 100 mg PO BID #60 capsule Diclofenac Sodium [Voltaren] 75 mg PO BID #60 tab HYDROcodone/APAP 5-325MG [Valdez 5-325] 1 - 2 tab PO Q6HR PRN #48 tab PRN Reason: Pain Doxycycline Monohydrate 100 mg PO BID #30 cap Ferrous Sulfate [Iron (65 MG Elemental)] 325 mg PO W/LUNCH #30 tab Continue DULoxetine HCL [Cymbalta] 60 mg PO BID Amitriptyline HCl [Elavil] 25 mg PO HS Levocetirizine Dihydrochloride [Xyzal] 5 mg PO HS Omeprazole 40 mg PO DAILY Zolpidem [Ambien] 5 mg PO HS PRN PRN Reason: Insomnia Furosemide [Lasix] 20 mg PO DAILY Acetaminophen Tab [Tylenol] 650 mg PO Q6HR PRN tab PRN Reason: Mild Pain Or Fever > 100.5 Losartan [Cozaar] 25 mg PO HS 30 Days #30 tab Atorvastatin [Lipitor] 40 mg PO HS #60 tab Metoprolol Succinate (ER) [Toprol XL] 25 mg PO DAILY #30 tab Montelukast Sodium 10 mg PO HS ALPRAZolam [Xanax] 0.25 mg PO DAILY PRN PRN Reason: Anxiety Discontinued Aspirin 81 mg PO DAILY #90 tab Discharge Medication List Amitriptyline HCl [Elavil] 25 mg PO HS 07/09/23 [History] DULoxetine HCL [Cymbalta] 60 mg PO BID 07/09/23 [History] Levocetirizine Dihydrochloride [Xyzal] 5 mg PO HS 07/09/23 [History] Montelukast Sodium 10 mg PO HS 07/09/23 [History] Omeprazole 40 mg PO DAILY 09/03/23 [History] Zolpidem [Ambien] 5 mg PO HS PRN 12/28/23 [History] ALPRAZolam [Xanax] 0.25 mg PO DAILY PRN 12/01/24 [History] Furosemide [Lasix] 20 mg PO DAILY 12/01/24 [History] Acetaminophen Tab [Tylenol] 650 mg PO Q6HR PRN tab 12/02/24 [Rx] Atorvastatin [Lipitor] 40 mg PO HS #60 tab 12/02/24 [Rx] Losartan [Cozaar] 25 mg PO HS 30 Days #30 tab 12/02/24 [Rx] Metoprolol Succinate (ER) [Toprol XL] 25 mg PO DAILY #30 tab 12/02/24 [Rx] Aspirin 81 mg PO BID #60 tab 12/27/24 [Rx] Diclofenac Sodium [Voltaren] 75 mg PO BID #60 tab 12/27/24 [Rx] Docusate [Colace] 100 mg PO BID #60 capsule 12/27/24 [Rx] Doxycycline Monohydrate 100 mg PO BID #30 cap 12/27/24 [Rx] HYDROcodone/APAP 5-325MG [Valdez 5-325] 1 - 2 tab PO Q6HR PRN #48 tab 12/27/24 [Rx] Omeprazole 40 mg PO DAILY #30 cap 12/27/24 [Rx] Ferrous Sulfate [Iron (65 MG Elemental)] 325 mg PO W/LUNCH #30 tab 12/30/24 [Rx] Follow up Appointment(s)/Referral(s): Edmond Karimi MD [Medical Doctor] - 01/12/25 2:10 pm (with Simone) Activity/Diet/Wound Care/Special Instructions: 1. Weight-bear as tolerated on your operative extremity unless instructed otherwise. Use a walker or other assistive device to ambulate. 2. Leave surgical dressing in place. If your dressing becomes saturated with blood, there is drainage, or the dressing becomes loose please contact the office. 3. It is okay to shower with your surgical dressing, but do not submerge in water (no hot tubs, bath's, swimming etc.) 4. Make sure to take her blood clot prevention medication as prescribed (aspirin, Eliquis, Xarelto, and Plavix are commonly prescribed medications for blood clot prevention) 5. While taking Valdez or Percocet for pain make sure you're taking a stool softener (Colace) and drink lots of water. 6. Keep all follow-up appointments as scheduled. You will usually be seen in 1-2 weeks following surgery. 7. Please contact the office with any questions or concerns [phone] Discharge Disposition: HOME WITH HOME HEALTH SERVICES
--- NOTE | 2024-12-30 12:48 | P.PN ---
Subjective Progress Note Date: 12/30/24 Patient is a 74-year-old female with CAD, hypertension, GERD, allergies, anxiety who presented for elective left direct anterior total hip arthroplasty. Patient has history of severe left hip osteoarthritis. Patient then followed up with orthopedic surgery outpatient and had planned surgery today. Patient is now postop with no known surgical complications. Patient is sitting up in bed resting with no complaints of pain. Patient reports absence of fever, chills, weight loss, chest pain, palpitations, diaphoresis, dyspnea, cough, nausea, vomiting, constipation, diarrhea, abdominal pain, weakness, myalgia, dizziness, headache, and dysuria. Internal medicine was consulted for medical management. 12/27/2024 patient seen and examined at bedside. No acute events overnight. Patient has been able to ambulate and urinate on her own. She has not passed gas or had a bowel movement. Pain is tolerable with medication. Labs today showed WBC 11.5, hemoglobin 8, MCV 86.8, platelet count 369. 12/28/2024 No new complaints today. Ongoing complaints of pain. Per orthopedic surgery, plan is for 1 more session with physical therapy tomorrow and then discharge. 12/29/2024 patient seen and examined at bedside. No acute events overnight. Patient felt confused this morning. Labs today showed WBC 7.89 hemoglobin 7.3, platelet count 3 24,000. 12/29/2024 patient seen and examined at bedside. No acute events overnight. Patient on room air today. Labs today show WBC 7.4, hemoglobin 7.7, platelet cou nt 357,000. CXR showed no acute process. REVIEW OF SYSTEMS: All systems reviewed, pertinent positives and negatives noted in HPI. All other symptoms are negative. PHYSICAL EXAMINATION: Vitals reviewed GENERAL: Resting comfortably in bed. Obese. EYES: PERRL, no scleral injection or icterus. No vision loss HENT: Normocephalic, atraumatic, hearing grossly intact, moist mucous membranes NECK: No tracheal deviation, full range of motion. CARDIOVASCULAR: S1 and S2 present. No murmurs, rubs, or gallops. PULMONARY: Chest is clear to auscultation, no wheezing, rhonchi, or crackles. ABDOMEN: Soft, nontender, nondistended. No palpable organomegaly. MUSCULOSKELETAL: No apparent joint swelling and deformities. Dressing over left hip with wound VAC in place. EXTREMITIES: No apparent cyanosis, clubbing. No pedal edema. NEUROLOGICAL: Alert and oriented. Gross neurological examination with no apparent focal deficits. Sensation intact. Assessment and plan: Patient is a 74-year-old female with CAD, hypertension, GERD, allergies, anxiety who presented for elective left direct anterior total hip arthroplasty. #. Acute blood loss anemia, expected outcome of surgery -oral iron daily -Hemoglobin still downtrending. Follow up CBC on outpatient follow up #. Hypoxia, resolved -Reinforced use of incentive spirometry -Repeat chest x-ray NAP #. New onset delirium, resolved -Assure patient reorientation and sensory input -Continue with [place] p.o. for pain control #. Essential hypertension, resolved - Resume home Cozaar #. Coronary artery disease #. GERD #. Anxiety Resume home medications Stable from internal medicine standpoint #Left direct anterior total hip arthroplasty -Pain management and DVT prophylaxis per primary surgical team F: IV LR 20 mL/hr E: Replete as needed N: Clear liquid advance to regular We appreciate being part of this patient's care. Thank you for this consult. I saw and evaluated the patient during the gonzalez and critical portions of this encounter, and discussed the case in detail with the resident author of this note, I agree with the Assessment and Plan, and my changes, if any, are highli ghted in blue. Objective - Vital Signs Vital signs: Vital Signs Temp 98.6 F 12/30/24 00:45 Pulse 85 12/30/24 00:45 Resp 18 12/30/24 00:45 BP 138/67 12/30/24 00:45 Pulse Ox 91 L 12/30/24 00:45 FiO2 Intake & Output 12/29/24 12/30/24 12/30/24 18:59 06:59 18:59 Intake Total 300 360 Balance 300 360 Intake: Oral 300 360 Other: Voiding Method Toilet Toilet # Voids 1 2 - Labs CBC & Chem 7: 12/30/24 03:44 12/28/24 06:07 Labs: Abnormal Lab Results - Last 24 Hours (Table) 12/29/24 12/29/24 12/30/24 Range/Units 03:22 10:39 03:44 RBC 2.73 L 2.86 L 2.88 L (4.10-5.20) X 10*6/uL Hgb 7.3 L 7.6 L D 7.7 L (12.0-15.0) g/dL Hct 24.3 L 24.3 L 24.3 L (37.2-46.3) % MCH 26.7 L (27.0-32.0) pg MCHC 30.0 L (32.0-37.0) g/dL RDW 15.9 H 15.7 H 15.9 H (11.5-14.5) % Immature Gran # 0.06 H (0.00-0.04) X 10*3/uL
== END 2024-12-30 12:49 | disposition home health service (06) | DRG 470 ==
LOC: OR 12:34 → 4SSUR 16:58 → OR 12-29 13:30 → 4SSUR 12-29 13:30
PROVIDERS: ADMIT Orthopaedic Surgery; ATTEND Orthopaedic Surgery
PROC: 8E0YXBF Computer Assisted Procedure of Lower Extremity, With Fluoroscopy (ICD-10-PCS; 2024-12-26)
PROC: 3E0T3BZ Introduction of Anesthetic Agent into Peripheral Nerves and Plexi, Percutaneous Approach (ICD-10-PCS; 2024-12-26)
PROC: 0SRB02A Replacement of Left Hip Joint with Metal on Polyethylene Synthetic Substitute, Uncemented, Open Approach (ICD-10-PCS; principal; 2024-12-26 14:30)
DX: M16.12 Unilateral primary osteoarthritis, left hip (principal); D62 Acute posthemorrhagic anemia; F05 Delirium due to known physiological condition; I10 Essential (primary) hypertension; D64.9 Anemia, unspecified; F32.A Depression, unspecified; R09.02 Hypoxemia; F41.9 Anxiety disorder, unspecified; I25.10 Atherosclerotic heart disease of native coronary artery without angina pectoris; K21.9 Gastro-esophageal reflux disease without esophagitis; Z79.82 Long term (current) use of aspirin; Z79.899 Other long term (current) drug therapy; Z82.49 Family history of ischemic heart disease and other diseases of the circulatory system; Z90.710 Acquired absence of both cervix and uterus; Z87.19 Personal history of other diseases of the digestive system; Z90.49 Acquired absence of other specified parts of digestive tract; Z88.0 Allergy status to penicillin; Z88.7 Allergy status to serum and vaccine; Z88.1 Allergy status to other antibiotic agents
CPT/HCPCS: 64999; 71045; 73501; 80053; 85025; 94760

== ENCOUNTER 2025-01-22 20:10 | Inpatient (IN) | payer MEDICARE ==
--- NOTE | 2025-01-22 20:58 | XR ---
EXAMINATION TYPE: XR chest 2V DATE OF EXAM: 01/22/2025 8:54 PM COMPARISON: Chest radiographs from 12/29/2024 TECHNIQUE: XR chest 2V Frontal and lateral views of the chest. CLINICAL INDICATION:Female, 74 years old with history of difficulty breathing; FINDINGS: Lungs/Pleura: There is no evidence of pleural effusion, focal consolidation, or pneumothorax. Pulmonary vascularity: Unremarkable. Heart/mediastinum: Cardiomediastinal silhouette is enlarged and stable. Musculoskeletal: No acute osseous pathology. ACDF and posterior cervical fusion hardware. IMPRESSION: Chronic changes without evidence for acute process. [facility], , 01/22/2025 8:56 PM
[2025-01-22] MEDS: KETOROLAC 15 MG/ML 1 ML VIAL IVP STA (21:05)
[2025-01-22] MEDS: SODIUM CHLORIDE 0.9% 1,000 ML IV ONE (21:05)
[2025-01-22] MEDS: methylPREDNISolone SOD SUCCI 125 MG/2 ML VIAL IV STA (21:06)
[2025-01-22 21:16] LABS: Basophils % (A) 0 %; Eosinophils # (A) 0.3 k/uL (0-0.7); Eosinophils % (A) 4 %; HCT 28.8 % (34.0-46.0); HGB 8.9 gm/dL (11.4-16.0); Hypochromasia Marked; Lymphocytes # (A) 2.2 k/uL (1.0-4.8); Lymphocytes % (A) 29 %; MCH 25.4 pg (25.0-35.0); MCHC 30.8 g/dL (31.0-37.0); MCV 82.4 fL (80.0-100.0); Monocytes # (A) 0.5 k/uL (0-1.0); Monocytes % (A) 6 %; Neutrophils # (A) 4.3 k/uL (1.3-7.7); Neutrophils % (A) 57 %; Platelet Count 472 k/uL (150-450); Poikilocytosis Slight; RBC 3.49 m/uL (3.80-5.40); RDW 15.8 % (11.5-15.5); WBC 7.6 k/uL (3.8-10.6)
[2025-01-22 21:35] LABS: African American GFR (CKD) 88 (>60 ml/min/1.73 sqM); Albumin 4.1 g/dL (3.5-5.0); Anion Gap 9 mmol/L; Blood Urea Nitrogen 12 mg/dL (7-17); Carbon Dioxide 22 mmol/L (22-30); Chloride 109 mmol/L (98-107); Glucose 100 mg/dL (74-99); Magnesium 1.9 mg/dL (1.6-2.3); Non-African American GFR(CKD) 77 (>60 ml/min/1.73 sqM); Potassium 4.9 mmol/L (3.5-5.1); Sodium 140 mmol/L (137-145); Total Bilirubin 0.4 mg/dL (0.2-1.3)
[2025-01-22 21:36] LABS: ALT 20 U/L (4-34); AST 26 U/L (14-36); Alkaline Phosphatase 115 U/L (38-126); INR 0.9 (<1.2); Prothrombin Time 10.2 sec (10.0-12.5)
[2025-01-22 21:38] LABS: Partial Thromboplastin Time 21.3 sec (22.0-30.0)
[2025-01-22 21:43] LABS: NT-Pro-B-Type Natriuretic Pept 45 pg/mL
[2025-01-22] MEDS: ONDANSETRON 4 MG/2 ML VIAL IVP STA (21:54)
[2025-01-22 21:55] LABS: Influenza A Not Detected (Not Detectd); Influenza B Not Detected (Not Detectd); RSV Not Detected (Not Detectd)
--- NOTE | 2025-01-22 22:41 | ED ---
General Adult HPI - General Chief complaint: Shortness of Breath Stated complaint: CHAVA Time Seen by Provider: 01/22/25 20:25 Source: patient, EMS, RN notes reviewed, old records reviewed Mode of arrival: EMS Limitations: no limitations - History of Present Illness Initial comments: Patient is a 74-year-old female who presents to the emergency department complaining of 2 to 3 weeks of worsening cough, congestion, shortness of breath. Recently did have hip surgery in early December 2024. Patient was treated outpatient for pneumonia on antibiotics and steroids. Symptoms have not improved. She is not on oxygen at home but states it helps with her discomfort. Denies any focal chest pain. Denies nausea or vomiting or diarrhea. Has no other acute complaints at this time. No known fevers. Presents for further evaluation. Denies lower extremity edema. Denies any history of CHF. No history of blood clots. Is not on blood thinners.Patient states she has an occasional productive cough of yellow or white mucus. - Related Data Home Medications Medication Instructions Recorded Confirmed Amitriptyline HCl [Elavil] 25 mg PO HS 07/09/23 12/26/24 DULoxetine HCL [Cymbalta] 60 mg PO BID 07/09/23 12/26/24 Levocetirizine Dihydrochloride 5 mg PO HS 07/09/23 12/26/24 [Xyzal] Montelukast Sodium 10 mg PO HS 07/09/23 12/26/24 Omeprazole 40 mg PO DAILY 09/03/23 12/26/24 Zolpidem [Ambien] 5 mg PO HS PRN 12/28/23 12/26/24 ALPRAZolam [Xanax] 0.25 mg PO DAILY PRN 12/01/24 12/26/24 Furosemide [Lasix] 20 mg PO DAILY 12/01/24 12/26/24 Previous Rx's Medication Instructions Recorded Acetaminophen Tab [Tylenol] 650 mg PO Q6HR PRN tab 12/02/24 Atorvastatin [Lipitor] 40 mg PO HS #60 tab 12/02/24 Losartan [Cozaar] 25 mg PO HS 30 Days #30 tab 12/02/24 Metoprolol Succinate (ER) [Toprol 25 mg PO DAILY #30 tab 12/02/24 XL] Aspirin 81 mg PO BID #60 tab 12/27/24 Diclofenac Sodium [Voltaren] 75 mg PO BID #60 tab 12/27/24 Docusate [Colace] 100 mg PO BID #60 capsule 12/27/24 Doxycycline Monohydrate 100 mg PO BID #30 cap 12/27/24 HYDROcodone/APAP 5-325MG [[place] 1 - 2 tab PO Q6HR PRN #48 tab 12/27/24 5-325] Omeprazole 40 mg PO DAILY #30 cap 12/27/24 Ferrous Sulfate [Iron (65 MG 325 mg PO W/LUNCH #30 tab 12/30/24 Elemental)] Allergies Allergy/AdvReac Type Severity Reaction Status Date / Time influenza virus vaccine qs Allergy Anaphylaxis Verified 01/22/25 20:21 [id number] (65 years up) [From [employer] 2022-(65y up)(PF)] Penicillins Allergy Rash/Hives Verified 01/22/25 20:21 vaccine adjuvant emulsion Allergy Anaphylaxis Verified 01/22/25 20:21 MF59C.[id number] [From [employer] Quad 2022-(65y up)(PF)] vancomycin Allergy Anaphylaxis Verified 01/22/25 20:21 Review of Systems ROS Statement: Those systems with pertinent positive or pertinent negative responses have been documented in the HPI. Review of Systems: CONST: Denies fever EYES: Denies blurry vision ENT: Denies nasal congestion C/V: Denies Chest pain RESP: Endorses shortness of breath GI: Denies abdominal pain : Denies dysuria SKIN: Denies rash. MSK: Denies joint pain. NEURO: Denies headache ROS Other: All systems not noted in ROS Statement are negative. Past Medical History Past Medical History: Coronary Artery Disease (CAD), Chest Pain / Angina, COPD, GERD/Reflux, Hypertension, Pneumonia Additional Past Medical History / Comment(s): lupus, diverticulitis, difficulty swallowing nausea History of Any Multi-Drug Resistant Organisms: None Reported Past Surgical History: Adenoidectomy, Appendectomy, Back Surgery, Bowel Resection, Cholecystectomy, Heart Catheterization, Heart Catheterization With Stent, Hysterectomy, Joint Replacement, Orthopedic Surgery, Tonsillectomy Additional Past Surgical History / Comment(s): carpal tunnel, cervical fusion, lft knee and rt hip replacement, multiple back surgeries, ruptured colon after bowel resection Past Anesthesia/Blood Transfusion Reactions: No Reported Reaction Additional Past Anesthesia/Blood Transfusion Reaction / Comment(s): no hx. of transfusion reaction Date of Last Stent Placement:: 09/2023 Past Psychological History: Depression, PTSD Smoking Status: Never smoker Past Alcohol Use History: None Reported - Past Family History Mother Family Medical History: Hypertension Sister(s) Family Medical History: Cancer Additional Family Medical History / Comment(s): breast General Exam - General Exam Comments Initial Comments: General: Appears in no acute distress. HEAD: Normal with no signs of head trauma. EYES: PERRLA, EOMI, conjunctiva normal, no discharge. ENT: Hearing grossly intact, normal oropharynx. RESPIRATORY: Relatively clear breath sounds bilaterally with not any obvious significant wheezing. No hypoxia on room air. No significant respiratory distress. C/V: Regular rate and rhythm. S1 and S2 auscultated, no edema, peripheral pulses 2+ and intact throughout ABD: Abd is soft, nontender, nondistended EXT: Normal range of motion, no obvious deformity SKIN: No rashes or lesions observed on exposed skin. NEURO: Alert and oriented x 4. Limitations: no limitations Course Vital Signs 01/22/25 01/22/25 01/22/25 20:15 21:13 21:59 Temperature 99.6 F Pulse Rate 88 87 87 Respiratory 22 22 18 Rate Blood Pressure 129/70 114/70 102/65 O2 Sat by Pulse 96 98 100 Oximetry 01/22/25 01/22/25 22:47 22:57 Temperature Pulse Rate 75 78 Respiratory Rate Blood Pressure O2 Sat by Pulse Oximetry Medical Decision Making - Medical Decision Making Was pt. sent in by a medical professional or institution (, PA, INTERIOR MECHANIC, urgent care, hospital, or halfway...) When possible be specific @ -No Did you speak to anyone other than the patient for history (EMS, parent, family, police, friend...)? What history was obtained from this source @ -No Did you review nursing and triage notes (agree or disagree)? Why? @ -I reviewed and agree with nursing and triage notes Were old charts reviewed (outside hosp., previous admission, EMS record, old EKG, old radiological studies, urgent care reports/EKG's, halfway records)? Report findings @ -Reviewed old chart from November 2024 and compared today's EKG with EKG from that time. No obvious dynamic changes. Differential Diagnosis (chest pain, altered mental status, abdominal pain women, abdominal pain men, vaginal bleeding, weakness, fever, dyspnea, syncope, headache, dizziness, GI bleed, back pain, seizure, CVA, palpatations, mental health, musculoskeletal)? @ -Differential Dyspnea: Coronary syndrome, arrhythmia, tamponade, asthma, COPD, pulmonary embolism, pneumonia, pneumothorax, pulmonary effusion, anaphylaxis, diabetic ketoacidosis, flailed chest, pulmonary contusion, diaphragmatic rupture, anemia, neuromuscular, this is not meant to be an all-inclusive list. EKG interpreted by me (3pts min.). @ -As above X-rays interpreted by me (1pt min.). @ -Chest x-ray reveals no obvious acute cardiopulmonary process CT interpreted by me (1pt min.). @ -PCT PE negative for pulmonary embolism. U/S interpreted by me (1pt. min.). @ -None done What testing was considered but not performed or refused? (CT, X-rays, U/S, labs)? Why? @ -None What meds were considered but not given or refused? Why? @ -None Did you discuss the management of the patient with other professionals (professionals i.e. , PA, INTERIOR MECHANIC, lab, RT, psych nurse, social human services assistants, small craft operator, teacher, defence force senior officer, case manager specialist)? Give summary @ -Spoke with admitting provider, Dr. Godoy who accepted the admission Was smoking cessation discussed for >3mins.? @ -No Was critical care preformed (if so, how long)? @ -No Were there social determinants of health that impacted care today? How? (Homele ssness, low income, unemployed, alcoholism, drug addiction, transportation, low edu. Level, literacy, decrease access to med. care, half-way, rehab)? @ -No Was there de-escalation of care discussed even if they declined (Discuss DNR or withdrawal of care, Hospice)? DNR status @ -No What co-morbidities impacted this encounter? (DM, HTN, Smoking, COPD, CAD, Cancer, CVA, ARF, Chemo, Hep., AIDS, mental health diagnosis, sleep apnea, morbid obesity)? @ -COPD Was patient admitted / discharged? Hospital course, mention meds given and route, prescriptions, significant lab abnormalities, going to OR and other pertinent info. @ -Patient presents complaining of cough, dyspnea. Recent hip surgery. Also history of COPD. No history of hypoxic respiratory failure. Has attempted outpatient management without success. Vitals are currently within acceptable limits. We will obtain cardiopulmonary workup. Patient will be symptomatically treated with IV steroids as well as a breathing treatment as well as a small dose of IV fluids. Given Toradol for generalized bodyaches chest tightness. She was in agreement this plan. EKG showed no signs of acute ischemia. Laboratory studies remarkable for D- dimer of 2.81. Patient is chronically anemic and is at baseline of 8.9. Lactic acid slightly elevated 2.3. Troponin is undetectable. BNP within normal limits. Viral swabs negative. On reevaluation, after the patient due to the elevated D-dimer. Recommended CT PE. She was in agreement this plan. Chest x-ray did return remarkable for no obvious acute cardiopulmonary process. CTPE returned negative for any obvious acute findings. I discussed results with patient. We discussed as she has been having 2 weeks of worsening dyspnea that she feels she cannot function well at home with, I did offer observation admission and she did accept it. We can obtain a echo and have pulmonology evaluate the patient. We continue with IV steroids as well as breathing treatments. She was in agreement this plan. Discussed the case with Dr. Godoy the admitting provider who accepted the admission Undiagnosed new problem with uncertain prognosis? @ -No Drug Therapy requiring intensive monitoring for toxicity (Heparin, Nitro, Insulin, Cardizem)? @ -No Were any procedures done? @ -No Diagnosis/symptom? @ -COPD, dyspnea Acute, or Chronic, or Acute on Chronic? @ -Acute on chronic Uncomplicated (without systemic symptoms) or Complicated (systemic symptoms)? @ -Complicated Side effects of treatment? @ -None Exacerbation, Progression, or Severe Exacerbation] @ -No Poses a threat to life or bodily function? @ -Potentially yes - Lab Data Result diagrams: 01/22/25 20:49 01/22/25 20:49 Lab Results 01/22/25 01/22/25 01/22/25 Range/Units 20:49 20:49 20:49 WBC 7.6 (3.8-10.6) k/uL RBC 3.49 L (3.80-5.40) m/uL Hgb 8.9 L (11.4-16.0) gm/dL Hct 28.8 L (34.0-46.0) % MCV 82.4 (80.0-100.0) fL MCH 25.4 (25.0-35.0) pg MCHC 30.8 L (31.0-37.0) g/dL RDW 15.8 H (11.5-15.5) % Plt Count 472 H (150-450) k/uL MPV 7.0 Neutrophils % 57 % Lymphocytes % 29 % Monocytes % 6 % Eosinophils % 4 % Basophils % 0 % Neutrophils # 4.3 (1.3-7.7) k/uL Lymphocytes # 2.2 (1.0-4.8) k/uL Monocytes # 0.5 (0-1.0) k/uL Eosinophils # 0.3 (0-0.7) k/uL Basophils # 0.0 (0-0.2) k/uL Hypochromasia Marked Poikilocytosis Slight PT 10.2 (10.0-12.5) sec INR 0.9 (<1.2) APTT 21.3 L (22.0-30.0) sec D-Dimer 2.81 H (<0.60) mg/L FEU Sodium 140 (137-145) mmol/L Potassium 4.9 (3.5-5.1) mmol/L Chloride 109 H (98-107) mmol/L Carbon Dioxide 22 (22-30) mmol/L Anion Gap 9 mmol/L BUN 12 (7-17) mg/dL Creatinine 0.78 (0.52-1.04) mg/dL Est GFR (CKD-EPI)AfAm 88 (>60 ml/min/1.73 sqM) Est GFR (CKD-EPI)NonAf 77 (>60 ml/min/1.73 sqM) Glucose 100 H (74-99) mg/dL Plasma Lactic Acid Sudhir (0.7-2.0) mmol/L Calcium 10.0 (8.4-10.2) mg/dL Magnesium 1.9 (1.6-2.3) mg/dL Total Bilirubin 0.4 (0.2-1.3) mg/dL AST 26 (14-36) U/L ALT 20 (4-34) U/L Alkaline Phosphatase 115 (38-126) U/L Troponin I (0.000-0.034) ng/mL NT-Pro-B Natriuret Pep 45 pg/mL Total Protein 7.0 (6.3-8.2) g/dL Albumin 4.1 (3.5-5.0) g/dL Influenza Type A (PCR) (Not Detectd) Influenza Type B (PCR) (Not Detectd) RSV (PCR) (Not Detectd) SARS-CoV-2 (PCR) (Not Detectd) 01/22/25 01/22/25 01/22/25 Range/Units 20:49 20:49 20:49 WBC (3.8-10.6) k/uL RBC (3.80-5.40) m/uL Hgb (11.4-16.0) gm/dL Hct (34.0-46.0) % MCV (80.0-100.0) fL MCH (25.0-35.0) pg MCHC (31.0-37.0) g/dL RDW (11.5-15.5) % Plt Count (150-450) k/uL MPV Neutrophils % % Lymphocytes % % Monocytes % % Eosinophils % % Basophils % % Neutrophils # (1.3-7.7) k/uL Lymphocytes # (1.0-4.8) k/uL Monocytes # (0-1.0) k/uL Eosinophils # (0-0.7) k/uL Basophils # (0-0.2) k/uL Hypochromasia Poikilocytosis PT (10.0-12.5) sec INR (<1.2) APTT (22.0-30.0) sec D-Dimer (<0.60) mg/L FEU Sodium (137-145) mmol/L Potassium (3.5-5.1) mmol/L Chloride (98-107) mmol/L Carbon Dioxide (22-30) mmol/L Anion Gap mmol/L BUN (7-17) mg/dL Creatinine (0.52-1.04) mg/dL Est GFR (CKD-EPI)AfAm (>60 ml/min/1.73 sqM) Est GFR (CKD-EPI)NonAf (>60 ml/min/1.73 sqM) Glucose (74-99) mg/dL Plasma Lactic Acid Sudhir 2.3 H* (0.7-2.0) mmol/L Calcium (8.4-10.2) mg/dL Magnesium (1.6-2.3) mg/dL Total Bilirubin (0.2-1.3) mg/dL AST (14-36) U/L ALT (4-34) U/L Alkaline Phosphatase (38-126) U/L Troponin I <0.012 (0.000-0.034) ng/mL NT-Pro-B Natriuret Pep pg/mL Total Protein (6.3-8.2) g/dL Albumin (3.5-5.0) g/dL Influenza Type A (PCR) Not Detected (Not Detectd) Influenza Type B (PCR) Not Detected (Not Detectd) RSV (PCR) Not Detected (Not Detectd) SARS-CoV-2 (PCR) Not Detected (Not Detectd) - EKG Data -: EKG Interpreted by Me EKG Comments: 12-lead Electrocardiogram Interpretation Note EKG was reviewed and interpreted by myself. 12-lead ECG performed at 2033 is interpreted by me as revealing normal sinus rhythm at a rate of 87 beats per minute. [place] is normal. ND interval is 177 ms, QRS duration is 93 ms, QTc is 414 ms.. There were no ST or T wave abnormalities to suggest myocardial ischemia or injury. R wave progression across the precordium was satisfactory. By my interpretation this EKG is non-diagnostic for acute ischemia. Disposition Clinical Impression: COPD (chronic obstructive pulmonary disease), Exertional dyspnea Disposition: ADMITTED IP TO THIS HOSP Condition: Stable Referrals: Natalio Arellano DO [Primary Care Provider] - 1-2 days Time of Disposition: 23:20
[2025-01-22] MEDS: IPRATROPIUM-ALBUTEROL 3 ML NEB INHALATION STA (22:47)
--- NOTE | 2025-01-22 23:15 | CT ---
EXAMINATION TYPE: CT chest angio for PE CT DLP: 893 mGycm, Automated exposure control for dose reduction was used. DATE OF EXAM: 01/22/2025 10:52 PM COMPARISON: Chest radiograph from same day. CT chest 08/10/2024, CTA chest 01/14/2024, 07/11/2023. CLINICAL INDICATION:Female, 74 years old with history of eval for PE; Pt presents to ED by EMS for c/ o CHAVA with cough x1 week. Pt states recent left hip surgery 12/26/24. Pt recently on ABT for pneumonia. TECHNIQUE/CONTRAST: CTA scan of the thorax is performed with IV Contrast, patient injected with 100 mL of Isovue 300, pul monary embolism protocol. MIP images are created and reviewed. FINDINGS: Pulmonary Artery: There is no evidence for a filling defect within the pulmonary vasculature to sugge st acute pulmonary embolism. The pulmonary artery is of normal size. Lungs/Pleura: No evidence of focal consolidation, pleural effusion or pneumothorax. No suspicious pul monary nodule or mass. Minimal dependent subsegmental atelectasis. Airway: Large airways are patent. Heart: Cardiomegaly is demonstrated.No pericardial effusion. Mild coronary artery calcifications pres ent. Vasculature: No evidence of aortic aneurysm. Mediastinum: No evidence of adenopathy. Musculoskeletal: No acute osseous abnormalities. Remote healed left rib fractures. Partial visualizat ion of posterior cervical fusion hardware. S-shaped scoliotic curvature of the thoracolumbar spine. M oderate multilevel degenerative disc disease. Soft Tissues: Peripherally calcified fat necrosis within the right breast. Lower neck: No significant findings. Upper Abdomen: Gallbladder is surgically absent. Right renal partially visualized 5.7 cm cyst. Partia l visualization of left inferior pole exophytic 6.3 cm cyst. Additional smaller left renal cortical c yst. No follow-up recommended. Colonic diverticulosis without visualized acute diverticulitis. IMPRESSION: 1. No evidence of pulmonary embolism or acute thoracic process. 2. Cardiomegaly. [facility], , 01/22/2025 11:13 PM
[2025-01-22] MEDS ORDERED: NALOXONE 0.4 MG/ML 1 ML VIAL IV PRN (23:26)
[2025-01-23] MEDS: LACTATED RINGERS 1,000 ML IV SCH (00:10)
[2025-01-23 00:17] LABS: Appearance,Urine Clear (Clear); Bilirubin,Urine Negative (Negative); Blood,Urine Negative (Negative); Color,Urine Colorless; Glucose,Urine (UA) Negative (Negative); Ketones,Urine Negative (Negative); Leukocyte Esterase,Urine Negative (Negative); Nitrite,Urine Negative (Negative); Protein,Urine Negative (Negative); Urobilinogen,Urine <2.0 mg/dL (<2.0)
[2025-01-23] MEDS: SODIUM CHLORIDE 0.9% 1,000 ML IV SCH (00:17)
[2025-01-23 00:19] LABS: Specific Gravity,Urine >1.050 (1.001-1.035)
--- NOTE | 2025-01-23 00:39 | P.HPIM ---
History of Present Illness H&P Date: 01/22/25 Chief Complaint: SOB Patient is a 74-year-old male with CAD s/p PCI, lupus, hypertension, Takotsubo cardiomyopathy with recovered EF presenting with shortness of breath and cough. Patient states shortness of breath and cough has been persisting for the past 2 to 3 weeks. Patient was treated outpatient for pneumonia on antibiotics and steroids. Patient states symptoms are persisting. Patient states her cough is so severe that causes her to become nauseous and ultimately vomit. Patient states she vomited earlier today due to her cough. Patient denies hematemesis. She also states that she feels like she is on the verge of passing out after she coughs. She denies any sputum production or hemoptysis. She is not on home oxygen. Denies any history of COPD or asthma. She recently did have hip surgery in early December 2024 and states she has not felt better since. Says she has decreased appetite and has lost some weight since then. During interview patient was breathing on room air. Patient denies any headache, fever, chills, chest pain, abdominal pain, urinary symptoms. CXR independent interpreted display displaying no acute cardiopulmonary process, cardiomegaly Chest CTA no evidence of pulmonary embolism or acute thoracic process CT any 99.6 F, DC 88, RR 22, BP 129/70, O2 saturation 96% on room air Review of systems: Pertinent positives and negatives as discussed in HPI, a complete review of systems was performed and all other systems are negative. Physical examination: Vital signs reviewed General: non toxic, no distress, appears at stated age, obese Derm: no unusual rashes/lesions, warm Head: atraumatic, normocephalic, symmetric Eyes: EOMI, anicteric sclera, pupils equal round reactive to light ENT: Nose and ears atraumatic Mouth: no lip lesion, mucus membranes moist Cardiovascular: S1S2 reg, no murmur, positive dorsalis pedis pulse bilateral, no edema Lungs: CTA bilateral, no rhonchi, no rales, no accessory muscle use Abdominal: soft, nontender to palpation, no guarding Ext: muscle strength 5 out of 5 in all 4 extremities grossly, no gross muscle atrophy Neuro: CN II-XI grossly intact, no gross focal neuro deficits Psych: Alert, oriented to person, place, and time Assessment/Plan: Patient is a 74-year-old male with CAD s/p PCI, lupus, hypertension, Takotsubo cardiomyopathy with recovered EF presenting with shortness of breath. ED documentation reviewed. Discussed plan with the patient. The patient is admitted with an anticipated greater than 2 midnight stay for evaluation of acute hypoxic respiratory failure. #. Acute hypoxic respiratory failure s/p recent pneumonia treatment #. Acute bronchitis #. Lactic acidosis #. Lupus CXR independent interpreted display displaying no acute cardiopulmonary process, cardiomegaly Lactic acid 2.3 proBNP 45, troponin <0.012 elevated d-dimer of 2.81, chest CTA showed no evidence of PE or acute thoracic process DuoNebs [id number] and as needed Prednisone 40 mg PO daily for 5 days LR at 75 cc an hour Cepheid 4 Plex unremarkable for influenza A/B, RSV, COVID Patient currently breathing on room air Cardiac monitoring Echo ordered Procalcitonin, urine Legionella, pertussive PCR ordered Pulmonology consulted #. Normocytic anemia #. Thrombocytosis No signs of acute bleeding Ferrous sulfate 325 mg PO QD Follow-up CBC #. History of CAD with stents #. Hypertension Continue aspirin 81 mg daily, atorvastatin 20 mg nightly, metoprolol 25 mg nightly Losartan 25 mg PO daily #. Anxiety with depression Continue with cymbalta 60 mg PO BID DVT prophylaxis: Lovenox 40 SQ daily CODE STATUS: FULL CODE Anticipated discharge place: pending clinical course Melodie Napier MD PGY-1 IM Dictation was produced using [employer] dictation software. please excuse any grammatical, word or spelling errors. I have seen and evaluated the patient today. I Discussed the case with the resident and agree with the resident's findings I edited the assessment and plan as necessary as documented in the resident's note. 74 year old female with hypertension , CAD , coming in for subacute / chronic cough of 7-8 weeks duration , have been treated with antibiotics and steroids at home , with macrolides with no much improvement. she had a surgery 4 weeks ago , CTA of the lungs showed no masses in the lungs , patient is not on ACEi , she is on losartan patient will be treated for chronic causes of cough , like nonasthmatic eosinophilia , post nasal drip and possible GERD will start low dose IC, Flonase and benadryl . and protonix 40 mg qhs await further pulmonary input Past Medical History Past Medical History: Coronary Artery Disease (CAD), Chest Pain / Angina, COPD, GERD/Reflux, Hypertension, Pneumonia Additional Past Medical History / Comment(s): lupus, diverticulitis, difficulty swallowing nausea History of Any Multi-Drug Resistant Organisms: None Reported Past Surgical History: Adenoidectomy, Appendectomy, Back Surgery, Bowel Resection, Cholecystectomy, Heart Catheterization, Heart Catheterization With Stent, Hysterectomy, Joint Replacement, Orthopedic Surgery, Tonsillectomy Additional Past Surgical History / Comment(s): carpal tunnel, cervical fusion, lft knee and rt hip replacement, multiple back surgeries, ruptured colon after bowel resection Past Anesthesia/Blood Transfusion Reactions: No Reported Reaction Additional Past Anesthesia/Blood Transfusion Reaction / Comment(s): no hx. of transfusion reaction Date of Last Stent Placement:: 09/2023 Past Psychological History: Depression, PTSD Smoking Status: Never smoker Past Alcohol Use History: None Reported - Past Family History Mother Family Medical History: Hypertension Sister(s) Family Medical History: Cancer Additional Family Medical History / Comment(s): breast Medications and Allergies Home Medications Medication Instructions Recorded Confirmed Type Amitriptyline HCl [Elavil] 25 mg PO HS 07/09/23 12/26/24 History DULoxetine HCL [Cymbalta] 60 mg PO BID 07/09/23 12/26/24 History Levocetirizine Dihydrochloride 5 mg PO HS 07/09/23 12/26/24 History [Xyzal] Montelukast Sodium 10 mg PO HS 07/09/23 12/26/24 History Omeprazole 40 mg PO DAILY 09/03/23 12/26/24 History Zolpidem [Ambien] 5 mg PO HS PRN 12/28/23 12/26/24 History ALPRAZolam [Xanax] 0.25 mg PO DAILY PRN 12/01/24 12/26/24 History Furosemide [Lasix] 20 mg PO DAILY 12/01/24 12/26/24 History Acetaminophen Tab [Tylenol] 650 mg PO Q6HR PRN tab 12/02/24 12/26/24 Rx Atorvastatin [Lipitor] 40 mg PO HS #60 tab 12/02/24 12/26/24 Rx Losartan [Cozaar] 25 mg PO HS 30 Days #30 tab 12/02/24 12/26/24 Rx Metoprolol Succinate (ER) [Toprol 25 mg PO DAILY #30 tab 12/02/24 12/26/24 Rx XL] Aspirin 81 mg PO BID #60 tab 12/27/24 Rx Diclofenac Sodium [Voltaren] 75 mg PO BID #60 tab 12/27/24 Rx Docusate [Colace] 100 mg PO BID #60 capsule 12/27/24 Rx Doxycycline Monohydrate 100 mg PO BID #30 cap 12/27/24 Rx HYDROcodone/APAP 5-325MG [[place] 1 - 2 tab PO Q6HR PRN #48 tab 12/27/24 Rx 5-325] Omeprazole 40 mg PO DAILY #30 cap 12/27/24 Rx Ferrous Sulfate [Iron (65 MG 325 mg PO W/LUNCH #30 tab 12/30/24 Rx Elemental)] Allergies Allergy/AdvReac Type Severity Reaction Status Date / Time influenza virus vaccine qs Allergy Anaphylaxis Verified 01/22/25 20:21 [id number] (65 years up) [From [employer] (65y up)(PF)] Penicillins Allergy Rash/Hives Verified 01/22/25 20:21 vaccine adjuvant emulsion Allergy Anaphylaxis Verified 01/22/25 20:21 [id number] [From [employer] (65y up)(PF)] vancomycin Allergy Anaphylaxis Verified 01/22/25 20:21 Physical Exam Vitals: Vital Signs Temp Pulse Resp BP Pulse Ox 01/22/25 22:57 78 01/22/25 22:47 75 01/22/25 21:59 87 18 102/65 100 01/22/25 21:13 87 22 114/70 98 01/22/25 20:15 99.6 F 88 22 129/70 96 Intake and Output 01/22/25 01/22/25 01/23/25 14:59 22:59 06:59 Other: Weight 104.326 kg Results CBC & Chem 7: 01/22/25 20:49 01/22/25 20:49 Labs: Abnormal Lab Results - Last 24 Hours (Table) 01/22/25 01/22/25 01/22/25 Range/Units 20:49 20:49 20:49 RBC 3.49 L (3.80-5.40) m/uL Hgb 8.9 L (11.4-16.0) gm/dL Hct 28.8 L (34.0-46.0) % MCHC 30.8 L (31.0-37.0) g/dL RDW 15.8 H (11.5-15.5) % Plt Count 472 H (150-450) k/uL APTT 21.3 L (22.0-30.0) sec D-Dimer 2.81 H (<0.60) mg/L FEU Chloride 109 H (98-107) mmol/L Glucose 100 H (74-99) mg/dL Plasma Lactic Acid Sudhir (0.7-2.0) mmol/L 01/22/25 Range/Units 20:49 RBC (3.80-5.40) m/uL Hgb (11.4-16.0) gm/dL Hct (34.0-46.0) % MCHC (31.0-37.0) g/dL RDW (11.5-15.5) % Plt Count (150-450) k/uL APTT (22.0-30.0) sec D-Dimer (<0.60) mg/L FEU Chloride (98-107) mmol/L Glucose (74-99) mg/dL Plasma Lactic Acid Sudhir 2.3 H* (0.7-2.0) mmol/L
[2025-01-23] MEDS: methylPREDNISolone SOD SUCCI 40 MG/ML 1 ML VIAL IV SCH (01:13)
[2025-01-23] MEDS: LACTATED RINGERS 1,000 ML IV ONE ×3 (02:19→11:08)
[2025-01-23] MEDS: KETOROLAC 15 MG/ML 1 ML VIAL IVP PRN (02:38)
[2025-01-23] MEDS: IPRATROPIUM-ALBUTEROL 3 ML NEB INHALATION PRN (03:02)
[2025-01-23] MEDS: FLUTICASONE NASAL 50MCG/SPRAY 16GM BTL EA NOSTRIL SCH (05:15)
[2025-01-23] MEDS: ALPRAZolam 0.25 MG TAB PO PRN (05:15)
[2025-01-23] MEDS: guaiFENesin SYRUP 100MG/5ML 200 MG/10 ML CUP PO PRN (05:15)
[2025-01-23 07:05] LABS: AST 22 U/L (14-36); African American GFR (CKD) >90 (>60 ml/min/1.73 sqM); Albumin 3.9 g/dL (3.5-5.0); Alkaline Phosphatase 103 U/L (38-126); Anion Gap 13 mmol/L; Blood Urea Nitrogen 9 mg/dL (7-17); Carbon Dioxide 15 mmol/L (22-30); Chloride 108 mmol/L (98-107); Glucose 267 mg/dL (74-99); Non-African American GFR(CKD) >90 (>60 ml/min/1.73 sqM); Potassium 4.3 mmol/L (3.5-5.1); Sodium 136 mmol/L (137-145); Total Bilirubin 0.4 mg/dL (0.2-1.3); Total Protein 6.6 g/dL (6.3-8.2)
[2025-01-23 07:32] LABS: ALT 27 U/L (4-34)
[2025-01-23 07:35] LABS: Basophils % (A) 0 %; Eosinophils % (A) 0 %; HCT 27.2 % (34.0-46.0); HGB 8.3 gm/dL (11.4-16.0); Hypochromasia Marked; Lymphocytes # (A) 0.3 k/uL (1.0-4.8); Lymphocytes % (A) 7 %; MCH 25.7 pg (25.0-35.0); MCHC 30.5 g/dL (31.0-37.0); MCV 84.1 fL (80.0-100.0); Mean Platelet Volume 7.2; Monocytes # (A) 0.1 k/uL (0-1.0); Monocytes % (A) 2 %; Neutrophils # (A) 4.1 k/uL (1.3-7.7); Neutrophils % (A) 90 %; Platelet Count 408 k/uL (150-450); RBC 3.23 m/uL (3.80-5.40); RDW 15.7 % (11.5-15.5); WBC 4.6 k/uL (3.8-10.6)
[2025-01-23] MEDS: BUDESONIDE 0.5 MG/2 ML NEBU INHALATION SCH (08:14)
[2025-01-23] MEDS: ENOXAPARIN 40 MG/0.4 ML SYRINGE SQ SCH (08:15)
[2025-01-23] MEDS: DULoxetine HCL 60 MG CAPSULE.DR PO SCH (08:16)
[2025-01-23] MEDS: PANTOPRAZOLE 40 MG TABLET PO SCH (08:16)
[2025-01-23] MEDS: METOPROLOL SUCCINATE (ER) 25 MG TAB.ER.24H PO SCH (08:16)
[2025-01-23] MEDS: ASPIRIN 81 MG PO SCH (08:16)
[2025-01-23] MEDS: IPRATROPIUM-ALBUTEROL 3 ML NEB INHALATION SCH (08:28)
[2025-01-23] MEDS ORDERED: DEXTROSE 50% SYRINGE 50 ML IVP PRN ×2 (08:45)
[2025-01-23] MEDS ORDERED: predniSONE 20 MG TAB PO SCH (09:00)
[2025-01-23] MEDS ORDERED: FUROSEMIDE 20 MG TAB PO SCH (09:00)
[2025-01-23 10:25] LABS: ABG Base Excess -5.4 mmol/L; ABG HCO3 19 mmol/L (21-25); ABG Oxygen Saturation 94.9 % (94-97); ABG PCO2 32 mmHg (35-45); ABG PH 7.39 (7.35-7.45); ABG PO2 70 mmHg (83-108); ABG TCO2 20 mmol/L (19-24); Allen Test Performed? Yes
[2025-01-23] MEDS: diphenhydrAMINE 50 MG/ML 1 ML VIAL IVP STA (10:32)
[2025-01-23] MEDS: guaiFENesin-Coden 100-10MG/5ML 10 ML CUP PO PRN (10:33)
[2025-01-23] MEDS: PROCHLORPERAZINE INJ 10 MG/2 ML VIAL IVP STA (10:33)
[2025-01-23 11:57] LABS: Glucose,Whole Blood 258 mg/dL (70-110)
[2025-01-23] MEDS: methylPREDNISolone SOD SUCCI 125 MG/2 ML VIAL IV SCH (12:09)
[2025-01-23] MEDS: BENZONATATE 100 MG CAP PO SCH (12:09)
[2025-01-23] MEDS: INSULIN LISPRO (HumaLOG) 100 UNIT/ML 10 mL VL SQ SCH (12:09)
[2025-01-23] MEDS ORDERED: FERROUS SULFATE 325 MG TAB PO SCH (12:30)
--- NOTE | 2025-01-23 13:14 | P.PN ---
Subjective Progress Note Date: 01/23/25 Hospital course: Patient is a 74-year-old female with a past medical history of CAD status post stenting, Takotsubo's cardiomyopathy with recovered EF, hypertension, hyperlipidemia, lupus, anemia of chronic disease, anxiety, and depression. She presented to the hospital on 01/22/2025 with a chief complaint of shortness of breath. Upon arrival to our facility, patient underwent evaluation in the emergency department. Vital signs upon arrival show blood pressure 129/70, heart rate 88, respiratory rate 22, temp 99.6 F, and SpO2 of 96% on room air.. EKG completed showing normal sinus rhythm at [address] elevation in inferior leads II, III, and aVF otherwise. T wave or ST abnormalities. Completed and reviewed. CBC showing normocytic anemia with hemoglobin of 8.9 with most recent hemoglobin of 7.7 on 12/30/2024. Coagulation profile showing a low PTT of 21.3 and elevated D-dimer of 2.81. BMP showing hyperchloremia with chloride of 109 and blood glucose of 100. Lactic acid was elevated at 2.3. Magnesium 1.9. Liver profile unremarkable. Troponin was negative at less than 0.012 and proBNP was 45. Influenza A, influenza B, RSV, and COVID PCR were negative. Chest x-ray showing chronic changes but negative for acute cardiopulmonary process. CTA chest was negative for pulmonary emboli showing mild cardiomegaly. Patient admitted under our services with consultation to pulmonology. Physical exam: Patient seen and fully evaluated at bedside. Throughout examination patient with recurrent coughing fits. Patient coughing extremely hard becoming diaphoretic throughout events. She is currently on 2 L O2 via nasal cannula. So much additional orders to be placed. She denies having any chest pain or pressure reports tightness with coughing but otherwise denies any complaints at this time. Vital signs reviewed and stable. General: Nontoxic, no distress and appears stated age. Derm: Skin warm and dry, normal coloration for ethnicity. Head: Atraumatic, normocephalic and symmetric. Eyes: EOM's intact, no lid lag, and anicteric sclera Mouth: no lip lesions, mucus membranes moist Cardiovascular: regular rate and rhythm with normal S1S2, no murmur, positive posterior tibial pulses bilaterally, and cap refill < 2 seconds. Lungs: Respirations even, regular, and unlabored on room air. Lungs CTA bilaterally, no rhonchi, no rales, no wheezing, and no accessory muscle usage. Coarse cough noted throughout exam. Abdominal: soft, nontender to palpation, no guarding, no appreciable organomegaly Ext: ROM intact. No gross muscle atrophy, no edema, no contractures Neuro: Speech clear, face symmetrical and CN II-XII grossly intact with no noted focal neuro deficits Psych: Alert and oriented to person, place, time, and situation. Appropriate and pleasant affect. Assessment and Plan of Care: Acute hypoxic respiratory failure, possibly secondary to lupus pneumonitis vs bronchial asthma Lactic acidosis, worsening ossibly secondary to oxygen perfusion. Lupus Elevated D-dimer, CTA negative for PE -Pulmonology consulted, discussed case in detail with Dr. Reeves. -Lactic acidosis worsening to 6.1 this morning. Order placed for 1 L bolus LR and will continue to monitor for improvement. -Secondary to worsening lactic acid order also placed for ABG, repeat troponin, procalcitonin, thiamine level, and serum acetone as patient's blood glucose and anion gap also elevated this morning. -Oxygenation to be administered and titrated as needed to maintain SPO2 equal to or greater than 92% -Telemetry monitoring. -Monitor pulse-oximetry -Duonebs scheduled 4 times daily and as needed for wheezing/shortness of breath. -Patient placed on scheduled Tessalon Perles and as needed Robitussin AC -Incentive Spirometry -Steroids: Solu-Medrol 60 mg IVP every 6 hours -Continue Pulmicort 0.5 mg twice daily and Singulair 10 mg nightly. CAD status post stenting Takotsubo's cardiomyopathy with recovered EF Hypertension Hyperlipidemia -Continue cardiac medication regimen with aspirin 81 mg twice daily, atorvastatin 40 mg nightly, losartan 25 mg nightly and metoprolol 25 mg daily. Anemia of chronic disease -Hemoglobin currently stable at 8.3, stable and at baseline. Anxiety with depression -Continue Elavil 25 mg nightly, duloxetine 60 mg twice daily and Xanax 0.25 mg daily as needed for anxiety. Data and imaging reviewed: Vital signs reviewed. Blood pressure 136/62, heart rate 88, respiratory rate 22, temp 97.9 F and SpO2 of 97% on 2 L. Morning labs reviewed. Lactic acid increasing to 6.1. CBC showing hemoglobin of 8.3. BMP showing high anion gap metabolic acidosis with chloride of 108, bicarb of 15, and anion gap of 13. Blood glucose 267. CODE STATUS: Full code DVT prophylaxis: Lovenox Discussed with: Patient, RN, and clinical pharmacy manager Anticipated discharge date: Pending clinical course Anticipated discharge place: Home Patient was seen independently by Nurse Pracitioner. This document was prepared using [employer] dictation software. Please allow for errors in automotive instructor, while rare they do occur. J Carlos Hummel [employer] SPECIALIST rendered care for this patient independently, reviewed the findings and plan as documented in the note above and agree with plan. I did not physically speak with or examine the patient on this date. Objective - Vital Signs Vital signs: Vital Signs Temp 97.9 F 01/23/25 00:14 Pulse 92 01/23/25 08:45 Resp 22 01/23/25 08:00 BP 136/62 01/23/25 08:00 Pulse Ox 97 01/23/25 08:00 FiO2 Intake & Output 01/22/25 01/23/25 01/23/25 18:59 06:59 18:59 Weight 104.326 kg - Labs CBC & Chem 7: 01/23/25 06:00 01/23/25 06:00 Labs: Abnormal Lab Results - Last 24 Hours (Table) 01/22/25 01/22/25 01/22/25 Range/Units 20:49 20:49 20:49 RBC 3.49 L (3.80-5.40) m/uL Hgb 8.9 L (11.4-16.0) gm/dL Hct 28.8 L (34.0-46.0) % MCHC 30.8 L (31.0-37.0) g/dL RDW 15.8 H (11.5-15.5) % Plt Count 472 H (150-450) k/uL Lymphocytes # (1.0-4.8) k/uL APTT 21.3 L (22.0-30.0) sec D-Dimer 2.81 H (<0.60) mg/L FEU Sodium (137-145) mmol/L Chloride 109 H (98-107) mmol/L Carbon Dioxide (22-30) mmol/L Glucose 100 H (74-99) mg/dL Plasma Lactic Acid Sudhir (0.7-2.0) mmol/L Ur Specific [place] (1.001-1.035) 01/22/25 01/22/25 01/22/25 Range/Units 20:49 23:41 23:59 RBC (3.80-5.40) m/uL Hgb (11.4-16.0) gm/dL Hct (34.0-46.0) % MCHC (31.0-37.0) g/dL RDW (11.5-15.5) % Plt Count (150-450) k/uL Lymphocytes # (1.0-4.8) k/uL APTT (22.0-30.0) sec D-Dimer (<0.60) mg/L FEU Sodium (137-145) mmol/L Chloride (98-107) mmol/L Carbon Dioxide (22-30) mmol/L Glucose (74-99) mg/dL Plasma Lactic Acid Sudhir 2.3 H* 2.4 H* (0.7-2.0) mmol/L Ur Specific [place] >1.050 H (1.001-1.035) 01/23/25 01/23/25 01/23/25 Range/Units 03:35 06:00 06:00 RBC 3.23 L (3.80-5.40) m/uL Hgb 8.3 L (11.4-16.0) gm/dL Hct 27.2 L (34.0-46.0) % MCHC 30.5 L (31.0-37.0) g/dL RDW 15.7 H (11.5-15.5) % Plt Count (150-450) k/uL Lymphocytes # 0.3 L (1.0-4.8) k/uL APTT (22.0-30.0) sec D-Dimer (<0.60) mg/L FEU Sodium 136 L (137-145) mmol/L Chloride 108 H (98-107) mmol/L Carbon Dioxide 15 L (22-30) mmol/L Glucose 267 H (74-99) mg/dL Plasma Lactic Acid Sudhir 4.3 H* (0.7-2.0) mmol/L Ur Specific [place] (1.001-1.035) 01/23/25 Range/Units 06:18 RBC (3.80-5.40) m/uL Hgb (11.4-16.0) gm/dL Hct (34.0-46.0) % MCHC (31.0-37.0) g/dL RDW (11.5-15.5) % Plt Count (150-450) k/uL Lymphocytes # (1.0-4.8) k/uL APTT (22.0-30.0) sec D-Dimer (<0.60) mg/L FEU Sodium (137-145) mmol/L Chloride (98-107) mmol/L Carbon Dioxide (22-30) mmol/L Glucose (74-99) mg/dL Plasma Lactic Acid Sudhir 6.1 H* (0.7-2.0) mmol/L Ur Specific [place] (1.001-1.035)
[2025-01-23 15:51] LABS: Magnesium 1.7 mg/dL (1.6-2.3)
--- NOTE | 2025-01-23 16:00 | P.CNPUL ---
History of Present Illness Consult date: 01/23/25 Reason for consult: cough History of present illness: This is a 72-year-old female patient, being seen for symptoms of relentless cough that been going on for the past 2 to 3 weeks. The patient is known to have CAD with previous coronary stenting, hypertension, hyperlipidemia, and previous history of lupus, treated with Plaquenil and in the past and currently the patient is not receiving any active therapy for lupus. The patient underwent a hip replacement surgery on 12/26/2024. Postop, she started developing persistent cough for which she was seen by her primary care physician the patient was given a course of Zithromax suspecting an underlying pneumonia. Nevertheless, no cervical improvement was noted and the patient ended up coming into the hospital due to her ongoing persistent cough. Have initial workup in the emergency department included a chest x-ray that showed no acute abnormalities. CT of the chest was also done that showed no evidence of any pulmonary [place] or any filling defects. There was some cardiomegaly. Lung parenchyma was essentially within normal limits. No airspace disease. No consolidation. No recent lymphadenopathy. Furthermore, the patient's blood work showed a white cell count of 4.6, hemoglobin of 8.3 and a platelet count of 408. No significant leukocytosis. Blood gases showed a pH of 7.39 with a pCO2 32 and pO2 of 70 and this was done on FiO2 of 21%. Her serum bicarb had dropped down to 15 this morning and the patient had a component of mild anion gap metabolic acidosis. Lactic acid levels have been fluctuating and her initial lactic acid level was at 2.3, it peaked at 6.1 and currently is down to 4.4. The patient has been receiving lactated Ringer solution. Calcium level is at 10, LFTs are normal, troponins are negative, procalcitonin level is at 0.05, the viral screen has been negative and serum acetone has been negative. UA is negative. She is currently on room air oxygen. Afebrile. Hemodynamically stable. No history of smoking. No history of COPD. No stable asthma. No reports of aspiration. No exposure to any respiratory irritants. No environmental allergies. No recurrent pneumonias in the past. No previous history of any cough. No pleurisy. No hemoptysis. Review of Systems Constitutional: Reports as per HPI Eyes: denies as per HPI, denies blurred vision, denies bulging eye, denies decreased vision, denies diplopia, denies discharge, denies dry eye, denies irritation, denies itching, denies pain, denies photophobia, denies loss of peripheral vision, denies loss of vision, denies tunnel vision/blind spots Ears: deny: decreased hearing, ear discharge, earache, tinnitus Ears, nose, mouth and throat: Reports as per HPI Breasts: absent: as per HPI, change in shape, gynecomastia, masses, nipple dis charge, pain, skin changes, swelling Cardiovascular: Reports as per HPI Respiratory: Reports cough Gastrointestinal: Reports as per HPI Genitourinary: Reports as per HPI Menstruation: Reports as per HPI Musculoskeletal: Reports as per HPI Musculoskeletal: absent: ankle pain, ankle stiffness, ankle swelling, as per HPI, elbow pain, elbow stiffness, elbow swelling, foot pain, foot stiffness, foot swelling, hand pain, hand stiffness, hand swelling, hip pain, hip stiffness, hip swelling, knee pain, knee stiffness, knee swelling, shoulder pain, shoulder stiffness, shoulder swelling, wrist pain, wrist stiffness, wrist swelling Integumentary: Reports as per HPI Neurological: Reports as per HPI Psychiatric: Reports as per HPI Endocrine: Reports as per HPI Hematologic/Lymphatic: Reports as per HPI Allergic/Immunologic: Reports as per HPI Past Medical History Past Medical History: Coronary Artery Disease (CAD), Chest Pain / Angina, COPD, GERD/Reflux, Hypertension Additional Past Medical History / Comment(s): SLE ( no therapy, used to take plaquenil in the past), obesity, diverticulitis, difficulty swallowing nausea History of Any Multi-Drug Resistant Organisms: None Reported Past Surgical History: Adenoidectomy, Appendectomy, Back Surgery, Bowel Rese ction, Cholecystectomy, Heart Catheterization, Heart Catheterization With Stent, Hysterectomy, Joint Replacement, Orthopedic Surgery, Tonsillectomy Additional Past Surgical History / Comment(s): carpal tunnel, cervical fusion, lft knee and rt hip replacement, multiple back surgeries, ruptured colon after bowel resection Past Anesthesia/Blood Transfusion Reactions: No Reported Reaction Additional Past Anesthesia/Blood Transfusion Reaction / Comment(s): no hx. of transfusion reaction Date of Last Stent Placement:: 09/2023 Past Psychological History: Depression, PTSD Smoking Status: Never smoker Past Alcohol Use History: None Reported - Past Family History Mother Family Medical History: Hypertension Sister(s) Family Medical History: Cancer Additional Family Medical History / Comment(s): breast Medications and Allergies Home Medications Medication Instructions Recorded Confirmed Type Amitriptyline HCl [Elavil] 25 mg PO HS 07/09/23 01/23/25 History DULoxetine HCL [Cymbalta] 60 mg PO BID 07/09/23 01/23/25 History Levocetirizine Dihydrochloride 5 mg PO HS 07/09/23 01/23/25 History [Xyzal] Montelukast Sodium 10 mg PO HS 07/09/23 01/23/25 History Zolpidem [Ambien] 5 mg PO HS PRN 12/28/23 01/23/25 History ALPRAZolam [Xanax] 0.25 mg PO DAILY PRN 12/01/24 01/23/25 History Furosemide [Lasix] 20 mg PO DAILY 12/01/24 01/23/25 History Acetaminophen Tab [Tylenol] 650 mg PO Q6HR PRN tab 12/02/24 01/23/25 Rx Atorvastatin [Lipitor] 40 mg PO HS #60 tab 12/02/24 01/23/25 Rx Losartan [Cozaar] 25 mg PO HS 30 Days #30 tab 12/02/24 01/23/25 Rx Metoprolol Succinate (ER) [Toprol 25 mg PO DAILY #30 tab 12/02/24 01/23/25 Rx XL] Aspirin 81 mg PO BID #60 tab 12/27/24 01/23/25 Rx Omeprazole 40 mg PO DAILY #30 cap 12/27/24 01/23/25 Rx Allergies Allergy/AdvReac Type Severity Reaction Status Date / Time influenza virus vaccine qs Allergy Anaphylaxis Verified 01/23/25 06:41 [id number] (65 years up) [From Fluad Quad (65y up)(PF)] Penicillins Allergy Rash/Hives Verified 01/23/25 06:41 vaccine adjuvant emulsion Allergy Anaphylaxis Verified 01/23/25 06:41 [id number] [From Fluad Quad (65y up)(PF)] vancomycin Allergy Anaphylaxis Verified 01/23/25 06:41 Physical Exam Vitals: Vital Signs Temp Pulse Resp BP Pulse Ox 01/23/25 10:37 98.2 F 99 18 118/93 97 01/23/25 08:45 92 01/23/25 08:28 89 01/23/25 08:00 88 22 136/62 97 01/23/25 03:13 80 01/23/25 03:03 78 01/23/25 00:14 97.9 F 98 20 129/73 96 01/22/25 22:57 78 01/22/25 22:47 75 01/22/25 21:59 87 18 102/65 100 01/22/25 21:13 87 22 114/70 98 01/22/25 20:15 99.6 F 88 22 129/70 96 Intake and Output 01/22/25 01/23/25 01/23/25 22:59 06:59 14:59 Other: Weight 104.326 kg The patient appeared well nourished and normally developed. Vital signs as documented. The patient is currently on room air oxygen Head exam is unremarkable. No scleral icterus or corneal arcus noted. Neck is without jugular venous distension, thyromegaly, or carotid bruits. Carotid upstrokes are brisk bilaterally. Lungs are clear to auscultation and percussion. Cardiac exam reveals the PMI to be normally sized and situated. Rhythm is regular. First and second heart sounds normal. No murmurs, rubs or gallops. Abdominal exam reveals normal bowel sounds, no masses, no organomegaly and no aortic enlargement. Extremities are nonedematous and both femoral and pedal pulses are normal. Examination of the skin revealed no evidence of significant rashes, suspicious appearing nevi or other concerning lesions. Neurologically, the patient is awake and alert and the patient does not have any focal neurological deficit. Cranial nerves are essentially intact. Results - Laboratory Findings CBC and BMP: 01/23/25 06:00 01/23/25 06:00 ABG ABG pH 7.39 (7.35-7.45) 01/23/25 10:22 ABG pCO2 32 mmHg (35-45) L 01/23/25 10:22 ABG pO2 70 mmHg (83-108) L 01/23/25 10:22 ABG O2 Saturation 94.9 % (94-97) 01/23/25 10:22 PT/INR, D-dimer PT 10.2 sec (10.0-12.5) 01/22/25 20:49 INR 0.9 (<1.2) 01/22/25 20:49 D-Dimer 2.81 mg/L FEU (<0.60) H 01/22/25 20:49 Abnormal lab findings: Abnormal Labs 01/22/25 01/22/25 01/22/25 20:49 20:49 20:49 RBC 3.49 L Hgb 8.9 L Hct 28.8 L MCHC 30.8 L RDW 15.8 H Plt Count 472 H Lymphocytes # APTT 21.3 L D-Dimer 2.81 H ABG pCO2 ABG pO2 ABG HCO3 Hemoglobin Sodium Chloride 109 H Carbon Dioxide Glucose 100 H Plasma Lactic Acid Sudhir Ur Specific [place] 01/22/25 01/22/25 01/22/25 20:49 23:41 23:59 RBC Hgb Hct MCHC RDW Plt Count Lymphocytes # APTT D-Dimer ABG pCO2 ABG pO2 ABG HCO3 Hemoglobin Sodium Chloride Carbon Dioxide Glucose Plasma Lactic Acid Sudhir 2.3 H* 2.4 H* Ur Specific [place] >1.050 H 01/23/25 01/23/25 01/23/25 03:35 06:00 06:00 RBC 3.23 L Hgb 8.3 L Hct 27.2 L MCHC 30.5 L RDW 15.7 H Plt Count Lymphocytes # 0.3 L APTT D-Dimer ABG pCO2 ABG pO2 ABG HCO3 Hemoglobin Sodium 136 L Chloride 108 H Carbon Dioxide 15 L Glucose 267 H Plasma Lactic Acid Sudhir 4.3 H* Ur Specific [place] 01/23/25 01/23/25 01/23/25 06:18 09:45 10:22 RBC Hgb Hct MCHC RDW Plt Count Lymphocytes # APTT D-Dimer ABG pCO2 32 L ABG pO2 70 L ABG HCO3 19 L Hemoglobin 7.7 L Sodium Chloride Carbon Dioxide Glucose Plasma Lactic Acid Sudhir 6.1 H* 5.6 H* Ur Specific [place] - Diagnostic Findings Chest x-ray: image reviewed CT scan - chest: image reviewed Assessment and Plan Plan: Subacute cough, likely secondary to postinfectious tracheobronchitis. No evidence of pneumonia. No evidence of any respiratory insufficiency. Blood gases showed no significant respiratory acidosis. Viral screen was negative. Legionella urine antigen was negative. CT of the chest shows no acute abnormal ities. No evidence of any pulm embolism. No parenchymal abnormalities. No airspace disease. Currently on room air oxygen. Lactic acidosis, improving. Coronary artery disease, with previous history of coronary stenting History of Takotsubo's cardiomyopathy with recovered LV function and ejection fraction Hypertension Hyperlipidemia History of lupus, treated with Plaquenil in the past and currently the patient not receiving any immunosuppressive therapy Anemia of chronic disease Chronic anxiety Chronic depression Osteoarthritis post a left hip arthroplasty that was performed on 12/26/2024 for severe left hip osteoarthritis. Plan This is likely a postinfectious bronchitis and the patient will be offered DuoNeb nebulized [id number]. The patient was also started on IV Solu- Medrol 60 mg every 6 hours. Cough suppressant including guaifenesin DM and Tessalon Perles. No need for antibiotics. Viral screen has been negative. Oxygenation is stable. Resume home medications. Monitor lactic acid level. IV fluids to be switched to KVO. Will continue to follow. Time with Patient: Greater than 30
[2025-01-23] MEDS: ACETAMINOPHEN TAB 325 MG TAB PO PRN (16:20)
[2025-01-23 16:22] LABS: Glucose,Whole Blood 174 mg/dL (70-110)
[2025-01-23 19:54] LABS: Glucose,Whole Blood 247 mg/dL (70-110)
[2025-01-23] MEDS: LOSARTAN 25 MG TAB PO SCH (20:29)
[2025-01-23] MEDS: LORATADINE 10 MG TAB PO SCH (20:29)
[2025-01-23] MEDS: AMITRIPTYLINE HCL 25 MG TAB PO SCH (20:29)
[2025-01-23] MEDS: MONTELUKAST 10 MG TAB PO SCH (20:29)
[2025-01-23] MEDS: ATORVASTATIN 40 MG TAB PO SCH (20:29)
[2025-01-24 06:02] LABS: Glucose,Whole Blood 193 mg/dL (70-110)
[2025-01-24 07:20] LABS: Basophils % (A) 0 %; Eosinophils % (A) 0 %; HCT 25.9 % (34.0-46.0); HGB 7.6 gm/dL (11.4-16.0); Hypochromasia Marked; Lymphocytes # (A) 0.5 k/uL (1.0-4.8); Lymphocytes % (A) 7 %; MCH 24.9 pg (25.0-35.0); MCHC 29.5 g/dL (31.0-37.0); MCV 84.4 fL (80.0-100.0); Mean Platelet Volume 7.9; Monocytes # (A) 0.2 k/uL (0-1.0); Monocytes % (A) 3 %; Neutrophils # (A) 6.3 k/uL (1.3-7.7); Neutrophils % (A) 89 %; Platelet Count 473 k/uL (150-450); Poikilocytosis Slight; RBC 3.07 m/uL (3.80-5.40); WBC 7.1 k/uL (3.8-10.6)
[2025-01-24 07:37] LABS: ALT 18 U/L (4-34); AST 20 U/L (14-36); African American GFR (CKD) >90 (>60 ml/min/1.73 sqM); Albumin 3.8 g/dL (3.5-5.0); Alkaline Phosphatase 91 U/L (38-126); Anion Gap 7 mmol/L; Blood Urea Nitrogen 11 mg/dL (7-17); Calcium 9.9 mg/dL (8.4-10.2); Carbon Dioxide 23 mmol/L (22-30); Chloride 105 mmol/L (98-107); Glucose 172 mg/dL (74-99); Magnesium 1.9 mg/dL (1.6-2.3); Non-African American GFR(CKD) >90 (>60 ml/min/1.73 sqM); Sodium 135 mmol/L (137-145); Total Bilirubin 0.5 mg/dL (0.2-1.3); Total Protein 6.4 g/dL (6.3-8.2)
[2025-01-24 11:41] LABS: Glucose,Whole Blood 186 mg/dL (70-110)
--- NOTE | 2025-01-24 12:12 | P.PN ---
Subjective Progress Note Date: 01/24/25 Hospital course: Patient is a 74-year-old female with a past medical history of CAD status post stenting, Takotsubo's cardiomyopathy with recovered EF, hypertension, hyperlipidemia, lupus, anemia of chronic disease, anxiety, and depression. She presented to the hospital on 01/22/2025 with a chief complaint of shortness of breath. Upon arrival to our facility, patient underwent evaluation in the emergency department. Vital signs upon arrival show blood pressure 129/70, heart rate 88, respiratory rate 22, temp 99.6 F, and SpO2 of 96% on room air.. EKG completed showing normal sinus rhythm at [address] elevation in inferior leads II, III, and aVF otherwise. T wave or ST abnormalities. Completed and reviewed. CBC showing normocytic anemia with hemoglobin of 8.9 with most recent hemoglobin of 7.7 on 12/30/2024. Coagulation profile showing a low PTT of 21.3 and elevated D-dimer of 2.81. BMP showing hyperchloremia with chloride of 109 and blood glucose of 100. Lactic acid was elevated at 2.3. Magnesium 1.9. Liver profile unremarkable. Troponin was negative at less than 0.012 and proBNP was 45. Influenza A, influenza B, RSV, and COVID PCR were negative. Chest x-ray showing chronic changes but negative for acute cardiopulmonary process. CTA chest was negative for pulmonary emboli showing mild cardiomegaly. Patient admitted under our services with consultation to pulmonology. Physical exam: Patient seen and fully evaluated at bedside. She reports improvement in breathing and cough today. States she has not yet back at her baseline and continues to have occasional coughing fits but much improved on current medication regimen. Patient has been weaned off of oxygen and maintaining SpO2 in the 90s on room air. Vital signs reviewed and stable. General: Nontoxic, no distress and appears stated age. Derm: Skin warm and dry, normal coloration for ethnicity. Head: Atraumatic, normocephalic and symmetric. Eyes: EOM's intact, no lid lag, and anicteric sclera Mouth: no lip lesions, mucus membranes moist Cardiovascular: regular rate and rhythm with normal S1S2, no murmur, positive posterior tibial pulses bilaterally, and cap refill < 2 seconds. Lungs: Respirations even, regular, and unlabored on room air. Lungs CTA bilaterally, no rhonchi, no rales, no wheezing, and no accessory muscle usage. Abdominal: soft, nontender to palpation, no guarding, no appreciable organomegaly Ext: ROM intact. No gross muscle atrophy, no edema, no contractures Neuro: Speech clear, face symmetrical and CN II-XII grossly intact with no noted focal neuro deficits Psych: Alert and oriented to person, place, time, and situation. Appropriate and pleasant affect. Assessment and Plan of Care: Acute hypoxic respiratory failure, likely secondary to tracheobronchitis Lactic acidosis, improving Lupus Elevated D-dimer, CTA negative for PE -Pulmonology following, discussed case in detail with Dr. Reeves. -Lactic acidosis down trended. -Procalcitonin negative at 0.05. Troponins were negative at less than 0.012 x 2 draws. Urine Legionella negative. Qualitative acetone negative -Oxygenation to be administered and titrated as needed to maintain SPO2 equal to or greater than 92% -Telemetry monitoring. -Monitor pulse-oximetry -Duonebs scheduled 4 times daily and as needed for wheezing/shortness of breath. -Patient placed on scheduled Tessalon Perles and as needed Robitussin AC -Incentive Spirometry -Steroids: Solu-Medrol 60 mg IVP every 6 hours -Continue Pulmicort 0.5 mg twice daily and Singulair 10 mg nightly. CAD status post stenting Takotsubo's cardiomyopathy with recovered EF Hypertension Hyperlipidemia -Continue cardiac medication regimen with aspirin 81 mg twice daily, atorvastatin 40 mg nightly, losartan 25 mg nightly and metoprolol 25 mg daily. Anemia of chronic disease -Hemoglobin currently 7.6 from 8.3 yesterday, likely secondary to diuresis secondary to multiple IV fluid boluses. Anxiety with depression -Continue Elavil 25 mg nightly, duloxetine 60 mg twice daily and Xanax 0.25 mg daily as needed for anxiety. Data and imaging reviewed: Vital signs reviewed. Blood pressure 156, rate 89, respiratory rate 16, temp 98.0 F, and SpO2 of 93% on room air Morning labs reviewed. CBC showing hemoglobin of 7.6 and split 3. BMP showing sodium 135, potassium 5.0, renal function unremarkable. Blood glucose was 172. Magnesium 1.9. Liver profile unremarkable. CODE STATUS: Full code DVT prophylaxis: Lovenox Discussed with: Patient, RN, and global marketing operations manager Anticipated discharge date: Likely tomorrow morning Anticipated discharge place: Home Patient was seen independently by Nurse Pracitioner. This document was prepared using [employer] dictation software. Please allow for errors in jigsawyer, while rare they do occur. J Carlos Hummel NP rendered care for this patient independently, reviewed the findings and plan as documented in the note above and agree with plan. I did not physically speak with or examine the patient on this date. Objective - Vital Signs Vital signs: Vital Signs Temp 97.9 F 01/24/25 04:12 Pulse 92 01/24/25 04:12 Resp 16 01/24/25 04:12 BP 109/69 01/24/25 04:12 Pulse Ox 93 L 01/24/25 04:12 FiO2 Intake & Output 01/23/25 01/24/25 01/24/25 18:59 06:59 18:59 Intake Total 222 240 Balance 222 240 Weight 104.2 kg Intake: Oral 222 240 Other: Voiding Method Toilet # Voids 1 - Labs CBC & Chem 7: 01/24/25 06:41 01/24/25 06:41 Labs: Abnormal Lab Results - Last 24 Hours (Table) 01/23/25 01/23/25 01/23/25 Range/Units 09:45 10:22 11:55 RBC (3.80-5.40) m/uL Hgb (11.4-16.0) gm/dL Hct (34.0-46.0) % MCH (25.0-35.0) pg MCHC (31.0-37.0) g/dL RDW (11.5-15.5) % Plt Count (150-450) k/uL Lymphocytes # (1.0-4.8) k/uL ABG pCO2 32 L (35-45) mmHg ABG pO2 70 L (83-108) mmHg ABG HCO3 19 L (21-25) mmol/L Hemoglobin 7.7 L (11.4-16.0) gm/dL Sodium (137-145) mmol/L Creatinine (0.52-1.04) mg/dL Glucose (74-99) mg/dL POC Glucose (mg/dL) 258 H (70-110) mg/dL Plasma Lactic Acid Sudhir 5.6 H* (0.7-2.0) mmol/L 01/23/25 01/23/25 01/23/25 Range/Units 12:57 15:59 16:21 RBC (3.80-5.40) m/uL Hgb (11.4-16.0) gm/dL Hct (34.0-46.0) % MCH (25.0-35.0) pg MCHC (31.0-37.0) g/dL RDW (11.5-15.5) % Plt Count (150-450) k/uL Lymphocytes # (1.0-4.8) k/uL ABG pCO2 (35-45) mmHg ABG pO2 (83-108) mmHg ABG HCO3 (21-25) mmol/L Hemoglobin (11.4-16.0) gm/dL Sodium (137-145) mmol/L Creatinine (0.52-1.04) mg/dL Glucose (74-99) mg/dL POC Glucose (mg/dL) 174 H (70-110) mg/dL Plasma Lactic Acid Sudhir 4.4 H* 3.7 H* (0.7-2.0) mmol/L 01/23/25 01/24/25 01/24/25 Range/Units 19:53 06:01 06:41 RBC 3.07 L (3.80-5.40) m/uL Hgb 7.6 L (11.4-16.0) gm/dL Hct 25.9 L (34.0-46.0) % MCH 24.9 L (25.0-35.0) pg MCHC 29.5 L (31.0-37.0) g/dL RDW 16.0 H (11.5-15.5) % Plt Count 473 H (150-450) k/uL Lymphocytes # 0.5 L (1.0-4.8) k/uL ABG pCO2 (35-45) mmHg ABG pO2 (83-108) mmHg ABG HCO3 (21-25) mmol/L Hemoglobin (11.4-16.0) gm/dL Sodium (137-145) mmol/L Creatinine (0.52-1.04) mg/dL Glucose (74-99) mg/dL POC Glucose (mg/dL) 247 H 193 H (70-110) mg/dL Plasma Lactic Acid Sudhir (0.7-2.0) mmol/L 01/24/25 Range/Units 06:41 RBC (3.80-5.40) m/uL Hgb (11.4-16.0) gm/dL Hct (34.0-46.0) % MCH (25.0-35.0) pg MCHC (31.0-37.0) g/dL RDW (11.5-15.5) % Plt Count (150-450) k/uL Lymphocytes # (1.0-4.8) k/uL ABG pCO2 (35-45) mmHg ABG pO2 (83-108) mmHg ABG HCO3 (21-25) mmol/L Hemoglobin (11.4-16.0) gm/dL Sodium 135 L (137-145) mmol/L Creatinine 0.44 L (0.52-1.04) mg/dL Glucose 172 H (74-99) mg/dL POC Glucose (mg/dL) (70-110) mg/dL Plasma Lactic Acid Sudhir (0.7-2.0) mmol/L
[2025-01-24 12:56] VITALS: BMI 37.0
[2025-01-24 13:32] LABS: Bordedella pertussis Not detected (Not detected); Bordetella holmesII Not detected (Not detected); Bordetella parapertussis Not detected (Not detected)
--- NOTE | 2025-01-24 13:45 | P.PN ---
Subjective Progress Note Date: 01/24/25 This is a 72-year-old female patient, being seen for symptoms of relentless cough that been going on for the past 2 to 3 weeks. The patient is known to have CAD with previous coronary stenting, hypertension, hyperlipidemia, and previous history of lupus, treated with Plaquenil and in the past and currently the patient is not receiving any active therapy for lupus. The patient underwent a hip replacement surgery on 12/26/2024. Postop, she started developing persistent cough for which she was seen by her primary care physician the patient was given a course of Zithromax suspecting an underlying pneumonia. Nevertheless, no cervical improvement was noted and the patient ended up coming into the hospital due to her ongoing persistent cough. Have initial workup in the emergency department included a chest x-ray that showed no acute abnormalities. CT of the chest was also done that showed no evidence of any pulmonary [place] or any filling defects. There was some cardiomegaly. Lung parenchyma was essentially within normal limits. No airspace disease. No consolidation. No recent lymphadenopathy. Furthermore, the patient's blood work showed a white cell count of 4.6, hemoglobin of 8.3 and a platelet count of 408. No significant leukocytosis. Blood gases showed a pH of 7.39 with a pCO2 32 and pO2 of 70 and this was done on FiO2 of 21%. Her serum bicarb had dropped down to 15 this morning and the patient had a component of mild anion gap metabolic acidosis. Lactic acid levels have been fluctuating and her initial lactic acid level was at 2.3, it peaked at 6.1 and currently is down to 4.4. The patient has been receiving lactated Ringer solution. Calcium level is at 10, LFTs are normal, troponins are negative, procalcitonin level is at 0.05, the viral screen has been negative and serum acetone has been negative. UA is negative. She is currently on room air oxygen. Afebrile. Hemodynamically stable. No history of smoking. No history of COPD. No stable asthma. No reports of aspiration. No exposure to any respiratory irritants. No environmental allergies. No recurrent pneumonias in the past. No previous history of any cough. No pleurisy. No hemoptysis. On 01/24/2025, patient is being seen for a follow-up. She was seen in consultation yesterday for symptoms of acute tracheobronchitis with secondary cough. She was started on a combination of bronchodilators and steroids. Her cough is subsiding for now. At the same time, she has no significant shortness of breath and she remains on room air oxygen. Lactic acid level is also improving and has dropped down to 3.7. Sodium levels at 135, bicarbonate 23, BUN 11 with a creatinine of 0.4. The white cell count is 7.1 with a hemoglobin of 7.6. Denies having any new complaints for now. Objective - Vital Signs Vital signs: Vital Signs Temp 97.9 F 01/24/25 04:12 Pulse 92 01/24/25 04:12 Resp 16 01/24/25 04:12 BP 109/69 01/24/25 04:12 Pulse Ox 93 L 01/24/25 04:12 FiO2 Intake & Output 01/23/25 01/24/25 01/24/25 18:59 06:59 18:59 Intake Total 222 240 118 Balance 222 240 118 Weight 104.2 kg Intake: Oral 222 240 118 Other: Voiding Method Toilet # Voids 1 - Exam The patient appeared well nourished and normally developed. Vital signs as documented. The patient is currently on room air oxygen Head exam is unremarkable. No scleral icterus or corneal arcus noted. Neck is without jugular venous distension, thyromegaly, or carotid bruits. Carotid upstrokes are brisk bilaterally. Lungs are clear to auscultation and percussion. Cardiac exam reveals the PMI to be normally sized and situated. Rhythm is regular. First and second heart sounds normal. No murmurs, rubs or gallops. Abdominal exam reveals normal bowel sounds, no masses, no organomegaly and no aortic enlargement. Extremities are nonedematous and both femoral and pedal pulses are normal. Examination of the skin revealed no evidence of significant rashes, suspicious appearing nevi or other concerning lesions. Neurologically, the patient is awake and alert and the patient does not have any focal neurological deficit. Cranial nerves are essentially intact. - Labs CBC & Chem 7: 01/24/25 06:41 01/24/25 06:41 Labs: Abnormal Lab Results - Last 24 Hours (Table) 01/23/25 01/23/25 01/23/25 Range/Units 09:45 10:22 11:55 RBC (3.80-5.40) m/uL Hgb (11.4-16.0) gm/dL Hct (34.0-46.0) % MCH (25.0-35.0) pg MCHC (31.0-37.0) g/dL RDW (11.5-15.5) % Plt Count (150-450) k/uL Lymphocytes # (1.0-4.8) k/uL ABG pCO2 32 L (35-45) mmHg ABG pO2 70 L (83-108) mmHg ABG HCO3 19 L (21-25) mmol/L Hemoglobin 7.7 L (11.4-16.0) gm/dL Sodium (137-145) mmol/L Creatinine (0.52-1.04) mg/dL Glucose (74-99) mg/dL POC Glucose (mg/dL) 258 H (70-110) mg/dL Plasma Lactic Acid Sudhir 5.6 H* (0.7-2.0) mmol/L 01/23/25 01/23/25 01/23/25 Range/Units 12:57 15:59 16:21 RBC (3.80-5.40) m/uL Hgb (11.4-16.0) gm/dL Hct (34.0-46.0) % MCH (25.0-35.0) pg MCHC (31.0-37.0) g/dL RDW (11.5-15.5) % Plt Count (150-450) k/uL Lymphocytes # (1.0-4.8) k/uL ABG pCO2 (35-45) mmHg ABG pO2 (83-108) mmHg ABG HCO3 (21-25) mmol/L Hemoglobin (11.4-16.0) gm/dL Sodium (137-145) mmol/L Creatinine (0.52-1.04) mg/dL Glucose (74-99) mg/dL POC Glucose (mg/dL) 174 H (70-110) mg/dL Plasma Lactic Acid Sudhir 4.4 H* 3.7 H* (0.7-2.0) mmol/L 01/23/25 01/24/25 01/24/25 Range/Units 19:53 06:01 06:41 RBC 3.07 L (3.80-5.40) m/uL Hgb 7.6 L (11.4-16.0) gm/dL Hct 25.9 L (34.0-46.0) % MCH 24.9 L (25.0-35.0) pg MCHC 29.5 L (31.0-37.0) g/dL RDW 16.0 H (11.5-15.5) % Plt Count 473 H (150-450) k/uL Lymphocytes # 0.5 L (1.0-4.8) k/uL ABG pCO2 (35-45) mmHg ABG pO2 (83-108) mmHg ABG HCO3 (21-25) mmol/L Hemoglobin (11.4-16.0) gm/dL Sodium (137-145) mmol/L Creatinine (0.52-1.04) mg/dL Glucose (74-99) mg/dL POC Glucose (mg/dL) 247 H 193 H (70-110) mg/dL Plasma Lactic Acid Sudhir (0.7-2.0) mmol/L 01/24/25 Range/Units 06:41 RBC (3.80-5.40) m/uL Hgb (11.4-16.0) gm/dL Hct (34.0-46.0) % MCH (25.0-35.0) pg MCHC (31.0-37.0) g/dL RDW (11.5-15.5) % Plt Count (150-450) k/uL Lymphocytes # (1.0-4.8) k/uL ABG pCO2 (35-45) mmHg ABG pO2 (83-108) mmHg ABG HCO3 (21-25) mmol/L Hemoglobin (11.4-16.0) gm/dL Sodium 135 L (137-145) mmol/L Creatinine 0.44 L (0.52-1.04) mg/dL Glucose 172 H (74-99) mg/dL POC Glucose (mg/dL) (70-110) mg/dL Plasma Lactic Acid Sudhir (0.7-2.0) mmol/L Assessment and Plan Plan: Subacute cough, likely secondary to postinfectious tracheobronchitis. No evidence of pneumonia. No evidence of any respiratory insufficiency. Blood gases showed no significant respiratory acidosis. Viral screen was negative. Legionella urine antigen was negative. CT of the chest shows no acute abnormalities. No evidence of any pulm embolism. No parenchymal abnormalities. No airspace disease. Currently on room air oxygen. Lactic acidosis, improving. Coronary artery disease, with previous history of coronary stenting History of Takotsubo's cardiomyopathy with recovered LV function and ejection fraction Hypertension Hyperlipidemia History of lupus, treated with Plaquenil in the past and currently the patient not receiving any immunosuppressive therapy Anemia of chronic disease Chronic anxiety Chronic depression Osteoarthritis post a left hip arthroplasty that was performed on 12/26/2024 for severe left hip osteoarthritis. Plan Clinically improving Continue same management Continue bronchodilators and steroids This is likely a postinfectious bronchitis and the patient will be offered DuoNeb nebulized [id number]. The patient was started on IV Solu-Medrol 60 mg every 6 hours. Cough suppressant including guaifenesin DM and Tessalon Perles. No need for antibiotics. Viral screen has been negative. Oxygenation is stable. Resume home medications. Monitor lactic acid level. Lactic level IV fluids to be switched to KVO. Will continue to follow. Time with Patient: Greater than 30
[2025-01-24 16:29] LABS: Glucose,Whole Blood 206 mg/dL (70-110)
[2025-01-24 20:28] LABS: Glucose,Whole Blood 185 mg/dL (70-110)
[2025-01-24 23:45] VITALS: RESP 16
[2025-01-25] MEDS: ONDANSETRON 4 MG/2 ML VIAL IVP PRN (04:35)
[2025-01-25 06:18] LABS: Glucose,Whole Blood 183 mg/dL (70-110)
[2025-01-25 07:15] LABS: HCT 26.6 % (34.0-46.0); HGB 7.9 gm/dL (11.4-16.0); Hypochromasia Marked; MCH 24.9 pg (25.0-35.0); MCHC 29.8 g/dL (31.0-37.0); MCV 83.7 fL (80.0-100.0); Mean Platelet Volume 7.6; Platelet Count 513 k/uL (150-450); Poikilocytosis Slight; RBC 3.18 m/uL (3.80-5.40); RDW 15.9 % (11.5-15.5)
--- NOTE | 2025-01-25 11:03 | P.PN ---
Subjective Progress Note Date: 01/25/25 This is a 72-year-old female patient, being seen for symptoms of relentless cough that been going on for the past 2 to 3 weeks. The patient is known to have CAD with previous coronary stenting, hypertension, hyperlipidemia, and previous history of lupus, treated with Plaquenil and in the past and currently the patient is not receiving any active therapy for lupus. The patient underwent a hip replacement surgery on 12/26/2024. Postop, she started developing persistent cough for which she was seen by her primary care physician the patient was given a course of Zithromax suspecting an underlying pneumonia. Nevertheless, no cervical improvement was noted and the patient ended up coming into the hospital due to her ongoing persistent cough. Have initial workup in the emergency department included a chest x-ray that showed no acute abnormalities. CT of the chest was also done that showed no evidence of any pulmonary [place] or any filling defects. There was some cardiomegaly. Lung parenchyma was essentially within normal limits. No airspace disease. No consolidation. No recent lymphadenopathy. Furthermore, the patient's blood work showed a white cell count of 4.6, hemoglobin of 8.3 and a platelet count of 408. No significant leukocytosis. Blood gases showed a pH of 7.39 with a pCO2 32 and pO2 of 70 and this was done on FiO2 of 21%. Her serum bicarb had dropped down to 15 this morning and the patient had a component of mild anion gap metabolic acidosis. Lactic acid levels have been fluctuating and her initial lactic acid level was at 2.3, it peaked at 6.1 and currently is down to 4.4. The patient has been receiving lactated Ringer solution. Calcium level is at 10, LFTs are normal, troponins are negative, procalcitonin level is at 0.05, the viral screen has been negative and serum acetone has been negative. UA is negative. She is currently on room air oxygen. Afebrile. Hemodynamically stable. No history of smoking. No history of COPD. No stable asthma. No reports of aspiration. No exposure to any respiratory irritants. No environmental allergies. No recurrent pneumonias in the past. No previous history of any cough. No pleurisy. No hemoptysis. On 01/24/2025, patient is being seen for a follow-up. She was seen in consultation yesterday for symptoms of acute tracheobronchitis with secondary cough. She was started on a combination of bronchodilators and steroids. Her cough is subsiding for now. At the same time, she has no significant shortness of breath and she remains on room air oxygen. Lactic acid level is also improving and has dropped down to 3.7. Sodium levels at 135, bicarbonate 23, BUN 11 with a creatinine of 0.4. The white cell count is 7.1 with a hemoglobin of 7.6. Denies having any new complaints for now. On 01/25/2025, the patient's cough is subsided. No specific complaints. Remains on bronchodilators. Remains on IV Solu-Medrol. No chest pain. No shortness of breath. White count 7, hemoglobin is at 7.9, platelet count is at 513. Electrolytes are still pending for now. Otherwise, the patient is resting comfortably in bed. No new complaints whatsoever. Objective - Vital Signs Vital signs: Vital Signs Temp 98.3 F 01/25/25 04:18 Pulse 88 01/25/25 04:18 Resp 16 01/25/25 04:18 BP 142/84 01/25/25 04:18 Pulse Ox 92 L 01/25/25 04:18 FiO2 Intake & Output 01/24/25 01/25/25 01/25/25 18:59 06:59 18:59 Intake Total 478 20 Balance 478 20 Weight 104.2 kg 103 kg Intake: IV 20 20 Invasive Line 1 20 20 Oral 458 Other: Voiding Method Toilet Toilet # Voids 2 2 - Exam The patient appeared well nourished and normally developed. Vital signs as documented. The patient is currently on room air oxygen Head exam is unremarkable. No scleral icterus or corneal arcus noted. Neck is without jugular venous distension, thyromegaly, or carotid bruits. Carotid upstrokes are brisk bilaterally. Lungs are clear to auscultation and percussion. Cardiac exam reveals the PMI to be normally sized and situated. Rhythm is regular. First and second heart sounds normal. No murmurs, rubs or gallops. Abdominal exam reveals normal bowel sounds, no masses, no organomegaly and no aortic enlargement. Extremities are nonedematous and both femoral and pedal pulses are normal. Examination of the skin revealed no evidence of significant rashes, suspicious appearing nevi or other concerning lesions. Neurologically, the patient is awake and alert and the patient does not have any focal neurological deficit. Cranial nerves are essentially intact. - Labs CBC & Chem 7: 01/25/25 06:17 01/24/25 06:41 Labs: Abnormal Lab Results - Last 24 Hours (Table) 01/24/25 01/24/25 01/24/25 Range/Units 11:40 16:28 20:27 RBC (3.80-5.40) m/uL Hgb (11.4-16.0) gm/dL Hct (34.0-46.0) % MCH (25.0-35.0) pg MCHC (31.0-37.0) g/dL RDW (11.5-15.5) % Plt Count (150-450) k/uL POC Glucose (mg/dL) 186 H 206 H 185 H (70-110) mg/dL 01/25/25 01/25/25 Range/Units 06:16 06:17 RBC 3.18 L (3.80-5.40) m/uL Hgb 7.9 L (11.4-16.0) gm/dL Hct 26.6 L (34.0-46.0) % MCH 24.9 L (25.0-35.0) pg MCHC 29.8 L (31.0-37.0) g/dL RDW 15.9 H (11.5-15.5) % Plt Count 513 H (150-450) k/uL POC Glucose (mg/dL) 183 H (70-110) mg/dL Assessment and Plan Plan: Subacute cough, likely secondary to postinfectious tracheobronchitis. No evidence of pneumonia. No evidence of any respiratory insufficiency. Blood gases showed no significant respiratory acidosis. Viral screen was negative. Legionella urine antigen was negative. CT of the chest shows no acute abnormalities. No evidence of any pulm embolism. No parenchymal abnormalities. No airspace disease. Currently on room air oxygen. Lactic acidosis, improving. Coronary artery disease, with previous history of coronary stenting History of Takotsubo's cardiomyopathy with recovered LV function and ejection fraction Hypertension Hyperlipidemia History of lupus, treated with Plaquenil in the past and currently the patient not receiving any immunosuppressive therapy Anemia of chronic disease Chronic anxiety Chronic depression Osteoarthritis post a left hip arthroplasty that was performed on 12/26/2024 for severe left hip osteoarthritis. Plan Clinically improving and the cough is subsided significantly with systemic steroids. The patient can be taken off the IV Solu-Medrol start the patient on prednisone burst taper at time of discharge to be completed over the next 16 day s starting at a dose of 40 mg p.o. daily. Will also continue with rescue inhaler [id number]. Continue bronchodilators and steroids This is likely a postinfectious bronchitis Cough suppressant including guaifenesin DM and Tessalon Perles. No need for antibiotics. Viral screen has been negative. Oxygenation is stable. Resume home medications. IV fluids to be switched to KVO. Will continue to follow. Possible discharge home today.
[2025-01-25 11:10] VITALS: BP 131/71; PULSE 84; TEMP 97.8
--- NOTE | 2025-01-25 11:24 | P.DS ---
Providers Date of admission: 01/23/25 11:03 Expected date of discharge: 01/25/25 Attending physician: Gee Godoy MD Consults: 01/22/25 23:26 Consult Physician Routine Consulting Provider: Vitor Reeves Consult Reason/Comments: copd, persistent dyspnea Do you want consulting provider notified?: Yes Primary care physician: [facility] Course: Discharge Diagnosis: Acute hypoxic respiratory failure, likely secondary to tracheobronchitis. Patient successfully weaned off of oxygen and currently doing well. Her p rocalcitonin was negative at 0.05. Patient has a subacute cough likely residual from recent reportedly pneumonia infection. Patient was evaluated by ruby developer and cleared from pulmonary standpoint for discharge at this time. Patient discharged home on Medrol Dosepak, Ventolin inhaler, Robitussin, and Tessalon Perles. She is medically optimized for discharge and to follow-up outpatient with PCP in 1 to his ruby developer in 1 to 2 weeks. Lactic acidosis, improved. Lupus Elevated D-dimer, CTA negative for PE. CAD status post stenting. Continue cardiac medication regimen with aspirin 81 mg twice daily, atorvastatin 40 mg nightly, losartan 25 mg nightly and metoprolol 25 mg daily. Takotsubo's cardiomyopathy with recovered EF.Continue cardiac medication regimen with aspirin 81 mg twice daily, atorvastatin 40 mg nightly, losartan 25 mg nightly and metoprolol 25 mg daily. Hypertension. Continue home medication regimen with losartan 25 mg nightly and metoprolol 25 mg daily. Hyperlipidemia. Continue home medication regimen with atorvastatin 40 mg nightly. Anemia of chronic disease. Hemoglobin currently 7.9 and appears to be at patient's baseline, iron profile and thiamine levels remain pending. Patient reports that she is on home ferrous sulfate 325 mg daily and a prescription also sent at this time. Anxiety with depression. Continue Elavil 25 mg nightly, duloxetine 60 mg twice daily and Xanax 0.25 mg daily as needed for anxiety. Hospital course: Patient is a 74-year-old female with a past medical history of CAD status post stenting, Takotsubo's cardiomyopathy with recovered EF, hypertension, hyperlipidemia, lupus, anemia of chronic disease, anxiety, and depression. She presented to the hospital on 01/22/2025 with a chief complaint of shortness of breath. Upon arrival to our facility, patient underwent evaluation in the emergency department. Vital signs upon arrival show blood pressure 129/70, heart rate 88, respiratory rate 22, temp 99.6 F, and SpO2 of 96% on room air.. EKG completed showing normal sinus rhythm at [address] elevation in inferior leads II, III, and aVF otherwise. T wave or ST abnormalities. Completed and reviewed. CBC showing normocytic anemia with hemoglobin of 8.9 with most recent hemoglobin of 7.7 on 12/30/2024. Coagulation profile showing a low PTT of 21.3 and elevated D-dimer of 2.81. BMP showing hyperchloremia with chloride of 109 and blood glucose of 100. Lactic acid was elevated at 2.3. Magnesium 1.9. Liver profile unremarkable. Troponin was negative at less than 0.012 and proBNP was 45. Influenza A, influenza B, RSV, and COVID PCR were negative. Chest x-ray showing chronic changes but negative for acute cardiopulmonary process. CTA chest was negative for pulmonary emboli showing mild cardiomegaly. Patient admitted under our services with consultation to pulmonology. Patient successfully weaned off of oxygen and currently doing well. Her procalcitonin was negative at 0.05. Patient has a subacute cough likely residual from recent reportedly pneumonia infection. Patient was evaluated by ruby developer and cleared from pulmonary standpoint for discharge at this time. Patient discharged home on Medrol Dosepak, Ventolin inhaler, Robitussin, and Tessalon Perles. She is medically optimized for discharge and to follow-up outpatient with PCP in 1 to his ruby developer in 1 to 2 weeks. Physical exam: Vital signs reviewed and stable. General: Nontoxic, no distress and appears stated age. Derm: Skin warm and dry, normal coloration for ethnicity. Head: Atraumatic, normocephalic and symmetric. Eyes: EOM's intact, no lid lag, and anicteric sclera Mouth: no lip lesions, mucus membranes moist Cardiovascular: regular rate and rhythm with normal S1S2, no murmur, positive posterior tibial pulses bilaterally, and cap refill < 2 seconds. Lungs: Respirations even, regular, and unlabored on room air. Lungs CTA bilaterally, no rhonchi, no rales, no wheezing, and no accessory muscle usage. Abdominal: soft, nontender to palpation, no guarding, no appreciable organomegaly Ext: ROM intact. No gross muscle atrophy, no edema, no contractures Neuro: Speech clear, face symmetrical and CN II-XII grossly intact with no noted focal neuro deficits Psych: Alert and oriented to person, place, time, and situation. Appropriate and pleasant affect. A total of 32 minutes of time were spent preparing this complex discharge summary. Pt was discharged on 01/25/25 at 10:46 AM. Patient was seen independently by Nurse Practitioner. This document was prepared using [employer] dictation software. Please allow for errors in career services coordinator while rare they do occur. J Carlos Hummel NP rendered care for this patient independently, reviewed the findings and plan as documented in the note above. I did not physically speak with or examine the patient on this date. Patient Condition at Discharge: Stable Plan - Discharge Summary Discharge Rx Participant: No New Discharge Prescriptions: New methylPREDNISolone Dose Pack [Medrol Dose Pack] 4 mg PO DIRECTED #21 tab Albuterol Inhaler [Ventolin Hfa Inhaler] 2 puff INHALATION Q6H PRN #1 inh PRN Reason: Shortness Of Breath Or Wheezing Ferrous Sulfate [Feosol] 325 mg PO DAILY 30 Days #30 tab Dextromethorphan Polistirex [Robitussin ER] 60 mg PO Q12H #100 ml Benzonatate [Tessalon Perles] 200 mg PO TID PRN #15 cap PRN Reason: Cough Continue DULoxetine HCL [Cymbalta] 60 mg PO BID Amitriptyline HCl [Elavil] 25 mg PO HS Levocetirizine Dihydrochloride [Xyzal] 5 mg PO HS Zolpidem [Ambien] 5 mg PO HS PRN PRN Reason: Insomnia Furosemide [Lasix] 20 mg PO DAILY Acetaminophen Tab [Tylenol] 650 mg PO Q6HR PRN tab PRN Reason: Mild Pain Or Fever > 100.5 Losartan [Cozaar] 25 mg PO HS 30 Days #30 tab Atorvastatin [Lipitor] 40 mg PO HS #60 tab Metoprolol Succinate (ER) [Toprol XL] 25 mg PO DAILY #30 tab Omeprazole 40 mg PO DAILY #30 cap Montelukast Sodium 10 mg PO HS ALPRAZolam [Xanax] 0.25 mg PO DAILY PRN PRN Reason: Anxiety Aspirin 81 mg PO BID #60 tab Discharge Medication List Amitriptyline HCl [Elavil] 25 mg PO HS 07/09/23 [History] DULoxetine HCL [Cymbalta] 60 mg PO BID 07/09/23 [History] Levocetirizine Dihydrochloride [Xyzal] 5 mg PO HS 07/09/23 [History] Montelukast Sodium 10 mg PO HS 07/09/23 [History] Zolpidem [Ambien] 5 mg PO HS PRN 12/28/23 [History] ALPRAZolam [Xanax] 0.25 mg PO DAILY PRN 12/01/24 [History] Furosemide [Lasix] 20 mg PO DAILY 12/01/24 [History] Acetaminophen Tab [Tylenol] 650 mg PO Q6HR PRN tab 12/02/24 [Rx] Atorvastatin [Lipitor] 40 mg PO HS #60 tab 12/02/24 [Rx] Losartan [Cozaar] 25 mg PO HS 30 Days #30 tab 12/02/24 [Rx] Metoprolol Succinate (ER) [Toprol XL] 25 mg PO DAILY #30 tab 12/02/24 [Rx] Aspirin 81 mg PO BID #60 tab 12/27/24 [Rx] Omeprazole 40 mg PO DAILY #30 cap 12/27/24 [Rx] Albuterol Inhaler [Ventolin Hfa Inhaler] 2 puff INHALATION Q6H PRN #1 inh 01/25/25 [Rx] Benzonatate [Tessalon Perles] 200 mg PO TID PRN #15 cap 01/25/25 [Rx] Dextromethorphan Polistirex [Robitussin ER] 60 mg PO Q12H #100 ml 01/25/25 [Rx] Ferrous Sulfate [Feosol] 325 mg PO DAILY 30 Days #30 tab 01/25/25 [Rx] methylPREDNISolone Dose Pack [Medrol Dose Pack] 4 mg PO DIRECTED #21 tab 01/25/25 [Rx] Follow up Appointment(s)/Referral(s): Natalio Arellano DO [Primary Care Provider] - 1-2 days (Please call to make a follow up appointment when offices are open) Vitor Reeves MD [STAFF PHYSICIAN] - 1 Week (Please call to make a follow up appointment when offices are open) Patient Instructions/Handouts: Acute Bronchitis (GEN) Activity/Diet/Wound Care/Special Instructions: Activity: As tolerated. Take breaks as needed. Diet: Heart healthy and carb consistent diet. Special Instructions: Take all of your medications as directed and remember to keep all of your doctor's appointments and follow-up as needed. Thank you for allowing us to participate in your care, it was truly a pleasure having you for our patient!!! . Discharge Disposition: HOME SELF-CARE
[2025-01-25 13:21] LABS: % Iron Saturation 2.96 (12.00-45.00)
== END 2025-01-25 11:55 | disposition home or self-care (01) | DRG 202 ==
LOC: EC 20:10 → 4SSUR 23:28 → 3SCARD 01-23 05:08 → OBSVTOIN 01-23 11:03 → 3SCARD 01-23 14:35
PROVIDERS: ADMIT Internal Medicine; ATTEND Internal Medicine
DX: J20.9 Acute bronchitis, unspecified (principal); J96.01 Acute respiratory failure with hypoxia; E87.20 Acidosis, unspecified; D72.10 Eosinophilia, unspecified; I42.9 Cardiomyopathy, unspecified; D63.8 Anemia in other chronic diseases classified elsewhere; I51.81 Takotsubo syndrome; F32.A Depression, unspecified; I10 Essential (primary) hypertension; E66.9 Obesity, unspecified; Z87.01 Personal history of pneumonia (recurrent); R13.10 Dysphagia, unspecified; K21.9 Gastro-esophageal reflux disease without esophagitis; E78.5 Hyperlipidemia, unspecified; E87.8 Other disorders of electrolyte and fluid balance, not elsewhere classified; F41.9 Anxiety disorder, unspecified; F43.10 Post-traumatic stress disorder, unspecified; Z68.36 Body mass index [BMI] 36.0-36.9, adult; I25.10 Atherosclerotic heart disease of native coronary artery without angina pectoris; Z20.822 Contact with and (suspected) exposure to COVID-19; Z79.82 Long term (current) use of aspirin; Z79.899 Other long term (current) drug therapy; Z95.5 Presence of coronary angioplasty implant and graft; Z96.641 Presence of right artificial hip joint; Z96.652 Presence of left artificial knee joint; Z90.49 Acquired absence of other specified parts of digestive tract; Z88.1 Allergy status to other antibiotic agents; Z88.0 Allergy status to penicillin; Z88.7 Allergy status to serum and vaccine
CPT/HCPCS: 36415; 36600; 71046; 71275; 80053; 81003; 82009; 82805; 83036; 83540; 83550; 83605; 83735; 83880; 84145; 84425; 84484; 85025; 85027; 85379; 85610; 85730; 87449; 87636; 87798; 93005; 94640; 94760; 96361; 96374; 96375; 96376; 99285

== ENCOUNTER → 2025-02-12 | Outpatient (CLI) | payer MEDICARE ==
[2025-02-12 14:03] LABS: African American GFR (CKD) >90 (>60 ml/min/1.73 sqM); Blood Urea Nitrogen 11 mg/dL (7-17); Non-African American GFR(CKD) 87 (>60 ml/min/1.73 sqM)
--- NOTE | 2025-02-12 14:53 | CT ---
EXAMINATION TYPE: CT angio chest DATE OF EXAM: 02/12/2025 COMPARISON: 01/22/2025 CLINICAL INDICATION: Female, 74 years old with history of R06.09 SOB; PHH, SOB, WEAKNESS AND DIZZY. TECHNIQUE: CTA scan of the thorax is performed with IV Contrast, patient injected with 80ml mL of Isovue 370, pu lmonary embolism protocol. MIP images are created and reviewed. CT DLP: 476.[address] CTDI: mGy Automated exposure control for dose reduction was used. FINDINGS: LUNGS: The lungs are grossly clear, there is no concerning parenchymal mass or nodule identified. T here is no pleural effusion or pneumothorax seen. The tracheobronchial tree is patent. MEDIASTINUM: There is satisfactory enhancement of the pulmonary artery and its branches, there is no CT evidence for pulmonary embolism. There are no greater than 1 cm hilar or mediastinal lymph nodes. No pericardial effusion is seen. OTHER: No additional significant abnormality is seen. IMPRESSION: 1. NO EVIDENCE OF PULMONARY EMBOLISM. 2. NO ACUTE CARDIOPULMONARY DISEASE. [facility], , 02/12/2025 2:50 PM
== END | disposition home or self-care (01) ==
LOC: RADCTMAIN 13:23
PROVIDERS: ATTEND Internal Medicine
DX: R06.09 Other forms of dyspnea (principal); R06.02 Shortness of breath; R42 Dizziness and giddiness; R53.1 Weakness
CPT/HCPCS: 82565; 84520; 71275; 36415; Q9967